=== PATIENT | female | born 1975 | race Caucasian/White ===

== ENCOUNTER → 2017-11-29 15:52 | Outpatient (CLI) | payer BC, SELFPAY ==
[2017-11-29 16:47] LABS: hCG Titer Quant., Serum < 1 mIU/mL (<9 non-preg)
== END ==
PROVIDERS: Visit Provider Obstetrics & Gynecology
DX: N93.9 Abnormal uterine and vaginal bleeding, unspecified (principal)
CPT/HCPCS: 36415; 84702

== ENCOUNTER 2018-02-01 19:00 | Observation (INO) | payer BC, SELFPAY ==
[2018-01-31] VITALS (11 sets, daily range): BP systolic 104–125; BP diastolic 60–76; PULSE 54–70; RESP 15–18; TEMP 36.1–37.4; O2SAT 96–100; BMI 20.5
--- NOTE | 2018-01-31 | HYST_PTH ---
PATIENT: PETRA NAVA LOC: MS2 U#:[id number] AGE/SX: 42/F ROOM: [id number] RE02/01/[address]: Dr. Ida Howe MD : [id number] BED: 1 DIS: 02/02/2018 SPEC #: [id number] RECD: 02/01/18 09:08 STATUS: EUGENIA REBeena #: [id number] KITA: 01/31/18 00:[address]: Ida Howe DEPT: SURGICAL PATHOLOGY RECD BY: Piotr Urbina ENTERED: 02/01/18 09:09 SP TYPE: HYSTERECT OTHR DR: No Primary Care Phys Tissues: Uterus, NOS Procedures: Surgery Specimen Level V HEADER OPERATION: Lap robotic hysterectomy, right salpingectomy PRE-OP DIAGNOSIS: Pelvis and perineal pain and submucous leiomyoma of uterus with irregular menses TISSUE SUBMITTED: Uterus, cervix, right fallopian tube MICROSCOPIC DIAGNOSIS Uterus, hysterectomy: Cervix ? squamous metaplasia and minimal chronic inflammation. Endometrium ? proliferative endometrium. Myometrium ? leiomyomas with focal degenerative change and adenomyosis. Right fallopian tube ? benign paratubal cyst. AM:cristian 02/02/18 MICROSCOPIC DESCRIPTION Slides are reviewed. GROSS DESCRIPTION Received in fixative is one container labeled with the patient's name and designated uterus, cervix, right fallopian tube. The specimen consists of a hysterectomy specimen consisting of uterus with cervix and attached right fallopian tube. The uterus with cervix weighs 158 gm and measures 10 x 7 x 6 cm. The serosal surface is ortega, glistening. The ectocervical mucosa is focally congested. The external os is circular in contour. The endocervical canal measures 3 cm in length and the endocervical mucosa is ortega, glistening and unremarkable. The endometrial cavity is compressed to one side and measures 4.5 cm in length and 2 cm in width. The endometrium is ortega, glistening without any mass lesion and measures <0.1 cm in thickness. Sections of the uterine wall reveal multiple intramural nodular masses. The largest mass measures 5 cm in diameter. Sections of these masses reveal ortega whorled cut surfaces without areas of hemorrhage, necrosis or cystic degeneration. Sections of the largest nodular mass reveal focal area of degenerative changes. The uninvolved uterine wall measures up to 2.5 cm in thickness. The right fallopian tube measures 6 cm in length and up to 1 cm in diameter. The fimbrial end is identified. Sections reveal unremarkable cut surfaces. A small paratubal cyst is also noted measuring 0.3 cm in greatest dimension. Tax Examiner sections are submitted in ten cassettes as follows: 1 - anterior cervix, 2 - posterior cervix, 3 & 4 - anterior uterine wall, 5 & 6 - posterior uterine wall, 7 ? smaller intramural nodular masses, 8 & 9 ? largest nodular mass, 10- right fallopian tube and paratubal cyst. / RITA:cristian 02/01/18 TC:1 CPT: 33597
--- NOTE | 2018-01-31 10:08 | EKG12_ITS ---
Test Reason : PRE-OP Blood Pressure : / mmHG Vent. Rate : 060 BPM Atrial Rate : 060 BPM P-R Int : 112 ms QRS Dur : 076 ms QT Int : 434 ms P-R-T Axes : 008 064 042 degrees QTc Int : 434 ms Normal sinus rhythm Normal ECG No previous ECGs available Confirmed by JEFFY CASTANO, CECY ([id number]), editor trade journal AMANDA APPLE ([id number]) on 02/03/2018 2:02:01 PM Referred By: Ida Howe Confirmed By:CECY BARDALES MD
[2018-01-31 10:14] LABS: Internal QC Validated? YES +Cl - CLEAR BKGD; Pregnancy, Urine Negative Negative
[2018-01-31 11:41] LABS: Prothrombin Time (Protime)PT. 13.6 SECONDS (11.7-14.9)
[2018-01-31 11:42] LABS: Partial Thromboplast Time 27.2 Seconds (24.1-36.2)
[2018-01-31 12:51] LABS: Anion Gap 7 (5-15); BUN 10 mg/dL (7-18); BUN/Creat Ratio 15.1 RATIO (10-20); Calcium,Total 7.9 mg/dL (8.5-10.1); Chloride 106 mmol/L (98-107); Creatinine, Serum 0.66 mg/dL (0.55-1.02); EST Glomerular Filtration Rate 105 mL/min (>60); Est Glom Filt Rate - Afr Amer 126 mL/min (>60); Glucose 74 mg/dL (74-106); Potassium 4.4 mmol/L (3.5-5.1); Sodium Level 140 mmol/L (136-145)
--- NOTE | 2018-01-31 14:58 | PCM.OPRPT ---
Problem List (1) Pelvic pain Status: Acute (2) Leiomyoma Status: Acute (3) Irregular menstrual bleeding Status: Acute Report of Operation Date of Procedure: 01/31/18 Pre-Operative Diagnosis: Pelvic pain, leiomyoma, irregular menses Surgery/Procedure Performed:: Same Description of Surgical Findings:: Uterus was sounded to approximately 10 cm and a somewhat retroflexed position. The uterus had limited mobility. There is a posterior fibroid noted of the body of the uterus. Bilateral adnexa were noted to be within normal limits. synthetic filament spinner: Opal Villareal Type of Anesthesia:: General Anesthesiologist: Heri Merrill Special Medications: Cefotetan and IV preop Specimen's removed: Cervix, uterus, right fallopian tube Drains: None Estimated Blood Loss (mL): 150 Fluids Replaced: Lactated Ringer's Description of Procedure: Patient underwent a bowel prep in the home setting. She presented the day of surgery and was to have a basic metabolic panel prior to proceeding to the OR to check for electrolyte status following a bowel preparation. Multiple samples of blood had clotted and needed to be repeated before she entered the surgical suite was a stable basic metabolic panel. Upon entering the OR suite patient was placed on the patient's sandbag for comfort purposes and monitors placed. She underwent a general anesthetic without difficulty. Patient was then prepped and draped in normal sterile fashion after she had been placed in the dorsal lithotomy position via the Agustin stirrups. Tilt test had occurred with no movement being noted. After being properly prepped and draped, the bladder had indwelling catheter placed by myself. The anterior lip of the cervix was grasped and elevated and the uterus was sounded to 10-1/2 cm and a somewhat retroflexed position. Cervical eyes was then dilated to accommodate a medium sized V care. This was secured to the cervix with 2-0 Vicryl stitches at 3 and 9:00. Once the V care was assembled to the uterus for adequate uterine manipulation all other instruments were removed from the vagina except for the Gregorio catheter. Changing gloves and moving to the top of the patient, 12 cm notation above the area of the fundus was measured for camera placement. He was at the supraumbilical site that an 8 mm trocar was placed. The camera was assembled after patient had initial trocar placement at this 8 mm site with CO2 gas inflation verified by water testing. The camera in the abdomen revealed abdominal placement. 2 additional robotic arms each being 8 mm in size were placed under direct visualization in first the left and then the right lower quadrant. An executive personal assistant port was placed at the 5 mm left upper quadrant area and the air seal 8 mm port was placed in the right upper quadrant area all under direct visualization. At this point in time the robot was then docked to the patient's side and the robotic arms attached to the left and right robotic arm and the camera arm to the camera port in the supraumbilical position. The left robotic arm became the vessel sealer the right robotic arm became the monopolar germain. At this point in time I the gowned and moved to the console of the robot to take over control normal anatomy was investigated was noted that the bowels were very inflated as had been noted upon entry of the camera into the abdominal cavity with questionable adequacy and compliance of the bowel preparation being noted. At this point in time the round ligament was grasped and the patient's left side cauterized and transected the broad ligament into anterior and posterior leaves. The uterine ovarian ligament was then cauterized and transected as well. Development of the vesicouterine peritoneum occurred. Skeletonization of the uterine vasculature occurred. Grasping and cauterization of the left uterine uterine vasculature occurred. Turning to the patient's right side the right round ligament was grasped cauterized and transected the broad ligament into anterior posterior leaves for the development of vesicouterine peritoneum occurred the right fallopian tube was then transected at the mesosalpinx area after cauterization. The right utero-ovarian ligament was cauterized and then transected with further development of the broad ligament in skeletonization of the uterine vasculature. The uterine vascular vessels were then grasped cauterized and transected on the patient's right side with grasping of the cardinal ligament on patient's right side cauterization and injected transection. The cardinal ligament the patient's left side was then grasped cauterized and transected along with the uterosacral pedicles bilaterally. At approximately 6 o'clock position the colpotomy incision was made this was carried around in a Clockwise fashion to the 12:00 region which was then connected from the back of the sixth region in a counterclockwise fashion up to the 12:00 region with complete transection of the cervix away from the vaginal cuff region. My vaginal executive personal assistant then removed the cervix uterus and right fallopian tubes through the vagina. The instruments were then changed with the left arm becoming a large grasper which is a progress in the right arm becoming the Tanner suture cut. Sequentially my executive personal assistant then passed over Vicryl sutures through the executive personal assistant port in air seal ports to az to allow a left right angle stitch to occur connecting the vaginal cuff to the uterosacral cardinal complex. The exact same stitch of a second 0 Vicryl suture was used to connect the right vaginal cuff to the uterosacral cardinal complex and hemostasis was noted. 2 additional stitches of 0 Vicryl suture were then placed at the vaginal cuff of figure in in a [id number] fashion. Hemostasis was noted for total needles were used in each was noted by the executive personal assistant to be outside of the abdomen after usage. Irrigation of the pelvis occurred. The ureters were noted to be peristalsing and away from the operative site bilaterally. At this point time the Elvia was then placed by my executive personal assistant into the pelvic region and placement onto the vaginal cuff region occurred all instruments were removed from the abdominal cavity. Sponge instrument needle counts correct ?2 after the trochars and instruments removed from the abdominal cavity and the robot was de-docked from the patient's side each of the incisions was then closed with 4-0 Monocryl suture in a subcuticular fashion once again sponge instrument counts sponge instrument and needle counts were correct ?2. Patient was awakened in stable condition taken to recovery room to be admitted for overnight care Grafts/Implants Used: None - Complications None - Admit VTE Documentation VTE Present on Admission: No VTE Mechan Device Prophylaxis: SCD's VTE Pharm Prophylaxis ordered?: No Reason prophylaxis not ordered:: Procedure Not Indicated
--- NOTE | 2018-01-31 15:08 | OP.PCM_ITS ---
Problem List (1) Pelvic pain Status: Acute (2) Leiomyoma Status: Acute (3) Irregular menstrual bleeding Status: Acute Report of Operation Date of Procedure: 01/31/18 Pre-Operative Diagnosis: Pelvic pain, leiomyoma, irregular menses Surgery/Procedure Performed:: Same Description of Surgical Findings:: Uterus was sounded to approximately 10 cm and a somewhat retroflexed position. The uterus had limited mobility. There is a posterior fibroid noted of the body of the uterus. Bilateral adnexa were noted to be within normal limits. industrial eng: Opal Villareal Type of Anesthesia:: General Anesthesiologist: Heri Merrill Special Medications: Cefotetan and IV preop Specimen's removed: Cervix, uterus, right fallopian tube Drains: None Estimated Blood Loss (mL): 150 Fluids Replaced: Lactated Ringer's Description of Procedure: Patient underwent a bowel prep in the home setting. She presented the day of surgery and was to have a basic metabolic panel prior to proceeding to the OR to check for electrolyte status following a bowel preparation. Multiple samples of blood had clotted and needed to be repeated before she entered the surgical suite was a stable basic metabolic panel. Upon entering the OR suite patient was placed on the patient's sandbag for comfort purposes and monitors placed. She underwent a general anesthetic without difficulty. Patient was then prepped and draped in normal sterile fashion after she had been placed in the dorsal lithotomy position via the Agustin stirrups. Tilt test had occurred with no movement being noted. After being properly prepped and draped, the bladder had indwelling catheter placed by myself. The anterior lip of the cervix was grasped and elevated and the uterus was sounded to 10-1/2 cm and a somewhat retroflexed position. Cervical eyes was then dilated to accommodate a medium sized V care. This was secured to the cervix with 2-0 Vicryl stitches at 3 and 9:00. Once the V care was assembled to the uterus for adequate uterine manipulation all other instruments were removed from the vagina except for the Gregorio catheter. Changing gloves and moving to the top of the patient, 12 cm notation above the area of the fundus was measured for camera placement. He was at the supraumbilical site that an 8 mm trocar was placed. The camera was assembled after patient had initial trocar placement at this 8 mm site with CO2 gas inflation verified by water testing. The camera in the abdomen revealed abdominal placement. 2 additional robotic arms each being 8 mm in size were placed under direct visualization in first the left and then the right lower quadrant. An bilingual administrative assistant port was placed at the 5 mm left upper quadrant area and the air seal 8 mm port was placed in the right upper quadrant area all under direct visualization. At this point in time the robot was then docked to the patient's side and the robotic arms attached to the left and right robotic arm and the camera arm to the camera port in the supraumbilical position. The left robotic arm became the vessel sealer the right robotic arm became the monopolar germain. At this point in time I the gowned and moved to the console of the robot to take over control normal anatomy was investigated was noted that the bowels were very inflated as had been noted upon entry of the camera into the abdominal cavity with questionable adequacy and compliance of the bowel preparation being noted. At this point in time the round ligament was grasped and the patient's left side cauterized and transected the broad ligament into anterior and posterior leaves. The uterine ovarian ligament was then cauterized and transected as well. Development of the vesicouterine peritoneum occurred. Skeletonization of the uterine vasculature occurred. Grasping and cauterization of the left uterine uterine vasculature occurred. Turning to the patient's right side the right round ligament was grasped cauterized and transected the broad ligament into anterior posterior leaves for the development of vesicouterine peritoneum occurred the right fallopian tube was then transected at the mesosalpinx area after cauterization. The right utero-ovarian ligament was cauterized and then transected with further development of the broad ligament in skeletonization of the uterine vasculature. The uterine vascular vessels were then grasped cauterized and transected on the patient's right side with grasping of the cardinal ligament on patient's right side cauterization and injected transection. The cardinal ligament the patient's left side was then grasped cauterized and transected along with the uterosacral pedicles bilaterally. At approximately 6 o'clock position the colpotomy incision was made this was carried around in a Clockwise fashion to the 12:00 region which was then connected from the back of the sixth region in a counterclockwise fashion up to the 12:00 region with complete transection of the cervix away from the vaginal cuff region. My vaginal bilingual administrative assistant then removed the cervix uterus and right fallopian tubes through the vagina. The instruments were then changed with the left arm becoming a large grasper which is a progress in the right arm becoming the Tanner suture cut. Sequentially my bilingual administrative assistant then passed over Vicryl sutures through the bilingual administrative assistant port in air seal ports to id to allow a left right angle stitch to occur connecting the vaginal cuff to the uterosacral cardinal complex. The exact same stitch of a second 0 Vicryl suture was used to connect the right vaginal cuff to the uterosacral cardinal complex and hemostasis was noted. 2 additional stitches of 0 Vicryl suture were then placed at the vaginal cuff of figure in in a [id number] fashion. Hemostasis was noted for total needles were used in each was noted by the bilingual administrative assistant to be outside of the abdomen after usage. Irrigation of the pelvis occurred. The ureters were noted to be peristalsing and away from the operative site bilaterally. At this point time the Elvia was then placed by my bilingual administrative assistant into the pelvic region and placement onto the vaginal cuff region occurred all instruments were removed from the abdominal cavity. Sponge instrument needle counts correct ?2 after the trochars and instruments removed from the abdominal cavity and the robot was de-docked from the patient's side each of the incisions was then closed with 4-0 Monocryl suture in a subcuticular fashion once again sponge instrument counts sponge instrument and needle counts were correct ?2. Patient was awakened in stable condition taken to recovery room to be admitted for overnight care Grafts/Implants Used: None - Complications None - Admit VTE Documentation VTE Present on Admission: No VTE Mechan Device Prophylaxis: SCD's VTE Pharm Prophylaxis ordered?: No Reason prophylaxis not ordered:: Procedure Not Indicated
[2018-01-31] MEDS: Lactated Ringers 1,000 ML 125 ML IV ×2 (17:02→23:56)
[2018-01-31] MEDS: Ketorolac 30 MG/ML Syringe IV ×2 (17:22→21:26)
[2018-01-31] MEDS: Morphine 2 MG/ML Syringe IV ×2 (19:04→23:56)
[2018-01-31] MEDS: Famotidine 20 MG Tablet PO (21:26)
[2018-01-31] MEDS: oxyCODONE 5 MG Tablet PO ×2 (21:36→22:44)
[2018-01-31] MEDS: Acetaminophen 500 MG Tablet 1000 MG PO (21:38)
[2018-02-01 03:00] VITALS: BP 117/78; PULSE 58; RESP 16; TEMP 37.1; O2SAT 98
[2018-02-01] MEDS: Ketorolac 30 MG/ML Syringe IV ×2 (05:02→09:45)
[2018-02-01] MEDS: Glycerin 1 Suppository 1 SUPP RECTAL ×2 (05:05→16:00)
[2018-02-01] MEDS: oxyCODONE 5 MG Tablet PO ×2 (05:09→21:09)
[2018-02-01] MEDS: Acetaminophen 500 MG Tablet 1000 MG PO ×3 (05:10→21:08)
[2018-02-01 06:38] LABS: Hematocrit 33.9 % (37-47); Hemoglobin 11.5 g/dl (12.0-15.0); Mean Corp Hgb Conc 33.9 g/gl (32-36); Mean Corpuscular Hgb 31.9 pg (27.0-32.0); Mean Corpuscular Volume 94.2 fL (81-99); Mean Platelet Vol. 10.6 fl (6.2-12.0); Platelet Count 309 K/mm3 (150-450); RBC Distribution Width CV 13.3 % (11.6-14.6); RBC Distribution Width SD 44.1 fl (35.1-43.9); White Blood Count 14.5 K/mm3 (4.4-11.0)
[2018-02-01 06:41] LABS: Scan Indicated on CBC? Y/N NO
--- NOTE | 2018-02-01 08:38 | DCINST_ITS ---
Discharge Diet: No Restrictions, - - No meat, fresh vegetables or dairy for 2 weeks following surgery. Increase water intake to a minimum of 120 ounces daily. Discharge Activity: Return to Normal Activity - Ambulate often with periods of rest in between. Limit stairs., May Not Drive - while taking narcotic pain medications., May Shower May shower in (days): 0 - TODAY May resume sexual activity in: 6-8 weeks Weight Bearing Status: Full weight bearing Lifting Restrictions: 5 Call your doctor if your incision/area has: Continuous Slow Oozing, Sudden Increased Bleeding, Increased Pain/ Swelling, Increased Redness, Foul Smelling Discharge Call your doctor if you observe: Fever of 101 or Higher, Inability to urinate, Inability to have a bowel movement, Using more than one pad per hour Remove Dressing in (days):: 0 - TODAY Cleanse incision/area with: Soap & Water Allergies/Adverse Reactions: Allergies No Known Allergies Allergy (Verified 01/24/18 15:03) Medications to take at Discharge Docusate Sodium [Colace] 100 mg PO BID #30 cap 02/01/18 Ibuprofen [Motrin] 600 mg PO Q6H #30 tab 02/01/18 Oxycodone HCl/Acetaminophen [Percocet 5/325] 1 - 2 tablet PO Q4H PRN PRN 7 Days #30 tablet 02/01/18 Phenazopyridine HCl [Pyridium] 200 mg PO Q8 #10 tab 02/01/18 The following prescriptions were given: Oxycodone HCl/Acetaminophen [Percocet 5/325] 1 - 2 tablet PO Q4H PRN PRN 7 Days #30 tablet PRN Reason: Pain Phenazopyridine HCl [Pyridium] 200 mg PO Q8 #10 tab Docusate Sodium [Colace] 100 mg PO BID #30 cap Ibuprofen [Motrin] 600 mg PO Q6H #30 tab Primary Care Physician: Care Physician,No Primary [Primary Care Provider] - Test Results: Test results from this visit will be discussed in further detail at your follow- up appointment, if applicable. Please Follow Up With: Ida Howe MD When: First postop appointment the week of February 06
[2018-02-01 09:40] VITALS: BP 124/64; PULSE 65; RESP 16; TEMP 36.9; O2SAT 100
[2018-02-01] MEDS: 0.9% NaCl Peripheral Flush Adult/Peds IV (09:44)
[2018-02-01] MEDS: Phenazopyridine 95 MG Tablet 190 MG PO ×3 (09:44→21:10)
[2018-02-01] MEDS: Famotidine 20 MG Tablet PO ×2 (09:45→21:11)
[2018-02-01 11:45] VITALS: O2SAT 98
--- NOTE | 2018-02-01 12:37 | PCM.PN.OB ---
Patient Problems: Active and Suspected Problems Pelvic pain (Acute) Leiomyoma (Acute) Irregular menstrual bleeding (Acute) Subjective: No nausea. No vomiting. No flatus production. No attempts to void yet. - Physical Exam General: Alert HEENT: PERRLA, EOMI, Normocephalic Oral: Moist Mucosa Neck: Supple Lungs: Clear to auscultation, Normal air movement Cardiovascular: Regular rate, Regular Rhythm Abdomen: Bowel Sounds Present, Non Tender, - - incision bandages dry x 5 Extremities: No cyanosis, No edema, No Calf Tenderness Skin: No rashes Musculoskeletal: No Muscle Wasting Psych/Mental Status: Normal Affect, Appropriate Vital Signs Temp Pulse Resp BP Pulse Ox 98.4 F 65 16 124/64 H 98 02/01/18 09:40 02/01/18 09:40 02/01/18 09:40 02/01/18 09:40 02/01/18 11:45 Oxygen Flow Rate (L/min) 1.5 Oxygen Delivery Method Room Air Weight: 111 lb 5.335 oz Body Mass Index (BMI) 20.5 Intake and Output for Last 24 Hours 01/30/18 01/31/18 02/01/18 23:59 23:59 23:59 Intake Total 3147 / 3147 Output Total 300 / 300 2200 / 2200 Balance -300 / -300 947 / 947 Laboratory Tests Past 24 Hrs 01/31/18 02/01/18 12:28 06:02 WBC 14.5 H RBC 3.60 L Hgb 11.5 L Hct 33.9 L MCV 94.2 MCH 31.9 MCHC 33.9 RDW 13.3 RDW Differential 44.1 H Plt Count 309 MPV 10.6 Sodium 140 Potassium 4.4 Chloride 106 Carbon Dioxide 27.0 Anion Gap 7 BUN 10 Creatinine 0.66 Estim Creat Clear Calc 85.50 Est GFR (MDRD) Af Amer 126 Est GFR (MDRD) Non-Af 105 BUN/Creatinine Ratio 15.1 Glucose 74 Calcium 7.9 L Medical Necessity - Tobacco Use Smoking Status: Never smoker Assessment/Plan All Active Problems Pelvic pain (Acute) Leiomyoma (Acute) Irregular menstrual bleeding (Acute) 1. POD #1 - robotic assisted hysterectomy with right salpingectomy ambulates well needs to void and have flatus production prior to discharge to home reviewed surgery reviewed incomplete bowel prep and postop recovery reviewed diet reviewed discharge plans
[2018-02-01 13:24] VITALS: BP 116/62; PULSE 72; RESP 18; TEMP 37; O2SAT 99
[2018-02-01] MEDS: Ketorolac 10 MG Tablet PO ×2 (16:43→21:09)
--- NOTE | 2018-02-01 16:53 | NURSING ---
Patient has ambulated at least six times in halls with significant other so far this shift.
[2018-02-01 20:56] VITALS: BP 108/66; PULSE 76; RESP 18; TEMP 37.2; O2SAT 98
--- NOTE | 2018-02-01 21:18 | NURSING ---
pt has light yello liquid bm movement x2. passes gas during bm
[2018-02-01] MEDS: Metoclopramide 10 MG/2 ML Vial IV (21:50)
[2018-02-02] MEDS: Ketorolac 10 MG Tablet PO ×2 (03:10→09:18)
[2018-02-02 03:16] VITALS: BP 112/76; PULSE 61; RESP 18; TEMP 36.6; O2SAT 97
[2018-02-02] MEDS: Acetaminophen 500 MG Tablet 1000 MG PO (05:48)
[2018-02-02] MEDS: Phenazopyridine 95 MG Tablet 190 MG PO (05:48)
[2018-02-02] MEDS: Metoclopramide 10 MG/2 ML Vial IV (05:49)
[2018-02-02] MEDS: 0.9% NaCl Peripheral Flush Adult/Peds IV (05:50)
[2018-02-02 08:06] VITALS: BP 111/71; PULSE 68; RESP 18; TEMP 37.1; O2SAT 97
[2018-02-02] MEDS: Famotidine 20 MG Tablet PO (09:17)
--- NOTE | 2018-02-02 10:26 | PCM.PN.OB ---
Patient Problems: Active and Suspected Problems Pelvic pain (Acute) Leiomyoma (Acute) Irregular menstrual bleeding (Acute) Subjective: + flatus and now remainder of bowel prep previously incomplete is releasing. No nausea. No vomiting. Continued gas discomfort. - Physical Exam General: No apparent distress, Well developed, Well nourished HEENT: PERRLA, EOMI, Normocephalic Oral: Moist Mucosa Neck: Supple Abdomen: Bowel Sounds Present, Soft, Non Tender, Non-Distended Neurological: Cranial nerves II-XII grossly intact Vital Signs Temp Pulse Resp BP Pulse Ox 98.7 F 68 18 111/71 97 02/02/18 08:06 02/02/18 08:06 02/02/18 08:06 02/02/18 08:06 02/02/18 08:06 Oxygen Flow Rate (L/min) 1.5 Oxygen Delivery Method Room Air Weight: 111 lb 5.335 oz Body Mass Index (BMI) 20.5 Intake and Output for Last 24 Hours 01/31/18 02/01/18 02/02/18 23:59 23:59 23:59 Intake Total 3947 / 3947 600 / 600 Output Total 300 / 300 3400 / 3400 800 / 800 Balance -300 / -300 547 / 547 -200 / -200 Medical Necessity - Tobacco Use Smoking Status: Never smoker Assessment/Plan All Active Problems Pelvic pain (Acute) Leiomyoma (Acute) Irregular menstrual bleeding (Acute) 1. POD #2 - robotic assisted hysterectomy with right salpingectomy ambulates well failed to complete bowel prep and inflated bowel noted at surgery loose stool noted related to bowel prep + flatus and voiding well reviewed diet reviewed discharge plans
[2018-02-02 10:36] VITALS: BP 128/70; PULSE 64; RESP 18; TEMP 36.9; O2SAT 100
== END 2018-02-02 10:50 | disposition home or self-care (01) ==
PROVIDERS: Admitting Provider Obstetrics & Gynecology; Visit Provider Obstetrics & Gynecology
PROC: 0UT94ZZ Resection of Uterus, Percutaneous Endoscopic Approach (ICD-10-PCS; CPT 58571; principal; 2018-01-31 11:40)
DX: D25.0 Submucous leiomyoma of uterus (principal); N80.0 Endometriosis of uterus; N83.8 Other noninflammatory disorders of ovary, fallopian tube and broad ligament; N87.9 Dysplasia of cervix uteri, unspecified
CPT/HCPCS: 00940; 58571; S2900; 36415; 80048; 81025; 85027; 85610; 85730; 86850; 86900; 88307; 93005; 96361; 96365; 96366; 96375; 96376; 99218; J7120; A4216; G0378; G0379; J2405

== ENCOUNTER → 2018-02-10 16:36 | Outpatient (CLI) | payer BC, SELFPAY | PROVIDERS: Visit Provider Obstetrics & Gynecology | DX: R30.0 Dysuria (principal) | CPT/HCPCS: 87086 ==

== ENCOUNTER → 2018-04-14 09:21 | Outpatient (CLI) | payer BC, SELFPAY ==
--- NOTE | 2018-04-14 09:24 | US_ITS ---
STUDY: ABDOMINAL ULTRASOUND REASON FOR EXAM: Female, 42 years old. Mid to right abdominal pain x2 months, history of hysterectomy 2 months ago TECHNIQUE: Transabdominal ultrasound was performed with real-time and static beavers scale imaging. TECHNICAL QUALITY: Adequate. COMPARISON: None. FINDINGS: Liver: The liver measures 13.1 cm. There is normal echogenicity of the liver. The bile ducts are within normal limits. There is hepatic color flow. The direction of portal flow is hepatopetal. There is no demonstrated mass lesion. Gallbladder: The gallbladder is not visualized. Common Bile Duct (C.B.D.): The common bile duct measures 3 mm. Pancreas: Normal size of the head, body and tail of the pancreas. There is normal echogenicity of the pancreas. There is no demonstrated pancreatic mass or cyst. Spleen: Normal size of the spleen. The spleen measures 8.4 x 3.5 x 3.6 cm. Right Kidney: Normal size of the right kidney. The right kidney measures 10.5 x 4.5 x 4.4 cm. Normal renal cortex. The right cortex measures 1.2 cm. There is no demonstrated renal mass or cyst. There is no right hydronephrosis. Left Kidney: Normal size of the left kidney. The left kidney measures 10.2 x 3.6 x 5.4 cm. Normal renal cortex. The left cortex measures 1.8 cm. There is no demonstrated renal mass or cyst. There is no left hydronephrosis. There is a 4 mm calcification of the left kidney. Aorta: Abdominal aorta is normal in caliber and contour, and measures 2.1 cm in diameter proximally, 1.5 cm in the mid abdominal region, and 1.2 cm in diameter distally. I.V.C.: The IVC is patent. There is no ascites. US/Abdomen Complete IMPRESSION: Nonvisualization of the gallbladder. Nonobstructing 4 mm calcification of the left kidney. The remainder of the study is unremarkable. Electronically Signed: Terrell Barclay MD at 22:03 EDT , Service support ,
--- NOTE | 2018-04-14 09:25 | US_ITS ---
STUDY: ULTRASOUND TRANSVAGINAL CLINICAL: Female, 42 years old. Mid right abdominal pain x2 months, hysterectomy 2 months ago TECHNIQUE: Transvaginal COMPARISON: Prior study of 04/06/2018 FINDINGS: Uterus is not seen in accordance with history of hysterectomy. The cervix is unremarkable. Normal right ovary, measuring 2.3 x 2.0 x 1.6 cm. Normal left ovary, measuring 3.7 x 2.7 x 2.4 cm. There is a left ovarian cyst measuring 1.7 x 1.2 x 1.5 cm. Ovarian blood flow appears normal bilaterally. There is no free fluid in the pelvis. Polycystic ovary disease: No. The bladder volume is approximately 121 mL. US/Pelvic (Non ) IMPRESSION: Status post hysterectomy. The right ovary appears normal. There is a 1.7 x 1.2 x 1.5 cm left ovarian cyst. There is no fluid in the cul-de-sac. Electronically Signed: Terrell Barclay MD at 21:59 EDT , Service support ,
--- NOTE | 2018-04-14 09:26 | US_ITS ---
STUDY: ULTRASOUND TRANSVAGINAL CLINICAL: Female, 42 years old. Mid right abdominal pain x2 months, hysterectomy 2 months ago TECHNIQUE: Transvaginal COMPARISON: Prior study of 04/06/2018 FINDINGS: Uterus is not seen in accordance with history of hysterectomy. The cervix is unremarkable. Normal right ovary, measuring 2.3 x 2.0 x 1.6 cm. Normal left ovary, measuring 3.7 x 2.7 x 2.4 cm. There is a left ovarian cyst measuring 1.7 x 1.2 x 1.5 cm. Ovarian blood flow appears normal bilaterally. There is no free fluid in the pelvis. Polycystic ovary disease: No. The bladder volume is approximately 121 mL. US/Transvaginal Non- IMPRESSION: Status post hysterectomy. The right ovary appears normal. There is a 1.7 x 1.2 x 1.5 cm left ovarian cyst. There is no fluid in the cul-de-sac. Electronically Signed: Terrell Barclay MD at 21:59 EDT , Service support ,
== END ==
PROVIDERS: Family Provider Family Medicine; PCP Family Medicine; Referring Provider Obstetrics & Gynecology; Visit Provider Obstetrics & Gynecology
DX: R10.9 Unspecified abdominal pain (principal)
CPT/HCPCS: 76700; 76830; 76856; 93976

== ENCOUNTER → 2024-06-11 | Outpatient (CLI) | payer BC, SELFPAY ==
--- NOTE | 2024-06-11 09:23 | BI_ITS ---
MAMMOGRAPHY - BILATERAL DIAGNOSTIC REASON FOR EXAM: Female, 49 years old. breast lumps PERTINENT HISTORY: Non-contributory. TECHNIQUE: Digital examination. Mediolateral oblique (MLO) and craniocaudad (CC) views of both breasts were obtained. CAD: CAD was performed on this study. COMPARISON: 02/06/2022 FINDINGS: Breast Composition: The breasts are extremely dense, which lowers the sensitivity of mammography. 2 cm oval obscured equal density mass in the retroareolar right breast at mid depth and the ultrasound is recommended for further evaluation. No dominant mass left breast. No suspicious calcifications. No other significant abnormalities are identified. BI/DIAG MAMM W/CAD, BILAT IMPRESSION: Further ultrasonographic evaluation recommended, as described above. ASSESSMENT CATEGORY: BIRADS Category 0: Incomplete. Need additional imaging evaluation. A letter regarding these results will be sent to the patient by the facility within 30 days. FOLLOW UP RECOMMENDATION: Ultrasound Recommended. (I) Approximately 10% of breast cancers are not detected by mammography. A normal mammogram should not delay biopsy of a clinically suspicious abnormality. Electronically Signed: José Ugalde MD at 10:20 EST ,
--- NOTE | 2024-06-11 09:23 | US_ITS ---
STUDY: ULTRASOUND BREAST - RIGHT REASON FOR EXAM: Female, 49 years old. Palpable mass TECHNIQUE: Axial and longitudinal images of the RIGHT breast were performed with a high resolution ultrasound transducer. # OF IMAGES: 6 COMPARISON: Diagnostic mammogram earlier today FINDINGS: RIGHT Breast: Heterogeneous back and echotexture. At 12:00, 1 cm from the nipple, ultrasound confirms a 2 cm oval parallel circumscribed anechoic mass with posterior enhancement consistent with a cyst within some dense breast parenchyma consistent with fibrocystic change.: US/Breast Limited Unilateral IMPRESSION: Ultrasound confirms rubber cystic change with a 2 cm cyst in the retroareolar right breast, corresponding to the patient''s palpable abnormality. ASSESSMENT CATEGORY: BIRADS Category 2: Benign. A letter regarding these results will be sent to the patient by the facility within 30 days. Electronically Signed: José Ugalde MD at 15:52 EST ,
== END | disposition home or self-care (01) ==
LOC: OPBI 09:21
PROVIDERS: PCP Family Medicine; Referring Provider Nurse Practitioner Family; Visit Provider Nurse Practitioner Family
DX: N60.01 Solitary cyst of right breast (principal)
CPT/HCPCS: 76642; 77062; 77066; G0279

== ENCOUNTER 2024-06-20 10:45 | Outpatient (CLI) | payer BC, SELFPAY ==
--- NOTE | 2024-06-20 10:49 | US_ITS ---
STUDY: ULTRASOUND BREAST - LEFT REASON FOR EXAM: Female, 49 years old. Palpable lump left breast. TECHNIQUE: Axial and longitudinal images of the LEFT breast were performed with a high resolution ultrasound transducer. # OF IMAGES: 41 COMPARISON: Comparison is made with prior mammogram dated June 11, 2024. FINDINGS: LEFT Breast: The medial aspect of the left breast was examined with ultrasound. There is dense fibroglandular tissue. No cystic or solid mass is seen. US/Breast Limited Unilateral IMPRESSION: No sonographic abnormality is seen. ASSESSMENT CATEGORY: BIRADS Category 1: Negative. A letter regarding these results will be sent to the patient by the facility within 30 days. Electronically Signed: Desmond Luciano MD at 13:58 EST ,
== END 2024-06-20 23:59 | disposition home or self-care (01) ==
LOC: OPUS 10:47
PROVIDERS: PCP Family Medicine; Referring Provider Nurse Practitioner Family; Visit Provider Nurse Practitioner Family
DX: N63.20 Unspecified lump in the left breast, unspecified quadrant (principal); R92.8 Other abnormal and inconclusive findings on diagnostic imaging of breast
CPT/HCPCS: 76642

== ENCOUNTER → 2025-07-01 | Outpatient (CLI) | payer BC, SELFPAY ==
--- NOTE | 2025-07-01 15:30 | BI_ITS ---
EXAM: SCRN MAMM (CAD)W/MILI BILAT DATE: 07/01/2025 CLINICAL HISTORY: F, Age 50 y/o , SCREEN FOR BREAST CANCER TECHNIQUE: Procedure Code: [id number] Modality: MG Procedure: SCRN MAMM (CAD)W/MILI BILAT COMPARISON: Prior exam(s) dated 06/11/2024 and 06/20/2024. FINDINGS: TISSUE DENSITY: The breasts are extremely dense, which lowers the sensitivity of mammography. Bilateral Breast Mammographic Findings: There is a 3 cm mass in the superior, middle 3rd aspect of the right breast which has increased in size when compared to the prior exam. Further workup is indicated. Stable nodular densities are seen elsewhere in the right breast. Benign round microcalcifications are seen. Stable nodular densities are seen in the left breast. Benign round microcalcifications are seen in the left breast. No suspicious masses, suspicious cluster of microcalcifications, architectural distortion or secondary signs of malignancy is identified in the left breast. BI/SCRN MAMM (CAD)W/MILI BILAT IMPRESSION: There is a 3 cm mass in the superior, middle 3rd aspect of the right breast whi ch has increased in size when compared to the prior exam. Further workup is indicated. Patient should return for an LM view of the right breast as well as spot compre ssion CC and spot compression MLO views of the right breast mass. An ultrasound may also be needed. OVERALL FINAL ASSESSMENT BI-RADS 0: INCOMPLETE - NEED ADDITIONAL IMAGING EVALUATION. RECOMMENDATION: Additional Views obtained/call backs Additional Recommendation none A letter with findings and recommendations will be mailed to the patient. Reading Location: [id number]
--- OUTSIDE RECORDS SUMMARY | 2025-07-01 20:37 | XMS RPT_ITS | CCD ---
Author Organization [facility] Care Team Providers Care Manager Qa Name Role Phone Colin Hennessy Unavailable Unavailable Hennessy, Colin A Unavailable Unavailable Ida Howe Unavailable Unavailable Ida Howe Unavailable Unavailable No Doctor Assigned, Nodr Unavailable Unavail able Reilly Connell Unavailable Unavailable No Doctor Assigned, Nodr Unavailable Unavail able EFREN EGAN Admitting Unavailable ROROEFREN KELSEY Referring Unavailable NO, PHYSICIAN Primary Care Unavailable Reilly Connell Primary Care Provider [phone] CAROLINE CANDELARIA Admitting Unavailabl e KOCAROLINE SUAREZ Attending Unavailabl e STENCEL, REILLY LEAHY Primary Care Unavailab le KOVACCAROLINE Coleman Admitting Unavailabl e STENCEL, REILLY LEAHY Primary Care Unavailab le RUSTAM CASTRO Attending Unavailable Reilly Connell Primary Care Provider [phone] Reilly Connell Unavailable Unavailable Unavailable CAROLINE CANDELARIA Admitting Unavailabl e EMELIA TREJO Attending Unavailable CAROLINE CANDELARIA Referring Unavailabl e STENCEL, REILLY LEAHY Primary Care Unavailab le KOVACKCAROLINE Admitting Unavailabl e TRA GASTELUM Attending Unavailable CAROLINE CANDELARIA Referring Unavailabl e STENCEL, REILLY LEAHY Primary Care Unavailab le STENCEL, REILLY LEAHY Primary Care Unavailab le RILEY VALLE Attending Unavailable Stencel, Reilly Leahy Primary Care Unavailab le Stencel, Reilly Leahy Attending Unavailab le Stencel, Reilly Leahy Referring Unavailab le Stencel, Reilly Leahy Primary Care Unavailab le Reilly Torre Attending Unavailable Stencel, Reilly Leahy Referring Unavailab le FarrierCarli Attending Unavailable FarrierCarli Referring Unavailable Stencel, Reilly Leahy Primary Care Unavailab le Stencel, Reilly Leahy Primary Care Unavailab le Torre, Reilly Phillips Attending Unavailable Torre, Reilly Phillips Referring Unavailable Stencel, Reilly Leahy Primary Care Unavailab le Torre, Reilly Phillips Attending Unavailable Torre, Reilly Phillips Referring Unavailable Stencel, Reilly Leahy Primary Care Unavailab le Stencel, Reilly Leahy Attending Unavailab le Stencel, Reilly Leahy Referring Unavailab le Stencel, Reilly Leahy Primary Care Unavailab le Jamin, Rowena Moya Attending Unavailab le Apple, Brandi Greer Attending Unavailab le Stencel, Reilly Leahy Primary Care Unavailab le Torre, Reilly Phillips Attending Unavailable Stencel, Reilly Leahy Primary Care Unavailab le Stencel, Reilly Leahy Primary Care Unavailab le Stencel, Reilly Leahy Attending Unavailab le Stencel, Reilly Leahy Primary Care Unavailab le Stencel, Reilly Leahy Attending Unavailab le Stencel, Reilly Leahy Primary Care Unavailab le Farrier, Ms. Carli Phillips Attending Unavaila ble Stencel, Reilly Leahy Primary Care Unavailab le Jamin, Rowena Moya Attending Unavailab le Jamin, Rowena Moya Attending Unavailab le Stencel, Reilly Leahy Primary Care Unavailab le Jamin, Rowena Moya Attending Unavailab le Stencel, Reilly Leahy Primary Care Unavailab le Jamin, Rowena Moya Attending Unavailab le Stencel, Reilly Leahy Primary Care Unavailab le Stencel, Reilly Leahy Primary Care Unavailab le Jamin, Rowena Moya Attending Unavailab le Stencel, Reilly Leahy Primary Care Unavailab le Jamin, Rowena Moya Attending Unavailab le Stencel, Reilly Leahy Primary Care Unavailab le Jamin, Rowena Moya Attending Unavailab le Stencel, Reilly Leahy Primary Care Unavailab le Jamin, Rowena Moya Attending Unavailab le Stencel, Reilly Leahy Primary Care Unavailab le Jamin, Rowena Moya Attending Unavailab le Stencel Reilly CASTANO Primary Care Provider [phone] Errol Hernandez MD Unavailable Reilly Connell MD Primary Care Provider Nydia Johnson Referring Unavailable Stencel, Reilly Primary Care Unavailable Nydia Johnson Attending Unavailable Nydia Johnson Referring Unavailable Stencel, Reilly Primary Care Unavailable Nydia Johnson Attending Unavailable Stencel, Reilly Primary Care Unavailable Stencel, Reilly Referring Unavailable Nydia Johnson Attending Unavailable Stencel, Reilly Primary Care Unavailable Stencel, Reilly Referring Unavailable Nydia Johnson Attending Unavailable YEATERERROL Attending Unavailable STENCEL, REILLY Woodall Primary Care Unavailable STENCEL, REILLY Woodall Attending Unavailable STENCEL, REILLY Woodall Primary Care Unavailable STENCEL, REILLY Woodall Primary Care Unavailable STENCEL, REILLY Woodall Referring Unavailable STENJOHANNA, REILLY Woodall Primary Care Unavailable Reilly Connell MD Primary Care Provider SYSTEM, PROVIDER NOT IN Attending Unavaila ble STENCEL, REILLY LEAHY Primary Care Unavailab le SYSTEM, PROVIDER NOT IN Referring Unavaila ble STENCEL, REILLY LEAHY Primary Care Unavailab le SYSTEM, PROVIDER NOT IN Referring Unavaila ble SYSTEM, PROVIDER NOT IN Attending Unavaila ble WRAYMAGALY DILLON Attending Unavailable STENCEL, REILLY LEAHY Primary Care Unavailab le MAGALY WRAY Attending Unavailable STENCEL, REILLY LEAHY Primary Care Unavailab le ANNETTE MCKEON Attending Unavailable STENCEL, REILLY LEAHY Primary Care Unavailab le STENCEL, REILLY LEAHY Primary Care Unavailab le AMINTA ANTUNEZ Attending Unavailab le Medications Current Medications Medication Drug Class(es) Dates Sig (Normalized) Sig (Original) acetaminophen 325 mg / oxyCODONE hydrochloride 5 mg oral tablet (4 sources) Opioid Agonist Start: 02-06-2020 End: 02-13-2020 take 1 tablet by mouth once as needed for pain, then take 2 tablets by mouth every four hours as needed for pain oxyCODONE-acetamin ophen (PERCOCET) 5-325 mg per tablet Indications: Left shoulder pain, unspecified chronicity Take 1 (one) tablet to 2 (two) tablets by mouth every 4 (four) hours as needed for pain . 40 tablet 0 02/06/2020 02/13/2020 Active Start: 12-01-2016 End: 12-06-2019 take 5 tablets by mouth every four hours as needed oxyCODONE-acetaminophen (PERCOCET) 5-325 mg per tablet Take 5 tablets by mouth every 4 (four) hours as needed for pain. 0 12/01/2016 12/06/2019 Discontinued (Discontinued by another clinician) amoxicillin 875 mg / clavulanate 125 mg oral tablet (1 source) Penicillin-class Antibacterial Start: 08-24-2023 End: 09-03-2023 take 1 tablet by mouth twice daily amoxicillin-pot clavulanate (Augmentin) 875-125 mg tablet Indications: Bacterial pneumonia Take 1 tablet (875 mg) by mouth 2 times a day for 10 days. 20 tablet 0 08/24/2023 09/03/2023 Active benzonatate 100 mg oral capsule (1 source) Non-narcotic Antitussive Start: 08-24-2023 End: 09-23-2023 take 1 capsule by mouth three times daily as needed for cough benzonatate (Tessalon) 100 mg capsule Indications: Subacute cough Take 1 capsule (100 mg) by mouth 3 times a day as needed for cough. Do not crush or chew. 42 capsule 0 08/24/2023 09/23/2023 Active cephalexin 500 mg oral capsule (1 source) Cephalosporin Antibacterial Start: 02-06-2020 End: 02-09-2020 take 1 capsule by mouth four times daily cephALEXin (KEFLEX) 500 MG capsule Take 1 (one) capsule (500 mg total) by mouth 4 (four) times a day for 3 days . 12 capsule 0 02/06/2020 02/09/2020 Active docusate sodium 100 mg oral capsule (1 source) Start: 02-06-2020 End: 02-16-2020 take 1 capsule by mouth twice daily docusate sodium (COLACE) 100 MG capsule Take 1 (one) capsule (100 mg total) by mouth 2 (two) times a day Purchase over the counter Do not take if you start to have diarrhea for 10 days . 20 capsule 0 02/06/2020 02/16/2020 Active ibuprofen 600 mg oral tablet (20 sources) Nonsteroidal Anti-inflammatory Drug Start: 08-12-2024 take 1 tablet by mouth every six hours for pain ibuprofen 600 mg tablet Indications: Knee effusion, left , Sprain of left knee, initial encounter Take 1 tablet (600 mg) by mouth every 6 hours if needed for moderate pain (4 - 6) for up to 30 doses. 30 tablet 08/12/2024 Active take 1 tablet by jose th every six hours as needed for pain ibuprofen (ADVIL,MOTRIN) 200 MG tablet T yasmin 1 (one) tablet (200 mg total) by mouth every 6 (six) hours as needed for pain . Active Completed/Discontinued Medications Medication Drug Class(es) Dates Sig (Normalized) Sig (Original) acetaminophen 325 mg / dextromethorphan hydrobromide 10 mg / phenylephrine hydrochloride 5 mg oral capsule (3 sources) Uncompetitive B-lvnkvn-L-aspartat e Receptor Antagonist, Sigma-1 Agonist, alpha-1 Adrenergic Agonist End: 08-13-2024 phenylephrine-DM- acetaminophen (Vicks DayQuil Cold-Flu Relief) 5-10-325 mg capsule 08/13/2024 Discontinued (Med List Cleanup) [id number] 200 actuat albuterol 0.09 mg/actuat metered dose inhaler (3 sources) beta2-Adrenergic Agonist Start: 08-24-2023 End: 08-23-2024 take 2 puff(s) by inhalation every six hours for wheezing albuterol 90 mcg/actuation inhaler Indications: Subacute cough Inhale 2 puffs every 6 hours if needed for wheezing. 18 g 11 08/24/2023 08/13/2024 Discontinued (Therapy completed) azithromycin 250 mg oral tablet (3 sources) Macrolide Antimicrobial Start: 08-22-2023 End: 08-13-2024 take 1 tablet by mouth once daily azithromycin (Zithromax) 250 mg tablet Take 1 tablet (250 mg) by mouth once daily. 08/22/2023 08/13/2024 Discontinued (Therapy completed) bupivacaine liposome (PF) (EXPAREL) 133 mg/10 mL + 0.5% bupivacaine (PF) (MARCAINE) 10 mL (20 mL TOTAL) (1 source) Start: 02-06-2020 End: 02-06-2020 bupivacaine liposome (PF) (EXPAREL) 133 mg/10 mL + 0.5% bupivacaine (PF) (MARCAINE) 10 mL (20 mL TOTAL) calcium chloride 0.0014 meq/ml / potassium chloride 0.004 meq/ml / sodium chloride 0.103 meq/ml / sodium lactate 0.028 meq/ml injectable solution (2 sources) Start: 02-06-2020 End: 02-06-2020 take 100 mL intravenous route every hour 100 mL/hr, Intravenous, Continuous, Starting Tue02/06/20 at 1300, PACU (only) Start: 02-06-2020 End: 02-06-2020 lactated Ringers infusion DM/p-ephed/acetaminoph/doxyl am (VICKS NYQUIL ORAL) (3 sources) End: 08-13-2024 DM/p-ephed/acetaminoph/doxyl am (VICKS NYQUIL ORAL) Take by mouth. 08/13/2024 Discontinued (Therapy completed) DM/p-ephed/aceta minoph/doxylam (VICKS NYQUIL ORAL) Take by mouth. Active DM/p-ephed/aceta minoph/doxylam (VICKS NYQUIL ORAL) Take by mouth. 0 Active 20 ml fentaNYL 0.05 mg/ml injection (2 sources) Opioid Agonist Start: 02-06-2020 End: 02-06-2020 25 mcg, Intravenous, Every 5 min PRN, moderate to severe pain, Starting Tue02/06/20 at 1200, For 4 doses, PACU (only) [] Do not give more than 100 mcg while in PACU. Start: 02-06-2020 End: 02-06-2020 100 mcg, Intravenous, Once, Tue02/06/20 at 0800, For 1 dose, Pre-Procedure Pre-procedure for nerve block. May repeat in 5 minutes x 1 if sedation inadequate to perform block. guaiFENesin 20 mg/ml oral solution (3 sources) End: 08-13-2024 take 10 mL by mouth three times daily as needed for cough guaiFENesin (Robitussin) 100 mg/5 mL syrup Take 10 mL (200 mg) by mouth 3 times a day as needed for cough. 08/13/2024 Discontinued (Therapy completed) 0.5 ml HYDROmorphone hydrochloride 1 mg/ml prefilled syringe (1 source) Opioid Agonist Start: 02-06-2020 End: 02-06-2020 0.5 mg, Intravenous, Every 5 min PRN, moderate to severe pain, Starting Tue02/06/20 at 1200, For 6 doses, PACU (only) [] Give if fentanyl not effective or not ordered. [] Do not give more than 3 mg total. Lidocaine (1 source) Antiarrhythmic, Amide Local Anesthetic Start: 02-06-2020 End: 02-06-2020 5 mL, Other, Once, Tue02/06/20 at 0800, For 1 dose, Pre-Procedure [] for anesthesia block administration meloxicam 15 mg oral tablet (16 sources) Nonsteroidal Anti-inflammatory Drug Start: 01-18-2022 take 1 tablet by mouth once daily Meloxicam 15 MG Oral Tablet TAKE 1 TABLET DAILY. Quantity: 30 Refills: 3 Ordered: 04-Aug-2021 Reilly Torre DO Start : 04-Aug-2021 Active 5 ml midazolam 1 mg/ml injection (1 source) Benzodiazepine Start: 02-06-2020 End: 02-06-2020 2 mg, Intravenous, Once, Tue02/06/20 at 0800, For 1 dose, Pre-Procedure Pre-pro cedure for nerve block. May repeat in 5 minutes x 1 if sedation inadequate to perform block. naloxone (NARCAN) injection 0.1 mg (2 sources) Start: 02-06-2020 End: 02-06-2020 naloxone (NARCAN) injection 0.1 mg Start: 02-06-2020 End: 02-06-2020 naloxone (NARCAN) injection 0.1 mg 2 ml ondansetron 2 mg/ml injection (1 source) Serotonin-3 Receptor Antagonist Start: 02-06-2020 End: 02-06-2020 4 mg, Intravenous, Every 15 min PRN, nausea, vomiting, Starting Tue02/06/20 at 1200, For 2 doses, PACU (only) Do not give more than 2 doses. Administer first as needed for nausea/vomiting, or as directed by anesthesia predniSONE 20 mg oral tablet (20 sources) Start: 08-24-2023 End: 08-24-2023 take 1 tablet by mouth once daily predniSONE (Deltasone) 20 mg tablet Indications: Flu-like symptoms Take 1 tablet (20 mg) by mouth once daily for 5 days. 5 tablet 0 08/24/2023 08/24/2023 Discontinued (Med List Cleanup) Start: 06-24-2021 take 4 tablets by [facility] once daily at mealtime predniSONE 10 MG Oral Tablet TAKE 4 TABLET Daily TAKE WITH FOOD Quantity: 20 Refills: 0 Ordered: 24-Jun-2021 Reilly Connell MD Start : 24-Jun-2021 Active 2 ml prochlorperazine 5 mg/ml injection (1 source) Phenothiazine Start: 02-06-2020 End: 02-06-2020 take 10 mg intravenous route every twenty-four hours as needed 10 mg, Intravenous, Once as needed, nausea, Starting Tue02/06/20 at 1200, For 1 dose, PACU (only) Administer if ondansetron (Zofran), promethazine (Phenergan), and Metocolopramide (Reglan) ineffective or not ordered, or as directed by anesthesia, as needed for nausea/vomiting promethazine hydrochloride 25 mg oral tablet (1 source) Phenothiazine Start: 02-06-2020 End: 02-06-2020 take 1 tablet by mouth every twenty-four hours as needed 12.5 mg, Oral, Once as needed, nausea, vomiting, Starting Tue02/06/20 at 1200, For 1 dose, PACU (only) Administer if ondansetron (Zofran) ineffective or not ordered, and patient can tolerate oral administration, or as directed by anesthesia, as needed for nausea/vomiting Problems Active Problems Problem Classification Problem Date Documented Date Episodic/Chronic Acute bronchitis (20 sources) Acute bronchitis; Translations: [Acute bronchitis] Episodic Joint disorders and dislocations; trauma-related (8 sources) Derangement of left knee; Translations: [Unspecified internal derangement of left knee] Onset: 08-13-2024 08-13-2024 Chronic Nonmalignant breast conditions (3 sources) Unspecified lump in the left breast, unspecified quadrant; Translations: [Unspecified lump in the right breast, unspecified quadrant] Onset: 05-30-2024 Episodic Other connective tissue disease (20 sources) Pain in left lower limb; Translations: [Pain in limb] Episodic Other connective tissue disease (15 sources) Lateral epicondylitis of left humerus; Translations: [Lateral epicondylitis] Episodic Other connective tissue disease (1 source) Lateral epicondylitis, left elbow; Translations: [Lateral epicondylitis, left elbow] Onset: 04-29-2022 Episodic Other connective tissue disease (3 sources) Impingement syndrome of right shoulder region; Translations: [Impingement syndrome of right shoulder] Other connective tissue disease (20 sources) Calcific tendinitis of left shoulder; Translations: [Calcific tendonitis of left shoulder] Onset: 10-27-2016 10-27-2016 Other injuries and conditions due to external causes (1 source) Injury of superior glenoid labrum of shoulder joint; Translations: [Superior glenoid labrum lesion of right shoulder, initial encounter] Episodic Other lower respiratory disease (1 source) Cough; Translations: [Subacute cough] 08-24-2023 Episodic Other non-traumatic joint disorders (1 source) Effusion of joint of left knee; Translations: [Effusion, left knee] 08-12-2024 Episodic Other non-traumatic joint disorders (2 sources) Effusion, left knee; Translations: [Effusion, left knee] Onset: 08-12-2024 Episodic Other non-traumatic joint disorders (1 source) 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; Translations: [Arthritis of right shoulder region] Residual codes; unclassified (20 sources) History of repair of musculotendinous cuff of shoulder; Translations: [S/P right rotator cuff repair] Onset: 02-25-2020 02-25-2020 Episodic Residual codes; unclassified (1 source) Viral syndrome; Translations: [Other general symptoms and signs] 08-24-2023 Episodic Residual codes; unclassified (2 sources) Pain Onset: 08-21-2024 Episodic Sprains and strains (9 sources) Strain of rotator cuff capsule; Translations: [Sprain of left knee] Onset: 08-12-2024 08-12-2024 Episodic Unclassified (1 source) Subacute cough; Translations: [Subacute cough] Onset: 08-24-2023 Unclassified (1 source) Sprain of medial collateral ligament of left knee, initial encounter 09-20-2024 Past or Other Problems Problem Classification Problem Date Documented Date Episodic/Chronic Other connective tissue disease (6 sources) Pain in left leg; Translations: [Pain in left leg] Onset: 06-24-2021 Episodic Other connective tissue disease (1 source) Pain in leg, unspecified; Translations: [Pain in leg, unspecified] Onset: 06-24-2021 Episodic Other connective tissue disease (4 sources) Calcific tendinitis of left shoulder; Translations: [Calcific tendinitis of left shoulder] Onset: 10-27-2016 10-27-2016 Episodic Other non-traumatic joint disorders (20 sources) Shoulder pain; Translations: [Left shoulder pain] Onset: 09-29-2016 09-29-2016 Episodic Other non-traumatic joint disorders (2 sources) Pain in left elbow; Translations: [Pain in left elbow] Onset: 12-01-2021 Episodic Other non-traumatic joint disorders (2 sources) Pain in right elbow; Translations: [Pain in right elbow] Onset: 12-01-2021 Episodic Other non-traumatic joint disorders (1 source) Pain in left knee; Translations: [Pain in left knee] Onset: 08-24-2021 Episodic Other non-traumatic joint disorders (1 source) Pain in left hip; Translations: [Pain in left hip] Onset: 06-24-2021 Episodic Other non-traumatic joint disorders (4 sources) Pain in left shoulder; Translations: [Pain in joint, shoulder region] Onset: 09-29-2016 09-29-2016 Episodic Other screening for suspected conditions (not mental disorders or infectious disease) (4 sources) Encounter for screening mammogram for malignant neoplasm of breast; Translations: [Encntr screen mammogram for malignant neoplasm of breast] Onset: 02-06-2022 Episodic Pneumonia (except that caused by tuberculosis or sexually transmitted disease) (3 sources) Bacterial pneumonia; Translations: [Unspecified bacterial pneumonia] Onset: 08-24-2023 08-24-2023 Episodic Residual codes; unclassified (20 sources) History of arthroscopic procedure on shoulder; Translations: [Other specified postprocedural states] Onset: 02-25-2020 02-25-2020 Episodic Residual codes; unclassified (2 sources) Other general symptoms and signs; Translations: [Other general symptoms and signs] Onset: 08-24-2023 Episodic Unclassified (1 source) Subacute cough; Translations: [Subacute cough] Onset: 08-24-2023 Results Test Name Value Interpretation Reference Range Facility MR KNEE LEFT WO IV CONTRASTo n 08-15-2024 MR KNEE LEFT WO IV CONTRAST Interpreted By: Cornel Brasher, STUDY: MR KNEE LEFT WO IV CONTRAST; INDICATION: Signs/Symptoms:tender medial joint line. COMPARISON: Plain film radiographs of the left knee performed August 12, 2024 Previous MRI left knee August 24, 2021 ACCESSION NUMBER(S): [id number] ORDERING CLINICIAN: REILLY CONNELL TECHNIQUE: Routine multiplanar multisequential MRI of the left knee without contrast. FINDINGS: Lateral meniscus intact. Medial meniscus intact. Anterior cruciate ligament normal. Posterior cruciate ligament normal. Extensor tendons are normal. There is a new mild sprain of the medial collateral ligament with some thickening and edema of the anterior fibers with adjacent superficial edema but no gross fiber disruption. No focal chondral defects. No large effusion. No focal fluid collections. No evidence of a soft tissue mass. No evidence of fracture. No marrow replacement lesion. IMPRESSION: Mild sprain of the medial collateral ligament. No other internal derangement left knee. Signed by: Cornel Brasher 08/16/2024 6:42 AM Dictation workstation: [id number] [facility] XR KNEE LEFT 1-2 VIEWSon XR KNEE LEFT 1-2 VIEWS Interpreted By: Andrew Hyman, STUDY: XR KNEE LEFT 1-2 VIEWS 08/12/2024 11:29 am INDICATION: Signs/Symptoms:pain COMPARISON: None. ACCESSION NUMBER(S): [id number] ORDERING CLINICIAN: ERROL ESTRADA TECHNIQUE: 2 views of the left knee including AP and lateral projections were obtained. FINDINGS: There is no evidence of acute fracture or dislocation identified. The joint spaces are well preserved throughout without significant degenerative changes. No suprapatellar joint effusion is present. IMPRESSION: 1. No acute fracture or dislocation. MACRO: None. Signed by: Andrew Hyman 08/12/2024 11:32 AM Dictation workstation: [id number] [facility] XR Knee - left 1 or 2 Viewso n 08-12-2024 1. No acute fracture or dislocation. MACRO: None. Signed by: Andrew Hyman 08/12/2024 11:32 AM Dictation workstation: [id number] [facility]ODAL Interpreted By: Andrew Ritchie, STUDY: XR KNEE LEFT 1-2 VIEWS 08/12/2024 11:29 am INDICATION: Signs/Symptoms:pain COMPARISON: None. ACCESSION NUMBER(S): [id number] ORDERING CLINICIAN: ERROL ESTRADA TECHNIQUE: 2 views of the left knee including AP and lateral projections were obtained. FINDINGS: There is no evidence of acute fracture or dislocation identified. The joint spaces are well preserved throughout without significant degenerative changes. No suprapatellar joint effusion is present. [facility]AL Andrew Hyman MD - 08/12/2024 Interpreted By: Andrew Hyman, STUDY: XR KNEE LEFT 1-2 VIEWS 08/12/2024 11:29 am INDICATION: Signs/Symptoms:pain COMPARISON: None. ACCESSION NUMBER(S): [id number] ORDERING CLINICIAN: ERROL ESTRADA TECHNIQUE: 2 views of the left knee including AP and lateral projections were obtained. FINDINGS: There is no evidence of acute fracture or dislocation identified. The joint spaces are well preserved throughout without significant degenerative changes. No suprapatellar joint effusion is present. IMPRESSION: 1. No acute fracture or dislocation. MACRO: None. Signed by: Andrew Hyman 08/12/2024 11:32 AM Dictation workstation: [id number] [facility] Work Phone: Radiology Study observation (narrative) [facility] Work Phone: XR Knee - left 1 or 2 ViewsO rdered By: Andrew Hyman on 08-12-2024 [facility] Work Phone: Breast Limited Unilateralon 06-20-2024 Breast Limited Unilateral [facility] Imaging Services [address] [place] [id number] Breast Limited Unilateral MR#: [id number] Acct: [id number] Name: ROULA WADSWORTH Rep #: [id number] : 1975 F 49 From: Desmond ledesma MD PCP: Dr. Reilly Connell MD Status: [facility] Study: Breast Limited Unilateral Date of Exam: Exam# [id number] Ordering Dr: Nydia Johnson MACHINING SUPERVISOR-Wolf [id number] STUDY: ULTRASOUND BREAST - LEFT REASON FOR EXAM: Female, 49 years old. Palpable lump left breast. TECHNIQUE: Axial and longitudinal images of the LEFT breast were performed with a high resolution ultrasound transducer. # OF IMAGES: 41 COMPARISON: Comparison is made with prior mammogram dated June 11, 2024. FINDINGS: LEFT Breast: The medial aspect of the left breast was examined with ultrasound. There is dense fibroglandular tissue. No cystic or solid mass is seen. US/Breast Limited Unilateral IMPRESSION: No sonographic abnormality is seen. ASSESSMENT CATEGORY: BIRADS Category 1: Negative. A letter regarding these results will be sent to the patient by the facility within 30 days. Electronically Signed: Desmond Luciano MD at 13:58 EST , CC: PATTI Johnson; Dr. Reilly Connell MD Sales Consultant Residential Manager: Signed Normal [facility] Breast Limited Unilateralon 06-11-2024 Breast Limited Unilateral [facility] Imaging Services [address] [place] [address] Breast Limited Unilateral MR#: [id number] Acct: [id number] Name: ROULA WADSWORTH Rep #: [id number] : 1975 F 49 From: Michelle Ugalde MD PCP: Dr. Reilly Connell MD [facility] Study: Breast Limited Unilateral Date of Exam: Exam# [id number] Ordering Dr: Nydia Johnson MACHINING SUPERVISORMichaelC ADDENDUM by Dr. Michelle Ugalde MD on 06/18/24 at 0822 ADDENDUM [id number] Ultrasound of the palpable abnormality in the left breast will be obtained. Electronically Signed: Michelle Ugalde MD at 8:22 EST , 06/18/24 0822 Date cc: PATTI Johnson; Dr. Reilly Connell MD * Signed ADDENDUM by Dr. Michelle Ugalde MD on 06/18/24 at 0822 US/Breast Limited Unilateral IMPRESSION: undefined 06/18/24 0829 Date cc: PATTI Johnson; Dr. Reilly Connell MD * Signed [id number] STUDY: ULTRASOUND BREAST - RIGHT REASON FOR EXAM: Female, 49 years old. Palpable mass TECHNIQUE: Axial and longitudinal images of the RIGHT breast were performed with a high resolution ultrasound transducer. # OF IMAGES: 6 COMPARISON: Diagnostic mammogram earlier today FINDINGS: RIGHT Breast: Heterogeneous back and echotexture. At 12:00, 1 cm from the nipple, ultrasound confirms a 2 cm oval parallel circumscribed anechoic mass with posterior enhancement consistent with a cyst within some dense breast parenchyma consistent with fibrocystic change.: US/Breast Limited Unilateral IMPRESSION: Ultrasound confirms rubber cystic change with a 2 cm cyst in the retroareolar right breast, corresponding to the patient''s palpable abnormality. ASSESSMENT CATEGORY: BIRADS Category 2: Benign. A letter regarding these results will be sent to the patient by the facility within 30 days. Electronically Signed: Michelle Ugalde MD at 15:52 EST , CC: PATTI Johnson; Dr. Reilly Connell MD Sales Consultant Residential Manager: Signed Normal [facility] DIAG MAMM W/CAD, BILATon DIAG MAMM W/CAD, BILAT [facility] Imaging Services [address] [place] [address] DIAG MAMM W/CAD, BILAT MR#: [id number] Acct: [id number] Name: ROULA WADSWORTH Rep #: [id number] : 1975 F 49 From: Michelle Ugalde MD PCP: Dr. Reilly Connell MD [facility] Study: DIAG MAMM W/CAD, BILAT Date of Exam: 06/11/24 Exam# [id number] Ordering Dr: Nydia Johnson ADDENDUM by Dr. Michelle Ugalde MD on 06/18/24 at 0821 ADDENDUM [id number] Ultrasound of the palpable abnormality in left breast will be obtained. Electronically Signed: Michelle Ugalde MD at 8:21 EST , 06/18/24 0821 Date cc: PATTI Johnson; Dr. Reilly Connell MD * Signed ADDENDUM by Dr. Michelle Ugalde MD on 06/18/24 at 0821 BI/DIAG MAMM W/CAD, BILAT IMPRESSION: undefined 06/18/24 0828 Date cc: PATTI Johnson; Dr. Reilly Connell MD * Signed [id number] MAMMOGRAPHY - BILATERAL DIAGNOSTIC REASON FOR EXAM: Female, 49 years old. breast lumps PERTINENT HISTORY: Non-contributory. TECHNIQUE: Digital examination. Mediolateral oblique (MLO) and craniocaudad (CC) views of both breasts were obtained. CAD: CAD was performed on this study. COMPARISON: 02/06/2022 FINDINGS: Breast Composition: The breasts are extremely dense, which lowers the sensitivity of mammography. 2 cm oval obscured equal density mass in the retroareolar right breast at mid depth and the ultrasound is recommended for further evaluation. No dominant mass left breast. No suspicious calcifications. No other significant abnormalities are identified. BI/DIAG MAMM W/CAD, BILAT IMPRESSION: Further ultrasonographic evaluation recommended, as described above. ASSESSMENT CATEGORY: BIRADS Category 0: Incomplete. Need additional imaging evaluation. A letter regarding these results will be sent to the patient by the facility within 30 days. FOLLOW UP RECOMMENDATION: Ultrasound Recommended. (I) Approximately 10% of breast cancers are not detected by mammography. A normal mammogram should not delay biopsy of a clinically suspicious abnormality. Electronically Signed: Michelle Ugalde MD at 10:20 EST , CC: PATTI Johnson; Dr. Reilly Connell MD Sales Consultant Residential Manager: Signed Normal [facility] Supervisor [employer] Office Visit Reporton 05-30-2024 Supervisor [employer] Office Visit Report [facility] [address], [address] [place] [address] OFFICE VISIT Date of Service: 05/30/24 MR#: [id number] Acct: [id number] Name: ROULA WADSWORTH Rep #: [id number] : 1975 Provider: PATTI Stark Age/Sex: 49/F [place] [facility] [place] Signed with Addenda ADDENDUM by PATTI Johnson on 06/12/24 at 1008 Assessment and Plan Assessment and Plan (1) Breast lump: Status: Acute Comment: left and right Orders: Orders DIAG MAMM W/CAD, BILAT 06/11/24 N63.0 - Unspecified lump in unspecified breast Breast Limited Unilateral 06/11/24 N63.0 - Unspecified lump in unspecified breast Breast Limited Unilateral 06/11/24 N63.0 - Unspecified lump in unspecified breast Medications: Discontinued oxycodone-acetaminophen 5-325 mg Discontinued Reason: Pt no longer taking 1 - 2 tabs PO Q4H PRN 7 days PRN 30 tabs 0RF Pain D25.9 - Leiomyoma of uterus, unspecified phenazopyridine Discontinued Reason: Pt no longer taking 200 mg PO Q8 10 tabs 0RF docusate sodium Discontinued Reason: Pt no longer taking 100 mg PO BID 30 caps 1RF ibuprofen Discontinued Reason: Pt no longer taking 600 mg PO Q6H 30 tabs 0RF Physical Exam Chest Breast/Axilla Palpation: abnormal palpation of the axillae other (see exam below; addendum to 6pm/10pm breast lump of left breast. Right breast tenderness. 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 Required: No Is patient in pain?: No Allergies No Known Allergies Allergy (Verified 05/30/24 15:40) Medications ???Medication ???Instructions ???Recorded ???Confirmed ???Type NK 05/30/24 05/30/24 History Is last menstrual period known: No Post menopausal: No Patient : No Control Method: hyst PFS Surgical History (Updated 05/30/24 @ 15:46 by Agata Ahjua) H/O: hysterectomy Social History (Updated 05/30/24 @ 15:47 by Agata Ahuja) adopted: No Smoking Status: Never smoker alcohol intake: never substance use type: does not use seatbelt use: always do you feel safe at home: Yes HPI Encounter for routine gynecological examination Details: ROULA WADSWORTH is a 49 year old who presents for annual exam. She reports she has noticed sore breasts for about 2 weeks. Tender to touch. She reports no discharge or nipple bleeding. She has not checked her breasts for lumps. Last mammogram greater than 5 years ago. Last PAP: 2017; normal. S/P hysterectomy. History of abnormal PAP: no Last mammogram: greater than 5 years. [place]--normal per patient History of abnormal mammogram: n/a Colon cancer screening: never Other preventative health care screenings: Reilly Connell pcp Female Reproductive History Last Menstrual Period: 07/18/16 Questions: metorrhagia: No, sexually active: Yes, dyspareunia: Yes (pelvic) and PCB: No ROS Const Constitutional: Denies chills, fatigue, fever(s), headache(s) or weight loss Eyes Eyes: Denies change in vision ENT ENT: Denies dizziness Resp Resp: Denies cough GI GI: Denies abdominal pain, constipation or nausea : Denies difficulty voiding, dysuria, hematuria, nipple discharge, pelvic pain, prolapse symptoms, urinary incontinence, vaginal discharge, vaginal dryness, vaginal odor or vaginal pruritus Skin Skin/Breast: Reports breast pain; Denies alopecia, rash, breast mass, breast skin changes or nipple discharge Neuro Neuro: Denies dizziness Psych Psych: Denies anxiety or depression Endo Endo: Denies cold intolerance, excessive sweating or heat intolerance Exam Const General: cooperative, healthy appearing, comfortable, no acute distress, well groomed and well hydrated Nutritional Appearance: well nourished Orientation: alert, awake and oriented x3 HENMT Head: normal to inspection and normocephalic Ears: hearing grossly normal bilaterally and external ears normal Nose: external nose normal Face and sinus: normal facial exam Eyes General: appearance normal, both eyes and all related structures Neck Neck: normal visual inspection, full ROM and no lymphadenopathy Thyroid: thyroid normal Chest Chest palpation inspection: normal inspection of the chest Breast inspection: normal inspection of the breasts and normal inspection of the axillae Breast palpation: normal palpation of the axillae, no axillary lymphadenopathy and abnormal palpation of the breast (right tenderness throughout /left (6pm, 10pm); multiple; tender ) Resp Effort Inspection: normal respiratory effort, able to speak in complete sente (more content not included)... Normal [facility] Influenza virus A and B and SARS-CoV-2 (COVID-19) identified WILLIE+probe Nom (Resp)on 08-24-2023 FLUAV RNA WILLIE+probe Ql (Resp) Not detected Normal Not Detected [facility] Ambulatory Comment on above: Order Comment: This assay has received FDA Emergency Use Authorization (EUA) and is only authorized for the duration of time that circumstances exist to justify the authorization of the emergency use of in vitro diagnostic tests for the detection of SARS-CoV-2 virus and/or diagnosis of COVID-19 infection under section 564(b)(1) of the Act, 21 U.S.C. 360bbb-3(b)(1). Testing for SARS-CoV-2 is only recommended for patients who meet current clinical and/or epidemiological criteria as defined by federal, state, or local public health directives. This assay is an in vitro diagnostic nucleic acid amplification test for the qualitative detection of SARS-CoV-2, Influenza A, and Influenza B from nasopharyngeal specimens and has been validated for use at [facility]. Negative results do not preclude COVID-19 infections or Influenza A/B infections, and should not be used as the sole basis for diagnosis, treatment, or other management decisions. If Influenza A/B and RSV PCR results are negative, testing for Parainfluenza virus, Adenovirus and Metapneumovirus is routinely performed for [facility] [place], and is available on other patients by placing an add-on request. Performed By: #### 9 [id number] #### DAVIDE Gonzalez ([id number]) [facility] ([facility]) [id number] [place] [id number] FLUBV RNA WILLIE+probe Ql (Resp) Detected Abnormal Not Detected [facility] Ambulatory Comment on above: Order Comment: This assay has received FDA Emergency Use Authorization (EUA) and is only authorized for the duration of time that circumstances exist to justify the authorization of the emergency use of in vitro diagnostic tests for the detection of SARS-CoV-2 virus and/or diagnosis of COVID-19 infection under section 564(b)(1) of the Act, 21 U.S.C. 360bbb-3(b)(1). Testing for SARS-CoV-2 is only recommended for patients who meet current clinical and/or epidemiological criteria as defined by federal, state, or local public health directives. This assay is an in vitro diagnostic nucleic acid amplification test for the qualitative detection of SARS-CoV-2, Influenza A, and Influenza B from nasopharyngeal specimens and has been validated for use at [facility]. Negative results do not preclude COVID-19 infections or Influenza A/B infections, and should not be used as the sole basis for diagnosis, treatment, or other management decisions. If Influenza A/B and RSV PCR results are negative, testing for Parainfluenza virus, Adenovirus and Metapneumovirus is routinely performed for [facility] [place] and intensive care in[place], and is available on other patients by placing an add-on request. Performed By: #### [id number] #### DAVIDE Gonzalez ([id number]) [facility] ([facility]) [address] [place] [id number] SARS-CoV-2 (COVID-19) RNA WILLIE+probe Ql (Resp) Not detected Normal Not Detected [facility] Ambulatory Comment on above: Order Comment: This assay has received FDA Emergency Use Authorization (EUA) and is only authorized for the duration of time that circumstances exist to justify the authorization of the emergency use of in vitro diagnostic tests for the detection of SARS-CoV-2 virus and/or diagnosis of COVID-19 infection under section 564(b)(1) of the Act, 21 U.S.C. 360bbb-3(b)(1). Testing for SARS-CoV-2 is only recommended for patients who meet current clinical and/or epidemiological criteria as defined by federal, state, or local public health directives. This assay is an in vitro diagnostic nucleic acid amplification test for the qualitative detection of SARS-CoV-2, Influenza A, and Influenza B from nasopharyngeal specimens and has been validated for use at [facility]. Negative results do not preclude COVID-19 infections or Influenza A/B infections, and should not be used as the sole basis for diagnosis, treatment, or other management decisions. If Influenza A/B and RSV PCR results are negative, testing for Parainfluenza virus, Adenovirus and Metapneumovirus is routinely performed for [facility] [place] and intensive care in[place], and is available on other patients by placing an add-on request. Performed By: #### 9 [id number] #### DAVIDE Gonzalez ([id number]) [facility] ([facility]) [address] [place] [address] POCT Influenza A/B manually resultedon 08-24-2023 POC Rapid Influenza A Negative Negative [facility] Work Phone: POC Rapid Influenza B Negative Negative [facility] Work Phone: [facility] Work Phone: OT Progress Noteon 2 OT Progress Note Therapy Diagnosis Assessed Lateral epicondylitis of left elbow (726.32) (M77.12) Plan Goals: Goals set and discussed today. STG: ROULA will demonstrate good carryover of HEP for ROM, strengthening and coordination in order to improve functional independence at home/work by 2 weeks. LTG: ROULA will increase L minute clerk strength by 7 lbs to increase I with manipulating heavier objects to complete work and home tasks in 5 weeks. LTG: ROULA will demonstrate improved functional independence at home by a decreased DASH score to 0% by 5 weeks. LTG: ROULA will demonstrate work simulation tasks of resisted motion with some force to x10 minutes pain free to facilitate return to full duty pain free by 5 weeks. Motor Function/Control/Tone: Intervention plan include: hot pack , paraffin , ultrasound , education/instruction , home program , manual therapy , therapeutic activities and therapeutic exercises. Frequency and duration: 2 time(s) a week, for 5 weeks, for 10 visits. Potential to achieve rehab goals is excellent. Plan of care was developed with input and agreement by the patient. Assessment Pt reporting no increase in pain this date. Pt does report fatigue d/t lack of rest breaks to simulate continuous work tasks. Pt also tolerating increase in resistance well this date. Patient was able to complete today's treatment with some difficulty. Reason For Visit Evaluation and Treatment. Insurance Insurance reviewed Visit number: 9 Approved number of visits: 10 Authorization date range: 03/15/22- no end date Tai/RENEA (03/15/22-no end date) 03/27 POC 9 INS Onset Date: 2021 Subjective Patient reports:. Pt reporting some muscle soreness this date after doing some increased continuous lifting at work although within restrictions. Pt reporting she did not get the new job position. Precautions: lifting 20 No more than 20 pounds . Fall Risk: none Treatment Time in clinic started at 745 am Time in clinic ended at 815 am Total time in clinic is 30 minutes. Total timed code time is 28 minutes. Therapeutic exercise (84314): timed minutes 28 . -L arm on 11lb ball flex/ext x 10 w/ 10 second holds -KENDELL elbow flexion on 11lb ball flex/ext x15 -Chest press out with 11lb ball x15 -L hand 10# DB bicep curls x 20 -L hand 10# DB elbow extension x20 -L hand 10# DB shoulder press x 20 -L hand 6# DB sup/pro x 20 w/ 3 second holds at end points -L hand 6# DB IR/ER x 20 -L hand 3lb wrist cuff moving rings L<>R on ROM arc x 3 round trips with large and medium attachment . Therapeutic Activity (72444):. Contacts for Physician Signature First attempt date: 03/31/22. Referring Provider Signature: I am in agreement with the above plan of care. Referring Provider Signature , Date/Time 'Scores and Scales' Signatures Electronically signed by : Charity Sarabia OTR/Lisa; Apr 28 2022 8:15AM EST (Author) Normal [facility] OT Progress Noteon 2 OT Progress Note Therapy Diagnosis Assessed Lateral epicondylitis of left elbow (726.32) (M77.12) Plan Goals: Goals set and discussed today. STG: ROULA will demonstrate good carryover of HEP for ROM, strengthening and coordination in order to improve functional independence at home/work by 2 weeks. LTG: ROULA will increase L minute clerk strength by 7 lbs to increase I with manipulating heavier objects to complete work and home tasks in 5 weeks. LTG: ROULA will demonstrate improved functional independence at home by a decreased DASH score to 0% by 5 weeks. LTG: ROULA will demonstrate work simulation tasks of resisted motion with some force to x10 minutes pain free to facilitate return to full duty pain free by 5 weeks. Motor Function/Control/Tone: Intervention plan include: hot pack , paraffin , ultrasound , education/instruction , home program , manual therapy , therapeutic activities and therapeutic exercises. Frequency and duration: 2 time(s) a week, for 5 weeks, for 10 visits. Potential to achieve rehab goals is excellent. Plan of care was developed with input and agreement by the patient. Assessment Patient tolerating most exercises well this date w/ wedge eliminated and reps increased, however several breaks taken w/ sup/pro d/t fatigue of LUE, decreasing weight for sup/pro and IR/ER d/t fatigue. patient c/o discomfort in lat elbow w/ IR on 5# DB. Patient states she does not have any pain at end of session states I am just very tired today and my shoulder feels tired. Patient was able to complete today's treatment with some difficulty. Reason For Visit Evaluation and Treatment. Insurance Insurance reviewed Visit number: 8 Approved number of visits: 10 Authorization date range: 03/15/22- no end date Ronald (03/15/22-no end date) 02/24 POC 8 INS Onset Date: 2021 Subjective Patient reports:. 0/10 pain reported at beginning of session. 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 Precautions: lifting 20 No more than 20 pounds . Fall Risk: none Treatment Time in clinic started at 0830 am Time in clinic ended at 0900 am Total time in clinic is 30 minutes. Total timed code time is 28 minutes. Therapeutic exercise (49854): timed minutes 28 . [id number] -L hand 10# DB bicep curls x 20 -L hand 10# DB elbow extension x20 -L hand 10# DB shoulder press x 20 -L hand 5# DB sup/pro x 20 w/ 3 second holds at end points -L hand 5# DB IR/ER x 20 -L hand 2lb wrist cuff moving rings L<>R on ROM arc x 3 round trips -B hands on 11lb ball D<>P x 12 w/ 3 second holds at end points -L arm on 11lb ball flex/ext x 10 w/ 10 second holds . Therapeutic Activity (77498):. Contacts for Physician Signature First attempt date: 03/31/22. Referring Provider Signature: I am in agreement with the above plan of care. Referring Provider Signature , Date/Time 'Scores and Scales' Signatures Electronically signed by : GAMA Carpenter/Lisa; Apr 23 2022 9:27AM EST (Author) Electronically signed by : LANE Villanueva/Lisa; Apr 26 2022 8:31AM EST Normal [facility] OT Progress Noteon 2 OT Progress Note Therapy Diagnosis Assessed Lateral epicondylitis of left elbow (726.32) (M77.12) Plan Goals: Goals set and discussed today. STG: ROULA will demonstrate good carryover of HEP for ROM, strengthening and coordination in order to improve functional independence at home/work by 2 weeks. LTG: ROULA will increase L minute clerk strength by 7 lbs to increase I with manipulating heavier objects to complete work and home tasks in 5 weeks. LTG: ROULA will demonstrate improved functional independence at home by a decreased DASH score to 0% by 5 weeks. LTG: ROULA will demonstrate work simulation tasks of resisted motion with some force to x10 minutes pain free to facilitate return to full duty pain free by 5 weeks. Motor Function/Control/Tone: Intervention plan include: hot pack , paraffin , ultrasound , education/instruction , home program , manual therapy , therapeutic activities and therapeutic exercises. Frequency and duration: 2 time(s) a week, for 5 weeks, for 10 visits. Potential to achieve rehab goals is excellent. Plan of care was developed with input and agreement by the patient. Assessment Attempting to increase resistance from 15lb to 20lbs with SHR, pt unable to complete reps with 20lbs. Pt demos ability to complete all exercises without difficulty aside from RD/UD. Pt reporting mild fatigue at end of session, no pain. Patient was able to complete today's treatment with some difficulty. Reason For Visit Evaluation and Treatment. Insurance Insurance reviewed Visit number: 7 Approved number of visits: 10 Authorization date range: 03/15/22- no end date Tai/RENEA (03/15/22-no end date) 01/24 POC 7 INS Onset Date: 2021 Subjective Patient reports:. Pt brought in work restrictions and 20lb limit appears to just be for work. Pt still concerned about cortisone injection. Pt reporting no pain this date. 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 Precautions: lifting 20 No more than 20 pounds . Fall Risk: none Treatment Time in clinic started at 0745 am Time in clinic ended at 0815 am Total time in clinic is 30 minutes. Total timed code time is 28 minutes. Therapeutic exercise (37937): timed minutes 13 . [id number] L Bicep curl x15 on arm wedge with 10lb weight Sup/pro with L arm on wedge with 10lb weight wrist extension x15 with L arm on wedge with 10lb weight wrist flexion with L arm on wedge with 10lb weight x15 UD/RD deviation with arm on wedge with 10lb weight x15. Therapeutic Activity (45893): timed minutes 15 . 745-800 -MRMT with 15lb reisstance x60 with SHR x2 trials for sup/pro Body blade hand in neutral x1 minute Body blade hand in pronation 2x1 minute Body blade sup/pro x1 min . Contacts for Physician Signature First attempt date: 03/31/22. Referring Provider Signature: I am in agreement with the above plan of care. Referring Provider Signature , Date/Time 'Scores and Scales' Signatures Electronically signed by : LANE Villanueva/Lisa; Apr 21 2022 8:14AM EST (Author) Normal [facility] OT Progress Noteon 2 OT Progress Note Therapy Diagnosis Assessed Lateral epicondylitis of left elbow (726.32) (M77.12) Plan Goals: Goals set and discussed today. STG: ROULA will demonstrate good carryover of HEP for ROM, strengthening and coordination in order to improve functional independence at home/work by 2 weeks. LTG: ROULA will increase L minute clerk strength by 7 lbs to increase I with manipulating heavier objects to complete work and home tasks in 5 weeks. LTG: ROULA will demonstrate improved functional independence at home by a decreased DASH score to 0% by 5 weeks. LTG: ROULA will demonstrate work simulation tasks of resisted motion with some force to x10 minutes pain free to facilitate return to full duty pain free by 5 weeks. Motor Function/Control/Tone: Intervention plan include: hot pack , paraffin , ultrasound , education/instruction , home program , manual therapy , therapeutic activities and therapeutic exercises. Frequency and duration: 2 time(s) a week, for 5 weeks, for 10 visits. Potential to achieve rehab goals is excellent. Plan of care was developed with input and agreement by the patient. Assessment Patient tolerating activities well, no pain reported throughout session this date. Patient was able to complete today's treatment with some difficulty. Reason For Visit Evaluation and Treatment. Insurance Insurance reviewed Visit number: 6 Approved number of visits: 10 Authorization date range: 03/15/22- no end date Ronald (03/15/22-no end date) 12/25 POC 6 INS Onset Date: 2021 Subjective Patient reports:. No pain reported at beginning of session, patient states she has not had pain in about a month now. Patient saw RENEA Arreaga yesterday states she told the she has not had any pain and the stated she needed a Cortizone shot and that she needs to remain on light duty for work until at least April 29, also states patient should not be lifting anymore than 20 lbs at this time. Patient is very confused why she has restrictions still and why she needs a Cortizone injection when she has not had any pain and feels great. Precautions: lifting 20 No more than 20 pounds . Fall Risk: none Treatment Time in clinic started at 0900 am Time in clinic ended at 0930 am Total time in clinic is 30 minutes. Total timed code time is 28 minutes. Therapeutic Activity (84604): timed minutes 28 . 6703-8955 -L hand on Short handle baggage inspector 20# resistance flipping large wood dowel down grid x 3 round trips sup/pro -LUE push<>pull 11lb ball Prox<>Dist x 15 -LUE AAROM over 11lb ball flex/ext x 10 w/ 10 second holds each . Contacts for Physician Signature First attempt date: 03/31/22. Referring Provider Signature: I am in agreement with the above plan of care. Referring Provider Signature , Date/Time 'Scores and Scales' Signatures Electronically signed by : GAMA Carpenter/Lisa; Apr 16 2022 9:27AM EST (Author) Electronically signed by : LANE Villanueva/Lisa; Apr 21 2022 10:02AM EST Normal Touchworks OT Progress Noteon 2 OT Progress Note Therapy Diagnosis Assessed Lateral epicondylitis of left elbow (726.32) (M77.12) Plan Goals: Goals set and discussed today. STG: ROULA will demonstrate good carryover of HEP for ROM, strengthening and coordination in order to improve functional independence at home/work by 2 weeks. LTG: ROULA will increase L minute clerk strength by 7 lbs to increase I with manipulating heavier objects to complete work and home tasks in 5 weeks. LTG: ROULA will demonstrate improved functional independence at home by a decreased DASH score to 0% by 5 weeks. LTG: ROULA will demonstrate work simulation tasks of resisted motion with some force to x10 minutes pain free to facilitate return to full duty pain free by 5 weeks. Motor Function/Control/Tone: Intervention plan include: hot pack , paraffin , ultrasound , education/instruction , home program , manual therapy , therapeutic activities and therapeutic exercises. Frequency and duration: 2 time(s) a week, for 5 weeks, for 10 visits. Potential to achieve rehab goals is excellent. Plan of care was developed with input and agreement by the patient. Assessment Pt reporting sup/pro AAROM over ball feels good on her elbow. Pt demos good toleration of all activities this date, reporting fatigue following body blade. Patient was able to complete today's treatment with some difficulty. Reason For Visit Evaluation and Treatment. Insurance Insurance reviewed Visit number: 5 Approved number of visits: 10 Authorization date range: 03/15/22- no end date Tai/RENEA (03/15/22-no end date) 11/24 POC 5 INS Onset Date: 2021 Subjective Patient reports:. Pt reporting she sees physician tomorrow. Pt reports no pain with HEP and no pain this date. Precautions: lIght duty . Fall Risk: none Treatment Time in clinic started at 0745 am Time in clinic ended at 0815 am Total time in clinic is 30 minutes. Total timed code time is 28 minutes. Therapeutic Activity (48258): timed minutes 28 . 7368-1552 -LUE over 11lb ball flex/ext/sup/pro x 10 w/ 10 second holds -MRMT with 10lb resistance with SHR sup/pro x60 -L hand body blade Horizontal/vertical/above head x 1 min each -B hands picking up basket 22.5 pounds from floor to waist to shoulder height x 10 using proper body mechanics -L hand on body blade 2x1 minute for each position, lateral, vertical, and sup/pro. Contacts for Physician Signature First attempt date: 03/31/22. Referring Provider Signature: I am in agreement with the above plan of care. Referring Provider Signature , Date/Time 'Scores and Scales' Signatures Electronically signed by : PATRICIA Villanueva; Apr 14 2022 8:13AM EST (Author) Normal Touchworks OT Progress Noteon 2 OT Progress Note Therapy Diagnosis Assessed Lateral epicondylitis of left elbow (726.32) (M77.12) Plan Goals: Goals set and discussed today. STG: ROULA will demonstrate good carryover of HEP for ROM, strengthening and coordination in order to improve functional independence at home/work by 2 weeks. LTG: ROULA will increase L minute clerk strength by 7 lbs to increase I with manipulating heavier objects to complete work and home tasks in 5 weeks. LTG: ROULA will demonstrate improved functional independence at home by a decreased DASH score to 0% by 5 weeks. LTG: ROULA will demonstrate work simulation tasks of resisted motion with some force to x10 minutes pain free to facilitate return to full duty pain free by 5 weeks. Motor Function/Control/Tone: Intervention plan include: hot pack , paraffin , ultrasound , education/instruction , home program , manual therapy , therapeutic activities and therapeutic exercises. Frequency and duration: 2 time(s) a week, for 5 weeks, for 10 visits. Potential to achieve rehab goals is excellent. Plan of care was developed with input and agreement by the patient. Assessment 0/10 pain reported throughout session. Patient requiring extended breaks during body blade exercises d/t fatigue of LUE, patient states it does not hurt it is just wearing me out Patient tolerating all exercises well this date c/o fatigue and stretching in L dorsal forearm at end of session. Patient was able to complete today's treatment with some difficulty. Reason For Visit Evaluation and Treatment. Insurance Insurance reviewed Visit number: 4 Approved number of visits: 10 Authorization date range: 03/15/22- no end date Ronald (03/15/22-no end date) 4/10 POC 4 INS Onset Date: 2021 Subjective Patient reports:. 0/10 pain reported. Patient states she felt great after last session w/ work conditioning introduced. Precautions: lIght duty . Fall Risk: none Treatment Time in clinic started at 0845 am Time in clinic ended at 0915 am Total time in clinic is 30 minutes. Total timed code time is 28 minutes. Therapeutic Activity (06384): timed minutes 28 . 2815-2614 -LUE over 11lb ball flex/ext x 10 w/ 10 second holds -L hand bicep curls 7# DB 2x10 -L hand elbow extension 7#DB 2x10 -L hand shoulder press 7# DB 2x10 -L hand body blade Horizontal/vertical/above head x 1 min each -B hands picking up basket w/ 20 #s to put on table top<>floor x 10 using proper body mechanics -B hands picking up basket 20 pounds from waist to shoulder height x 10 using proper body mechanics -Valpar 9 on level 2 moving square from panel 1<>to panel 2 x 2 w/ L hand unscrewing bolts -Tossing 3kg medicine ball back and forth w/ therapist x 20 -3kg medicine ball wall walk ups x 10 round trips . Contacts for Physician Signature First attempt date: 03/31/22. Referring Provider Signature: I am in agreement with the above plan of care. Referring Provider Signature , Date/Time 'Scores and Scales' Signatures Electronically signed by : GAMA Carpenter/Lisa; Apr 09 2022 9:15AM EST (Author) Electronically signed by : LANE Villanueva/Lisa; Apr 12 2022 12:30PM EST Normal 911 Pets OT Progress Noteon 2 OT Progress Note Therapy Diagnosis Assessed Lateral epicondylitis of left elbow (726.32) (M77.12) Plan Goals: Goals set and discussed today. STG: ROULA will demonstrate good carryover of HEP for ROM, strengthening and coordination in order to improve functional independence at home/work by 2 weeks. LTG: ROULA will increase L minute clerk strength by 7 lbs to increase I with manipulating heavier objects to complete work and home tasks in 5 weeks. LTG: ROULA will demonstrate improved functional independence at home by a decreased DASH score to 0% by 5 weeks. LTG: ROULA will demonstrate work simulation tasks of resisted motion with some force to x10 minutes pain free to facilitate return to full duty pain free by 5 weeks. Motor Function/Control/Tone: Intervention plan include: hot pack , paraffin , ultrasound , education/instruction , home program , manual therapy , therapeutic activities and therapeutic exercises. Frequency and duration: 2 time(s) a week, for 5 weeks, for 10 visits. Potential to achieve rehab goals is excellent. Plan of care was developed with input and agreement by the patient. Assessment 0/10 pain reported throughout session, Patient stating she feels like she got a workout but feels really good. Patient did c/o fatigue 1x w/ IR/ER w/ ball. Patient was able to complete today's treatment with some difficulty. Reason For Visit Evaluation and Treatment. Insurance Insurance reviewed Visit number: 3 Approved number of visits: 10 Authorization date range: 03/15/22- no end date [place]/RENEA (03/15/22-no end date) 3/10 POC 3 INS Onset Date: 2021 Subjective Patient reports:. 0/10 pain reported. Patient states she has still not had any pain or any problems w/ ADL's. Precautions: lIght duty . Fall Risk: none Treatment Time in clinic started at 1015 am Time in clinic ended at 1045 am Total time in clinic is 30 minutes. Total timed code time is 28 minutes. Therapeutic Activity (55191): timed minutes 28 . 3392-0598 -LUE over 11lb ball flex/ext x 10 w/ 10 second holds -L hand supinated holding 3.3 lb ball IR/ER x 10 w/ 5 second holds -L hand WB on dystrophile P<>D, L<>R x 1 min x 2 trials each -B hands picking up basket w/10 #s to put on table top<>floor x 10 using proper body mechanics -L hand 2 lb ball on rebounder 2x20 -B hands 6 lb ball on rebounder 2x20 . Contacts for Physician Signature First attempt date: 03/31/22. Referring Provider Signature: I am in agreement with the above plan of care. Referring Provider Signature , Date/Time 'Scores and Scales' Signatures Electronically signed by : OLIVIA Carpenter; Apr 07 2022 10:44AM EST (Author) Electronically signed by : PATRICIA Villanueva; Apr 12 2022 12:30PM EST Normal Touchworks OT Progress Noteon 2 OT Progress Note Therapy Diagnosis Assessed Lateral epicondylitis of left elbow (726.32) (M77.12) Plan Goals: Goals set and discussed today. STG: ROULA will demonstrate good carryover of HEP for ROM, strengthening and coordination in order to improve functional independence at home/work by 2 weeks. LTG: ROULA will increase L minute clerk strength by 7 lbs to increase I with manipulating heavier objects to complete work and home tasks in 5 weeks. LTG: ROULA will demonstrate improved functional independence at home by a decreased DASH score to 0% by 5 weeks. LTG: ROULA will demonstrate work simulation tasks of resisted motion with some force to x10 minutes pain free to facilitate return to full duty pain free by 5 weeks. Motor Function/Control/Tone: Intervention plan include: hot pack , paraffin , ultrasound , education/instruction , home program , manual therapy , therapeutic activities and therapeutic exercises. Frequency and duration: 2 time(s) a week, for 5 weeks, for 10 visits. Potential to achieve rehab goals is excellent. Plan of care was developed with input and agreement by the patient. Assessment 0/10 pain reported throughout session, patient states I do not feel a stretch at all with any of the stretches or nerve glides Patient using blue flex bar stating green is too easy and she does not feel a stretch with it. Patient demos understanding on nerve glides and putty exercises. Patient was able to complete today's treatment with some difficulty. Reason For Visit Evaluation and Treatment. Insurance Insurance reviewed Visit number: 2 Approved number of visits: 10 Authorization date range: 03/15/22- no end date Tai/RENEA (03/15/22-no end date) 2 POC 2 INS Onset Date: 2021 Subjective Patient reports:. 0/10 pain reported. Patient states she has not had any pain in 3 weeks in elbow, no NANDT reported. Precautions: lIght duty . Fall Risk: none Treatment Time in clinic started at 1115 am Time in clinic ended at 1145 am Total time in clinic is 30 minutes. Total timed code time is 28 minutes. Therapeutic Activity (16128): timed minutes 43 . 0635-1472 -LUE over 11lb ball flex/ext x 10 w/ 10 second holds -Blue flex bar alisia twists x10 w/ 5 second holds -L hand supinated holding 2.2 lb ball IR/ER x 10 w/ 5 second holds -L hand WB on towel on table P<>D, L<>R x 1 min x 2 trials each -Education on nerve glides -Education and HEP on putty exercises w/ green putty. Contacts for Physician Signature First attempt date: 03/31/22. Referring Provider Signature: I am in agreement with the above plan of care. Referring Provider Signature , Date/Time 'Scores and Scales' Signatures Electronically signed by : GAMA Carpenter/Lisa; Apr 02 2022 11:45AM EST (Author) Electronically signed by : LANE Villanueva/Lisa; Apr 06 2022 4:10PM EST Normal Touchworks OT Initial Evalutationon OT Initial Evalutation Therapy Diagnosis Assessed Lateral epicondylitis of left elbow (726.32) (M77.12) Plan of Care Goals: Goals set and discussed today. STG: ROULA will demonstrate good carryover of HEP for ROM, strengthening and coordination in order to improve functional independence at home/work by 2 weeks. LTG: ROULA will increase L minute clerk strength by 7 lbs to increase I with manipulating heavier objects to complete work and home tasks in 5 weeks. LTG: ROULA will demonstrate improved functional independence at home by a decreased DASH score to 0% by 5 weeks. LTG: ROULA will demonstrate work simulation tasks of resisted motion with some force to x10 minutes pain free to facilitate return to full duty pain free by 5 weeks. Motor Function/Control/Tone: Intervention plan include: hot pack , paraffin , ultrasound , education/instruction , home program , manual therapy , therapeutic activities and therapeutic exercises. Frequency and duration: 2 time(s) a week, for 5 weeks, for 10 visits. Potential to achieve rehab goals is excellent. Plan of care was developed with input and agreement by the patient. Assessment ROULA WADSWORTH was evaluated today for signs and symptoms of lateral epicondylitis . ROULA presents with deficits in work tasks and pain management. ROULA would benefit from regular outpatient OT x2 /week for 5 weeks in order to improve AROM/PROM, strengthening, pain management and activity tolerance to improve functional independence in ADLs/IADLs/work tasks. ROULA WADSWORTH presents with good prognosis considering supportive factors such as age, PLOF and current presentation of injury with consideration of demanding work environment ROULA WADSWORTH presents with good understanding and teach back of today's education and provides input into goals/POC. Although Roula presents with minimal pain and limitation at this time this is likely s/t to being on light duty as pt reports this is how she felt follow previous period of light duty but condition quickly returned upon return to full duty. Pt reports minimal pain symptoms but does present with need for skilled therapy services to facilitate pain free and safe return to full job duties. Reason For Visit Evaluation and Treatment. Insurance Insurance reviewed Visit number: 1 Approved number of visits: 10 Authorization date range: 03/15/22- no end date Ronald 07/27 Onset Date: 2021 Subjective Patient reports: Pt presenting to OT services this date for lateral epicondylitis. Pt reporting she has been on light duty at work for the last 2 weeks. Pt reporting she hasn?t had pain for a few weeks. 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 Pt reporting when she was having pain it was all day long, would radiate down to wrist and pt was unable to push buttons or lift a coffee mug. Pt is L handed. Pt reporting per xrays from [place] office she has tendonitis in KENDELL elbows but does not feel any pain in the R elbow. Pt reports she does not believe she had any n/t. Pt reporting she iced her elbow and took ibuprofen and it would help but reports she was beginning to take it on a regular basis. Pt was on light duty from November to December and then worked December to January. Pt was referred to [facility] in January and has now been on light duty. Pt reporting she did not allow the pain to get to 7/10 like it was before seeing Nicho. Pt reporting at this time the only time she has pain in the elbow is when bearing weight through the elbow directly. Pt denies difficulty with bathing/dressing. Pt lives with kenyetta and his daughter. Pt wears a elbow strap at work and a long arm wrist splint that she sleeps in. Pain Exacerbating Factors: gripping, time of day: , lifting and repetitive motion. Pain Relieving Factors: rest and splint use . light duty. Medical Screening: Reviewed medical history form with patient and medical screening assessed. Night sweats, fevers, chills . Precautions: lIght duty . Fall Risk: none Work: impaired Functional Assessment and Medical Management Prior Level of Function: independent. Work History: light duty . Roles, Rituals, Routines: significant other Patient stated goal(s) for treatment include: returning to work and returning to prior level of function. Current Status: condition of patient is improving. Preferred learning method: visual, verbal and kinesthetic . ROULA does not demonstrate any current barriers to learning that may impact effective carryover of care. Objective ROM/JointMobility: (Range of Motion in degrees) Additional Information: ROM no pain or limitations. Pt reporting some pulling with wrist extension with elbow fully extended. Strength: Hands (Lawson: P! Denotes Pain with Movement) Hand Dominance: Left Weft Straightener Strength: level III 58 lbs on the right and level III 60 lbs on the left. The lawson pinch trials for the right 15 lbs and left 16 lbs. (more content not included)... Normal 911 Pets DIGITAL MAMM SCREENING W/ TO [facility] 02-06-2022 DIGITAL MAMM SCREENING W/ MILI Patient Name: ROULA WADSWORTH STUDY: Digital mammography screening with mili; 02/06/2022 10:29 am ACCESSION NUMBER(S): [id number] ORDERING CLINICIAN: BRANDI APPLE INDICATION: Screening. COMPARISON: No prior studies are available for comparison FINDINGS: CC and MLO 2D digital mammograms and digital breast tomosynthesis images were obtained of the bilateral breasts. 3-D volume images were reconstructed in 4 views at an independent workstation as 1 mm slices through the breasts in both the CC and MLO projections. The breast tissue is heterogeneously dense, which may obscure small masses. No discrete mass or focal asymmetry is identified. No suspicious microcalcifications or foci of architectural distortion are seen. This study was interpreted with CAD. IMPRESSION: No mammographic evidence of malignancy. BI-RADS CATEGORY: Category: 1 - Negative. Recommendation: 1 Year Screening. Electronically signed by: ANDREW HYMAN MD [facility] BILATERAL ELBOW COMPLETE MIN . 3 VIEWSon 12-01-2021 BILATERAL ELBOW COMPLETE MIN. 3 VIEWS Patient Name: ROULA WADSWORTH STUDY: Bilateral elbows, 4 views each. INDICATION: Bilateral elbow pain M25.521: Pain of both elbows M25.522:. COMPARISON: None. ACCESSION NUMBER(S): [id number] ORDERING CLINICIAN: CARLI KUMAR FINDINGS: Bilateral elbows: No acute fracture or malalignment. No elbow joint effusion or abnormal fat pad elevation. Soft tissues are unremarkable. IMPRESSION: 1. Unremarkable bilateral elbow radiographs. Electronically signed by: FERNANDO KIMBLE MD [facility] Established Visit (Orthopaed ic Surgery)on 12-01-2021 Established Visit (Orthopaedic Surgery) Diagnoses/Problems Assessed Lateral epicondylitis of left elbow (726.32) (M77.12) Orders Pain of both elbows Xray Elbow Bilateral, Complete, Min 3 Views; Status:Resulted - Preliminary,Retrospective Authorization; Done: [id number] 03:24PM Radiologist to Determine Optimal Study : Y What are the patient's signs and symptoms? : Bilateral elbow pain Provider Impressions Assessment: Bilateral lateral epicondylitis more severe in left Plan: Today, we discussed different treatment options to include bracing, occupational therapy, injection, [id number] pain relievers. She would like to attempt naproxen and topical Voltaren gel along with the brace and continued use of the Cho-Pat strap. We are going to put her on restrictions for light duty for about 4 weeks. She would like to defer the injection and therapy at this time. Follow-up in 4 weeks Chief Complaint Est patient with new complaints: bilateral elbow pain. She reports the left elbow is far more symptomatic than the right elbow as she is left hand dominant. She denies any injury or history of trauma of the elbows. She denies any surgical history of the elbow. She complains of lateral elbow pain, tenderness and pain with palpation laterally at common extensor origins, painful with activities. She reports the pain lessens with rest, she was provided a tennis elbow strap by a nurse from employee help at [facility] in which she didn?t appreciated much pain relief. She states the nurse mention she likely has tendinitis of the elbows from repetitive use at work. She denies any prior or past issues with her elbows. XR series of the elbows performed today. History of Present Illness Patient is here today for evaluation of her bilateral elbow pain that is worse in the left. She is a 46-year-old female who started having elbow pain in August 2021 with no known injury. She locates it to the lateral aspect with radiation down the arm. She rates her pain is about a 7/10. She notices decrease in her pain over the weekend when not at work and then it flares up by Tuesday of the next week. She has tried ibuprofen with some relief. She has attempted a elbow Cho-Pat brace which seemed to make it worse. Review of Systems Constitutional: no fever, no chills, not feeling tired, no recent weight gain and no recent weight loss. ENT: no nosebleeds. Cardiovascular: no chest pain. Respiratory: no shortness of breath and no cough. Gastrointestinal: no abdominal pain, no nausea, no vomiting and no diarrhea. Musculoskeletal: no arthralgias. Integumentary: no rashes and no skin wound. Neurological: no headache. Psychiatric: no depression and no sleep disturbances. Endocrine: no muscle weakness and no muscle cramps. Hematologic/Lymphatic: no swollen glands and no tendency for easy bruising. All other systems have been reviewed and are negative for complaint. Active Problems Problems Acute bronchitis, unspecified (466.0) (J20.9) Lateral epicondylitis of left elbow (726.32) (M77.12) Pain of left lower extremity (729.5) (M79.605) Surgical History Problems History of Ectopic removal x2 History of Hysterectomy History of Shoulder surgery left Family History Mother Family history of hypertension (V17.49) (Z82.49) Social History Problems Daily caffeinated coffee consumption Does not use illicit drugs (V49.89) (Z78.9) Minimum alcohol consumption No recent foreign travel Non-smoker (V49.89) (Z78.9) Allergies Medication No Known Drug Allergies Recorded By: Carol Whitfield; 10/18/2019 2:02:47 PM Current Meds Medication NameInstruction Meloxicam 15 MG Oral TabletTAKE 1 TABLET DAILY. predniSONE 10 MG Oral TabletTAKE 4 TABLET Daily TAKE WITH FOOD Vitals Vital Signs Recorded: [id number] 03:39PM Safgjcwnzeb97.2 F Height5 ft 1 in Ohlkwi613 lb BMI Ezjrtwzqfo68.22 kg/m2 BSA Calculated1.45 Tobacco Useb) No Physical Exam Left upper extremity is neurovascular intact full range of motion with pain at extremes of extension and flexion, positive tenderness over the lateral epicondyle pain with extension and supination of the wrist against resistance Right upper extremity is neurovascular intact full range of motion mild tenderness at the lateral epicondyle negative pain with extension of the wrist and full supination against resistance Results/Data Xray Elbow Bilateral, Complete, Min 3 [id number] 03:24PMCarli Kumar Test NameResultFlagReference Xray Elbow Bilateral, Complete, Min 3 Views Please click on the link to view the study images X-rays performed today see radiologist report for official readings Signatures Electronically signed by : Carli Kumar PA-C; Dec 01 2021 4:18PM EST (Author) [facility] XR Elbow - bilateral 3 Views Please click on the link to view the study images Normal [facility] 300 Work Phone: XR Elbow - bilateral 3 Views Normal [facility] 300 Work Phone: Tobacco Screening.on 022 Tobacco use status [facility] b) No -[facility] 300 Work Phone: Established Visit (Orthopaed ic Surgery)on 08-27-2021 Established Visit (Orthopaedic Surgery) Diagnoses/Problems Assessed Pain of left lower extremity (729.5) (M79.605) Provider Impressions Assessment?left posterior knee pain Plan?patient has a very odd presentation. Unfortunately MRI was not revealing despite the fact that she has pain in the posterior aspect the knee that is provocative with certain movements she has no evidence of edema swelling capsular injury muscular injury ligamentous injury or other type of injury noted on her MRI. This makes me concerned that there is potentially a distant neurologic injury that it is referring pain to this region which would be our area of evaluation her next visit if she continues to be symptomatic at this point I do not think she is doing further damage she is having some slight improvement will potentially plan to evaluate the lumbar spine in a month if she continues to be symptomatic This note has been created with voice recognition software. Please be aware that there may be grammatical or contextual errors due to the use of the software. Chief Complaint PT HERE FOR MRI RESULTS LEFT KNEE. STATES KNEE IS THE SAME, NO IMPROVEMENT. PAIN INCREASES WITH ACTIVITY. PAIN AND SWELLING ARE MAINLY ON THE BACK OF THE KNEE. History of Present Illness Patient returns in follow-up with regards to her left knee. She was able to obtain the MRI since last visit she continues to have pain in the posterior aspect the knee especially with terminal extension stretching and very intermittent numbness in the medial aspect of the lower leg but otherwise no other symptoms she is not had any more hip symptoms or low back symptoms. Review of Systems Constitutional: no fever, no chills, not feeling tired, no recent weight gain and no recent weight loss. ENT: no nosebleeds. Cardiovascular: no chest pain. Respiratory: no shortness of breath and no cough. Gastrointestinal: no abdominal pain, no nausea, no vomiting and no diarrhea. Musculoskeletal: no arthralgias and as noted in HPI. Integumentary: no rashes and no skin wound. Neurological: no headache. Psychiatric: no depression and no sleep disturbances. Endocrine: no muscle weakness and no muscle cramps. Hematologic/Lymphatic: swollen glands, but no tendency for easy bruising. Active Problems Problems Acute bronchitis, unspecified (466.0) (J20.9) Lateral epicondylitis of left elbow (726.32) (M77.12) Pain of left lower extremity (729.5) (M79.605) Surgical History Problems History of Ectopic removal x2 History of Hysterectomy History of Shoulder surgery left Family History Mother Family history of hypertension (V17.49) (Z82.49) Social History Problems Daily caffeinated coffee consumption Does not use illicit drugs (V49.89) (Z78.9) Minimum alcohol consumption No recent foreign travel Non-smoker (V49.89) (Z78.9) Allergies Medication No Known Drug Allergies Recorded By: Carol Whitfield; 10/18/2019 2:02:47 PM Current Meds Medication NameInstruction Meloxicam 15 MG Oral TabletTAKE 1 TABLET DAILY. predniSONE 10 MG Oral TabletTAKE 4 TABLET Daily TAKE WITH FOOD Vitals Vital Signs Recorded: [id number] 03:23PM Xfzmyzekrbq61.3 F Height5 ft 1 in Vjzecl093 lb 6 oz BMI Vkunihdfhz11.8 kg/m2 BSA Calculated1.5 Tobacco Useb) No Fall Screeninga) No falls within the last year Physical Exam Alert and Oriented x3 Patient resting comfortably in the exam room. Normocephalic atraumatic extraocular movements intact mucous membranes moist warm well perfused extremities nonlabored breathing appropriate mood and affect no evidence of lymphedema. Left knee skin is intact, no erythema ecchymosis or lesions No significant tenderness to palpation or swelling or effusion noted ROM 0-120 degrees no significant varus or valgus laxity negative anterior and posterior drawer calf is soft and compressible warm well perfused lower extremity with grossly intact motor and sensory Left elbow is tender to palpation along the lateral epicondyle skin is otherwise intact there is full range of motion flexion extension pronation supination no varus valgus laxity intact motor and sensory in all distributions of the left upper extremity Results/Data MRI Knee without [id number] 05:29PMReilly Torre Test NameResultFlagReference MRI Knee without Contrast(Report) FINAL REPORT Interpreted by: MICHELLE BOND LEE, MD 08/25/21 13:34 Patient Name: ROULA WADSWORTH STUDY: MRI of the Left knee without contrast dated 08/24/2021. INDICATION: left knee pain NO TO MRI QUESTIONS M79.605: Pain of left lower extremity COMPARISON: None. ACCESSION NUMBER(S): [id number] ORDERING CLINICIAN: REILLY TORRE TECHNIQUE: Multiplanar multisequence MRI of the Left knee was performed without intravenous contrast. FINDINGS: MUSCLES, TENDONS, AND LIGAMENTS: The anterior cruciate ligament is intact. The posterior cruciate ligament is intact. The medial collateral ligament is intact.The lateral collateral ligament compl (more content not included)... Normal [address] [facility]ets Tobacco Screening.on 022 Fall risk assessment a) No falls within the last year [facility] 300 Work Phone: Tobacco use status CP b) No [facility] 300 Work Phone: BN MRI KNEE W/O CONTRASTon 0 08-24-2021 BN MRI KNEE W/O CONTRAST Patient Name: ROULA WADSWORTH STUDY: MRI of the Left knee without contrast dated 08/24/2021. INDICATION: left knee pain NO TO MRI QUESTIONS M79.605: Pain of left lower extremity COMPARISON: None. ACCESSION NUMBER(S): [id number] ORDERING CLINICIAN: REILLY TORRE TECHNIQUE: Multiplanar multisequence MRI of the Left knee was performed without intravenous contrast. FINDINGS: MUSCLES, TENDONS, AND LIGAMENTS: The anterior cruciate ligament is intact. The posterior cruciate ligament is intact. The medial collateral ligament is intact.The lateral collateral ligament complex is intact. The popliteus and biceps femoris tendons, iliotibial band, and extensor mechanism are intact. MENISCI: The medial meniscus is intact. The lateral meniscus is intact. OSSEOUS STRUCTURES AND JOINTS: No fracture or dislocation is evident. The hyaline articular cartilage of the femorotibial joint spaces is intact. The hyaline articular cartilage of the patellofemoral joint space is intact. No joint effusion is evident. SOFT TISSUES: No significant volume of fluid is evident in a popliteal cyst. There are some varicose veins in the subcutaneous tissues medial leg. IMPRESSION: No internal derangement of the knee is evident. Electronically signed by: MICHELLE BOND MD Normal [facility] MRI Knee without Contraston 08-24-2021 MR Knee WO contrast Normal [facility] 300 Work Phone: Initial Visit (Orthopaedic [facility])on 08-04-2021 Initial Visit (Orthopaedic Surgery) Diagnoses/Problems Assessed Pain of left lower extremity (729.5) (M79.605) Lateral epicondylitis of left elbow (726.32) (M77.12) *Orders Pain of left lower extremity Start: Meloxicam 15 MG Oral Tablet; TAKE 1 TABLET DAILY MRI Knee without Contrast; Status:Hold For - Scheduling; Requested for:04Aug2021; Laterality : Left Radiologist to Determine Optimal Study : Y Does the patient have a Cochlear Implant, Pacemaker, Defibrilator, Pacing Wire, Brain Aneurysm Clip, Implanted Nerve or Bone Graft Simulator, Implanted Breast Tissue Geographic Information Systems Director, Glucose Monitor, or Neulasta Device? : No Is the patient or breast feeding? : No What are the patient's signs and symptoms? : left knee pain Pain of left lower extremity (729.5) (M79.605) Patient Discussion/Summary By signing my name below, I, Alfa Miller, attest that this documentation has been prepared under the direction and in the presence of Dr. Reilly Torre. All medical record entries made by the Titoibe were at my direction and personally dictated by me. I have reviewed the chart and agree that the record accurately reflects my personal performance of the history, physical exam, discussion and plan. Provider Impressions Assessment-left elbow lateral epicondylitis, left leg numbness and tingling, left posterior knee pain Plan-patient is been dealing with this left knee pain since her previous visit to the emergency department no specific injury but a day when she had significant and severe hip pain that radiated down to the knee she now has posterior knee pain and some numbness and tingling in her lower leg her radiographs do not show any severe abnormalities she does have a very mild cam lesion of the hip but she has no hip pain and no pain with provocative testing of the hip she does have pain and tenderness palpation along the posterior aspect of the knee and pain with any knee extension. I am concerned about the numbness and tingling the persistent knee pain is been present for months now I would like to obtain some advanced imaging of the knee with an MRI she also has symptoms of lateral epicondylitis of the left upper extremity she was interested in trialing the oral medication to see if this helps her symptoms I did prescribe meloxicam we will see how she does with this I will check her back after the MRI This note has been created with voice recognition software. Please be aware that there may be grammatical or contextual errors due to the use of the software. Chief Complaint Pt presents to this office for L LOWER EXT PAIN STANDS ALL DAY AT WORK BEHIND KNEE HURTS MOST 5/10 EDEMA CONCERN FOR POSSIBLE BLOOD CLOT DROVE TO [place] AND SYMPTOMS BEGAN END OF MAY History of Present Illness Patient is a pleasant 46-year-old female presenting today for left lower extremity pain. Patient drove to [place] and her symptoms began at the end of May. She has pain behind the knee that is present most of the time, and states her pain scale is a 5 out of 10. When symptoms began, she was experiencing sharp pains. She went to the ER because she was concerned for a possible blood clot, but it was determined by Dr. Connell that she has peripheral nerve impingement. States she has not experienced a sharp pain since, but the pain behind the knee persists with a frequent numbness on the inside of the knee. The pain has also been radiating to the hip, with pain interchanging between the left and right hip. 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 Additionally, patient complains of elbow pain. She has pain with palpation and with bending her wrist. 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 Her symptoms began approximately 2 weeks ago and states the elbow has continued to swell. She is opposed to trying an injection today, but would like to try a prescription of Meloxicam and will monitor her symptoms. Review of Systems Constitutional: no fever, no chills, not feeling tired, no recent weight gain and no recent weight loss. ENT: no nosebleeds. Cardiovascular: no chest pain. Respiratory: no shortness of breath and no cough. Gastrointestinal: no abdominal pain, no nausea, no vomiting and no diarrhea. Musculoskeletal: no arthralgias and as noted in HPI. Integumentary: no rashes and no skin wound. Neurological: no headache. Psychiatric: no depression and no sleep disturbances. Endocrine: no muscle weakness and no muscle cramps. Hematologic/Lymphatic: no swollen glands and no tendency for easy bruising. All other systems have been reviewed and are negative for complaint. *Active Problems Problems Acute bronchitis, unspecified (466.0) (J20.9) Pain of left lower extremity (729.5) (M79.605) Surgical History Problems History of Ectopic removal x2 History of Hysterectomy History of Shoulder surgery left Family History Mother Family history of hypertensio (more content not included)... Normal [address] [facility]ets Tobacco Screening.on 022 Fall risk assessment a) No falls within the last year [facility] 300 Work Phone: Tobacco use status [facility] b) No -[facility] 300 Work Phone: Office Visit (Primary Care T xt/Forms)on 07-01-2021 Follow-up visit Diagnoses/Problems Assessed Pain of left lower extremity (729.5) (M79.605) Patient Discussion/Summary As outlined above to report if worse otherwise keep appointment Dr. Torre. After 2 weeks can consider EMG but I do not see where that will contribute much to our findings today, Chief Complaint LEFT LEG NUMBNESS. REV LABS History of Present Illness Since last visit patient has had x-ray of hip showing cam pathology leading to an impingement as that likely caused of the medial thigh pain in the interim she is developed some decreased pain sensibility along the medial aspect of the left leg. There appears to be in the saphenous branch of the femoral nerve. He has had some pain behind the knee but it too has been x-rayed. I reviewed the x-rays of hip and knee from [place] as well as the hip x-ray here. She has had ultrasound of the left lower extremity looking for DVT but there was no mention of a Comer's cyst. Because was new system symptom I had her come in and I am comfortable that it is a peripheral nerve impingement and because it begins at the level of the knee is more likely to be due to femoral nerve impingement then popliteal impingement. Does appointment with Dr. Torre in 3 weeks if symptoms accelerate she is to call and we will force an appointment earlier. Review of Systems As per HPI Active Problems Problems Acute bronchitis, unspecified (466.0) (J20.9) Pain of left lower extremity (729.5) (M79.605) Surgical History Problems History of Ectopic removal History of Hysterectomy History of Shoulder surgery Family History Mother Family history of hypertension (V17.49) (Z82.49) Social History Problems Minimum alcohol consumption Non-smoker (V49.89) (Z78.9) Current Meds Medication NameInstruction predniSONE 10 MG Oral TabletTAKE 4 TABLET Daily TAKE WITH FOOD Allergies Medication No Known Drug Allergies Vitals Vital Signs Recorded: [id number] 11:52AM Temperature: 98 F Heart Rate: 92 Systolic: 108 Diastolic: 66 Height: 5 ft 1 in Tobacco Use: b) No Fall Screening: a) No falls within the last year O2 Saturation: 98 Physical Exam Has decreased monofilament testing over the medial left leg intact otherwise normal pedal pulses no pain in popliteal fossa. Color skin is normal and temperature is equal Results/Data X-rays and ultrasounds Signatures Electronically signed by : Reilly Connell MD; Jul 01 2021 12:50PM EST (Author) Normal 911 Pets Tobacco Screening.on 12-15-2 021 Fall risk assessment a) No falls within the last year [facility] [place] [facility] Work Phone: Tobacco use status CP b) No -[facility] [place] [facility] Work Phone: C Reactive Protein, Serumon 06-24-2021 CRP [Mass/Vol] 0.63 mg/dL [facility] Work Phone: Comment on above: REF VALUE< 1.00 C-REACTIVE PROTEINon 021 C-REACTIVE PROTEIN 0.63 mg/dL Normal [facility] Comment on above: Result Comment: REF VALUE < 1.00 Performed By: #### C RP #### [address] [address] CBCon 06-24-2021 Erythrocyte distribution width (RBC) [Ratio] 13.4 % Normal 11.5 - 14.5 [facility] Comment on above: Performed By: #### C BC #### [address] [address] Hematocrit (Bld) [Volume fraction] 39.0 % Normal 36.0 - 46.0 [facility] Comment on above: Performed By: #### C BC #### [address] [address] Hemoglobin (Bld) [Mass/Vol] 12.8 g/dL Normal 12.0 - 16.0 [facility] Comment on above: Performed By: #### C BC #### [address] [address] MCHC (RBC) [Mass/Vol] 32.8 g/dL Normal 32.0 - 36.0 [facility] Comment on above: Performed By: #### C BC #### [address] [address] MCV (RBC) [Entitic vol] 97 fL Normal 80 - 100 [facility] Comment on above: Performed By: #### C BC #### [address] [address] Platelets (Bld) [#/Vol] 358 10*3/uL Normal 150 - 450 [facility] Comment on above: Performed By: #### C BC #### [address] [address] RBC 4.02 x10E12/L Normal 4.00 - 5.20 [facility] Comment on above: Performed By: #### C BC #### [address] [address] WBC (Bld) [#/Vol] 9.8 10*3/uL Normal 4.4 - 11.3 [facility] Comment on above: Performed By: #### C BC #### [address] [address] Falls Risk Screeningon 06-24 Fall risk assessment a) No falls within the last year [employer] [facility] Work Phone: Tobacco use status [facility] b) No [facility] [facility] Work Phone: HIP, UNILATERAL W/PELVIS WHE N PERFORMED 2-3 VIEWSon 06-24-2021 HIP, UNILATERAL W/PELVIS WHEN PERFORMED 2-3 VIEWS Patient Name: ROULA WADSWORTH STUDY: HIP, UNILATERAL W/PELVIS WHEN PERFORMED 2-3 VIEWS INDICATION: pain M79.605: Pain of left lower extremity. COMPARISON: None ACCESSION NUMBER(S): [id number] ORDERING CLINICIAN: REILLY CONNELL FINDINGS: Cam left femoral neck. No other osseous, articular, or soft tissue abnormality. IMPRESSION: Cam morphology left femoral neck. Electronically signed by: CORNEL BRASHER MD Normal [facility] - Hematology and Cell countson 06-24-2021 Erythrocyte distribution width (RBC) [Ratio] 13.4 % See Below [facility] Work Phone: Comment on above: Reference Range: 11. 5 - 14.5 Hematocrit (Bld) [Volume fraction] 39.0 % See Below [facility] Work Phone: Comment on above: Reference Range: 36. 0 - 46.0 Hemoglobin (Bld) [Mass/Vol] 12.8 g/dL See Below [facility] Work Phone: Comment on above: Reference Range: 12. 0 - 16.0 MCHC (RBC) [Mass/Vol] 32.8 g/dL See Below [facility] Work Phone: Comment on above: Reference Range: 32. 0 - 36.0 MCV (RBC) [Entitic vol] 97 fL 80 - 100 [facility] Work Phone: Platelets (Bld) [#/Vol] 358 10*3/uL 150 - 450 [facility] Work Phone: RBC (Bld) [#/Vol] 4.02 {x10E12/L} See Below [facility] Work Phone: Comment on above: Reference Range: 4.0 0 - 5.20 WBC (Bld) [#/Vol] 9.8 10*3/uL 4.4 - 11.3 [facility] Work Phone: Office Visit (Primary Care T xt/Forms)on 06-24-2021 Follow-up visit Diagnoses/Problems Assessed Pain of left lower extremity (729.5) (M79.605) Orders Pain of left lower extremity Start: predniSONE 10 MG Oral Tablet; TAKE 4 TABLET Daily TAKE WITH FOOD C Reactive Protein, Serum; Status:Active; Requested for:[id number]; Complete Blood Count; Status:Active; Requested for:[id number]; Sedimentation Rate, Erythrocyte; Status:Active; Requested for:[id number]; [facility] Venous Duplex Ultrasound for DVT; Status:Hold For - Scheduling; Requested for:[id number]; Laterality : Left Xray Hip, unilateral w/ pelvis when performed, 2 or 3 view; Status:Hold For - Scheduling; Requested for:[id number]; Laterality : Left Radiologist to Determine Optimal Study : Y What are the patient's signs and symptoms? : pain Patient Discussion/Summary pred xray, cbc crp esr, doppler report fri am watch for rash Chief Complaint ER [facility], LEFT LEG PAIN History of Present Illness hurt in calf tuesday and radiate ant to thigh and groin, had covid nov8, jun 10 [address] [place] dimer [place] no result available no fver chills, nki Active Problems Problems Acute bronchitis, unspecified (466.0) (J20.9) Surgical History Problems History of Ectopic removal History of Hysterectomy History of Shoulder surgery Family History Mother Family history of hypertension (V17.49) (Z82.49) Social History Problems Minimum alcohol consumption Non-smoker (V49.89) (Z78.9) Current Meds Medication NameInstruction No Reported Medications Allergies Medication No Known Drug Allergies Vitals Vital Signs Recorded: [id number] 08:56AM Temperature: 97.3 F Heart Rate: 74 Systolic: 100 Diastolic: 58 Height: 5 ft 1 in Weight: 114 lb 7 oz BMI Calculated: 21.62 kg/m2 BSA Calculated: 1.49 Tobacco Use: b) No Fall Screening: a) No falls within the last year O2 Saturation: 98 Signatures Electronically signed by : Reilly Connell MD; Jun 24 2021 10:05AM EST (Author) Normal [facility] Radiologyon 06-24-2021 XR Pelvis and Hip - left 2 Views Normal [facility] Work Phone: XR Pelvis and Hip - left 2 Views Please click on the link to view the study images Normal [facility] Work Phone: SEDIMENTATION RATE, ERYTHROC YTEon 06-24-2021 SEDIMENTATION RATE, ERYTHROCYTE 9 mm/h Normal 0 - 20 [facility] Comment on above: Performed By: #### E SRWS #### [place] [address] Sedimentation Rate, Erythroc yteon 06-24-2021 ESR (Bld) [Velocity] 9 mm/h 0 - 20 [facility] Work Phone: [facility] LAB Venous Duplex Ultra sound DVTon 06-24-2021 [facility] Venous Duplex Ultrasound DVT [address] [address] [phone], Vascular Lab Report Lower Venous Duplex Ultrasound Patient Name: ROULA WADSWORTH Reading Physician: [id number] Cuauhtemoc Worthington MD Study Date: 06/24/2021 Referring Physician: [id number] REILLY SOTOMAYORJOHANNA MRN/PID: [id number] PCP: Accession/Order#: [id number] CC Report to: Date of : 1975 Technologist: Nga Beck RVT/ Gender: F Technologist 2: Admission Status: Outpatient Location Performed: [facility] Diagnosis/ICD: M79.605-Pain in left leg Procedure/CPT: 54778 Peripheral venous duplex scan for DVT Limited-[id number] CONCLUSIONS: Right Lower Venous: Right common femoral vein is negative for deep vein thrombus. Left Lower Venous: No evidence of acute deep vein thrombus visualized in the left lower extremity. Additional Findings: All deep veins of the left lower extremity are normally patent. Imaging AND Doppler Findings: Left Compress Thrombus SFJ Yes None Left Compress Thrombus Flow Iliac Yes None Spontaneous/Phasic CFV Yes None Spontaneous/Phasic PFV Yes None FV Proximal Yes None Spontaneous/Phasic FV Mid Yes None FV Distal Yes None Spontaneous/Phasic Popliteal Yes None Spontaneous/Phasic Peroneal Yes None PTV Yes None [id number] Cuauhtemoc Worthington MD Final Normal [facility] LAB Venous Duplex Ultra sound for DVTon 06-24-2021 [facility] Venous Duplex Ultrasound for DVT Please click on the link to view the study images Normal -[facility] Work Phone: [facility] Venous Duplex Ultrasound for DVT [facility] Work Phone: XR FEMUR LEFT 2+ VIEWS (SONYA DARTalisha)on 06-23-2021 XR FEMUR LEFT 2+ VIEWS (STANDARD) EXAMINATION: XR FEMUR LEFT 2+ VIEWS (STANDARD); XR KNEE LEFT 2 VIEWS (STANDARD) 06/23/2021 9:43 am HISTORY: ORDERING SYSTEM PROVIDED HISTORY: pain, TECHNOLOGIST PROVIDED HISTORY: Illness/Other Reason for exam: c/o pain in groin and hip area, nki x's 2 days Cancer History: na Surgery, RadiationHistory: na Encounter Type: Initial Additional signs and symptoms: ORDERING SYSTEM PROVIDED DIAGNOSIS CODES: COMPARISON: None. FINDINGS: Left femur: The left hip alignment is preserved. The proximal, mid, distal shaft of the femur is intact. The knee alignment is preserved. The soft tissues are radiographically normal. No acute fracture is evident. The visualized left obturator ring appears intact. Well-corticated ossific density along superolateral aspect of the left hip joint is suggestive of hypertrophic spurring versus tiny os acetabuli. Left knee: The knee alignment is preserved. There is no acute fracture. The soft tissues are radiographically normal. No significant joint effusion. IMPRESSION: Left femur: No acute osseous abnormality. Left knee: No acute osseous abnormality. [employer] Workstation ID: [id number] Dictated by: CHUCHO STILL on TueJun 23, 2021 9:58:24 AM EST Transcribed by: ELENA NAVA on TueJun 23, 2021 10:32:18 AM EST Finalized by: CHUCHO STILL on TueJun 28, 2021 8:12:50 PM EST [facility] Comment on above: Order Comment: Injur y/Trauma or Illness?:Illness/Other How long have you had these symptoms (acute/chronic)?:Acute Reason for exam?:c/o pain in junaid and hip area, nki x's 2 days History of cancer?:na Surgeries, chemotherapy, or radiation?:na Type of Exam?:Initial Additional signs and symptoms?: XR KNEE LEFT 2 VIEWS (STANDA RD)on 06-23-2021 XR KNEE LEFT 2 VIEWS (STANDARD) EXAMINATION: XR FEMUR LEFT 2+ VIEWS (STANDARD); XR KNEE LEFT 2 VIEWS (STANDARD) 06/23/2021 9:43 am HISTORY: ORDERING SYSTEM PROVIDED HISTORY: pain, TECHNOLOGIST PROVIDED HISTORY: Illness/Other Reason for exam: c/o pain in groin and hip area, nki x's 2 days Cancer History: na Surgery, RadiationHistory: na Encounter Type: Initial Additional signs and symptoms: ORDERING SYSTEM PROVIDED DIAGNOSIS CODES: COMPARISON: None. FINDINGS: Left femur: The left hip alignment is preserved. The proximal, mid, distal shaft of the femur is intact. The knee alignment is preserved. The soft tissues are radiographically normal. No acute fracture is evident. The visualized left obturator ring appears intact. Well-corticated ossific density along superolateral aspect of the left hip joint is suggestive of hypertrophic spurring versus tiny os acetabuli. Left knee: The knee alignment is preserved. There is no acute fracture. The soft tissues are radiographically normal. No significant joint effusion. IMPRESSION: Left femur: No acute osseous abnormality. Left knee: No acute osseous abnormality. [employer] Workstation ID: [id number] Dictated by: CHUCHO STILL on TueJun 23, 2021 9:58:24 AM EST Transcribed by: ELENA NAVA on TueJun 23, 2021 10:32:18 AM EST Finalized by: CHUCHO STILL on TueJun 28, 2021 8:12:50 PM EST [facility] Comment on above: Order Comment: Injur y/Trauma or Illness?:Illness/Other How long have you had these symptoms (acute/chronic)?:Acute Reason for exam?:c/o pain in junaid and hip area, nki x's 2 days History of cancer?:na Surgeries, chemotherapy, or radiation?:na Type of Exam?:Initial Additional signs and symptoms?: SCAN OTHER ORDERSon 02-06-20 Ordered by an unspec ified provider. [facility] MR Shoulder Right Without Co ntraston 10-04-2019 1. Rotator cuff tend inosis with low-grade bursal sided fraying of the central cuff. 2. Calcific tendinosis involving the subscapularis tendon. 3. Developing subacromial spur without subacromial or subdeltoid bursitis. Workstation ID: [id number] [facility] EXAMINATION: MR NAVEED BLAIR RIGHT WITHOUT CONTRAST HISTORY: ORDERING SYSTEM PROVIDED HISTORY: Impingement syndrome of right shoulder, TECHNOLOGIST PROVIDED HISTORY: Illness/Other Reason for exam: Rt. shoulder pain decreased rom x 1.5 monthd / abnormal X-ray @ work able Encounter Type: Initial Additional signs and symptoms: na ORDERING SYSTEM PROVIDED DIAGNOSIS CODES: M75.41 Impingement syndrome of right shoulder COMPARISON: Plain radiograph 09/13/2019. TECHNIQUE: Multiplanar, multisequence imaging of the right shoulderwas performed without contrast FINDINGS: The common clavicular joint is intact. Minimal joint space narrowing capsular hypertrophy. No significant fluid is present within the subacromial or subdeltoid bursa. There is broad-based thickening and early ossification of the distal coracoacromial ligament compatible with developing subacromial spur. There is mild thickening intermediate signal involving the supraspinatus and infraspinatus tendon suggesting tendinosis. No evidence of discrete tear. There may be low-grade bursal sided fraying. The subscapularis tendon is thickened with intermediate signal compatible tendinosis. The teres minor tendon is intact. The intracapsular biceps tendon is normal. The rotator cuff musculature demonstrates normal bulk and signal. There is a T1 hypointense, T2 hypointense structure within the distal subscapularis tendon (series 3, image 13; series 4-7, image 5) suggesting hydroxyapatite deposition and calcific tendinosis. The humerus is centered on the glenoid. This is the articular cartilage demonstrates low-grade chondrosis without full-thickness chondral defect. There is mild circumferential labral degeneration. No joint effusion. The bone marrow signal is normal without evidence of fracture, osteonecrosis or other marrow replacement process. The quadrilateral space is patent. No axillary lymphadenopathy. [facility], Rad In Fu ji Speechq - 10/04/2019 1:15 PM EDT EXAMINATION: MR SHOULDER RIGHT WITHOUT CONTRAST HISTORY: ORDERING SYSTEM PROVIDED HISTORY: Impingement syndrome of right shoulder, TECHNOLOGIST PROVIDED HISTORY: Illness/Other Reason for exam: Rt. shoulder pain decreased rom x 1.5 monthd / abnormal X-ray @ work able Encounter Type: Initial Additional signs and symptoms: na ORDERING SYSTEM PROVIDED DIAGNOSIS CODES: M75.41 Impingement syndrome of right shoulder COMPARISON: Plain radiograph 09/13/2019. TECHNIQUE: Multiplanar, multisequence imaging of the right shoulderwas performed without contrast FINDINGS: The common clavicular joint is intact. Minimal joint space narrowing capsular hypertrophy. No significant fluid is present within the subacromial or subdeltoid bursa. There is broad-based thickening and early ossification of the distal coracoacromial ligament compatible with developing subacromial spur. There is mild thickening intermediate signal involving the supraspinatus and infraspinatus tendon suggesting tendinosis. No evidence of discrete tear. There may be low-grade bursal sided fraying. The subscapularis tendon is thickened with intermediate signal compatible tendinosis. The teres minor tendon is intact. The intracapsular biceps tendon is normal. The rotator cuff musculature demonstrates normal bulk and signal. There is a T1 hypointense, T2 hypointense structure within the distal subscapularis tendon (series 3, image 13; series 4-7, image 5) suggesting hydroxyapatite deposition and calcific tendinosis. The humerus is centered on the glenoid. This is the articular cartilage demonstrates low-grade chondrosis without full-thickness chondral defect. There is mild circumferential labral degeneration. No joint effusion. The bone marrow signal is normal without evidence of fracture, osteonecrosis or other marrow replacement process. The quadrilateral space is patent. No axillary lymphadenopathy. IMPRESSION: 1. Rotator cuff tendinosis with low-grade bursal sided fraying of the central cuff. 2. Calcific tendinosis involving the subscapularis tendon. 3. Developing subacromial spur without subacromial or subdeltoid bursitis. Workstation ID: [id number] [facility] XR SHOULDER RIGHT 2+ VIEWS ( STANDARD)on 09-13-2019 XR SHOULDER RIGHT 2+ VIEWS (STANDARD) EXAMINATION: XR SHOULDER RIGHT 2+ VIEWS (STANDARD): HISTORY: ORDERING SYSTEM PROVIDED HISTORY: Injury , TECHNOLOGIST PROVIDED HISTORY: Illness/Other Reason for exam: Pt states right shoulder pain that radiates down arm, Pt states she does a lot of repetitive work and has had right shoulder pain x 3 weeks Cancer History: na Surgery, RadiationHistory: na Encounter Type: Initial Additional signs and symptoms: na ORDERING SYSTEM PROVIDED DIAGNOSIS CODES: T14.90XA Injury Injury . COMPARISON: None. TECHNIQUE: Three views of the right shoulder. FINDINGS: Glenohumeral alignment appears preserved. No acute fracture is identified. Acromioclavicular joint appears preserved. The imaged right ribs and right lung appear preserved. IMPRESSION: No acute osseous variation is seen. [facility]/[employer] Workstation ID: [id number] Dictated by: AMINTA CASILLAS on [facility] Sep 13, 2019 3:22:56 PM EST Transcribed by: SANGITA ALONZO on [facility] Sep 13, 2019 3:43:34 PM EST Finalized by: AMINTA CASILLAS on [facility] Sep 13, 2019 3:52:57 PM EST Normal [facility] Comment on above: Order Comment: WH Injury/Trauma or Illness?:Illness/Other How long have you had these symptoms (acute/chronic)?:Acute Reason for exam?:Pt states right shoulder pain that radiates down arm, Pt states she does a lot of repetitive work and has had right shoulder pain x 3 weeks History of cancer?:na Surgeries, chemotherapy, or radiation?:na Type of Exam?:Initial Additional signs and symptoms?:na Estradiolon 04-07-2017 Estradiol Lvl 108.0 pg/mL Normal [facility] Comment on above: Result Comment: Adul t Male: 7.6 - 42.6 Adult Female: Follicular phase 12.5 - 166.0 Ovulation phase 85.8 - 498.0 Luteal phase 43.8 - 211.0 Postmenopausal <6.0 - 54.7 1st trimester 215.0 - >4300.0 Children (1-10 years): Boys <6.0 - 20.0 Girls 6.0 - 27.0Roche ECLIA methodologyPerformed At: [facility] Systems[facility] CenterCemzan[address] [place], [place] [id number] Vincent PhD Ph:[phone] Performed By: #### 2 [id number] ####[place] Send Outs [address] [place] [id number] Progesterone Lvlon 7 Progest Lvl 12.3 ng/mL Normal [facility] Comment on above: Result Comment: Male : 0.0 - 0.5 Female: Follicular phase 0.1 - 0.9 Luteal phase 1.8 - 23.9 Ovulation phase 0.1 - 12.0 First trimester 11.0 - 44.3 Second trimester 25.4 - 83.3 Third trimester 58.7 - 214.0 Postmenopausal 0.0 - 0.1Performed At: [facility] Systems[facility] CenterGhcmta[address] [place], [place] [id number] Vincent PhD Ph:[phone] Performed By: #### 1 [id number] ####[place] Send Outs [address] [place] [id number] Testost Totalon 04-07-2017 Testoster Tot 12 ng/dL Normal [facility] Comment on above: Result Comment: MALE PEYTON STAGE FEMALE PEYTON STAGE 1 <3 1 <3 - 6 2 <3 - 432 2 <3 - 10 3 65 - 778 3 <3 - 24 4 180 - 763 4 <3 - 27 5 188 - 882 5 5 - 38 MALE ADULT 264 - 916 FEMALE ADULT 20-49 years 8 - 48 >49 years 3 - 41 Adult male reference interval is based on a population of healthy nonobese males (BMI <30) between 19 and 39 years old. uriel Velez.al. JCEM 2017,102;9904-8857. PMID: [id number].Performed At: [facility] [address] [place], [place] [id number] Vincent PhD Ph:[phone] Performed By: #### 2 [id number] ####[place] Send Outs [address] [place] [address] Free T3on 04-05-2017 Triiodothyronine (T3) free 3.1 pg/mL Normal 2.5-3.9 [facility] Comment on above: Performed By: #### 2 [id number] ####[place] [address] [place] [address] Free T4on 04-05-2017 Thyroxine (T4) free 0.67 ng/dL Normal 0.58-1.64 [facility] Comment on above: Result Comment: Ruby ents receiving more than 5mg/day of biotin may have interference in test results. A sample should be taken no sooner than eight hours after previous dose. Performed By: #### 2 [id number] ####MILTON [address] [place] [address] LabZ7zpu 04-05-2017 Hemoglobin A1c/Hemoglobin.tota l mass fraction (Bld) 5.7 % Normal 4.0-6.3 [facility] Comment on above: Performed By: #### 3 [id number] ####MILTON Chemistry Manual [address] [place] [address] TSHon 04-05-2017 Thyroid stimulating hormone (TSH) 0.93 mIU/m Normal 0.30-5.60 [facility] Comment on above: Performed By: #### 2 [id number] ####MILTON [address] [place] [address] Vital Signs Date Time Vital Sign Value Performing Clinician Facility 08-21-2024 15:20-0500 Body height 154.9 cm Magaly Wray CNP Work Phone: [facility] 08-21-2024 15:20-0500 Body mass index (BMI) [Ratio] 21.73 kg/m2 Magaly Wray CNP Work Phone: [facility] 08-21-2024 15:20-0500 Body weight 52.16 kg Magaly Wray CNP Work Phone: [facility] 08-13-2024 13:56-0500 Diastolic blood pressure 80 mm[Hg] Reilly Connell MD Work Phone: [facility] 08-13-2024 13:56-0500 Heart rate 91 /min Reilly Connell MD Work Phone: [facility] 08-13-2024 13:56-0500 SaO2% (BldA) [Mass fraction] 98 % Reilly Connell MD Work Phone: [facility] 08-13-2024 13:56-0500 Systolic blood pressure 120 mm[Hg] Reilly Connell MD Work Phone: [phone] [place] [address] 08-12-2024 11:11-0500 Body height 154.9 cm Errol Hernandez MD Work Phone: [phone] [place] [address] 08-12-2024 11:11-0500 Body mass index (BMI) [Ratio] 21.16 kg/m2 Errol Hernandez MD Work Phone: [facility] 08-12-2024 11:11-0500 Body temperature 96.8 [degF] Errol Hernandez MD Work Phone: 1(903)[phone] [place] [address] 08-12-2024 11:11-0500 Body weight 50.8 kg Errol Hernandez MD Work Phone: [facility] 08-12-2024 11:11-0500 Diastolic blood pressure 62 mm[Hg] Errol Hernandez MD Work Phone: [facility] 08-12-2024 11:11-0500 Heart rate 79 /min Errol Hernandez MD Work Phone: [facility] 08-12-2024 11:11-0500 Respiratory rate 16 /min Errol Hernandez MD Work Phone: [facility] 08-12-2024 11:11-0500 SaO2% (BldA) [Mass fraction] 96 % Errol Hernandez MD Work Phone: [facility] 08-12-2024 11:11-0500 Systolic blood pressure 104 mm[Hg] Errol Hernandez MD Work Phone: [facility] 08-24-2023 15:15-0500 Body height 154.9 cm Errol Hernandez MD Work Phone: [facility] 08-24-2023 15:15-0500 Body mass index (BMI) [Ratio] 21.52 kg/m2 Errol Hernandez MD Work Phone: [facility] 08-24-2023 15:15-0500 Body temperature 99.7 [degF] Errol Hernandez MD Work Phone: [facility] 08-24-2023 15:15-0500 Body weight 51.66 kg Errol Hernandez MD Work Phone: [facility] 08-24-2023 15:15-0500 Diastolic blood pressure 66 mm[Hg] Errol Hernandez MD Work Phone: [facility] 08-24-2023 15:15-0500 Heart rate 99 /min Errol Hernandez MD Work Phone: [facility] 08-24-2023 15:15-0500 SaO2% (BldA) [Mass fraction] 98 % Errol Hernandez MD Work Phone: [facility] 08-24-2023 15:15-0500 Systolic blood pressure 104 mm[Hg] Erorl Hernandez MD Work Phone: [facility] 12-01-2021 15:39-0400 Body height 154.94 cm Reilly Connell Work Phone: [facility] 300 Work Phone: 12-01-2021 15:39-0400 Body mass index (BMI) [Ratio] 20.22 kg/m2 Reilly Connell Work Phone: [facility] 300 Work Phone: 12-01-2021 15:39-0400 Body surface area Derived from formula 1.45 m2 Reilly D Stencel Work Phone: [facility] 300 Work Phone: 12-01-2021 15:39-0400 Body temperature 98.2 [degF] Reilly D Stencel Work Phone: [facility] 300 Work Phone: 12-01-2021 15:39-0400 Body weight 48.54 kg Reilly D Stencel Work Phone: [facility] 300 Work Phone: 08-27-2021 15:23-0500 Body height 154.94 cm Reilly D Stencel Work Phone: [facility] 300 Work Phone: 08-27-2021 15:23-0500 Body mass index (BMI) [Ratio] 21.8 kg/m2 Reilly D Stencel Work Phone: [facility] 300 Work Phone: 08-27-2021 15:23-0500 Body surface area Derived from formula 1.5 m2 Reilly D Stencel Work Phone: [facility] 300 Work Phone: 08-27-2021 15:23-0500 Body temperature 97.3 [degF] Reilly D Stencel Work Phone: [facility] 300 Work Phone: 08-27-2021 15:23-0500 Body weight 52.34 kg Reilly D Stencel Work Phone: [facility] 300 Work Phone: 08-04-2021 15:24-0500 Body height 154.94 cm Reilly D Stencel Work Phone: [facility] 300 Work Phone: 08-04-2021 15:24-0500 Body mass index (BMI) [Ratio] 22.11 kg/m2 Reilly Connell Work Phone: [facility] 300 Work Phone: 08-04-2021 15:24-0500 Body surface area Derived from formula 1.5 m2 Reilly Connell Work Phone: [facility] 300 Work Phone: 08-04-2021 15:24-0500 Body temperature 98.2 [degF] Reilly Sotomayorcel Work Phone: [facility] 300 Work Phone: 08-04-2021 15:24-0500 Body weight 53.07 kg Reilly Connell Work Phone: [facility] 300 Work Phone: 07-01-2021 11:52-0500 Body height 154.94 cm Reilly Connell [facility]: [facility] Work Phone: 07-01-2021 11:52-0500 Body temperature 98 [degF] Reilly Sotomayorcel Work Phone: [facility] Work Phone: 07-01-2021 11:52-0500 Diastolic blood pressure 66 mm[Hg] Reilly Sotomayorcel Work Phone: [facility] Work Phone: 07-01-2021 11:52-0500 Heart rate 92 /min Reilly Connell Work Phone: [facility] Work Phone: 07-01-2021 11:52-0500 SaO2% (BldA) [Mass fraction] 98 % Reilly Connell Work Phone: [facility] Work Phone: 07-01-2021 11:52-0500 Systolic blood pressure 108 mm[Hg] Reilly Connell Work Phone: [facility] Work Phone: 06-24-2021 08:56-0500 Body height 154.94 cm Reilly Connell Work Phone: [facility] Work Phone: 06-24-2021 08:56-0500 Body mass index (BMI) [Ratio] 21.62 kg/m2 Reilly Connell Work Phone: [employer] [place] [facility] Work Phone: 06-24-2021 08:56-0500 Body surface area Derived from formula 1.49 m2 Reilly Connell Work Phone: [employer] [place] [facility] Work Phone: 06-24-2021 08:56-0500 Body temperature 97.3 [degF] Reilly Connell Work Phone: [employer] [place] [facility] Work Phone: 06-24-2021 08:56-0500 Body weight 51.91 kg Reilly Connell Work Phone: [facility] [place] [facility] Work Phone: 06-24-2021 08:56-0500 Diastolic blood pressure 58 mm[Hg] Reilly Connell Work Phone: [facility] [place] [facility] Work Phone: 06-24-2021 08:56-0500 Heart rate 74 /min Reilly Connell Work Phone: [facility] Work Phone: 06-24-2021 08:56-0500 SaO2% (BldA) [Mass fraction] 98 % Reilly Connell Work Phone: [facility] Work Phone: 06-24-2021 08:56-0500 Systolic blood pressure 100 mm[Hg] Reilly Connell Work Phone: [facility] Work Phone: 02-06-2020 13:30-0400 Body Temperature 98.29 [degF] [facility] 02-06-2020 13:30-0400 Pulse (Heart Rate) 60 /min [facility] 02-06-2020 13:30-0400 Pulse Oximetry 96 % [facility] 02-06-2020 13:30-0400 Respiratory Rate 21 /min [facility] 02-06-2020 13:20-0400 BP Diastolic 70 mm[Hg] [facility] 02-06-2020 13:20-0400 BP Systolic 112 mm[Hg] [facility] 02-06-2020 07:34-0400 BMI (Body Mass Index) 21.83 kg/m2 [facility] 02-06-2020 07:34-0400 Body weight 52.4 kg [facility] 02-06-2020 07:34-0400 Height 154.9 cm [facility] 12-06-2019 10:01-0400 BMI (Body Mass Index) 20.78 kg/m2 Colin Hennessy [facility] 12-06-2019 10:01-0400 Body weight 49.9 kg Colinmamadou Hennessy [facility] 12-06-2019 10:01-0400 Height 154.9 cm [facility] Encounters Encounter Date Encounter Type Care Provider Facility Start: 10-26-2024 ambulatory REILLY CONNELL O [facility] Start: 09-20-2024 End: 09-20-2024 Orders Only Opal Zayas LPN [facility] Comment on above: Sprain of medial col lateral ligament of left knee, initial encounter (Primary Dx) Start: 09-04-2024 End: 09-04-2024 Office outpatient visit 5 minutes Magaly Wray [facility] Work Phone: [facility] Comment on above: Sprain of medial col lateral ligament of left knee, initial encounter (Primary Dx) Start: 09-04-2024 End: 09-04-2024 [facility] Start: 08-21-2024 End: 08-21-2024 Office outpatient new 20 minutes Magaly Wray [employer] Work Phone: [facility] Comment on above: Sprain of medial col lateral ligament of left knee, initial encounter (Primary Dx) Start: 08-21-2024 End: 08-21-2024 ambulatory MAGALY WRAY [facility] Start: 08-21-2024 End: 08-21-2024 ambulatory PROVIDER NOT IN SYSTEM [facility] Start: 08-21-2024 ambulatory ANNETTE VANN [facility] Ambulatory Start: 08-17-2024 End: 08-17-2024 ambulatory REILLY CONNELL [facility] Start: 08-15-2024 End: 08-15-2024 Subsequent hospital visit by physician [facility] Comment on above: Internal derangement of left knee Start: 08-15-2024 End: 08-15-2024 ambulatory REILLY CONNELL [facility] Start: 08-13-2024 End: 08-13-2024 Office outpatient visit 25 minutes Reilly Connell MD Work Phone: [facility] Comment on above: Internal derangement of left knee (Primary Dx) Start: 08-13-2024 End: 08-13-2024 ambulatory REILLY CONNELL [facility] Start: 08-12-2024 End: 08-12-2024 Emergency department patient visit REILLY CONNELL [facility] Comment on above: Knee effusion, left (Primary Dx); Sprain of left knee, initial encounter Start: 06-20-2024 End: 06-20-2024 ambulatory Nydia Johnson Facility:[facility] Start: 06-11-2024 End: 06-11-2024 ambulatory Nydia Johnson Facility:[facility] Start: 05-30-2024 End: 05-30-2024 ambulatory Reilly Connell Facility:[facility] Start: 03-21-2024 ambulatory Reilly Connell Facilit y:[facility] Start: 08-24-2023 End: 08-24-2023 Office outpatient visit 25 minutes Errol Hernandez MD Work Phone: [facility] Comment on above: Bacterial pneumonia (Primary Dx); Flu-like symptoms; Subacute cough Start: 08-24-2023 End: 08-24-2023 ambulatory ERROL HERNANDEZ [facility] Ambulatory Start: 04-29-2022 ambulatory Rowena Nita Otoole acility:[id number] Start: 04-29-2022 OTRECHEADT, Provider : Charity Sarabia, Status: Pen, Time: 8:45 AM Reilly Connell Work Phone: [facility] Work Phone: Start: 04-29-2022 Patient encounter procedure Reilly Sotomayorcel Work Phone: [facility] Work Phone: Start: 04-28-2022 Patient encounter procedure Reilly Woodall Stencel Work Phone: [facility] Work Phone: Start: 04-28-2022 ambulatory Rowena Nita Neville F acility:[id number] Start: 04-23-2022 ambulatory Rowena Nita Neville F acility:[id number] Start: 04-23-2022 OTFUADULT3, Provider : Aparna Rosales, Status: Pen, Time: 8:30 AM Reilly Sotomayorcel Work Phone: [facility] Work Phone: Start: 04-23-2022 Patient encounter procedure Reilly Woodall Stencel Work Phone: [facility] Work Phone: Start: 04-21-2022 Patient encounter procedure Reilly Woodall Stencel Work Phone: [facility] Work Phone: Start: 04-21-2022 ambulatory Reilly Otoole acility:[phone] Start: 04-16-2022 ambulatory Reilly Otoole acility:[phone] Start: 04-16-2022 OTFUADULT3, Provider : Aparna Rosales, Status: Pen, Time: 9:00 AM Reilly Connell Work Phone: [facility] Work Phone: Start: 04-16-2022 Patient encounter procedure Reilly Sotomayorcel Work Phone: [facility] Work Phone: Start: 04-14-2022 Patient encounter procedure Reilly Sotomayorcel Work Phone: [facility] Work Phone: Start: 04-14-2022 ambulatory Reilly Tosin Otoole acility:[phone] Start: 04-09-2022 ambulatory Reilly Tosin Otoole acility:[phone] Start: 04-09-2022 OTFUADULT3, Provider : Aparna Rosales, Status: Pen, Time: 8:45 AM Reilly Sotomayorcel Work Phone: [facility] Work Phone: Start: 04-09-2022 Patient encounter procedure Reilly Connell Work Phone: [facility] Work Phone: Start: 04-07-2022 ambulatory Reilly Tosin Otoole acility:[phone] Start: 04-07-2022 Patient encounter procedure Reilly Connell Work Phone: [facility] Work Phone: Start: 04-02-2022 ambulatory Reilly Tosin Otoole acility:[phone] Start: 04-02-2022 OTFUADULT3, Provider : Aparna Rosales, Status: Pen, Time: 11:15 AM Reilly Talisha Sotomayorcel Work Phone: [facility] Work Phone: Start: 03-31-2022 Patient encounter procedure Reilly Connell Work Phone: [facility] Work Phone: Start: 03-31-2022 ambulatory Reilly Connell F acility:[phone] Start: 02-06-2022 ambulatory Brandi Zoey Otoole acility:[phone] Start: 12-03-2021 Chart Update Reilly Sotomayor johanna Work Phone: [facility] 300 Work Phone: Start: 12-01-2021 Office outpatient vi sit 25 minutes Reilly Connell Work Phone: [facility] 300 Work Phone: Start: 12-01-2021 ambulatory Carli Kumar Faci lity:[phone] Start: 10-15-2021 ambulatory Reilly Connell F acility:[phone] Start: 08-27-2021 Office outpatient vi sit 15 minutes Reilly Connell Work Phone: [facility] 300 Work Phone: Start: 08-27-2021 Patient encounter procedure Reilly Connell Work Phone: [facility] 300 Work Phone: Start: 08-27-2021 ambulatory Reilly Connell F acility:[phone] Start: 08-27-2021 Chart Update Reilly root Work Phone: [facility] 300 Work Phone: Start: 08-24-2021 ambulatory Reilly Torre Fac ility:[phone] Start: 08-04-2021 Patient encounter procedure Reilly Connell Work Phone: [facility] 300 Work Phone: Start: 08-04-2021 ambulatory Reilly Connell F acility:[phone] Start: 07-01-2021 Office outpatient vi sit 15 minutes Reilly Connell Work Phone: [facility] Work Phone: Start: 07-01-2021 ambulatory Reilly Otoole acility:[id number] Start: 06-26-2021 AUDIT Reilly root Work Phone: [facility] Work Phone: Start: 06-25-2021 Chart Update Reilly root Work Phone: [facility] Work Phone: Start: 06-24-2021 ambulatory Reilly Otoole acility:[phone] Start: 06-24-2021 ambulatory Reilly Otoole acility:[phone] Start: 06-24-2021 Office outpatient vi sit 25 minutes Reilly Connell Work Phone: [facility] Work Phone: Start: 06-24-2021 ambulatory Reilly Otoole acility:[id number] Start: 06-23-2021 End: 06-23-2021 Emergency department patient visit [facility] T[facility]IN [facility] Start: 07-21-2020 End: 07-25-2020 ambulatory [facility] Start: 07-21-2020 End: 07-21-2020 Patient encounter procedure Caroline Sergio Martinwilliamzelalem Work Phone: [facility] Comment on above: S/P right rotator cu ff repair (Primary Dx); Status post arthroscopy of right shoulder Start: 07-02-2020 End: 07-06-2020 ambulatory [facility] Start: 07-02-2020 End: 07-02-2020 Patient encounter procedure Caroline Sergio Bari Work Phone: [facility] Comment on above: S/P right rotator cu ff repair (Primary Dx); Status post arthroscopy of right shoulder Start: 06-03-2020 End: 06-03-2020 Patient encounter procedure Caroline Sergio Martinbret Work Phone: [facility] Comment on above: S/P right rotator cu ff repair (Primary Dx); Status post arthroscopy of right shoulder Start: 05-29-2020 End: 05-29-2020 Patient encounter procedure Caroline Candelaria Work Phone: [facility] Comment on above: S/P right rotator cu ff repair (Primary Dx); Status post arthroscopy of right shoulder Start: 05-27-2020 End: 05-27-2020 Patient encounter procedure Caroline Candelaria Work Phone: [facility] Comment on above: S/P right rotator cu ff repair (Primary Dx); Status post arthroscopy of right shoulder Start: 05-22-2020 End: 05-22-2020 Patient encounter procedure Caroline Candelaria Work Phone: [facility] Comment on above: S/P right rotator cu ff repair (Primary Dx); Status post arthroscopy of right shoulder Start: 05-19-2020 End: 05-19-2020 Patient encounter procedure Caroline Candelaria Work Phone: [facility] Comment on above: S/P right rotator cu ff repair (Primary Dx); Status post arthroscopy of right shoulder Start: 2020 End: 2020 Patient encounter procedure Caroline Candelaria Work Phone: [facility] Comment on above: S/P right rotator cu ff repair (Primary Dx); Status post arthroscopy of right shoulder Start: 05-14-2020 End: 05-14-2020 Patient encounter procedure Caroline Candelaria Work Phone: [facility] Comment on above: S/P right rotator cu ff repair (Primary Dx); Status post arthroscopy of right shoulder Start: 04-23-2020 End: 04-23-2020 Patient encounter procedure Caroline Candelaria Work Phone: [facility] Comment on above: S/P right rotator cu ff repair (Primary Dx); Status post arthroscopy of right shoulder Start: 04-18-2020 End: 04-18-2020 Patient encounter procedure Caroline Candelaria Work Phone: [facility] Comment on above: S/P right rotator cu ff repair (Primary Dx); Status post arthroscopy of right shoulder Start: 04-16-2020 End: 04-16-2020 Patient encounter procedure Caroline Candelaria Work Phone: [facility] Comment on above: S/P right rotator cu ff repair (Primary Dx); Status post arthroscopy of right shoulder Start: 04-11-2020 End: 04-11-2020 Patient encounter procedure Caroline Candelaria Work Phone: [facility] Comment on above: S/P right rotator cu ff repair (Primary Dx); Status post arthroscopy of right shoulder Start: 04-09-2020 End: 04-09-2020 Patient encounter procedure Caroline Candelaria Work Phone: [facility] Comment on above: S/P right rotator cu ff repair (Primary Dx); Status post arthroscopy of right shoulder Start: 04-02-2020 End: 04-02-2020 Patient encounter procedure Caroline Candelaria Work Phone: [facility] Comment on above: S/P right rotator cu ff repair (Primary Dx); Status post arthroscopy of right shoulder Start: 03-31-2020 End: 03-31-2020 Patient encounter procedure Caroline Candelaria Work Phone: [facility] Comment on above: S/P right rotator cu ff repair (Primary Dx); Status post arthroscopy of right shoulder Start: 03-26-2020 End: 03-26-2020 Patient encounter procedure Caroline Candelaria Work Phone: [facility] Comment on above: S/P right rotator cu ff repair (Primary Dx); Status post arthroscopy of right shoulder Start: 03-21-2020 End: 03-21-2020 Patient encounter procedure Caroline Candelaria Work Phone: [facility] Comment on above: S/P right rotator cu ff repair (Primary Dx); Status post arthroscopy of right shoulder Start: 03-19-2020 End: 03-19-2020 Patient encounter procedure Caroline Candelaria Work Phone: [facility] Comment on above: S/P right rotator cu ff repair (Primary Dx); Status post arthroscopy of right shoulder Start: 03-14-2020 End: 03-14-2020 Patient encounter procedure Caroline Candelaria Work Phone: [facility] Comment on above: S/P right rotator cu ff repair (Primary Dx); Status post arthroscopy of right shoulder Start: 03-12-2020 End: 03-12-2020 Patient encounter procedure Caroline Candelaria Work Phone: [facility] Comment on above: S/P right rotator cu ff repair (Primary Dx); Status post arthroscopy of right shoulder Start: 03-07-2020 End: 03-07-2020 Patient encounter procedure Caroline Candelaria Work Phone: [facility] Comment on above: S/P right rotator cu ff repair (Primary Dx); Status post arthroscopy of right shoulder Start: 03-05-2020 End: 03-05-2020 Patient encounter procedure Caroline Candelaria Work Phone: [facility] Comment on above: S/P right rotator cu ff repair (Primary Dx); Status post arthroscopy of right shoulder Start: 02-27-2020 End: 02-27-2020 Patient encounter procedure Caroline Candelaria Work Phone: [facility] Comment on above: S/P right rotator cu ff repair (Primary Dx); Status post arthroscopy of right shoulder Start: 02-25-2020 End: 02-25-2020 Patient encounter procedure Caroline Candelaria Work Phone: [facility] Comment on above: Strain of tendon of right rotator cuff, initial encounter; Arthritis of right shoulder region; Impingement syndrome of right shoulder; Superior glenoid labrum lesion of right shoulder, initial encounter; Status post arthroscopy of right shoulder; S/P right rotator cuff repair Start: 02-06-2020 End: 02-06-2020 Patient encounter procedure CAROLINE CANDELARIA [facility] Start: 02-06-2020 End: 02-06-2020 Subsequent hospital visit by physician Caroline Candelaria Work Phone: [facility] Comment on above: Left shoulder pain, unspecified chronicity (Primary Dx) Start: 02-04-2020 End: 02-04-2020 Patient encounter procedure CAROLINE CANDELARIA [facility] Start: 12-06-2019 End: 12-06-2019 Office consultation new/estab patient 40 min Efren Egan Work Phone: [facility] Comment on above: Impingement syndrome of right shoulder Start: 10-04-2019 End: 10-04-2019 Subsequent hospital visit by physician Efren Egan Work Phone: [facility] Comment on above: Impingement syndrome of right shoulder Start: 09-13-2019 End: 09-17-2019 Patient encounter procedure EFREN EGAN [facility] Start: 01-19-2018 End: 01-20-2018 Ambulatory Reilly Connell Facility:[facility] Start: 04-05-2017 End: 04-06-2017 Ambulatory Ida Howe Facility:[facility] Start: 01-25-2017 End: 01-25-2017 Ambulatory Colin Hennessy Facility:[facility] [facility] Date Procedure Procedure Detail Performing Clinician Start: 08-12-2024 Radiologic examinati on knee 1/2 views Errol Estrada PA-C Work Phone: Start: 06-11-2024 Mammography Errol bynum MD Work Phone: Start: 08-24-2023 POCT INFLUENZA A/B YANELIS HERNANDEZ Start: 08-24-2023 Iaadiadoo influenza Brock ra Leeroy Hernandez MD Work Phone: Start: 02-06-2022 Mammography Errol bynum MD Work Phone: Start: 02-25-2020 History of repair of musculotendinous cuff of shoulder S/P right rotator cuff repair Magaly Wray [employer] Work Phone: Start: 02-06-2020 SCAN OTHER ORDERS Provi ruthie Not In System Start: 02-06-2020 End: 02-06-2020 Arthroscopy, shoulder Caroline june Work Phone: Start: 10-04-2019 Mri any jt upper ext remity w/o contrast matrl Efren Egan Work Phone: Hysterectomy Reilly Woodall Aravind el Work Phone: Removal of ectopic fetus Antonino geo Woodall Ko Work Phone: Comment on above: x2; Repair of shoulder Reilly Talisha Connell Work Phone: Comment on above: left; Plan of Treatment Date Care Activity Detail Author Start: 2027 Zoster Vaccines (1 o f 2) Zoster Vaccines (1 of 2) [facility] Start: 06-11-2025 Screening for malign ant neoplasm of breast Mammogram [facility] Start: 09-04-2024 End: 09-04-2024 Patient encounter procedure 09/04/2024 2:15 PM EST Office Visit [facility] [address] [place] [address] Magaly Wray, [employer] [address] [place] [id number] [facility] Start: 08-13-2024 End: 08-13-2025 MR Knee - left WO contrast MR knee left wo IV contrast Imaging Routine Internal derangement of left knee Expected: 08/13/2024, Expires: 08/13/2025 [facility] Service Area Work Phone: Comment on above: Expected: 08/13/2024 , Expires: 08/13/2025 Start: 03-18-2024 COVID-19 Vaccine ( season) COVID-19 Vaccine ( season) [facility] Start: 03-18-2024 Influenza vaccination Influenza Vacc ine (#1) [facility] Start: 08-24-2023 End: 08-24-2024 Influenza virus A and B and SARS-CoV-2 (COVID-19) identified in Respiratory specimen by WILLIE with probe detection [facility] Service Area Work Phone: Comment on above: Expected: 08/24/2023 (Approximate), Expires: 08/24/2024 Start: 03-18-2023 Influenza vaccination Influenza Vacc ine (#1) [facility] Start: 02-06-2023 Screening for malign ant neoplasm of breast Mammogram [facility] Start: 04-29-2022 OTRECHEADT, Provider : Charity Sarabia, Status: Pen, Time: 8:45 AM OTRECHEADT, Provider: Charity Sarabia, Status: Pen, Time: 8:45 AM [facility] Work Phone: Start: 04-28-2022 OTFUADULT3, Provider : Charity Sarabia, Status: Pen, Time: 7:45 AM OTFUADULT3, Provider: Charity Sarabia, Status: Pen, Time: 7:45 AM [facility] Work Phone: Start: 04-23-2022 OTFUADULT3, Provider : Aparna Rosales, Status: Pen, Time: 8:30 AM OTFUADULT3, Provider: Aparna Rosales, Status: Pen, Time: 8:30 AM [facility] Work Phone: Start: 04-21-2022 OTFUADULT3, Provider : Charity Sarabia, Status: Pen, Time: 7:45 AM OTFUADULT3, Provider: Charity Sarabia, Status: Pen, Time: 7:45 AM [facility] Work Phone: Start: 04-16-2022 OTFUADULT3, Provider : Aparna Rosales, Status: Pen, Time: 9:00 AM OTFUADULT3, Provider: Aparna Rosales, Status: Pen, Time: 9:00 AM [facility] Work Phone: Start: 04-14-2022 OTFUADULT3, Provider : Charity Sarabia, Status: Pen, Time: 7:45 AM OTFUADULT3, Provider: Charity Sarabia, Status: Pen, Time: 7:45 AM [facility] Work Phone: Start: 04-09-2022 OTFUADULT3, Provider : Aparna Rosales, Status: Pen, Time: 8:45 AM OTFUADULT3, Provider: Aparna Rosales, Status: Pen, Time: 8:[address] [facility] Work Phone: Start: 04-07-2022 OTFUADULT3, Provider : Aparna Rosales, Status: Pen, Time: 10:15 AM OTFUADULT3, Provider: Aparna Rosales, Status: Pen, Time: 10:[address] [facility] Work Phone: Start: 12-29-2021 FUV, Provider: Carli Kumar, Status: Pen, Time: 3:00 PM FUV, Provider: Carli Kumar, Status: Pen, Time: 3:00 PM [facility] 300 Work Phone: Start: 10-01-2021 FUV, Provider: Reilly Torre, Status: Pen, Time: 3:00 PM FUV, Provider: Reilly Torre, Status: Pen, Time: 3:00 PM [facility] 300 Work Phone: Start: 08-04-2021 NPV, Provider: Reilly Torre, Status: Pen, Time: 3:00 PM NPV, Provider: Reilly Torre, Status: Pen, Time: 3:00 PM [facility] Work Phone: Start: 07-16-2020 End: 07-16-2020 Treatment 07/16/2020 Treatment Rehabilitation Caroline Candelaria, DO [address] [place] [address] [phone] Tra Gastelum PTA [facility] Start: 07-14-2020 End: 07-14-2020 Treatment 07/14/2020 Treatment Rehabilitation Caroline Candelaria, DO [address] [place] [address] [phone] Tra Gastelum PTA [facility] Start: 07-09-2020 End: 07-09-2020 Treatment 07/09/2020 Treatment Rehabilitation Caroline Candelaria, DO [address] [place] [address] [phone] Tra Gastelum [facility] Start: 07-07-2020 End: 07-07-2020 Treatment 07/07/2020 Treatment Rehabilitation Caroline Candelaria, DO [address] [place] [address] [phone] Emelia Trejo [facility] Start: 07-04-2020 End: 07-04-2020 Treatment 07/04/2020 Treatment Rehabilitation Caroline Candelaria, DO [address] [place] [address] [phone] Emelia Trejo [facility] Start: 06-10-2020 End: 06-10-2020 Treatment 06/10/2020 Treatment Rehabilitation Caroline Candelaria, DO [address] [place] [address] [phone] Koko Fonseca, [facility] Start: 06-05-2020 End: 06-05-2020 Treatment 06/05/2020 Treatment Rehabilitation Caroline Candelaria, DO [address] [place] [address] [phone] Tra Gastelum [facility] Start: 06-03-2020 End: 06-03-2020 Treatment 06/03/2020 Treatment Rehabilitation Caroline Candelaria, DO [address] [place] [address] [phone] Emelia Trejo [facility] Start: 05-29-2020 End: 05-29-2020 Treatment 05/29/2020 Treatment Rehabilitation Caroline Candelaria, DO [address] [place] [address] Tra Gastelum PTA [facility] Start: 05-27-2020 End: 05-27-2020 Treatment 05/27/2020 Treatment Rehabilitation Caroline Candelaria, DO [address] [place] [address] Emelia Trejo [facility] Start: 05-22-2020 End: 05-22-2020 Treatment 05/22/2020 Treatment Rehabilitation Caroline Candelaria, DO [address] [place] [address] Tra Gastelum PTA [facility] Start: 05-19-2020 End: 05-19-2020 Treatment 05/19/2020 Treatment Rehabilitation Caroline Candelaria, DO [address] [place] [address] Tra Gastelum PTA [facility] Start: 05-19-2020 End: 05-19-2020 Treatment [facility] Start: 2020 End: 2020 Treatment [facility] Start: 05-14-2020 End: 05-14-2020 Treatment [facility] Start: 05-12-2020 End: 05-12-2020 Treatment [facility] Start: 05-09-2020 End: 05-09-2020 Treatment [facility] Start: 05-07-2020 End: 05-07-2020 Treatment [facility] Start: 05-05-2020 End: 05-05-2020 Treatment [facility] Start: 05-02-2020 End: 05-02-2020 Treatment [facility] Start: 04-30-2020 End: 04-30-2020 Treatment [facility] Start: 04-28-2020 End: 04-28-2020 Treatment [facility] Start: 04-25-2020 End: 04-25-2020 Treatment [facility] Start: 04-23-2020 End: 04-23-2020 Treatment [facility] Start: 04-21-2020 End: 04-21-2020 Treatment [facility] Start: 04-18-2020 End: 04-18-2020 Treatment [facility] Start: 04-16-2020 End: 04-16-2020 Treatment [facility] Start: 04-14-2020 End: 04-14-2020 Treatment [facility] Start: 04-11-2020 End: 04-11-2020 Treatment [facility] Start: 04-09-2020 End: 04-09-2020 Treatment 04/09/2020 Treatment Rehabilitation Tra Gastelum PTA [facility] Start: 04-02-2020 End: 04-02-2020 Treatment 04/02/2020 Treatment Rehabilitation Caroline Candelaria, DO [address] [place] [address] Emelia Trejo [facility] Start: 03-31-2020 End: 03-31-2020 Treatment 03/31/2020 Treatment Rehabilitation Caroline Candelaria, DO [address] [place] [address] [phone] Koko Fonseca, PT [facility] Start: 03-28-2020 End: 03-28-2020 Treatment 03/28/2020 Treatment Rehabilitation Caroline Candelaria, DO [address] [place] [address] Myriam Quinones [employer] OFFICER [facility] Start: 03-26-2020 End: 03-26-2020 Treatment 03/26/2020 Treatment Rehabilitation Caroline Candelaria, DO [address] [place] [address] Emelia Trejo [facility] Start: 03-21-2020 End: 03-21-2020 Treatment 03/21/2020 Treatment Rehabilitation Caroline Candelaria, DO [address] [place] [address] [phone] Myriam Quinones [facility] Start: 03-19-2020 End: 03-19-2020 Treatment 03/19/2020 Treatment Rehabilitation Caroline Candelaria, DO [address] [place] [address] [facility] Start: 03-18-2020 Influenza vaccinatio n given [facility] Start: 03-17-2020 End: 03-17-2020 Treatment 03/17/2020 Treatment Rehabilitation Caroline Candelaria, DO [address] [place] [address] Tra Gastelum [facility] Start: 03-14-2020 End: 03-14-2020 Treatment 03/14/2020 Treatment Rehabilitation Caroline Candelaria, DO [address] [place] [address] [phone] Emelia Trejo [facility] Start: 03-12-2020 End: 03-12-2020 Treatment [facility] Start: 03-07-2020 End: 03-07-2020 Treatment 03/07/2020 Treatment Rehabilitation Caroline Candelaria, DO [address] [place] [address] Emelia Trejo [facility] Start: 03-05-2020 End: 03-05-2020 Treatment 03/05/2020 Treatment Rehabilitation Caroline Candelaria, DO [address] [place] [address] Em[facility] Trejo [facility] Start: 02-29-2020 End: 02-29-2020 Treatment 02/29/2020 Treatment Rehabilitation Caroline Candelaria, DO [address] [place] [address] Emelia Trejo [facility] Start: 02-27-2020 End: 02-27-2020 Treatment 02/27/2020 Treatment Rehabilitation Caroline Candelaria, [address] [facility] [address] [place] [address] [phone] Tra Gastelum PTA [facility] Start: 03-18-2019 Influenza vaccinatio n given Sequential Influenza Vaccine (#1) [facility] Start: 2007 Screening for malign ant neoplasm of cervix [facility] Start: 1999 DTaP/Tdap/Td Vaccine s (1 - Tdap) DTaP/Tdap/Td Vaccines (1 - Tdap) [facility] Start: 1998 Screening for malign ant neoplasm of cervix [facility] Start: 1996 Hepatitis B Vaccines (1 of 3 - 19+ 3-dose series) Hepatitis B Vaccines (1 of 3 - 19+ 3-dose series) [facility] Start: 1995 Hepatitis C antibody , confirmatory test Hepatitis C Screening [facility] Start: 1995 Hepatitis C screening Hepatitis C Sc [facility] Start: 1992 HIV screening HIV Screening [facility] Start: 1989 Adolescent depressio n screening assessment Depression Screening (PHQ9) [facility] Start: 1989 Depression screening using PHQ-9 (Patient Health Questionnaire 9) score Depression Screening/Follow-Up (PHQ-2/9) [facility] Start: 1980 History and physical examination, annual for health maintenance Wellness Visit [facility] Start: 1978 MMR Vaccines (1 of 1 - Standard series) MMR Vaccines (1 of 1 - Standard series) [facility] Start: 1977 COVID-19 Vaccine (#1) COVID-19 Vacci ne (#1) [facility] Start: 1977 Depression screening using PHQ-9 (Patient Health Questionnaire 9) score Depression Screening (PHQ9) [facility] Start: 1977 Hepatitis B Vaccines (1 of 3 - 3-dose series) Hepatitis B Vaccines (1 of 3 - 3-dose series) [facility] Start: 1977 HIV screening HIV Screening [facility] Start: 1977 Lipid panel Lipid Panel [facility] Start: 1977 Screening for malign ant neoplasm of cervix Pap Smear [facility] Start: 1977 Screening for malign ant neoplasm of colon [facility] Start: 1977 Screening mammography Mammogram [facility] Start: 1977 Tetanus vaccination Tetanus: Every 1 0yrs [facility] Start: 1977 Yearly Adult Physical Yearly Adult P hysical [facility] End: 08-15-2024 MR Knee - left WO contrast [facility] Service Area Work Phone: Comment on above: Once for 1 Occurrenc es starting 08/15/2024 until 08/15/2024 Payers Date Payer Category Payer Self-pay 2022 Blue Cross Feliberto Bahe ld (Indemnity or Managed Care) - Out of State BCBS OUT OF STATE [facility] Member Subscriber Plan / Payer (Effective 2022-Present) Name: Roula Wadsworth Relation to Subscriber: Self Name: Roula Wadsworth Payer ID: [id number] (NAIC) Type: Not on file Address: [address] [place] [id number] [id number] 2022 Feliberto castillo Managed Care [facility] Member Subscriber Plan / Payer (Effective 2022-Present) Name: Roula Wadsworth Relation to Subscriber: Self Name: Roula Wadsworth Payer ID: [id number] (NAIC) Type: Not on file Address: [address] [place] [phone] 2019 Worker's Compensation WORKER'S C [employer] 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 2019 Worker's Compensation [phone] 2016 Unknown 2015 Unknown ANTHEM ANTHEM BLUE/PREF/HMO/PPO xxxxxxxxxxxx 2015-Present [id number] [id number] 2015 Unknown ANTHEM ANTHEM BLUE/PREF/HMO/PPO [id number] 2015-Present [id number]. [id number] 2015 Blue Cross Blue Shield GRDAN [id number] 1977 Unknown [id number] 2.16.840.1.250562.3.579. 2.903 1977 Unknown [id number] 2.16.840.1.201348.3.579. 2.902 1977 Unknown [id number] 2.16.840.1.473043.3.579. 2.902 1977 Unknown [id number] 2.16.840.1.878840.3.579. 2.903 1977 Unknown [id number] 2.16.840.1.597584.3.579. 2.903 1977 Unknown [id number] 2.16.840.1.566563.3.579. 2.903 1977 Unknown [id number] 2.16.840.1.474154.3.579. 2.356 1977 Unknown [id number] 2.16.840.1.965509.3.579. 2.356 1977 Unknown [id number] 2.16.840.1.574279.3.579. 2.356 1977 Unknown [id number] 2.16.840.1.659192.3.579. 2. 1977 Unknown [id number] 2.16.840.1.524610.3.579. 2. 1977 Unknown [id number] 2.16.840.1.215623.3.579. 2. 1977 Unknown [id number] 2.16.840.1.655785.3.579. 2.1068 1977 Unknown [id number] 2.16.840.1.087495.3.579. 2.1068 1977 Unknown [id number] 2.16.840.1.386225.3.579. 2.1068 1977 Unknown [id number] 2.16.840.1.409268.3.579. 2.1068 1977 Unknown [id number] 2.16.840.1.070905.3.579. 2.1068 1977 Unknown [id number] 2.16.840.1.984699.3.579. 2.1068 1977 Unknown [id number] 2.16.840.1.207284.3.579. 2.1068 1977 Unknown [id number] 2.16.840.1.231813.3.579. 2.1068 1977 Unknown [id number] 2.16.840.1.470102.3.579. 2.1068 1977 Unknown [id number] 2.16.840.1.331147.3.579. 2.1068 1977 Unknown [id number] 2.16.840.1.831036.3.579. 2.1068 1977 Unknown [id number] 2.16.840.1.711242.3.579. 2.1068 1977 Unknown [id number] 2.16.840.1.182455.3.579. 2.1068 1977 Unknown [id number] 2.16.840.1.171817.3.579. 2.1069 1977 Unknown [id number] 2.16.840.1.300859.3.579. 2.1069 1977 Unknown [id number] 2.16.840.1.917567.3.579. 2.1244 1977 Unknown [id number] 2.16.840.1.742490.3.579. 2.1244 1977 Unknown [id number] 2.16.840.1.274259.3.579. 2.1243 1977 Unknown [id number] 2.16.840.1.332932.3.579. 2.1243 1977 Unknown [id number] 2.16.840.1.181048.3.579. 2.900 1977 Unknown [id number] 2.16.840.1.975679.3.579. 2.900 1977 Unknown [id number] 2.16.840.1.172065.3.579. 2.903 1977 Unknown [id number] 2.16.840.1.182542.3.579. 2.903 1977 Unknown [id number] 2.16.840.1.238008.3.579. 2.903 1977 Unknown [id number] 2.16.840.1.643661.3.579. 2.903 Unknown [id number] Unknown [id number] 2.16.840.1.410435.3.579. 2.462 Unknown [id number] 2.16.840.1.107598.3.579. 2.462 Unknown [id number] 2.16.840.1.104351.3.579. 2.462 Unknown [id number] 2.16.840.1.030889.3.579. 2.462 Worker's Compensation WORKER'S C [employer] [facility] SELF INSURED EMPLOYER* xxxxxxxxx Effective for all dates xxxxxxxxx [id number]. 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 alcohol (finding) [facility] Start: 1975 Sex Assigned At Not on file [facility] Start: 12-06-2019 End: 09-06-2024 Alcohol intake Current drinker of alcohol (finding) [facility] Start: 08-14-2023 End: 08-15-2024 Exposure to SARS-CoV-2 (event) Not sure [facility] Start: 02-04-2020 Alcohol Comment 1-2 drinks each week [facility] Start: 12-06-2019 End: 02-25-2020 Tobacco use and exposure Never used [facility] Start: 08-24-2023 End: 09-06-2024 Non-smoker Non-smoker [facility] Work Phone: Start: 08-24-2023 Alcohol Comment occasionally [facility] Work Phone: Start: 08-24-2023 End: 09-06-2024 Gender identity Not on file [facility] Work Phone: Start: 10-01-2019 Gender identity Identifies as female gender (finding) [facility] Start: 10-01-2019 Sexual orientation Heterosexual (fin ding) [facility] NEGATED: Highlighted rowStart: NINF History of tobacco use Passive smoker [facility] Work Phone: Medical Equipment Procedure Code Equipment Code Equipment Origin al Text Equipment Identifier Dates Iola 4.75 X 19 .1mm Suture Vented Biocomp Swivelock C - [id number] FDA Start: 02-06-2020 Iola 5.5mm Sut ure Biocomp Corkscrew Ft W/ Suture Tape - [id number] [facility] Start: 02-06-2020 Screw 7 X 23mm Biocomposite Tenodesis - [id number] [facility] Start: 02-06-2020 Clinical Notes 05-18-2021 to 09-20-2024 Opal Zayas LPN - 09/20/2024 3:46 PM Magaly Small CNP - 09/04/2024 5:19 PM Magaly Small CNP - 08/23/2024 4:57 PM Donna Connell MD - 08/13/2024 1:40 PM EST Note Date & Type Note Facility 09-20-2024 History of Present illness Narrative Patient called office her left knee is painful and swollen since yesterday . She returned to work Tuesday. Has used ice and elevation and wearing her brace. Would like intermittent FMLA for left knee . Would like to go ahead with therapy as discussed at appointment with Magaly ORTIZ. documented in this encounter [facility] 09-04-2024 Note [facility] [address] [facility] [address] [facility] [phone] Chief Complaint Patient presents with Left Knee - Follow-up Roula Wadsworth returns to the office today for follow-up on the left knee. I saw her approximately 2 weeks ago in the office for left knee pain. She had been dancing with her daughter when she injured the left knee. She did have an MRI which showed a MCL sprain. We treated this conservatively with immobilization. I placed her in a hinged range of motion knee brace that she was to wear at all times. Today she reports the knee is feeling better however she feels as though it is still a little weak without the brace. She continues to take OTC pain medications as needed. She denies any new injury of that left knee since her last office visit. The patient's past medical history, surgical history, social history, family history, medications and allergies were reviewed with the patient today and are available in the chart for further review. No Known Allergies Current Outpatient Medications: ibuprofen (ADVIL,MOTRIN) 200 MG tablet, Take 1 (one) tablet (200 mg total) by mouth every 6 (six) hours as needed for pain ., Disp: , Rfl: Past Medical History: Diagnosis Date Heart murmur Past Surgical History: Procedure Laterality Date ARTHROSCOPY SHOULDER Right 02/06/2020 Procedure: RIGHT SHOULDER ARTHROSCOPY, ROTATOR CUFF REPAIR, DISTAL CLAVICLE EXCISION, PROXIMAL BICEPS TENODESIS, SUBACROMIAL DECOMPRESSION; Surgeon: Caroline Candelaria DO; Location: [facility] Main OR; Service: Orthopedic ECTOPIC SURGERY x 2 HYSTERECTOMY SHOULDER SURGERY Left Social History Socioeconomic History Marital status: Tobacco Use Smoking status: Never Smokeless tobacco: Never Vaping Use Vaping status: Never Used Substance and Sexual Activity Alcohol use: Yes Comment: 1-2 drinks each week Drug use: Never ROS: Review of Systems Musculoskeletal: Positive for arthralgias, joint swelling and myalgias. Assessment/Plan: After discussion, I am starting the patient and a course of outpatient physical therapy for the left knee. She is to continue with OTC pain medications as needed. I would like her to start in the physical therapy with the understanding that she continues with therapy, she is able to wean out of the knee brace. If there is no improvement after she is completed a course of outpatient physical therapy, I will see her back in the office for follow-up. AUTHENTICATED BY MAGALY WRAY, ON 09/06/2024 18:15:56 [facility] 09-04-2024 History of Present illness Narrative [facility] [address] [facility] [address] [facility] [phone] Chief Complaint Patient presents with Left Knee - Follow-up Roula Wadsworth returns to the office today for follow-up on the left knee. I saw her approximately 2 weeks ago in the office for left knee pain. She had been dancing with her daughter when she injured the left knee. She did have an MRI which showed a MCL sprain. We treated this conservatively with immobilization. I placed her in a hinged range of motion knee brace that she was to wear at all times. Today she reports the knee is feeling better however she feels as though it is still a little weak without the brace. She continues to take OTC pain medications as needed. She denies any new injury of that left knee since her last office visit. The patient's past medical history, surgical history, social history, family history, medications and allergies were reviewed with the patient today and are available in the chart for further review. No Known Allergies Current Outpatient Medications: ibuprofen (ADVIL,MOTRIN) 200 MG tablet, Take 1 (one) tablet (200 mg total) by mouth every 6 (six) hours as needed for pain ., Disp: , Rfl: Past Medical History: Diagnosis Date Heart murmur Past Surgical History: Procedure Laterality Date ARTHROSCOPY SHOULDER Right 02/06/2020 Procedure: RIGHT SHOULDER ARTHROSCOPY, ROTATOR CUFF REPAIR, DISTAL CLAVICLE EXCISION, PROXIMAL BICEPS TENODESIS, SUBACROMIAL DECOMPRESSION; Surgeon: Caroline Candelaria DO; Location: [facility] OR; Service: Orthopedic ECTOPIC SURGERY x 2 HYSTERECTOMY SHOULDER SURGERY Left Social History Socioeconomic History Marital status: Tobacco Use Smoking status: Never Smokeless tobacco: Never Vaping Use Vaping status: Never Used Substance and Sexual Activity Alcohol use: Yes Comment: 1-2 drinks each week Drug use: Never ROS: Review of Systems Musculoskeletal: Positive for arthralgias, joint swelling and myalgias. Assessment/Plan: After discussion, I am starting the patient and a course of outpatient physical therapy for the left knee. She is to continue with OTC pain medications as needed. I would like her to start in the physical therapy with the understanding that she continues with therapy, she is able to wean out of the knee brace. If there is no improvement after she is completed a course of outpatient physical therapy, I will see her back in the office for follow-up. documented in this encounter [facility] 08-23-2024 Note Roula Wadsworth 1975 CC: 49 y.o. is a she with left knee pain. Chief Complaint Patient presents with Left Knee - Pain . HPI: Knee Pain: Patient presents to the office today with complaints of left knee pain. About a week ago she was at home, having a dance libertarian with her kids. When she awoke the next day she had significant pain in the medial portion of that left knee. She was having pain and difficulty with ambulation. She was evaluated in the emergency room and x-rays were negative for any type of fracture. She did obtain a MRI, which was ordered from her PCP. She has been wearing a knee immobilizer to that left knee. She is also been utilizing crutches for ambulation. She reports that the knee has improved although continues to be very painful along the median portion of the knee. She really has not been putting a whole lot of weight on it. She has been taking OTC pain medications which have helped take the edge off. She denies any numbness or tingling into the lower leg, foot or toes. PMH: No Known Allergies Current Outpatient Medications: ibuprofen (ADVIL,MOTRIN) 200 MG tablet, Take 1 (one) tablet (200 mg total) by mouth every 6 (six) hours as needed for pain ., Disp: , Rfl: Past Medical History: Diagnosis Date Heart murmur Past Surgical History: Procedure Laterality Date ARTHROSCOPY SHOULDER Right 02/06/2020 Procedure: RIGHT SHOULDER ARTHROSCOPY, ROTATOR CUFF REPAIR, DISTAL CLAVICLE EXCISION, PROXIMAL BICEPS TENODESIS, SUBACROMIAL DECOMPRESSION; Surgeon: Caroline Candelaria DO; Location: [facility] Main OR; Service: Orthopedic ECTOPIC SURGERY x 2 HYSTERECTOMY SHOULDER SURGERY Left Social History Socioeconomic History Marital status: Tobacco Use Smoking status: Never Smokeless tobacco: Never Vaping Use Vaping status: Never Used Substance and Sexual Activity Alcohol use: Yes Comment: 1-2 drinks each week Drug use: Never The patient's past medical history, surgical history, social history, family history, medications and allergies were reviewed with the patient today and are available in the chart for further review. ROS: Review of Systems Constitutional: Negative for activity change and fatigue. HENT: Negative for congestion, hearing loss and trouble swallowing. Eyes: Negative for visual disturbance. Respiratory: Negative for chest tightness and shortness of breath. Cardiovascular: Negative for chest pain and palpitations. Gastrointestinal: Negative for abdominal pain, diarrhea, nausea and vomiting. Endocrine: Negative for polydipsia, polyphagia and polyuria. Genitourinary: Negative for decreased urine volume, difficulty urinating and hematuria. Musculoskeletal: Positive for arthralgias, gait problem and joint swelling. Negative for myalgias. Skin: Negative for color change, rash and wound. Allergic/Immunologic: Negative for immunocompromised state. Neurological: Negative for dizziness, weakness, light-headedness and numbness. Hematological: Does not bruise/bleed easily. Psychiatric/Behavioral: Negative for confusion and sleep disturbance. The patient is not nervous/anxious. PE: Physical Exam Constitutional: Appearance: She is well-developed. HENT: Head: Normocephalic. Eyes: Pupils: Pupils are equal, round, and reactive to light. Cardiovascular: Rate and Rhythm: Normal rate and regular rhythm. Pulmonary: Effort: Pulmonary effort is normal. Breath sounds: Normal breath sounds. Abdominal: General: Bowel sounds are normal. Palpations: Abdomen is soft. Musculoskeletal: General: Swelling and tenderness present. Normal range of motion. Cervical back: Normal range of motion and neck supple. Left knee: Effusion present. Instability Tests: Medial Fredi test negative and lateral Fredi test negative. Skin: General: Skin is warm and dry. Neurological: Mental Status: She is alert and oriented to person, place, and time. ORTHO: Left Knee Exam Tenderness The patient is experiencing tenderness in the MCL. Range of Motion Extension: -10 Flexion: 80 Tests Fredi: Medial - negative Lateral - negative Varus: positive Valgus: negative Other Erythema: present Scars: absent Sensation: normal Pulse: present Swelling: moderate Effusion: effusion present Imaging: Left knee: No acute fracture or dislocation. MRI left knee: No fracture identified. There is at least a grade 2 sprain of the MCL. No other abnormality seen in the knee. Assessment/Plan: After examination and reviewing of the patient x-ray and MRI images, we discussed continued treatment for the left knee. She is able to discontinue the use of the immobilizer as well as the crutches. I am placing her in a hinged range of motion knee brace. She is able to weight-bear as tolerated. She is to continue with OTC pain medications as needed. I would like to see her back in 2 weeks for follow-up. Diagnosis: (more content not included)... [facility] 08-23-2024 History of Present illness Narrative Roula Wadsworth 1975 CC: 49 y.o. is a she with left knee pain. Chief Complaint Patient presents with Left Knee - Pain . HPI: Knee Pain: Patient presents to the office today with complaints of left knee pain. About a week ago she was at home, having a dance libertarian with her kids. When she awoke the next day she had significant pain in the medial portion of that left knee. She was having pain and difficulty with ambulation. She was evaluated in the emergency room and x-rays were negative for any type of fracture. She did obtain a MRI, which was ordered from her PCP. She has been wearing a knee immobilizer to that left knee. She is also been utilizing crutches for ambulation. She reports that the knee has improved although continues to be very painful along the median portion of the knee. She really has not been putting a whole lot of weight on it. She has been taking OTC pain medications which have helped take the edge off. She denies any numbness or tingling into the lower leg, foot or toes. PMH: No Known Allergies Current Outpatient Medications: ibuprofen (ADVIL,MOTRIN) 200 MG tablet, Take 1 (one) tablet (200 mg total) by mouth every 6 (six) hours as needed for pain ., Disp: , Rfl: Past Medical History: Diagnosis Date Heart murmur Past Surgical History: Procedure Laterality Date ARTHROSCOPY SHOULDER Right 02/06/2020 Procedure: RIGHT SHOULDER ARTHROSCOPY, ROTATOR CUFF REPAIR, DISTAL CLAVICLE EXCISION, PROXIMAL BICEPS TENODESIS, SUBACROMIAL DECOMPRESSION; Surgeon: Caroline Candelaria DO; Location: [facility] Main OR; Service: Orthopedic ECTOPIC SURGERY x 2 HYSTERECTOMY SHOULDER SURGERY Left Social History Socioeconomic History Marital status: Tobacco Use Smoking status: Never Smokeless tobacco: Never Vaping Use Vaping status: Never Used Substance and Sexual Activity Alcohol use: Yes Comment: 1-2 drinks each week Drug use: Never The patient's past medical history, surgical history, social history, family history, medications and allergies were reviewed with the patient today and are available in the chart for further review. ROS: Review of Systems Constitutional: Negative for activity change and fatigue. HENT: Negative for congestion, hearing loss and trouble swallowing. Eyes: Negative for visual disturbance. Respiratory: Negative for chest tightness and shortness of breath. Cardiovascular: Negative for chest pain and palpitations. Gastrointestinal: Negative for abdominal pain, diarrhea, nausea and vomiting. Endocrine: Negative for polydipsia, polyphagia and polyuria. Genitourinary: Negative for decreased urine volume, difficulty urinating and hematuria. Musculoskeletal: Positive for arthralgias, gait problem and joint swelling. Negative for myalgias. Skin: Negative for color change, rash and wound. Allergic/Immunologic: Negative for immunocompromised state. Neurological: Negative for dizziness, weakness, light-headedness and numbness. Hematological: Does not bruise/bleed easily. Psychiatric/Behavioral: Negative for confusion and sleep disturbance. The patient is not nervous/anxious. PE: Physical Exam Constitutional: Appearance: She is well-developed. HENT: Head: Normocephalic. Eyes: Pupils: Pupils are equal, round, and reactive to light. Cardiovascular: Rate and Rhythm: Normal rate and regular rhythm. Pulmonary: Effort: Pulmonary effort is normal. Breath sounds: Normal breath sounds. Abdominal: General: Bowel sounds are normal. Palpations: Abdomen is soft. Musculoskeletal: General: Swelling and tenderness present. Normal range of motion. Cervical back: Normal range of motion and neck supple. Left knee: Effusion present. Instability Tests: Medial rFedi test negative and lateral Fredi test negative. Skin: General: Skin is warm and dry. Neurological: Mental Status: She is alert and oriented to person, place, and time. ORTHO: Left Knee Exam Tenderness The patient is experiencing tenderness in the MCL. Range of Motion Extension: -10 Flexion: 80 Tests Fredi: Medial - negative Lateral - negative Varus: positive Valgus: negative Other Erythema: present Scars: absent Sensation: normal Pulse: present Swelling: moderate Effusion: effusion present Imaging: Left knee: No acute fracture or dislocation. MRI left knee: No fracture identified. There is at least a grade 2 sprain of the MCL. No other abnormality seen in the knee. Assessment/Plan: After examination and reviewing of the patient x-ray and MRI images, we discussed continued treatment for the left knee. She is able to discontinue the use of the immobilizer as well as the crutches. I am placing her in a hinged range of motion knee brace. She is able to weight-bear as tolerated. She is to continue with OTC pain medications as needed. I would like to see her back in 2 weeks for follow-up. Diagnosis: Problem List Items Addressed This Visit None Follow Up: No follow-ups on file. Magaly Wray CNP documented in this encounter [facility] 08-13-2024 History of Present illness Narrative Subjective Patient ID: Roula Wadsworth is a 49 y.o. female who presents for Follow-up (ER 08/12/24, L knee). HPI patient had a dance libertarian with teenager children Tuesday night in her home. Tuesday morning she had difficulty getting out of bed because of left knee pain. There was no known injury, this is not happened previously. Though record shows in August 2021 MRI which was reviewed is normal Ultimately in er yeterday for knee given ibu 600. Was referred to [facility] orthopedics out of the emergency room and has an appointment next week with of the nurse practitioner. Here today because of work excuse requirements and further assessment for diagnosis. She is walking very cautiously on the knee has pain medially. She denies any swelling. She denies any locking but has limited range of motion Med list cleaned up for 5 items given with illness last year No other active diagnoses Review of Systems No fever chills or other systemic symptoms Objective BP 120/80 Pulse 91 SpO2 98% Physical Exam The left knee his range of motion is +20 to +40. There is no effusion. The patella is nontender and is not ballotable. Both medial and lateral stress cause pain on the medial joint line. Medial joint line is exquisitely tender to light touch. No cruciate instability demonstrated. Fredi is not able to be performed. Knee x-ray reviewed with patient, is normal Assessment/Plan Problem List Items Addressed This Visit None Visit Diagnoses Codes Internal derangement of left knee - Primary M23.92 Relevant Orders MR knee left wo IV contrast Will get MRI as JUSTA, keep appointment next Tuesday with Nils. Is to remain off work. Leg immobilizer and crutches are advised prescription provided. Continue ibuprofen. documented in this encounter [facility] Work Phone: 08-12-2024 Hospital Discharge instructions Errol Estrada PA-C - 08/12/2024 11:48 AM EST Ice elevate and rest. Use the Florencio bandage as needed. May use your cane or walker that you have at home as needed as well. Follow-up with your occupational health specialist or the 1 listed on your discharge papers in the next week. documented in this encounter [facility] Work Phone: 08-12-2024 Emergency department Note HPI Chief Complaint Patient presents with Knee Pain Patient complains of left knee pain since Tuesday, states she was out dancing with friends Tuesday night, no known injury Patient presents with complaint of left knee pain. Denies any fall or injury. States she was having a dance libertarian at home. Again she denies any injury at that time. States she had no pain or discomfort. States when she woke up the next morning she had significant pain and unable to move the left knee. States she cannot flex or fully extend. She denies any locking or catching. States that the pain is just significant enough that she does not want to move the leg. She has not noticed any swelling or discoloration. Patient denies any loss of sensation. No weakness. History provided by: Patient Patient History No past medical history on file. Past Surgical History: Procedure Laterality Date OTHER SURGICAL HISTORY 10/18/2019 Ectopic removal OTHER SURGICAL HISTORY 10/18/2019 Shoulder surgery OTHER SURGICAL HISTORY 10/18/2019 Hysterectomy No family history on file. Social History Tobacco Use Smoking status: Never Passive exposure: Never Smokeless tobacco: Never Vaping Use Vaping status: Never Used Substance Use Topics Alcohol use: Yes Comment: occasionally Drug use: Never Physical Exam ED Triage Vitals [08/12/24 1111] Temperature Heart Rate Respirations BP 36 C (96.8 F) 79 16 104/62 Pulse Ox Temp Source Heart Rate Source Patient Position 96 % Oral Monitor -- BP Location FiO2 (%) -- -- Physical Exam Vitals and nursing note reviewed. Constitutional: General: She is not in acute distress. Appearance: Normal appearance. She is well-developed, well-groomed and normal weight. She is not ill-appearing or toxic-appearing. HENT: Head: Normocephalic. Nose: Nose normal. Mouth/Throat: Lips: [place]. No lesions. Eyes: Conjunctiva/sclera: Conjunctivae normal. Cardiovascular: Pulses: Dorsalis pedis pulses are 2+ on the left side. Posterior tibial pulses are 2+ on the left side. Musculoskeletal: General: Tenderness present. No swelling, deformity or signs of injury. Left knee: Effusion present. No swelling, deformity, erythema, ecchymosis, lacerations, bony tenderness or crepitus. Decreased range of motion. No tenderness. Normal alignment. Right lower leg: No edema. Left lower leg: No swelling or tenderness. No edema. Comments: Unable to perform special test due to patient discomfort Skin: General: Skin is warm. Capillary Refill: Capillary refill takes less than 2 seconds. Neurological: General: No focal deficit present. Mental Status: She is alert and oriented to person, place, and time. Cranial Nerves: No cranial nerve deficit or facial asymmetry. Sensory: No sensory deficit. Motor: No weakness. Psychiatric: Attention and Perception: Attention and perception normal. Mood and Affect: Mood and affect normal. Speech: Speech normal. Behavior: Behavior normal. Behavior is cooperative. Thought Content: Thought content normal. Cognition and Memory: Cognition and memory normal. Judgment: Judgment normal. ED Course & MDM Diagnoses as of 08/12/24 1155 Knee effusion, left Sprain of left knee, initial encounter No data recorded Terell Coma Scale Score: 15 (08/12/24 1113 : Maeve Yao RN) Medical Decision Making Patient presents with complaint of left knee pain. Denies any fall or injury. States she was having a dance libertarian at home. Again she denies any injury at that time. States she had no pain or discomfort. States when she woke up the next morning she had significant pain and unable to move the left knee. States she cannot flex or fully extend. She denies any locking or catching. States that the pain is just significant enough that she does not want to move the leg. She has not noticed any swelling or discoloration. Patient denies any loss of sensation. No weakness. Ddx: Fracture, contusion, strain, sprain, internal derangement, other Will obtain x-rays. I did review patient's chart which does show a prior MRI of the same knee a few years ago showing no normality. At this point patient declined any pain medication and can be safely discharged home. She declined crutches. Will Florencio wrap the knee. She is encouraged to follow-up with her orthopedist or Dr. Lara who is currently on-call in the next week. Continue to ice elevate and rest. Motrin 600 was wrote for the patient or she may use her own Tylenol or Motrin at home. Patient discharged home in improved stable condition Amount and/or Complexity of Data Reviewed Radiology: ordered and independent interpretation performed. Decision-making details documented in ED Course. Risk OTC drugs. Prescription drug management. Diagnosis or treatment significantly limited by social determinants of health. Procedure Procedures Errol Estrada PA-C 08/12/24 1155 documented in this encounter [facility] Work Phone: 08-12-2024 Physician Emergency department Note HPI Chief Complaint Patient presents with Knee Pain Patient complains of left knee pain since Tuesday, states she was out dancing with friends Tuesday night, no known injury Patient presents with complaint of left knee pain. Denies any fall or injury. States she was having a dance libertarian at home. Again she denies any injury at that time. States she had no pain or discomfort. States when she woke up the next morning she had significant pain and unable to move the left knee. States she cannot flex or fully extend. She denies any locking or catching. States that the pain is just significant enough that she does not want to move the leg. She has not noticed any swelling or discoloration. Patient denies any loss of sensation. No weakness. History provided by: Patient Patient History No past medical history on file. Past Surgical History: Procedure Laterality Date OTHER SURGICAL HISTORY 10/18/2019 Ectopic removal OTHER SURGICAL HISTORY 10/18/2019 Shoulder surgery OTHER SURGICAL HISTORY 10/18/2019 Hysterectomy No family history on file. Social History Tobacco Use Smoking status: Never Passive exposure: Never Smokeless tobacco: Never Vaping Use Vaping status: Never Used Substance Use Topics Alcohol use: Yes Comment: occasionally Drug use: Never Physical Exam ED Triage Vitals [08/12/24 1111] Temperature Heart Rate Respirations BP 36 C (96.8 F) 79 16 104/62 Pulse Ox Temp Source Heart Rate Source Patient Position 96 % Oral Monitor -- BP Location FiO2 (%) -- -- Physical Exam Vitals and nursing note reviewed. Constitutional: General: She is not in acute distress. Appearance: Normal appearance. She is well-developed, well-groomed and normal weight. She is not ill-appearing or toxic-appearing. HENT: Head: Normocephalic. Nose: Nose normal. Mouth/Throat: Lips: [place]. No lesions. Eyes: Conjunctiva/sclera: Conjunctivae normal. Cardiovascular: Pulses: Dorsalis pedis pulses are 2+ on the left side. Posterior tibial pulses are 2+ on the left side. Musculoskeletal: General: Tenderness present. No swelling, deformity or signs of injury. Left knee: Effusion present. No swelling, deformity, erythema, ecchymosis, lacerations, bony tenderness or crepitus. Decreased range of motion. No tenderness. Normal alignment. Right lower leg: No edema. Left lower leg: No swelling or tenderness. No edema. Comments: Unable to perform special test due to patient discomfort Skin: General: Skin is warm. Capillary Refill: Capillary refill takes less than 2 seconds. Neurological: General: No focal deficit present. Mental Status: She is alert and oriented to person, place, and time. Cranial Nerves: No cranial nerve deficit or facial asymmetry. Sensory: No sensory deficit. Motor: No weakness. Psychiatric: Attention and Perception: Attention and perception normal. Mood and Affect: Mood and affect normal. Speech: Speech normal. Behavior: Behavior normal. Behavior is cooperative. Thought Content: Thought content normal. Cognition and Memory: Cognition and memory normal. Judgment: Judgment normal. ED Course & MDM Diagnoses as of 08/12/24 1155 Knee effusion, left Sprain of left knee, initial encounter No data recorded Terell Coma Scale Score: 15 (08/12/24 1113 : Maeve Yao RN) Medical Decision Making Patient presents with complaint of left knee pain. Denies any fall or injury. States she was having a dance libertarian at home. Again she denies any injury at that time. States she had no pain or discomfort. States when she woke up the next morning she had significant pain and unable to move the left knee. States she cannot flex or fully extend. She denies any locking or catching. States that the pain is just significant enough that she does not want to move the leg. She has not noticed any swelling or discoloration. Patient denies any loss of sensation. No weakness. Ddx: Fracture, contusion, strain, sprain, internal derangement, other Will obtain x-rays. I did review patient's chart which does show a prior MRI of the same knee a few years ago showing no normality. At this point patient declined any pain medication and can be safely discharged home. She declined crutches. Will Florencio wrap the knee. She is encouraged to follow-up with her orthopedist or Dr. Lara who is currently on-call in the next week. Continue to ice elevate and rest. Motrin 600 was wrote for the patient or she may use her own Tylenol or Motrin at home. Patient discharged home in improved stable condition Amount and/or Complexity of Data Reviewed Radiology: ordered and independent interpretation performed. Decision-making details documented in ED Course. Risk OTC drugs. Prescription drug management. Diagnosis or treatment significantly limited by social determinants of health. Procedure Procedures Errol Estrada PA-C 08/12/24 1155 [facility] Work Phone: 08-24-2023 History of Present illness Narrative Subjective: Roula Wadsworth is a 48 y.o. female who presents to clinic today for Flu like sx She started having flu like symptoms on TuesdayAugust 17 Took and Tuesday off of work She notes that she went to the urgent care where she tested and was negative on rapid flu and covid on Tuesday She was started on azithromycin Tuesday and has not noticed any improvement She had a fever up to 102*F on Tuesday She has been taking dayquil, nyquil and mucinex and when they luna off she is getting fevers again Her boyfriends daughter had bronchitis last Tuesday and she is still coughing She is having a dry cough Review of Systems Assessment/Plan: Roula Wadsworth is a 48 y.o. female with no significant medical history who presents to clinic today to address the following issues: 1. Bacterial pneumonia amoxicillin-pot clavulanate (Augmentin) 875-125 mg tablet 2. Flu-like symptoms POCT Influenza A/B manually resulted Sars-CoV-2 and Influenza A/B PCR DISCONTINUED: predniSONE (Deltasone) 20 mg tablet 3. Subacute cough benzonatate (Tessalon) 100 mg capsule albuterol 90 mcg/actuation inhaler - Acute problem, unresolved, new to this provider, requires further workup and treatment - discussed with roula that I believe she may have viral pneumonia vs bacterial pneumonia - with the significance of her illness and being on day 8 of symptoms without improvement and continuing to fever I am concerned for bacterial pneumonai - there is high azithromycin resistance so will switch antibiotics to augmentin 875mg BID for 10 days - additionally will give tessalon pearles and albuterol for potential help with cough, I discussed that it would be reasonable to hold off on obtaining these until she gives the abx 48 hours to kick in Problem List Items Addressed This Visit None Visit Diagnoses Bacterial pneumonia - Primary Relevant Medications amoxicillin-pot clavulanate (Augmentin) 875-125 mg tablet Flu-like symptoms Relevant Orders POCT Influenza A/B manually resulted (Completed) Sars-CoV-2 and Influenza A/B PCR Subacute cough Relevant Medications benzonatate (Tessalon) 100 mg capsule albuterol 90 mcg/actuation inhaler Patient Instructions Start Augmentin today Start tessalon pearles as needed now, okay to also use honey on a spoon for coughing. Start albuterol inhaler for coughing if its affordable. If you are still having fevers on Tuesday please call the office and let us know. Follow up: as needed Return precautions discussed. An After Visit Summary was given to the patient. All questions were answered and patient in agreement with plan. Objective: BP 104/66 Pulse 99 Temp 37.6 C (99.7 F) Ht 1.549 m (5' 1) Wt 51.7 kg (113 lb 14.4 oz) SpO2 98% BMI 21.52 kg/m Physical Exam Vitals and nursing note reviewed. Constitutional: General: She is not in acute distress. Appearance: Normal appearance. She is ill-appearing. She is not toxic-appearing. HENT: Head: Normocephalic and atraumatic. Right Ear: There is impacted cerumen. Left Ear: There is impacted cerumen. Nose: Congestion and rhinorrhea present. Mouth/Throat: Mouth: Mucous membranes are moist. Pharynx: No oropharyngeal exudate or posterior oropharyngeal erythema. Eyes: General: No scleral icterus. Right eye: No discharge. Left eye: No discharge. Extraocular Movements: Extraocular movements intact. Comments: Erythema in eyes bilaterally Cardiovascular: Rate and Rhythm: Normal rate and regular rhythm. Pulmonary: Effort: No respiratory distress. Comments: Crackles in right lower lung Coughing throughout visit Skin: General: Skin is warm and dry. Neurological: General: No focal deficit present. Mental Status: She is alert and oriented to person, place, and time. Psychiatric: Attention and Perception: Attention normal. Mood and Affect: Mood normal. Speech: Speech normal. Behavior: Behavior normal. Cognition and Memory: Cognition and memory normal. Judgment: Judgment normal. I spent 18 minutes in total time for this visit including all related clinical activities before, during, and after the visit excluding other billable activities/procedure time. Errol Hernandez MD documented in this encounter [facility] Work Phone: 08-24-2023 Instructions Errol Hernandez MD - 08/24/2023 3:20 PM EST Start Augmentin today Start tessalon pearles as needed now, okay to also use honey on a spoon for coughing. Start albuterol inhaler for coughing if its affordable. If you are still having fevers on Tuesday please call the office and let us know. documented in this encounter [facility] Work Phone: 08-18-2021 History of Present illness Narrative Patient is here today for evaluation of her bilateral elbow pain that is worse in the left. She is a 46-year-old female who started having elbow pain in August 2021 with no known injury. She locates it to the lateral aspect with radiation down the arm. She rates her pain is about a 7/10. She notices decrease in her pain over the weekend when not at work and then it flares up by Tuesday of the next week. She has tried ibuprofen with some relief. She has attempted a elbow Cho-Pat brace which seemed to make it worse. -[facility] Work Phone: 06-22-2021 History of Present illness Narrative hurt in calf tuesday and radiate ant to thigh and groin, had covid , jun [address] [facility].[place] no result availablesherry okeefe -[facility] Work Phone: 05-18-2021 History of Present illness Narrative Patient is a pleasant 46-year-old female presenting today for left lower extremity pain. Patient drove to [place] and her symptoms began at the end of May. She has pain behind the knee that is present most of the time, and states her pain scale is a 5 out of 10. When symptoms began, she was experiencing sharp pains. She went to the ER because she was concerned for a possible blood clot, but it was determined by Dr. Connell that she has peripheral nerve impingement. States she has not experienced a sharp pain since, but the pain behind the knee persists with a frequent numbness on the inside of the knee. The pain has also been radiating to the hip, with pain interchanging between the left and right hip. 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 She has pain with palpation and with bending her wrist. 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 Her symptoms began approximately 2 weeks ago and states the elbow has continued to swell. She is opposed to trying an injection today, but would like to try a prescription of Meloxicam and will monitor her symptoms. -[facility] Work Phone: Evaluation note Diagnosis Bacterial pneumonia- Primary Unspecified bacterial pneumonia Flu-like symptoms Subacute cough documented in this encounter [facility] Work Phone: Evaluation note* Diagnosis Knee effusion, left- Primary Effusion of lower leg joint Sprain of left knee, initial encounter documented in this encounter [facility] Work Phone: Evaluation note* Diagnosis Internal derangement of left knee- Primary documented in this encounter [facility] Work Phone: Evaluation note* Diagnosis Internal derangement of left knee documented in this encounter [facility] Work Phone: Evaluation note* Diagnosis Sprain of medial collateral ligament of left knee, initial encounter- [facility] Sp[facility] of medial collateral ligament of left knee, initial encounter- Primary [facility] NarrativeSince last visit patient has had x-ray of hip showing cam pathology leading to an impingement as that likely caused of the medial thigh pain in the interim she is developed some decreased pain sensibility along the medial aspect of the left leg. There appears to be in the saphenous branch of the femoral nerve. He has had some pain behind the knee but it too has been x-rayed. I reviewed the x-raysof hip and knee from [place] as well as the hip x-ray here. She has had ultrasound of the left lower extremity looking for DVT but there was no mention of a Comer's cyst. Because was new system symptom I had her come in and I am comfortable that it is a peripheral nerve impingement and because itbegins at the level of the knee is more likely to be due to femoral nerve impingement then popliteal impingement. Does appointment with Dr. Torre in 3 weeks if symptoms accelerate she is to call andwe will force an appointment earlier.MP-[facility] Work Phone: History of Present illness NarrativePatient returns in follow-up with regards to her left knee. She was able to obtain the MRI since last visit she continues to have pain in the posterior aspect the knee especially with terminal extension stretching and very intermittent numbness in the medial aspect of the lower leg but otherwise noother symptoms she is not had any more hip symptoms or low back symptoms.-[facility] Work Phone: History of Present illness Narrative* ROULA WADSWORTH was evaluated today for signs and symptoms of lateral epicondylitis . ROULA presentswith deficits in work tasks and pain management. ROULA would benefit from regular outpatient OT x2 /week for 5 weeks in order to improve AROM/PROM, strengthening, pain management and activity tolerance to improve functional independence in ADLs/IADLs/work tasks. ROULA WADSWORTH presents with good pro gnosis considering supportive factors such as age, PLOF and current presentation of injury with consideration of demanding work environment ROULA WADSWORTH presents with good understanding and teach back of today's education and provides input into goals/POC. * Although Roula presents with minimal pain and limitation at this time this is likely s/t to being on light duty as pt reports this is how she felt follow previous period of light duty but condition quickly returned upon return to full duty. Pt reports minimal pain symptoms but does present with need for skilled therapy services to facilitate pain free and safe return to full job duties. [facility] Work Phone: History of Present illness Narrative* 0/10 pain reported throughout session, Patient stating she feels like she got a workout but feels really good. Patient did c/o fatigue 1x w/ IR/ER w/ ball. * Patient was able to complete today's treatment with some difficulty. [facility] Work Phone: History of Present illness Narrative* 0/10 pain reported throughout session. Patient requiring extended breaks during body blade exercises d/t fatigue of LUE, patient states it does not hurt it is just wearing me out Patient toleratingall exercises well this date c/o fatigue and stretching in L dorsal forearm at end of session. * Patient was able to complete today's treatment with some difficulty. [facility] Work Phone: History of Present illness Narrative* Pt reporting sup/pro AAROM over ball feels good on her elbow. Pt demos good toleration of all activities this date, reporting fatigue following body blade. * Patient was able to complete today's treatment with some difficulty. [facility] Work Phone: History of Present illness Narrative* Patient tolerating activities well, no pain reported throughout session this date. * Patient was able to complete today's treatment with some difficulty. [facility] History of Present illness Narrative* Attempting to increase resistance from 15lb to 20lbs with SHR, pt unable to complete reps with 20lbs. Pt demos ability to complete all exercises without difficulty aside from RD/UD. Pt reporting mildfatigue at end of session, no pain. * Patient was able to complete today's treatment with some difficulty. [facility] Work Phone: History of Present illness Narrative* Patient tolerating most exercises well this date w/ wedge eliminated and reps increased, however several breaks taken w/ sup/pro d/t fatigue of LUE, decreasing weight for sup/pro and IR/ER d/t fatigue. patient c/o discomfort in lat elbow w/ IR on 5# DB. Patient states she does not have any pain at end of session states I am just very tired today and my shoulder feels tired. * Patient was able to complete today's treatment with some difficulty. [facility] Work [facility]: History of Present illness Narrative* Pt reporting no increase in pain this date. Pt does report fatigue d/t lack of rest breaks to simulate continuous work tasks. Pt also tolerating increase in resistance well this date. * Patient was able to complete today's treatment with some difficulty. [facility] Work Phone: History of Present illness Narrative* Pt demos improvements with re-eval this date. Pt has met goals with quickdash this date and work simulation tasks. Pt demos no limitations and reports no concerns with returning to work. Pt demos good understanding of continuing stretching HEP and wearing counterforce strap with return to work. * Patient was able to complete today's treatment with some difficulty. [facility] Work Phone: Reason for visit Narrative* Imaging (Routine) - Authorized Specialty Diagnoses / Procedures Referred By Karson t Referred To Contact Radiology Diagnoses Internal derangement of left knee Procedures MR knee left wo IV contrast Reilly Connell MD [address] [address] Phone: tel: fax: Referral ID Status Reason Start Date Expiration Date Visits Requested Visits Authorized [id number] Authorized Perform Procedure 08/13/2024 08/13/2025 1 1 [facility] Work Phone: Summary Purpose Family History No Family History Records FoundUnknown Family Member Name Dates Details Family history of hypertensi on: Mother(V17.49, Z82.49) Status:Active Unknown Family Member Name Dates Details Family history of hypertensi on: Mother(V17.49, Z82.49) Status:Active Unknown Family Member Name Dates Details Family history of hypertensi on: Mother(V17.49, Z82.49) Status:Active Unknown Family Member Name Dates Details Family history of hypertensi on: Mother(V17.49, Z82.49) Status:Active Unknown Family Member Name Dates Details Family history of hypertensi on: Mother(V17.49, Z82.49) Status:Active Unknown Family Member Name Dates Details Family history of hypertensi on: Mother(V17.49, Z82.49) Status:Active Unknown Family Member Name Dates Details Family history of hypertensi on: Mother(V17.49, Z82.49) Status:Active Unknown Family Member Name Dates Details Family history of hypertensi on: Mother(V17.49, Z82.49) Status:Active Unknown Family Member Name Dates Details Family history of hypertensi on: Mother(V17.49, Z82.49) Status:Active Unknown Family Member Name Dates Details Family history of hypertensi on: Mother(V17.49, Z82.49) Status:Active Unknown Family Member Name Dates Details Family history of hypertensi on: Mother(V17.49, Z82.49) Status:Active Unknown Family Member Name Dates Details Family history of hypertensi on: Mother(V17.49, Z82.49) Status:Active Unknown Family Member Name Dates Details Family history of hypertensi on: Mother(V17.49, Z82.49) Status:Active Unknown Family Member Name Dates Details Family history of hypertensi on: Mother(V17.49, Z82.49) Status:Active Unknown Family Member Name Dates Details Family history of hypertensi on: Mother(V17.49, Z82.49) Status:Active Unknown Family Member Name Dates Details Family history of hypertensi on: Mother(V17.49, Z82.49) Status:Active Unknown Family Member Name Dates Details Family history of hypertensi on: Mother(V17.49, Z82.49) Status:Active Unknown Family Member Name Dates Details Family history of hypertensi on: Mother(V17.49, Z82.49) Status:Active Unknown Family Member Name Dates Details Family history of hypertensi on: Mother(V17.49, Z82.49) Status:Active Unknown Family Member Name Dates Details Family history of hypertensi on: Mother(V17.49, Z82.49) Status:Active Advance Directives No Advanced Directives Records FoundDocuments on File Type Date Recorded Patient Coordinator Cardiopulmonary Services Expl anation Advance Directives and Livin g Will 10/04/2019 12:17 PM Documents on File Type Date Recorded Patient Coordinator Cardiopulmonary Services Expl anation Advance Directives and Livin g Will 10/04/2019 12:17 PM Documents on File Type Date Recorded Patient Coordinator Cardiopulmonary Services Expl anation Advance Directives and Livin g Will 02/06/2020 12:00 AM Reason for Referral Status Reason Specialty Diagnoses / Procedures Referre d By Contact Referred To Contact Closed Radiology Diagnoses Impingement syndrome of right shoulder Procedures MR Shoulder Right Without Contrast Efren Egan DO [address] [place] [address] Assessments Diagnosis Impingement syndrome of right shoulder Diagnosis Impingement syndrome of right shoulder Diagnosis Left shoulder pain, unspecified chronicity Diagnosis Strain of tendon of right rotator cuff, initial encounter Arthritis of right shoulder region Impingement syndrome of right shoulder Superior glenoid labrum lesion of right shoulder, initial encounter Status post arthroscopy of right shoulder S/P right rotator cuff repair Diagnosis Status post arthroscopy of right shoulder S/P right rotator cuff repair Diagnosis S/P right rotator cuff repair- Primary Status post arthroscopy of right shoulder History of Present Illness * Colin Hennessy MD - 12/06/2019 1:36 PM EDT Dictation on: 12/06/2019 1:43 PM by: COLIN HENNESSY [[id number]] documented in this encounter* Myriam Cintron RN - 02/06/2020 1:41 PM EDT Discharge reviewed with patient and family, verbalize understanding. documented in this encounter* Koko Fonseca, PT - 02/25/2020 10:45 AM EDT [facility] Evaluation Today's Date 02/25/2020 Patient Name: Roula Wadsworth Date of : 1975 Case Name: S/P Right Shoulder Arthroscopic Rotator Cuff Repair Functional Diagnosis: 1. Strain of tendon of right rotator cuff, initial encounter 2. Arthritis of right shoulder region 3. Impingement syndrome of right shoulder 4. Superior glenoid labrum lesion of right shoulder, initial encounter 5. Status post arthroscopy of right shoulder 6. S/P right rotator cuff repair Clinical Information: Subjective Referring Diagnosis: S/P Arthroscopic Right Rotator Cuff Repair Follow Up With Physician: in about 6 weeks. History of Present Illness Surgery Date: 02/06/2020 Days Post-Op: 19 Chief Complaint/ Mechanism of Injury: Pt reports c/o right shoulder pain, primarily in the anteriorshoulder and down the lateral aspect of the arm. Pt denies numbness/tingling but reports spasms andthrobbing in the musculature of the upper arm. Pt states she has been removing her sling 2x per dayto complete elbow and wrist AROM. Pt states she has not been icing regularly and only uses medication as needed. Previous Treatment for this condition: Surgery Prior treatment effectiveness: moderate Status: improving Hand dominance: left Pain Scale: Average Pain: 2/10 Pain at highest: 5/10 Aggravating factors: leaning/bending forward Easing factors: rest, medication prn 24 Hour Symptom Behavior Morning Pain: gradual End of day pain: worse Functional Status Functional Limitations: recent decline in level of ADL Premorbid Functional Level: Patient reported and Independent with all ADLs/IADLs Current Functional Level: Needs help doing hair but is able to complete most ADLs and self care using the left hand. Daily activity scale: low active Prior level of function: active Sleep Assessment Preferred Sleep Position: currently sleeping in a recliner. 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 abduction - lacking) Left Shoulder Left Shoulder WFL Additional Comments: FOTO: 4 Elbow Right Elbow WFL Wrist/Hand Right Wrist/Hand Range of Motion: WFL Treatments: Physical Therapy Exercise Log - 02/25/20 1135 OTHER Precautions/Contraindications Surgery 02/06/20 - protocol on desk Notes Visit 1: 10:50 - 11:30 Vitals add isometrics around 03/12 and standing TIY around 03/19 Therapeutic Exercise (47526) Intervention Eval only - provided written HEP hanouts consisting of pendulums, shrugs and scap retractions Intervention add table slides, doorway ER stretch, prone rows, sidelying ER and serratus punches PT Treatment Times Total Treatment Time 40 Goals: Physical Therapy Ortho Goals: CARRYING/MOVING/HANDLING: Patient will be able to place items on a shelf overhead in 10 weeks CARRYING/MOVING/HANDLING: Patient will be able to carry 5 lbs in 10 weeks SELF CARE: Patient will be able to complete ADL's including bathing, dressing, and hair care without difficulty in 5 weeks. IMPAIRMENT: Patient will demonstrate improved postural awareness in PT sessions to facilitate mechanical alignment and function in 4 weeks. IMPAIRMENT: Improve pain to <3/10 during reaching activities in 10 weeks IMPAIRMENT: Improve gross MMT of the Right Shoulder to 4/5 in 10 weeks IMPAIRMENT: Improve PROM of the right shoulder to WNL in 6 weeks. IMPAIRMENT: Improve AROM of Right Shoulder Flexion to at least 160 degrees in 10 weeks. IMPAIRMENT: Improve AROM of Right Shoulder Abduction to at least 160 degrees in 10 weeks. IMPAIRMENT: Improve AROM of Right Shoulder ER to at least 70 degrees in 10 weeks. OTHER: Patient will increase FOTO score from 4 to at least 50 to show MDC/MCII and expected functional outcome in 10 weeks. OTHER: Patient will be able to properly demonstrate independence with HEP within 2 weeks of progressing each phase. CPT Code 06968 Low 67424 Moderate 77593 High History 0 1-2 3+ Comorbidities: heart murmur, Personal factors: chronicity or severity of the current condition Examination of body systems (elements of body structures & functions, activity limitations, and/or participation restrictions) 1-2 elements 3+ elements 4+ elements See below clinical impression Clinical Presentation Stable Evolving Unstable As evidenced by improving symptom level since surgical intervention Decision Making Low (FOTO >/= 69) Moderate (FOTO 34 - 68) High (FOTO </= 33) FOTO score= 4 Pt is a 44 y.o. female who presents to PT services s/p arthroscopic right rotator cuff repair. Uponassessment, pt has been found with the following impairments: impaired posture, decreased ROM, decreased strength, dysfunctional movements indicated by muscle guarding and pain. 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 The pt would benefit from skilled PT services focused on the above listed impairments and limitations in order to safely progress pt to their desired level of function. Pt to be discharged from OP PT services if/when goals are met, if they fail to make progress with conservative management in PT, if their level of progress plateaus, or if they do not maintain compliance with attendance or HEP. At this time, it is my clinical judgment that services are medically necessary. Plan of Care Frequency of Visits: 2-3 times per week Duration: 10 weeks Interventions: Therapeutic Exercise, Neuromuscular Re-Education, Manual Therapy, Therapeutic/ Functional Activities, Hot/Cold Pack and Vasopneumatic Rehab Potential: good Suicide Screen Signs and Symptoms of Abuse/Neglect: No Actions Taken: No Suicide Risk: Does the patient feel like ending their life today?No Actions Taken: No Patient Education Provided Pt was educated on the benefits of therapy and importance of compliance with sessions and HEP for rehabilitation. Pt was also educated on treatment diagnosis, POC, and frequency/duration of treatment. Clinical Impression Pt would benefit from PT interventions s/p arthroscopic rotator cuff repair to address impairments in ROM, strength and stability as well as pain control. Koko Fonseca PT State License, [id number] documented in this encounter* Tra Gastelum, SURVEILLANCE SENSOR OFFICER - 02/27/2020 10:45 AM EDT [facility] DAILY TREATMENT NOTE Today's Date 02/27/2020 Patient Name: Roula Wadsworth Date of : 1975 Current Visit #: 2 Authorized Visits: 50 Case Name: S/P Right Shoulder Arthroscopic Rotator Cuff Repair History: Pre-Treatment Pain Scale: 1 Symptoms: stabilized Functional Diagnosis: 1. S/P right rotator cuff repair 2. Status post arthroscopy of right shoulder Clinical Information: Subjective: Pt reports some increased soreness after last session but min pain coming in today Objective Ended sesison with [facility], instructed pt on importance of cryotherapy and pain meds to control soreness post treatment Treatments: Physical Therapy Exercise Log - 02/27/20 1031 OTHER Precautions/Contraindications Surgery 02/06/20 - protocol on desk Notes Visit 2: Vitals add isometrics around 03/12 and standing TIY and resisted biceps/triceps around 03/19 Therapeutic Exercise (87925) Intervention Eval only - provided written HEP hanouts consisting of pendulums, shrugs and scap retractions Intervention add table slides, doorway ER stretch, prone rows, sidelying ER and serratus punches Goals: Physical Therapy Ortho Goals: CARRYING/MOVING/HANDLING: Patient will be able to place items on a shelf overhead in 10 weeks CARRYING/MOVING/HANDLING: Patient will be able to carry 5 lbs in 10 weeks SELF CARE: Patient will be able to complete ADL's including bathing, dressing, and hair care without difficulty in 5 weeks. IMPAIRMENT: Patient will demonstrate improved postural awareness in PT sessions to facilitate mechanical alignment and function in 4 weeks. IMPAIRMENT: Improve pain to <3/10 during reaching activities in 10 weeks IMPAIRMENT: Improve gross MMT of the Right Shoulder to 4/5 in 10 weeks IMPAIRMENT: Improve PROM of the right shoulder to WNL in 6 weeks. IMPAIRMENT: Improve AROM of Right Shoulder Flexion to at least 160 degrees in 10 weeks. IMPAIRMENT: Improve AROM of Right Shoulder Abduction to at least 160 degrees in 10 weeks. IMPAIRMENT: Improve AROM of Right Shoulder ER to at least 70 degrees in 10 weeks. OTHER: Patient will increase FOTO score from 4 to at least 50 to show MDC/MCII and expected functional outcome in 10 weeks. OTHER: Patient will be able to properly demonstrate independence with HEP within 2 weeks of progressing each phase. Patient Education: Verbal HEP with patient verbalized understanding. Post-Treatment Pain Scale: 2 Assessment: Patient had an expected response to treatment. Pt had increased pain momentarily, but sx's subsided after rest Skilled Intervention demonstrated by modifications of treatment per exercise log including assessment of patient's response and safety interventions per exercise log. Progress towards goals as expected. Plan for Next Visit: Treatment Visit with focus on controlling pain Tra Gastelum PTA STATE LICENSE, [id number] documented in this encounter* Emelia Trejo PTA - 03/05/2020 10:00 AM EDT [facility] DAILY TREATMENT NOTE Today's Date 03/05/2020 Patient Name: Roula Wadsworth Date of : 1975 Current Visit #: 3 Authorized Visits: 50 Case Name: S/P Right Shoulder Arthroscopic Rotator Cuff Repair History: Pre-Treatment Pain Scale: 6 Symptoms: gradually improved Functional Diagnosis: 1. S/P right rotator cuff repair 2. Status post arthroscopy of right shoulder Clinical Information: Subjective: She felt some relief after last visit and was able to sleep for 2 hours after treatment. She is still doing HEP 3x/day. Objective Initiated STM along R UT d/t tightness along with bicep tendon area. Decreased s'xs following treatment. Treatments: Physical Therapy Exercise Log - 03/05/20 1113 OTHER Precautions/Contraindications Surgery 02/06/20 - protocol on desk Notes Visit32: 10:30-11:05 Vitals add isometrics around 03/12 and standing TIY and resisted biceps/triceps around 03/19 Therapeutic Exercise ([id number]) Intervention Eval only - provided written HEP hanouts consisting of pendulums, shrugs and scap retractions Parameters Pendulums x10 Intervention shrugs 5''x10 Parameters Scap retraction in supine 5''x10 Intervention Seated ER stretch 10''x10 Parameters standing bent over scap retraction x10 Intervention STM ant delt and lat delt x4min each and R UT PT Treatment Times Therex Total Time 15 Manual Therapy Total Time 15 Direct Treatment Time 30 Total Treatment Time 30 Goals: Physical Therapy Ortho Goals: CARRYING/MOVING/HANDLING: Patient will be able to place items on a shelf overhead in 10 weeks CARRYING/MOVING/HANDLING: Patient will be able to carry 5 lbs in 10 weeks SELF CARE: Patient will be able to complete ADL's including bathing, dressing, and hair care without difficulty in 5 weeks. IMPAIRMENT: Patient will demonstrate improved postural awareness in PT sessions to facilitate mechanical alignment and function in 4 weeks. IMPAIRMENT: Improve pain to <3/10 during reaching activities in 10 weeks IMPAIRMENT: Improve gross MMT of the Right Shoulder to 4/5 in 10 weeks IMPAIRMENT: Improve PROM of the right shoulder to WNL in 6 weeks. IMPAIRMENT: Improve AROM of Right Shoulder Flexion to at least 160 degrees in 10 weeks. IMPAIRMENT: Improve AROM of Right Shoulder Abduction to at least 160 degrees in 10 weeks. IMPAIRMENT: Improve AROM of Right Shoulder ER to at least 70 degrees in 10 weeks. OTHER: Patient will increase FOTO score from 4 to at least 50 to show MDC/MCII and expected functional outcome in 10 weeks. OTHER: Patient will be able to properly demonstrate independence with HEP within 2 weeks of progressing each phase. Patient Education: Quality of movement with patient demonstrated understanding. Post-Treatment Pain Scale: 4 Assessment: Patient had an expected response to treatment. Skilled Intervention demonstrated by modifications of treatment per exercise log including increased intensity and safety interventions per exercise log. Progress towards goals as expected. Plan for Next Visit: Treatment Visit with focus on ROM per protocol Emelia Trejo PTA STATE LICENSE, [id number] documented in this encounter* Emelia Trejo PTA - 03/07/2020 11:30 AM EDT [facility] DAILY TREATMENT NOTE Today's Date 03/07/2020 Patient Name: Roula Wadsworth Date of : 1975 Current Visit #: 4 Authorized Visits: 50 Case Name: S/P Right Shoulder Arthroscopic Rotator Cuff Repair History: Pre-Treatment Pain Scale: 4 Symptoms: gradually improved Functional Diagnosis: 1. S/P right rotator cuff repair 2. Status post arthroscopy of right shoulder Clinical Information: Subjective: Her shoulder is still about the same. She can sleep for little intervals in the recliner. She'll be at 4 weeks s/p Tuesday. Objective Continues with bicep tightness and very sensitive to touch along upper arm and incision area. Used a towel to de-sensitize along bicep area. Treatments: Physical Therapy Exercise Log - 03/07/20 1206 OTHER Precautions/Contraindications Surgery 02/06/20 - protocol on desk Notes visit 4: 11:27-12:03 Vitals add isometrics around 03/12 and standing TIY and resisted biceps/triceps around 03/19 Therapeutic Exercise ([id number]) Intervention Eval only - provided written HEP hanouts consisting of pendulums, shrugs and scap retractions Parameters Pendulums x10 Intervention shrugs 5''x10 Parameters Scap retraction in supine 5''x10 Intervention Seated ER stretch 10''x10 Parameters standing bent over scap retraction x10 Intervention STM ant delt and lat delt x4min each and R UT PT Treatment Times Therex Total Time 35 Direct Treatment Time 35 Total Treatment Time 35 Goals: Physical Therapy Ortho Goals: CARRYING/MOVING/HANDLING: Patient will be able to place items on a shelf overhead in 10 weeks CARRYING/MOVING/HANDLING: Patient will be able to carry 5 lbs in 10 weeks SELF CARE: Patient will be able to complete ADL's including bathing, dressing, and hair care without difficulty in 5 weeks. IMPAIRMENT: Patient will demonstrate improved postural awareness in PT sessions to facilitate mechanical alignment and function in 4 weeks. IMPAIRMENT: Improve pain to <3/10 during reaching activities in 10 weeks IMPAIRMENT: Improve gross MMT of the Right Shoulder to 4/5 in 10 weeks IMPAIRMENT: Improve PROM of the right shoulder to WNL in 6 weeks. IMPAIRMENT: Improve AROM of Right Shoulder Flexion to at least 160 degrees in 10 weeks. IMPAIRMENT: Improve AROM of Right Shoulder Abduction to at least 160 degrees in 10 weeks. IMPAIRMENT: Improve AROM of Right Shoulder ER to at least 70 degrees in 10 weeks. OTHER: Patient will increase FOTO score from 4 to at least 50 to show MDC/MCII and expected functional outcome in 10 weeks. OTHER: Patient will be able to properly demonstrate independence with HEP within 2 weeks of progressing each phase. Patient Education: Quality of movement with patient demonstrated understanding. Post-Treatment Pain Scale: 3 Assessment: Patient had an expected response to treatment. Skilled Intervention demonstrated by modifications of treatment per exercise log including increased load and safety interventions per exercise log. Progress towards goals as expected. Plan for Next Visit: Treatment Visit with focus on pain control and ROM Emelia Trejo PTA STATE LICENSE, [id number] documented in this encounter* Tra Gastelum PTA - 03/12/2020 11:30 AM EDT [facility] DAILY TREATMENT NOTE Today's Date 03/12/2020 Patient Name: Roula Wadsworth Date of : 1975 Current Visit #: 5 Authorized Visits: 50 Case Name: S/P Right Shoulder Arthroscopic Rotator Cuff Repair History: Pre-Treatment Pain Scale: 1 Symptoms: stabilized Functional Diagnosis: 1. S/P right rotator cuff repair 2. Status post arthroscopy of right shoulder Clinical Information: Subjective: Pt reports min pain coming in but she has had increased achiness through the day Objective Added isometrics and UT stretch today, pt was very sensitive with UT stretch Treatments: Physical Therapy Exercise Log - 03/12/20 1124 OTHER Precautions/Contraindications Surgery 02/06/20 - protocol on desk Notes visit 5: [id number] Vitals add isometrics around 03/12 and standing TIY and resisted biceps/triceps around 03/19 Therapeutic Exercise ([id number]) Intervention Eval only - provided written HEP hanouts consisting of pendulums, shrugs and scap retractions Parameters Pendulums x10 Intervention shrugs 5''x10 Parameters Scap retraction in supine 5''x10 Intervention Seated ER stretch 10''x10 Parameters standing bent over scap retraction x10 Intervention STM ant delt and lat delt x4min each and R UT Parameters UT stretch x2min Intervention Isometrics in supine 5''x5 PT Treatment Times Therex Total Time 34 Manual Therapy Total Time 6 Direct Treatment Time 40 Total Treatment Time 41 Goals: Physical Therapy Ortho Goals: CARRYING/MOVING/HANDLING: Patient will be able to place items on a shelf overhead in 10 weeks CARRYING/MOVING/HANDLING: Patient will be able to carry 5 lbs in 10 weeks SELF CARE: Patient will be able to complete ADL's including bathing, dressing, and hair care without difficulty in 5 weeks. IMPAIRMENT: Patient will demonstrate improved postural awareness in PT sessions to facilitate mechanical alignment and function in 4 weeks. IMPAIRMENT: Improve pain to <3/10 during reaching activities in 10 weeks IMPAIRMENT: Improve gross MMT of the Right Shoulder to 4/5 in 10 weeks IMPAIRMENT: Improve PROM of the right shoulder to WNL in 6 weeks. IMPAIRMENT: Improve AROM of Right Shoulder Flexion to at least 160 degrees in 10 weeks. IMPAIRMENT: Improve AROM of Right Shoulder Abduction to at least 160 degrees in 10 weeks. IMPAIRMENT: Improve AROM of Right Shoulder ER to at least 70 degrees in 10 weeks. OTHER: Patient will increase FOTO score from 4 to at least 50 to show MDC/MCII and expected functional outcome in 10 weeks. OTHER: Patient will be able to properly demonstrate independence with HEP within 2 weeks of progressing each phase. Patient Education: Verbal HEP with patient verbalized understanding. Post-Treatment Pain Scale: 1 Assessment: Patient had an expected response to treatment. Reviewed pt protocol and weaning from sling over the next few days Skilled Intervention demonstrated by modifications of treatment per exercise log including assessment of patient's response and safety interventions per exercise log. Progress towards goals as expected. Plan for Next Visit: Treatment Visit with focus on progressing per protocol as tolerated Tra Gastelum PTA STATE LICENSE, [id number] documented in this encounter* Emelia Trejo PTA - 03/14/2020 10:45 AM EDT [facility] OUT[facility] REHABIL[facility]ATION DAILY TREATMENT NOTE Today's Date 03/14/2020 Patient Name: Roula Wadsworth Date of : 1975 Current Visit #: 6 Authorized Visits: 50 Case Name: S/P Right Shoulder Arthroscopic Rotator Cuff Repair History: Pre-Treatment Pain Scale: 4 Symptoms: stabilized Functional Diagnosis: 1. S/P right rotator cuff repair 2. Status post arthroscopy of right shoulder Clinical Information: Subjective: Her shoulder has been aching the last couple days. It wont settle down unless she doesn't move it. Objective PROM ER to neutral flexion to 90 degrees. End range pain and tightness with each stretch. Treatments: Physical Therapy Exercise Log - 03/14/20 1157 OTHER Precautions/Contraindications Surgery 02/06/20 - protocol on desk Notes visit 6: [id number] Vitals add isometrics around 03/12 and standing TIY and resisted biceps/triceps around 03/19 Therapeutic Exercise ([id number]) Intervention Eval only - provided written HEP hanouts consisting of pendulums, shrugs and scap retractions Parameters Pendulums x10 Intervention shrugs 5''x10 Parameters Scap retraction in supine 5''x10 Intervention Seated ER stretch 10''x10 Parameters standing bent over scap retraction x10 Intervention STM ant delt and lat delt x4min each and R UT Parameters UT stretch x2min Intervention Isometrics in supine 5''x5 Manual Therapy (99645) Intervention STM/cupping 8' PT Treatment Times Therex Total Time 22 Manual Therapy Total Time 8 Modalities Total Time 10 Direct Treatment Time 40 Total Treatment Time 40 Goals: Physical Therapy Ortho Goals: CARRYING/MOVING/HANDLING: Patient will be able to place items on a shelf overhead in 10 weeks CARRYING/MOVING/HANDLING: Patient will be able to carry 5 lbs in 10 weeks SELF CARE: Patient will be able to complete ADL's including bathing, dressing, and hair care without difficulty in 5 weeks. IMPAIRMENT: Patient will demonstrate improved postural awareness in PT sessions to facilitate mechanical alignment and function in 4 weeks. IMPAIRMENT: Improve pain to <3/10 during reaching activities in 10 weeks IMPAIRMENT: Improve gross MMT of the Right Shoulder to 4/5 in 10 weeks IMPAIRMENT: Improve PROM of the right shoulder to WNL in 6 weeks. IMPAIRMENT: Improve AROM of Right Shoulder Flexion to at least 160 degrees in 10 weeks. IMPAIRMENT: Improve AROM of Right Shoulder Abduction to at least 160 degrees in 10 weeks. IMPAIRMENT: Improve AROM of Right Shoulder ER to at least 70 degrees in 10 weeks. OTHER: Patient will increase FOTO score from 4 to at least 50 to show MDC/MCII and expected functional outcome in 10 weeks. OTHER: Patient will be able to properly demonstrate independence with HEP within 2 weeks of progressing each phase. Patient Education: Quality of movement with patient demonstrated understanding. Post-Treatment Pain Scale: 4 Assessment: Patient had an expected response to treatment. Skilled Intervention demonstrated by modifications of treatment per exercise log including increased intensity and safety interventions per exercise log. Progress towards goals as expected. Plan for Next Visit: Treatment Visit with focus on ROM and pain control Emelia Trejo PTA STATE LICENSE, [id number] documented in this encounter* Emelia Trejo, [employer] OFFICER - 03/19/2020 10:45 AM EDT [facility] OUT[facility]IENT REHABILITATION DAILY TREATMENT NOTE Today's Date 03/19/2020 Patient Name: Roula Wadsworth Date of : 1975 Current Visit #: 7 Authorized Visits: 50 Case Name: S/P Right Shoulder Arthroscopic Rotator Cuff Repair History: Pre-Treatment Pain Scale: 4 Symptoms: stabilized Functional Diagnosis: 1. S/P right rotator cuff repair 2. Status post arthroscopy of right shoulder Clinical Information: Subjective: Her shoulder is very sensitive to touch. Even when her hair touches the incision area it hurts. She still has a lot of tightness in her bicep area. Objective PROM ER to neutral. End range pain and tightness with passive stretches. Treatments: Physical Therapy Exercise Log - 03/19/20 1122 OTHER Precautions/Contraindications Surgery 02/06/20 - protocol on desk Notes visit 7: 10:40-11:15 Vitals add isometrics around 03/12 and standing TIY and resisted biceps/triceps around 03/19 Therapeutic Exercise ([id number]) Intervention Eval only - provided written HEP hanouts consisting of pendulums, shrugs and scap retractions Parameters Pendulums x10 Intervention shrugs 5''x10 Parameters Scap retraction in supine 5''x10 Intervention Seated ER stretch 10''x10 Parameters standing bent over scap retraction x10 Intervention STM ant delt and lat delt x4min each and R UT Parameters UT stretch x2min Intervention Isometrics in supine 5''x5 Manual Therapy ([id number]) Intervention STM 8' and desensitization along incision area PT Treatment Times Therex Total Time 25 Manual Therapy Total Time 8 Direct Treatment Time 33 Total Treatment Time 33 Goals: Physical Therapy Ortho Goals: CARRYING/MOVING/HANDLING: Patient will be able to place items on a shelf overhead in 10 weeks CARRYING/MOVING/HANDLING: Patient will be able to carry 5 lbs in 10 weeks SELF CARE: Patient will be able to complete ADL's including bathing, dressing, and hair care without difficulty in 5 weeks. IMPAIRMENT: Patient will demonstrate improved postural awareness in PT sessions to facilitate mechanical alignment and function in 4 weeks. IMPAIRMENT: Improve pain to <3/10 during reaching activities in 10 weeks IMPAIRMENT: Improve gross MMT of the Right Shoulder to 4/5 in 10 weeks IMPAIRMENT: Improve PROM of the right shoulder to WNL in 6 weeks. IMPAIRMENT: Improve AROM of Right Shoulder Flexion to at least 160 degrees in 10 weeks. IMPAIRMENT: Improve AROM of Right Shoulder Abduction to at least 160 degrees in 10 weeks. IMPAIRMENT: Improve AROM of Right Shoulder ER to at least 70 degrees in 10 weeks. OTHER: Patient will increase FOTO score from 4 to at least 50 to show MDC/MCII and expected functional outcome in 10 weeks. OTHER: Patient will be able to properly demonstrate independence with HEP within 2 weeks of progressing each phase. Patient Education: Quality of movement with patient demonstrated understanding. Post-Treatment Pain Scale: 4 Assessment: Patient had an expected response to treatment. Skilled Intervention demonstrated by modifications of treatment per exercise log including increased intensity and safety interventions per exercise log. Progress towards goals as expected. Plan for Next Visit: Treatment Visit with focus on ROM Emelia Trejo PTA STATE LICENSE, [id number] documented in this encounter* Emelia Trejo PTA - 03/21/2020 10:45 AM EDT [facility] REHABIL[facility]ATION DAILY TREATMENT NOTE Today's Date 03/21/2020 Patient Name: Roula Wadsworth Date of : 1975 Current Visit #: 8 Authorized Visits: 50 Case Name: S/P Right Shoulder Arthroscopic Rotator Cuff Repair History: Pre-Treatment Pain Scale: 4 Symptoms: stabilized Functional Diagnosis: 1. S/P right rotator cuff repair 2. Status post arthroscopy of right shoulder Clinical Information: Subjective: Her shoulder is still very painful. Hurts from her neck down to her elbow. Objective Tightness along R UT to her elbow with STM. Initiated rosemarie with fair control and pain increase. Treatments: Physical Therapy Exercise Log - 03/21/20 1237 OTHER Precautions/Contraindications Surgery 02/06/20 - protocol on desk Notes visit 8: 10:40-11:15 Vitals add isometrics around 03/12 and standing TIY and resisted biceps/triceps around 9/ Therapeutic Exercise ([id number]) Parameters Pendulums x10 Intervention shrugs 5''x10 Parameters Scap retraction in supine 5''x10 Intervention Seated ER stretch 10''x10 Parameters standing bent over scap retraction x10 Intervention STM ant delt and lat delt x4min each and R UT Parameters UT stretch x2min Intervention Isometrics in supine 5''x5 Manual Therapy ([id number]) Intervention STM 8' and desensitization along incision area PT Treatment Times Therex Total Time 25 Manual Therapy Total Time 10 Direct Treatment Time 35 Total Treatment Time 35 Goals: Physical Therapy Ortho Goals: CARRYING/MOVING/HANDLING: Patient will be able to place items on a shelf overhead in 10 weeks CARRYING/MOVING/HANDLING: Patient will be able to carry 5 lbs in 10 weeks SELF CARE: Patient will be able to complete ADL's including bathing, dressing, and hair care without difficulty in 5 weeks. IMPAIRMENT: Patient will demonstrate improved postural awareness in PT sessions to facilitate mechanical alignment and function in 4 weeks. IMPAIRMENT: Improve pain to <3/10 during reaching activities in 10 weeks IMPAIRMENT: Improve gross MMT of the Right Shoulder to 4/5 in 10 weeks IMPAIRMENT: Improve PROM of the right shoulder to WNL in 6 weeks. IMPAIRMENT: Improve AROM of Right Shoulder Flexion to at least 160 degrees in 10 weeks. IMPAIRMENT: Improve AROM of Right Shoulder Abduction to at least 160 degrees in 10 weeks. IMPAIRMENT: Improve AROM of Right Shoulder ER to at least 70 degrees in 10 weeks. OTHER: Patient will increase FOTO score from 4 to at least 50 to show MDC/MCII and expected functional outcome in 10 weeks. OTHER: Patient will be able to properly demonstrate independence with HEP within 2 weeks of progressing each phase. Patient Education: Quality of movement with patient demonstrated understanding. Post-Treatment Pain Scale: 3 Assessment: Patient had an expected response to treatment. Skilled Intervention demonstrated by modifications of treatment per exercise log including increased intensity and safety interventions per exercise log. Progress towards goals as expected. Plan for Next Visit: Treatment Visit with focus on ROM Emelia Trejo PTA STATE LICENSE, [id number] documented in this encounter* Koko Fonseca, PT - 03/26/2020 10:45 AM EDT [facility] OUT[facility] REHABILITATION DAILY TREATMENT NOTE Today's Date 03/26/2020 Patient Name: Roula Wadsworth Date of : 1975 Current Visit #: 9 Authorized Visits: 50 Case Name: S/P Right Shoulder Arthroscopic Rotator Cuff Repair History: Pre-Treatment Pain Scale: 0 Symptoms: gradually improved Functional Diagnosis: 1. S/P right rotator cuff repair 2. Status post arthroscopy of right shoulder Clinical Information: Subjective: Pt denies change in med hx. Pt reports no pain at rest but moderate pain, primarily in the back of the arm with elevation Objective Pt is pain limited. Pt tolerates only about 90 degrees of elevation PROM and AAROM. PROM feels smooth with no restriction and no end feel. Pt does not get to the point of muscle tightness/pulling before she is in too much pain. Pt reports significant tenderness to palpation of the teres muscle tendons as well as the anterior shoulder in the pec major tendon and biceps tendon regions. Treatments: Physical Therapy Exercise Log - 03/26/20 1044 OTHER Precautions/Contraindications Surgery 02/06/20 - protocol on desk Notes Visit 9: 10:46 - 11:34 Vitals -- Therapeutic Exercise ([id number]) Intervention Pulleys x 3 mins Parameters PROM x10 mins Intervention Cane AAROM (flex, abd and ER) x10 Parameters Doorway ER and pec stretches 5x20 Intervention Resisted biceps/triceps YTT x10 each Parameters standing bent over scap retraction x10 NT Intervention -- Parameters -- Intervention -- Manual Therapy ([id number]) Intervention -- PT Treatment Times Therex Total Time 48 Direct Treatment Time 48 Total Treatment Time 48 Goals: Physical Therapy Ortho Goals: CARRYING/MOVING/HANDLING: Patient will be able to place items on a shelf overhead in 10 weeks CARRYING/MOVING/HANDLING: Patient will be able to carry 5 lbs in 10 weeks SELF CARE: Patient will be able to complete ADL's including bathing, dressing, and hair care without difficulty in 5 weeks. IMPAIRMENT: Patient will demonstrate improved postural awareness in PT sessions to facilitate mechanical alignment and function in 4 weeks. IMPAIRMENT: Improve pain to <3/10 during reaching activities in 10 weeks IMPAIRMENT: Improve gross MMT of the Right Shoulder to 4/5 in 10 weeks IMPAIRMENT: Improve PROM of the right shoulder to WNL in 6 weeks. IMPAIRMENT: Improve AROM of Right Shoulder Flexion to at least 160 degrees in 10 weeks. IMPAIRMENT: Improve AROM of Right Shoulder Abduction to at least 160 degrees in 10 weeks. IMPAIRMENT: Improve AROM of Right Shoulder ER to at least 70 degrees in 10 weeks. OTHER: Patient will increase FOTO score from 4 to at least 50 to show MDC/MCII and expected functional outcome in 10 weeks. OTHER: Patient will be able to properly demonstrate independence with HEP within 2 weeks of progressing each phase. Patient Education: Quality of movement and HEP Adherence with patient verbalized understanding. Informed pt that she is a little behind where she should be at this point and that we need to stress ROM. Post-Treatment Pain Scale: 5 Assessment: Patient had an expected response to treatment. Skilled Intervention demonstrated by modifications of treatment per exercise log including assessment of patient's response and safety interventions per exercise log. Progress towards goals unexpected due to higher than anticipated complexity. Plan for Next Visit: Treatment Visit with focus on ROM Koko Fonseca PT State License, [id number] documented in this encounter* BrojigarEmelia, [employer] OFFICER - 04/02/2020 10:45 AM EDT [facility] OUT[facility]IENT REHABILITATION DAILY TREATMENT NOTE Today's Date 04/02/2020 Patient Name: Roula Wadsworth Date of : 1975 Current Visit #: 11 Authorized Visits: 50 Case Name: S/P Right Shoulder Arthroscopic Rotator Cuff Repair History: Pre-Treatment Pain Scale: 3 Symptoms: gradually improved Functional Diagnosis: 1. S/P right rotator cuff repair 2. Status post arthroscopy of right shoulder Clinical Information: Subjective: She saw her surgeon yesterday and he wants her to push through the pain and gain more ROM. Objective AROM flexion 90 degrees. STM along bicep tendon and scap/UT to loosen muscles. Increased ROM following treatment. Treatments: Physical Therapy Exercise Log - 04/02/20 1129 OTHER Precautions/Contraindications Surgery 02/06/20 - protocol on desk Notes Visit 11: 10:45 - 11:30 Therapeutic Exercise ([id number]) Intervention Pulleys x 3 mins Parameters PROM x10 mins Intervention Cane AAROM (flex, abd and ER) x10 Intervention prone row/ext x10 each Parameters side lying ER x10 Manual Therapy ([id number]) Intervention STM along bicep tendon and AC joint 8' PT Treatment Times Therex Total Time 30 Manual Therapy Total Time 8 Direct Treatment Time 38 Total Treatment Time 38 Goals: Physical Therapy Ortho Goals: CARRYING/MOVING/HANDLING: Patient will be able to place items on a shelf overhead in 10 weeks CARRYING/MOVING/HANDLING: Patient will be able to carry 5 lbs in 10 weeks SELF CARE: Patient will be able to complete ADL's including bathing, dressing, and hair care without difficulty in 5 weeks. IMPAIRMENT: Patient will demonstrate improved postural awareness in PT sessions to facilitate mechanical alignment and function in 4 weeks. IMPAIRMENT: Improve pain to <3/10 during reaching activities in 10 weeks IMPAIRMENT: Improve gross MMT of the Right Shoulder to 4/5 in 10 weeks IMPAIRMENT: Improve PROM of the right shoulder to WNL in 6 weeks. IMPAIRMENT: Improve AROM of Right Shoulder Flexion to at least 160 degrees in 10 weeks. IMPAIRMENT: Improve AROM of Right Shoulder Abduction to at least 160 degrees in 10 weeks. IMPAIRMENT: Improve AROM of Right Shoulder ER to at least 70 degrees in 10 weeks. OTHER: Patient will increase FOTO score from 4 to at least 50 to show MDC/MCII and expected functional outcome in 10 weeks. OTHER: Patient will be able to properly demonstrate independence with HEP within 2 weeks of progressing each phase. Patient Education: Quality of movement with patient demonstrated understanding. Post-Treatment Pain Scale: 3 Assessment: Patient had an expected response to treatment. Skilled Intervention demonstrated by modifications of treatment per exercise log including increased intensity and safety interventions per exercise log. Progress towards goals as expected. Plan for Next Visit: Treatment Visit with focus on ROM Emelia Trejo PTA STATE LICENSE, [id number] documented in this encounter* Tra Gastelum PTA - 04/16/2020 10:45 AM EDT [facility] OUT[facility] REHABILITATION DAILY TREATMENT NOTE Today's Date 04/16/2020 Patient Name: Roula Wadsworth Date of : 1975 Current Visit #: 14 Authorized Visits: 50 Case Name: S/P Right Shoulder Arthroscopic Rotator Cuff Repair History: Pre-Treatment Pain Scale: 2 Symptoms: stabilized Functional Diagnosis: 1. S/P right rotator cuff repair 2. Status post arthroscopy of right shoulder Clinical Information: Subjective: Pt reports some sharp and shooting pain in lateral shoulder and arm intermittent with ADL's Objective Added standing flexion and reverse codmans Treatments: Physical Therapy Exercise Log - 04/16/20 1043 OTHER Precautions/Contraindications Surgery 02/06/20 - protocol on desk Notes visit 14: [id number] Therapeutic Exercise ([id number]) Intervention Pulleys x 3 mins Parameters PROM x10 mins Intervention Cane AAROM (flex, abd and ER) x10 Parameters Standing tricep pushdown, row GTB x20 each Intervention prone row/ext x10 each Parameters side lying ER x10 Intervention prone banded flexion stretch 5'' extension then relax x8 min Parameters sink flexion stretch x 1.5 min Intervention supine reverse codmans x20 each and ABC's x1 Parameters Standing flexion x10 Manual Therapy (45098) Intervention STM along bicep tendon and AC joint PT Treatment Times Therex Total Time 30 Manual Therapy Total Time 8 Direct Treatment Time 38 Total Treatment Time 39 Goals: Physical Therapy Ortho Goals: CARRYING/MOVING/HANDLING: Patient will be able to place items on a shelf overhead in 10 weeks CARRYING/MOVING/HANDLING: Patient will be able to carry 5 lbs in 10 weeks SELF CARE: Patient will be able to complete ADL's including bathing, dressing, and hair care without difficulty in 5 weeks. IMPAIRMENT: Patient will demonstrate improved postural awareness in PT sessions to facilitate mechanical alignment and function in 4 weeks. IMPAIRMENT: Improve pain to <3/10 during reaching activities in 10 weeks IMPAIRMENT: Improve gross MMT of the Right Shoulder to 4/5 in 10 weeks IMPAIRMENT: Improve PROM of the right shoulder to WNL in 6 weeks. IMPAIRMENT: Improve AROM of Right Shoulder Flexion to at least 160 degrees in 10 weeks. IMPAIRMENT: Improve AROM of Right Shoulder Abduction to at least 160 degrees in 10 weeks. IMPAIRMENT: Improve AROM of Right Shoulder ER to at least 70 degrees in 10 weeks. OTHER: Patient will increase FOTO score from 4 to at least 50 to show MDC/MCII and expected functional outcome in 10 weeks. OTHER: Patient will be able to properly demonstrate independence with HEP within 2 weeks of progressing each phase. Patient Education: Verbal HEP with patient verbalized understanding. Post-Treatment Pain Scale: 2 Assessment: Patient had an expected response to treatment. Pt reports she is very stiff, no increased pain but it is stiff Skilled Intervention demonstrated by modifications of treatment per exercise log including assessment of patient's response and safety interventions per exercise log. Progress towards goals as expected. Plan for Next Visit: Treatment Visit with focus on progressing as tolerated Tra Gastelum PTA STATE LICENSE, [id number] documented in this encounter* BrojigarTavoneeELLIOT - 04/23/2020 10:45 AM EDT [facility] OUT[facility]IENT REHABILITATION DAILY TREATMENT NOTE Today's Date 04/23/2020 Patient Name: Roula Wadsworth Date of : 1975 Current Visit #: 17 Authorized Visits: 50 Case Name: S/P Right Shoulder Arthroscopic Rotator Cuff Repair History: Pre-Treatment Pain Scale: 3 Symptoms: gradually improved Functional Diagnosis: 1. S/P right rotator cuff repair 2. Status post arthroscopy of right shoulder Clinical Information: Subjective: Her shoulder aches today with movement. She has to wait 2 more weeks before she sees her surgeon d/t marion manzano at his office. Objective Strength ER 4/5, IR 4-/5. Limited flexion with AROM. Treatments: Physical Therapy Exercise Log - 04/23/20 1127 OTHER Precautions/Contraindications Surgery 02/06/20 - protocol on desk Notes visit 16: 10:35-11:15 Therapeutic Exercise ([id number]) Intervention Pulleys x 3 mins Parameters PROM x10 mins Intervention Cane AAROM (flex, abd and ER) x10 Parameters Standing tricep pushdown, row GTB x20 each Intervention prone row/ext x10 each Parameters side lying ER x10 Intervention prone banded flexion stretch 5'' extension then relax x8 min Parameters sink flexion stretch x 1.5 min Intervention supine reverse codmans x20 each and ABC's x1 Parameters Standing flexion x10 Intervention UEB 8' fwd/back alternating 2' Manual Therapy ([id number]) Intervention STM along bicep tendon and AC joint 5' PT Treatment Times Therex Total Time 30 Manual Therapy Total Time 10 Direct Treatment Time 40 Total Treatment Time 40 Goals: Physical Therapy Ortho Goals: CARRYING/MOVING/HANDLING: Patient will be able to place items on a shelf overhead in 10 weeks CARRYING/MOVING/HANDLING: Patient will be able to carry 5 lbs in 10 weeks SELF CARE: Patient will be able to complete ADL's including bathing, dressing, and hair care without difficulty in 5 weeks. IMPAIRMENT: Patient will demonstrate improved postural awareness in PT sessions to facilitate mechanical alignment and function in 4 weeks. IMPAIRMENT: Improve pain to <3/10 during reaching activities in 10 weeks IMPAIRMENT: Improve gross MMT of the Right Shoulder to 4/5 in 10 weeks IMPAIRMENT: Improve PROM of the right shoulder to WNL in 6 weeks. IMPAIRMENT: Improve AROM of Right Shoulder Flexion to at least 160 degrees in 10 weeks. IMPAIRMENT: Improve AROM of Right Shoulder Abduction to at least 160 degrees in 10 weeks. IMPAIRMENT: Improve AROM of Right Shoulder ER to at least 70 degrees in 10 weeks. OTHER: Patient will increase FOTO score from 4 to at least 50 to show MDC/MCII and expected functional outcome in 10 weeks. OTHER: Patient will be able to properly demonstrate independence with HEP within 2 weeks of progressing each phase. Patient Education: Quality of movement with patient demonstrated understanding. Post-Treatment Pain Scale: 2 Assessment: Patient had an expected response to treatment. Skilled Intervention demonstrated by modifications of treatment per exercise log including increased intensity and safety interventions per exercise log. Progress towards goals as expected. Plan for Next Visit: Treatment Visit with focus on ROM and pain control Emelia Trejo PTA STATE LICENSE, [id number] documented in this encounter* Emelia Trejo PTA - 05/14/2020 10:45 AM EDT [facility] REHABILITATION DAILY TREATMENT NOTE Today's Date 05/14/2020 Patient Name: Roula Wadsworth Date of : 1975 Current Visit #: 20 Authorized Visits: 50 Case Name: S/P Right Shoulder Arthroscopic Rotator Cuff Repair History: Pre-Treatment Pain Scale: 2 Symptoms: gradually improved Functional Diagnosis: 1. S/P right rotator cuff repair 2. Status post arthroscopy of right shoulder Clinical Information: Subjective: She is doing somewhat better with ROM. She's doing stretches at home. Objective AROM flexion 140 degrees. Improved IR with towel stretches. Treatments: Physical Therapy Exercise Log - 05/14/20 1218 OTHER Precautions/Contraindications Surgery 02/06/20 - protocol on desk Notes visit 18: 10:42-11:15 Therapeutic Exercise ([id number]) Intervention Pulleys x 3 mins, Flexion, abduction, IR Parameters PROM x10 mins Intervention Cane AAROM (flex, abd and ER) x10 Parameters Table slides - Flexion, Scaption, ER 20 x 5 secs Intervention prone row/ext x10 each Parameters side lying ER x10 Intervention prone banded flexion stretch 5'' extension then relax x8 min Parameters Sidelying IR stretch 10 secs x 10 reps Intervention supine reverse codmans x20 each Parameters Supine flexion 90 - end range 2 x10 Intervention UEB 8' fwd/back alternating 2' Manual Therapy (38786) Intervention GH joint mobs - Grade III, AP, Caudal 5 mins each PT Treatment Times Therex Total Time 35 Direct Treatment Time 35 Total Treatment Time 35 Goals: Physical Therapy Ortho Goals: CARRYING/MOVING/HANDLING: Patient will be able to place items on a shelf overhead in 10 weeks CARRYING/MOVING/HANDLING: Patient will be able to carry 5 lbs in 10 weeks SELF CARE: Patient will be able to complete ADL's including bathing, dressing, and hair care without difficulty in 5 weeks. IMPAIRMENT: Patient will demonstrate improved postural awareness in PT sessions to facilitate mechanical alignment and function in 4 weeks. IMPAIRMENT: Improve pain to <3/10 during reaching activities in 10 weeks IMPAIRMENT: Improve gross MMT of the Right Shoulder to 4/5 in 10 weeks IMPAIRMENT: Improve PROM of the right shoulder to WNL in 6 weeks. IMPAIRMENT: Improve AROM of Right Shoulder Flexion to at least 160 degrees in 10 weeks. IMPAIRMENT: Improve AROM of Right Shoulder Abduction to at least 160 degrees in 10 weeks. IMPAIRMENT: Improve AROM of Right Shoulder ER to at least 70 degrees in 10 weeks. OTHER: Patient will increase FOTO score from 4 to at least 50 to show MDC/MCII and expected functional outcome in 10 weeks. OTHER: Patient will be able to properly demonstrate independence with HEP within 2 weeks of progressing each phase. Patient Education: Quality of movement with patient demonstrated understanding. Post-Treatment Pain Scale: 2 Assessment: Patient had an expected response to treatment. Skilled Intervention demonstrated by modifications of treatment per exercise log including increased intensity and safety interventions per exercise log. Progress towards goals as expected. Plan for Next Visit: Treatment Visit with focus on ROM and strength Emelia Trejo PTA STATE LICENSE, [id number] documented in this encounter* Emelia Trejo PTA - 2020 10:45 AM EDT [facility] REH[facility]IL[facility] DAILY TREATMENT NOTE Today's Date 2020 Patient Name: Roula Wadsworth Date of : 1975 Current Visit #: 21 Authorized Visits: 50 Case Name: S/P Right Shoulder Arthroscopic Rotator Cuff Repair History: Pre-Treatment Pain Scale: 2 Symptoms: gradually improved Functional Diagnosis: 1. S/P right rotator cuff repair 2. Status post arthroscopy of right shoulder Clinical Information: Subjective: Her shoulder is doing ok but sore with certain movements. Objective Initiated work conditioning exercises with quick fatigue. She isn't allowed to lift more than 10# for work so they don't want her back to work yet. Treatments: Physical Therapy Exercise Log - 05/16/20 1125 OTHER Precautions/Contraindications Surgery 02/06/20 - protocol on desk Notes visit 19: 10:40-11:20 Therapeutic Exercise ([id number]) Intervention Pulleys x 3 mins, Flexion, abduction, IR Intervention Cane AAROM (flex, abd and ER) x10 2#wt Parameters Table slides - Flexion, Scaption, ER 20 x 5 secs 5# weight Parameters side lying ER x10 Parameters Sidelying IR stretch 10 secs x 10 reps Intervention supine reverse codmans x20 each Parameters Supine flexion 90 - end range 2 x10 Intervention UEB 8' fwd/back alternating 2' Parameters SB on wall circles/side to side/vertical PT Treatment Times Therex Total Time 45 Direct Treatment Time 45 Total Treatment Time 45 Goals: Physical Therapy Ortho Goals: CARRYING/MOVING/HANDLING: Patient will be able to place items on a shelf overhead in 10 weeks CARRYING/MOVING/HANDLING: Patient will be able to carry 5 lbs in 10 weeks SELF CARE: Patient will be able to complete ADL's including bathing, dressing, and hair care without difficulty in 5 weeks. IMPAIRMENT: Patient will demonstrate improved postural awareness in PT sessions to facilitate mechanical alignment and function in 4 weeks. IMPAIRMENT: Improve pain to <3/10 during reaching activities in 10 weeks IMPAIRMENT: Improve gross MMT of the Right Shoulder to 4/5 in 10 weeks IMPAIRMENT: Improve PROM of the right shoulder to WNL in 6 weeks. IMPAIRMENT: Improve AROM of Right Shoulder Flexion to at least 160 degrees in 10 weeks. IMPAIRMENT: Improve AROM of Right Shoulder Abduction to at least 160 degrees in 10 weeks. IMPAIRMENT: Improve AROM of Right Shoulder ER to at least 70 degrees in 10 weeks. OTHER: Patient will increase FOTO score from 4 to at least 50 to show MDC/MCII and expected functional outcome in 10 weeks. OTHER: Patient will be able to properly demonstrate independence with HEP within 2 weeks of progressing each phase. Patient Education: Quality of movement with patient demonstrated understanding. Post-Treatment Pain Scale: 2 Assessment: Patient had an expected response to treatment. Skilled Intervention demonstrated by modifications of treatment per exercise log including increased intensity and safety interventions per exercise log. Progress towards goals as expected. Plan for Next Visit: Treatment Visit with focus on ROM and strengthening Emelia Trejo PTA STATE LICENSE, [id number] documented in this encounter* Tra Gastelum PTA - 05/19/2020 1:45 PM EST [facility] OUTPATIENT REHABILITATION DAILY TREATMENT NOTE Today's Date 05/19/2020 Patient Name: Roula Wadsworth Date of : 1975 Current Visit #: 22 Authorized Visits: 50 Case Name: S/P Right Shoulder Arthroscopic Rotator Cuff Repair History: Pre-Treatment Pain Scale: 2 Symptoms: stabilized Functional Diagnosis: 1. S/P right rotator cuff repair 2. Status post arthroscopy of right shoulder Clinical Information: Subjective: Pt reports pain in same spot as usual Objective Focused on therex and endurance based ex's today Increased time on UBE Reviewed continuing therapy for 3 more weeks x2 weekly AAROM flexion and abd were aprox 150 degrees, pt reports increased pain in pin- point location on ant-lat GH joint and that she is limited by that pain with IR MMT of R shoulder 10/20 Treatments: Physical Therapy Exercise Log - 05/19/20 1354 OTHER Precautions/Contraindications Surgery 02/06/20 - protocol on desk Notes visit 20: [id number] Therapeutic Exercise (82253) Intervention Pulleys x 3 mins, Flexion, abduction, IR Intervention Cane AAROM (flex, abd and ER) x10 2#wt Parameters Table slides - Flexion, Scaption, ER 20 x 5 secs 5# weight Parameters side lying ER x10 Parameters wall clocks green loop x3 Intervention Wall walks horizontal/ vertical green loop x3 Parameters Floor to table crate 10lb x5min Intervention UEB 10' fwd/back alternating 2' Parameters SB on wall circles/side to side/vertical PT Treatment Times Therex Total Time 44 Direct Treatment Time 44 Total Treatment Time 44 Goals: Physical Therapy Ortho Goals: CARRYING/MOVING/HANDLING: Patient will be able to place items on a shelf overhead in 10 weeks CARRYING/MOVING/HANDLING: Patient will be able to carry 5 lbs in 10 weeks SELF CARE: Patient will be able to complete ADL's including bathing, dressing, and hair care without difficulty in 5 weeks. IMPAIRMENT: Patient will demonstrate improved postural awareness in PT sessions to facilitate mechanical alignment and function in 4 weeks. IMPAIRMENT: Improve pain to <3/10 during reaching activities in 10 weeks IMPAIRMENT: Improve gross MMT of the Right Shoulder to 4/5 in 10 weeks IMPAIRMENT: Improve PROM of the right shoulder to WNL in 6 weeks. IMPAIRMENT: Improve AROM of Right Shoulder Flexion to at least 160 degrees in 10 weeks. IMPAIRMENT: Improve AROM of Right Shoulder Abduction to at least 160 degrees in 10 weeks. IMPAIRMENT: Improve AROM of Right Shoulder ER to at least 70 degrees in 10 weeks. OTHER: Patient will increase FOTO score from 4 to at least 50 to show MDC/MCII and expected functional outcome in 10 weeks. OTHER: Patient will be able to properly demonstrate independence with HEP within 2 weeks of progressing each phase. Patient Education: Verbal HEP with patient verbalized understanding. Post-Treatment Pain Scale: 2 Assessment: Patient had an expected response to treatment. Skilled Intervention demonstrated by modifications of treatment per exercise log including assessment of patient's response and safety interventions per exercise log. Progress towards goals as expected. Plan for Next Visit: Treatment Visit with focus on progressing as tolerated Tra Gastelum PTA STATE LICENSE, [id number] documented in this encounter* Tra Gastelum PTA - 05/22/2020 11:30 AM EST [facility] REHABIL[facility]ATION DAILY TREATMENT NOTE Today's Date 05/22/2020 Patient Name: Roula Wadsworth Date of : 1975 Current Visit #: 23 Authorized Visits: 50 Case Name: S/P Right Shoulder Arthroscopic Rotator Cuff Repair History: Pre-Treatment Pain Scale: 3 Symptoms: stabilized Functional Diagnosis: 1. S/P right rotator cuff repair 2. Status post arthroscopy of right shoulder Clinical Information: Subjective: Pt reports some increased soreness after last session Objective Added standing taband ex's and wall dribble with red ball Treatments: Physical Therapy Exercise Log - 05/22/20 1123 OTHER Precautions/Contraindications Surgery 02/06/20 - protocol on desk Notes visit 21: [id number] Therapeutic Exercise ([id number]) Intervention Pulleys x 3 mins, Flexion, abduction, IR NT Intervention Cane AAROM (flex, abd and ER) x10 2#wt Parameters Table slides - Flexion, Scaption, ER 20 x 5 secs 5# weight Parameters side lying ER x10 Parameters wall clocks green loop x4 Intervention Wall walks horizontal/ vertical green loop x4 Parameters Floor to table crate 10lb x5min Intervention UEB 10' fwd/back alternating 2' Parameters SB on wall circles/side to side/vertical Intervention Standing tband abc's and circles x1 x20 each PT Treatment Times Therex Total Time 40 Direct Treatment Time 40 Total Treatment Time 40 Goals: Physical Therapy Ortho Goals: CARRYING/MOVING/HANDLING: Patient will be able to place items on a shelf overhead in 10 weeks CARRYING/MOVING/HANDLING: Patient will be able to carry 5 lbs in 10 weeks SELF CARE: Patient will be able to complete ADL's including bathing, dressing, and hair care without difficulty in 5 weeks. IMPAIRMENT: Patient will demonstrate improved postural awareness in PT sessions to facilitate mechanical alignment and function in 4 weeks. IMPAIRMENT: Improve pain to <3/10 during reaching activities in 10 weeks IMPAIRMENT: Improve gross MMT of the Right Shoulder to 4/5 in 10 weeks IMPAIRMENT: Improve PROM of the right shoulder to WNL in 6 weeks. IMPAIRMENT: Improve AROM of Right Shoulder Flexion to at least 160 degrees in 10 weeks. IMPAIRMENT: Improve AROM of Right Shoulder Abduction to at least 160 degrees in 10 weeks. IMPAIRMENT: Improve AROM of Right Shoulder ER to at least 70 degrees in 10 weeks. OTHER: Patient will increase FOTO score from 4 to at least 50 to show MDC/MCII and expected functional outcome in 10 weeks. OTHER: Patient will be able to properly demonstrate independence with HEP within 2 weeks of progressing each phase. Patient Education: Verbal HEP with patient verbalized understanding. Post-Treatment Pain Scale: 3 Assessment: Patient had an expected response to treatment. Pt had no increased sx's and demos good stability during dynamic ex's Skilled Intervention demonstrated by modifications of treatment per exercise log including assessment of patient's response and safety interventions per exercise log. Progress towards goals as expected. Plan for Next Visit: Treatment Visit with focus on progressing as tolerated Tra Gastelum PTA STATE LICENSE, [id number] documented in this encounter* Tra Gastelum PTA - 05/27/2020 10:45 AM EST [facility] OUT[facility] REHABILITATION DAILY TREATMENT NOTE Today's Date 05/27/2020 Patient Name: Roula Wadsworth Date of : 1975 Current Visit #: 24 Authorized Visits: 50 Case Name: S/P Right Shoulder Arthroscopic Rotator Cuff Repair History: Pre-Treatment Pain Scale: 1 Symptoms: stabilized Functional Diagnosis: 1. S/P right rotator cuff repair 2. Status post arthroscopy of right shoulder Clinical Information: Subjective: Pt reports occasional pain inside of shoulder but she is progressing overall Objective Increased sets with standing wall ex's Added tube lateral raises Added body blade Treatments: Physical Therapy Exercise Log - 05/27/20 1033 OTHER Precautions/Contraindications Surgery 02/06/20 - protocol on desk Notes visit 22: 1033- Therapeutic Exercise ([id number]) Intervention Pulleys x 3 mins, Flexion, abduction, IR NT Intervention Cane AAROM (flex, abd and ER) x10 2#wt Parameters Table slides - Flexion, Scaption, ER 20 x 5 secs 5# weight Parameters side lying ER x10 Parameters wall clocks green loop x4 Intervention Wall walks horizontal/ vertical green loop x4 Parameters Floor to table crate 10lb x5min Intervention UEB 10' fwd/back alternating 2' Parameters SB on wall circles/side to side/vertical Intervention Standing tband abc's and circles x1 x20 each Goals: Physical Therapy Ortho Goals: CARRYING/MOVING/HANDLING: Patient will be able to place items on a shelf overhead in 10 weeks CARRYING/MOVING/HANDLING: Patient will be able to carry 5 lbs in 10 weeks SELF CARE: Patient will be able to complete ADL's including bathing, dressing, and hair care without difficulty in 5 weeks. IMPAIRMENT: Patient will demonstrate improved postural awareness in PT sessions to facilitate mechanical alignment and function in 4 weeks. IMPAIRMENT: Improve pain to <3/10 during reaching activities in 10 weeks IMPAIRMENT: Improve gross MMT of the Right Shoulder to 4/5 in 10 weeks IMPAIRMENT: Improve PROM of the right shoulder to WNL in 6 weeks. IMPAIRMENT: Improve AROM of Right Shoulder Flexion to at least 160 degrees in 10 weeks. IMPAIRMENT: Improve AROM of Right Shoulder Abduction to at least 160 degrees in 10 weeks. IMPAIRMENT: Improve AROM of Right Shoulder ER to at least 70 degrees in 10 weeks. OTHER: Patient will increase FOTO score from 4 to at least 50 to show MDC/MCII and expected functional outcome in 10 weeks. OTHER: Patient will be able to properly demonstrate independence with HEP within 2 weeks of progressing each phase. Patient Education: Verbal HEP with patient verbalized understanding. Post-Treatment Pain Scale: 1 Assessment: Patient had an expected response to treatment. Pt demod quick fatigue with body blade but no increased pain Skilled Intervention demonstrated by modifications of treatment per exercise log including assessment of patient's response and safety interventions per exercise log. Progress towards goals as expected. Plan for Next Visit: Treatment Visit with focus on progressing as tolerated Tra Gastelum PTA STATE LICENSE, [id number] documented in this encounter* Tra Gastelum PTA - 05/29/2020 10:45 AM EST [facility] OUT[facility] REHABILITATION DAILY TREATMENT NOTE Today's Date 05/29/2020 Patient Name: Roula Wadsworth Date of : 1975 Current Visit #: 25 Authorized Visits: 50 Case Name: S/P Right Shoulder Arthroscopic Rotator Cuff Repair History: Pre-Treatment Pain Scale: 1 Symptoms: stabilized Functional Diagnosis: 1. S/P right rotator cuff repair 2. Status post arthroscopy of right shoulder Clinical Information: Subjective: Pt reports no new sx's or complaints today, min soreness after adding bodyblade last session Objective Increased reps with OHP Performed standing tband ex's with tube today Added abc on bosu in pushup position Treatments: Physical Therapy Exercise Log - 05/29/20 1038 OTHER Precautions/Contraindications Surgery 02/06/20 - protocol on desk Notes visit 23: [id number] Therapeutic Exercise ([id number]) Intervention -- Intervention -- Parameters Bosu ABC's on plinth x1 Intervention wall dribble 5x30'' Parameters Body blade IR/ER, straight arm Abd, bent arm flexion, 2x30'' Intervention OHP no wt x15 Parameters wall clocks green loop x5 Intervention Wall walks horizontal/ vertical green loop x5 Parameters Floor to table crate 10lb x5min Intervention UEB 10' fwd/back alternating 2' Parameters SB on wall circles/side to side/vertical Intervention Standing tband abc's and circles [place] tube x1 x20 each Parameters Lateral raises orange tube 2x10 Intervention IR stretch 3x30'' PT Treatment Times Therex Total Time 44 Direct Treatment Time 44 Total Treatment Time 44 Goals: Physical Therapy Ortho Goals: CARRYING/MOVING/HANDLING: Patient will be able to place items on a shelf overhead in 10 weeks CARRYING/MOVING/HANDLING: Patient will be able to carry 5 lbs in 10 weeks SELF CARE: Patient will be able to complete ADL's including bathing, dressing, and hair care without difficulty in 5 weeks. IMPAIRMENT: Patient will demonstrate improved postural awareness in PT sessions to facilitate mechanical alignment and function in 4 weeks. IMPAIRMENT: Improve pain to <3/10 during reaching activities in 10 weeks IMPAIRMENT: Improve gross MMT of the Right Shoulder to 4/5 in 10 weeks IMPAIRMENT: Improve PROM of the right shoulder to WNL in 6 weeks. IMPAIRMENT: Improve AROM of Right Shoulder Flexion to at least 160 degrees in 10 weeks. IMPAIRMENT: Improve AROM of Right Shoulder Abduction to at least 160 degrees in 10 weeks. IMPAIRMENT: Improve AROM of Right Shoulder ER to at least 70 degrees in 10 weeks. OTHER: Patient will increase FOTO score from 4 to at least 50 to show MDC/MCII and expected functional outcome in 10 weeks. OTHER: Patient will be able to properly demonstrate independence with HEP within 2 weeks of progressing each phase. Patient Education: Verbal HEP with patient verbalized understanding. Post-Treatment Pain Scale: 1 Assessment: Patient had an expected response to treatment. Pt had difficulty with IR stretch Skilled Intervention demonstrated by modifications of treatment per exercise log including assessment of patient's response and safety interventions per exercise log. Progress towards goals as expected. Plan for Next Visit: Treatment Visit with focus on progressing as tolerated Tra Gastelum PTA STATE LICENSE, [id number] documented in this encounter* Emelia Trejo, [employer] - 06/03/2020 10:45 AM EST [facility] OUTPATIENT REHABILITATION DAILY TREATMENT NOTE Today's Date 06/03/2020 Patient Name: Roula Wadsworth Date of : 1975 Current Visit #: 26 Authorized Visits: 50 Case Name: S/P Right Shoulder Arthroscopic Rotator Cuff Repair History: Pre-Treatment Pain Scale: 3 Symptoms: gradually improved Functional Diagnosis: 1. S/P right rotator cuff repair 2. Status post arthroscopy of right shoulder Clinical Information: Subjective: She is using her arm more but it's still very weak. Objective Quick fatigue with over head exercises. ER strength 4/5. Treatments: Physical Therapy Exercise Log - 06/03/20 1136 OTHER Precautions/Contraindications Surgery 02/06/20 - protocol on desk Notes visit 26: 10:40-11:25 Therapeutic Exercise ([id number]) Parameters Bosu ABC's on plinth x1 Intervention wall dribble 5x30'' Parameters Body blade IR/ER, straight arm Abd, bent arm flexion, 2x30'' Intervention OHP no wt x15 Parameters wall clocks green loop x5 Intervention Wall walks horizontal/ vertical green loop x5 Parameters Floor to table crate 10lb x5min Intervention UEB 10' fwd/back alternating 2' Parameters SB on wall circles/side to side/vertical Intervention Standing tband abc's and circles [place] tube x1 x20 each Parameters Lateral raises orange tube 2x10 Intervention IR stretch 3x30'' PT Treatment Times Therex Total Time 45 Direct Treatment Time 45 Total Treatment Time 45 Goals: Physical Therapy Ortho Goals: CARRYING/MOVING/HANDLING: Patient will be able to place items on a shelf overhead in 10 weeks CARRYING/MOVING/HANDLING: Patient will be able to carry 5 lbs in 10 weeks SELF CARE: Patient will be able to complete ADL's including bathing, dressing, and hair care without difficulty in 5 weeks. IMPAIRMENT: Patient will demonstrate improved postural awareness in PT sessions to facilitate mechanical alignment and function in 4 weeks. IMPAIRMENT: Improve pain to <3/10 during reaching activities in 10 weeks IMPAIRMENT: Improve gross MMT of the Right Shoulder to 4/5 in 10 weeks IMPAIRMENT: Improve PROM of the right shoulder to WNL in 6 weeks. IMPAIRMENT: Improve AROM of Right Shoulder Flexion to at least 160 degrees in 10 weeks. IMPAIRMENT: Improve AROM of Right Shoulder Abduction to at least 160 degrees in 10 weeks. IMPAIRMENT: Improve AROM of Right Shoulder ER to at least 70 degrees in 10 weeks. OTHER: Patient will increase FOTO score from 4 to at least 50 to show MDC/MCII and expected functional outcome in 10 weeks. OTHER: Patient will be able to properly demonstrate independence with HEP within 2 weeks of progressing each phase. Patient Education: Quality of movement with patient demonstrated understanding. Post-Treatment Pain Scale: 2 Assessment: Patient had an expected response to treatment. Skilled Intervention demonstrated by modifications of treatment per exercise log including increased intensity and safety interventions per exercise log. Progress towards goals as expected. Plan for Next Visit: Treatment Visit with focus on strengthening and ROM Emelia Trejo PTA STATE LICENSE, [id number] documented in this encounter* Emelia Trejo PTA - 07/02/2020 10:45 AM EST [facility] REHABILITATION DAILY TREATMENT NOTE Today's Date 07/02/2020 Patient Name: Roula Wadsworth Date of : 1975 Current Visit #: 27 Authorized Visits: 50 Case Name: S/P Right Shoulder Arthroscopic Rotator Cuff Repair History: Pre-Treatment Pain Scale: 2 Symptoms: gradually improved Functional Diagnosis: 1. S/P right rotator cuff repair 2. Status post arthroscopy of right shoulder Clinical Information: Subjective: She still has tightness when she tries to raise it up her back. Objective Initiated deep MA along joint line and clavicle with pain at clavicle with palpation. Mild crepitus along AC joint with MA. Treatments: Physical Therapy Exercise Log - 07/02/20 1201 OTHER Precautions/Contraindications Surgery 02/06/20 - protocol on desk Notes visit 28: 10:40-11:20 Therapeutic Exercise ([id number]) Intervention UEB 10' fwd/back alternating 2' held Parameters Horz Abd and Triceps stretches 3x20 Intervention IR Towel Stretch 3x15 Parameters IR sleeper stretch 3x15 Intervention 90 deg. Rows - add next session Parameters Standing T-band diagonals - add next session Intervention 90 deg. IR/ER - add next session Parameters wall clocks green loop x5 NT Intervention Wall walks horizontal/ vertical green loop x5 NT Parameters Body blade IR/ER, straight arm Abd, bent arm flexion, 2x30'' NT Intervention Floor to table crate 10lb x5min NT Parameters SB on wall circles/side to side/vertical NT Intervention Standing tband abc's and circles [place] tube x1 x20 each NT Parameters Lateral raises orange tube 2x10 NT Intervention wall dribble 5x30'' NT Manual Therapy ([id number]) Intervention STM to posterior deltoid and triceps and cupping at anterior and middle deltiod aroundincisions x 15 mins Parameters Inferior and Posterior GH joint mobs x 8 mins NT PT Treatment Times Therex Total Time 25 Manual Therapy Total Time 15 Direct Treatment Time 40 Total Treatment Time 40 Goals: Physical Therapy Ortho Goals: CARRYING/MOVING/HANDLING: Patient will be able to place items on a shelf overhead in 10 weeks CARRYING/MOVING/HANDLING: Patient will be able to carry 5 lbs in 10 weeks SELF CARE: Patient will be able to complete ADL's including bathing, dressing, and hair care without difficulty in 5 weeks. IMPAIRMENT: Patient will demonstrate improved postural awareness in PT sessions to facilitate mechanical alignment and function in 4 weeks. IMPAIRMENT: Improve pain to <3/10 during reaching activities in 10 weeks IMPAIRMENT: Improve gross MMT of the Right Shoulder to 4/5 in 10 weeks IMPAIRMENT: Improve PROM of the right shoulder to WNL in 6 weeks. IMPAIRMENT: Improve AROM of Right Shoulder Flexion to at least 160 degrees in 10 weeks. IMPAIRMENT: Improve AROM of Right Shoulder Abduction to at least 160 degrees in 10 weeks. IMPAIRMENT: Improve AROM of Right Shoulder ER to at least 70 degrees in 10 weeks. OTHER: Patient will increase FOTO score from 4 to at least 50 to show MDC/MCII and expected functional outcome in 10 weeks. OTHER: Patient will be able to properly demonstrate independence with HEP within 2 weeks of progressing each phase. Patient Education: Quality of movement with patient demonstrated understanding. Post-Treatment Pain Scale: 2 Assessment: Patient had an expected response to treatment. Skilled Intervention demonstrated by modifications of treatment per exercise log including increased intensity and safety interventions per exercise log. Progress towards goals as expected. Plan for Next Visit: Treatment Visit with focus on ROM with IR Emelia Trejo PTA STATE LICENSE, [id number] documented in this encounter* Tra Gastelum, SURVEILLANCE SENSOR OFFICER - 07/21/2020 10:45 AM EST [facility] REH[facility]IL[facility] DAILY TREATMENT NOTE Today's Date 07/21/2020 Patient Name: Roula Wadsworth Date of : 1975 Current Visit #: 28 Authorized Visits: 50 Case Name: S/P Right Shoulder Arthroscopic Rotator Cuff Repair History: Pre-Treatment Pain Scale: 1 Symptoms: stabilized Functional Diagnosis: 1. S/P right rotator cuff repair 2. Status post arthroscopy of right shoulder Clinical Information: Subjective: Pt reports min pain coming in today Objective Added band progressions Completed prone jt mobs Treatments: Physical Therapy Exercise Log - 07/21/20 1040 OTHER Precautions/Contraindications Surgery 02/06/20 - protocol on desk Notes visit 29 [id number] Therapeutic Exercise (93600) Intervention -- Parameters Horz Abd and Triceps stretches 3x20 Intervention IR Towel Stretch 3x15 Parameters IR sleeper stretch 3x15 Intervention 90 deg. Rows OTB 2x20 Parameters Standing T-band diagonals YTB x20 Intervention 90 deg. IR/ER - YTB 2x20 Parameters wall clocks green loop x5 Intervention Wall walks horizontal/ vertical green loop x5 Parameters -- Intervention -- Parameters -- Intervention -- Parameters -- Intervention -- Manual Therapy (92135) Intervention STM to posterior deltoid and triceps and cupping at anterior and middle deltiod aroundincisions x 15 mins Parameters Inferior and Posterior GH joint mobs x 8 mins PT Treatment Times Therex Total Time 30 Manual Therapy Total Time 15 Direct Treatment Time 45 Total Treatment Time 48 Goals: Physical Therapy Ortho Goals: CARRYING/MOVING/HANDLING: Patient will be able to place items on a shelf overhead in 10 weeks CARRYING/MOVING/HANDLING: Patient will be able to carry 5 lbs in 10 weeks SELF CARE: Patient will be able to complete ADL's including bathing, dressing, and hair care without difficulty in 5 weeks. IMPAIRMENT: Patient will demonstrate improved postural awareness in PT sessions to facilitate mechanical alignment and function in 4 weeks. IMPAIRMENT: Improve pain to <3/10 during reaching activities in 10 weeks IMPAIRMENT: Improve gross MMT of the Right Shoulder to 4/5 in 10 weeks IMPAIRMENT: Improve PROM of the right shoulder to WNL in 6 weeks. IMPAIRMENT: Improve AROM of Right Shoulder Flexion to at least 160 degrees in 10 weeks. IMPAIRMENT: Improve AROM of Right Shoulder Abduction to at least 160 degrees in 10 weeks. IMPAIRMENT: Improve AROM of Right Shoulder ER to at least 70 degrees in 10 weeks. OTHER: Patient will increase FOTO score from 4 to at least 50 to show MDC/MCII and expected functional outcome in 10 weeks. OTHER: Patient will be able to properly demonstrate independence with HEP within 2 weeks of progressing each phase. Patient Education: Verbal HEP with patient verbalized understanding. Post-Treatment Pain Scale: 1 Assessment: Patient had an expected response to treatment. Skilled Intervention demonstrated by modifications of treatment per exercise log including assessment of patient's response and safety interventions per exercise log. Progress towards goals as expected. Plan for Next Visit: Treatment Visit with focus on progresisng as tolerated Tra Gastelum PTA STATE LICENSE, [id number] documented in this encounter* Tra Gastelum PTA - 04/09/2020 10:45 AM EDT [facility] DAILY TREATMENT NOTE Today's Date 04/09/2020 Patient Name: Roula Wadsworth Date of : 1975 Current Visit #: 12 Authorized Visits: 50 Case Name: S/P Right Shoulder Arthroscopic Rotator Cuff Repair History: Pre-Treatment Pain Scale: 1 Symptoms: stabilized Functional Diagnosis: 1. S/P right rotator cuff repair 2. Status post arthroscopy of right shoulder Clinical Information: Subjective: Pt reports min pain at rest and some pain on post and lat arm when moving Objective Reviewed home flexion stretch with sink Added prone flexion stretch with band tension, using 5'' antagonist pull then relax for 8min Treatments: Physical Therapy Exercise Log - 04/09/20 1032 OTHER Precautions/Contraindications Surgery 02/06/20 - protocol on desk Notes Visit 12: [id number] Therapeutic Exercise (30999) Intervention Pulleys x 3 mins Parameters PROM x10 mins Intervention Cane AAROM (flex, abd and ER) x10 Parameters Standing tricep pushdown, row GTB x20 each Intervention prone row/ext x10 each Parameters side lying ER x10 Intervention prone banded flexion stretch 5'' extension then relax x8 min Parameters OH sink flexion stretch Manual Therapy (16008) Intervention STM along bicep tendon and AC joint 8' PT Treatment Times Therex Total Time 30 Manual Therapy Total Time 8 Direct Treatment Time 38 Total Treatment Time 38 Goals: Physical Therapy Ortho Goals: CARRYING/MOVING/HANDLING: Patient will be able to place items on a shelf overhead in 10 weeks CARRYING/MOVING/HANDLING: Patient will be able to carry 5 lbs in 10 weeks SELF CARE: Patient will be able to complete ADL's including bathing, dressing, and hair care without difficulty in 5 weeks. IMPAIRMENT: Patient will demonstrate improved postural awareness in PT sessions to facilitate mechanical alignment and function in 4 weeks. IMPAIRMENT: Improve pain to <3/10 during reaching activities in 10 weeks IMPAIRMENT: Improve gross MMT of the Right Shoulder to 4/5 in 10 weeks IMPAIRMENT: Improve PROM of the right shoulder to WNL in 6 weeks. IMPAIRMENT: Improve AROM of Right Shoulder Flexion to at least 160 degrees in 10 weeks. IMPAIRMENT: Improve AROM of Right Shoulder Abduction to at least 160 degrees in 10 weeks. IMPAIRMENT: Improve AROM of Right Shoulder ER to at least 70 degrees in 10 weeks. OTHER: Patient will increase FOTO score from 4 to at least 50 to show MDC/MCII and expected functional outcome in 10 weeks. OTHER: Patient will be able to properly demonstrate independence with HEP within 2 weeks of progressing each phase. Patient Education: Verbal HEP with patient verbalized understanding. Post-Treatment Pain Scale: 1 Assessment: Patient had an expected response to treatment. Pt was able to work to over 100 deg flexion in prone with band tension and was able to reduce guarding Skilled Intervention demonstrated by modifications of treatment per exercise log including assessment of patient's response and safety interventions per exercise log. Progress towards goals as expected. Plan for Next Visit: Treatment Visit with focus on progressing as tolerated Tra Gastelum PTA STATE LICENSE, [id number] documented in this encounter* Emelia Trejo PTA - 04/11/2020 10:45 AM EDT [facility] DAILY TREATMENT NOTE Today's Date 04/11/2020 Patient Name: Roula Wadsworth Date of : 1975 Current Visit #: 13 Authorized Visits: 50 Case Name: S/P Right Shoulder Arthroscopic Rotator Cuff Repair History: Pre-Treatment Pain Scale: 3 Symptoms: gradually improved Functional Diagnosis: 1. S/P right rotator cuff repair 2. Status post arthroscopy of right shoulder Clinical Information: Subjective: Her shoulder is still very tight and hard to move. Difficulty getting dressed and doingher hair. Objective STM along bicep with decreased sx's following treatment. ER strength 4-/5. Treatments: Physical Therapy Exercise Log - 04/11/20 1158 OTHER Precautions/Contraindications Surgery 02/06/20 - protocol on desk Notes visit 13: 10:45-11:20 Therapeutic Exercise (14157) Intervention Pulleys x 3 mins Parameters PROM x10 mins Intervention Cane AAROM (flex, abd and ER) x10 Parameters Standing tricep pushdown, row GTB x20 each Intervention prone row/ext x10 each Parameters side lying ER x10 Intervention prone banded flexion stretch 5'' extension then relax x8 min Parameters OH sink flexion stretch Manual Therapy (12625) Intervention STM along bicep tendon and AC joint 8' PT Treatment Times Therex Total Time 28 Manual Therapy Total Time 8 Direct Treatment Time 36 Total Treatment Time 36 Goals: Physical Therapy Ortho Goals: CARRYING/MOVING/HANDLING: Patient will be able to place items on a shelf overhead in 10 weeks CARRYING/MOVING/HANDLING: Patient will be able to carry 5 lbs in 10 weeks SELF CARE: Patient will be able to complete ADL's including bathing, dressing, and hair care without difficulty in 5 weeks. IMPAIRMENT: Patient will demonstrate improved postural awareness in PT sessions to facilitate mechanical alignment and function in 4 weeks. IMPAIRMENT: Improve pain to <3/10 during reaching activities in 10 weeks IMPAIRMENT: Improve gross MMT of the Right Shoulder to 4/5 in 10 weeks IMPAIRMENT: Improve PROM of the right shoulder to WNL in 6 weeks. IMPAIRMENT: Improve AROM of Right Shoulder Flexion to at least 160 degrees in 10 weeks. IMPAIRMENT: Improve AROM of Right Shoulder Abduction to at least 160 degrees in 10 weeks. IMPAIRMENT: Improve AROM of Right Shoulder ER to at least 70 degrees in 10 weeks. OTHER: Patient will increase FOTO score from 4 to at least 50 to show MDC/MCII and expected functional outcome in 10 weeks. OTHER: Patient will be able to properly demonstrate independence with HEP within 2 weeks of progressing each phase. Patient Education: Quality of movement with patient demonstrated understanding. Post-Treatment Pain Scale: 2 Assessment: Patient had an expected response to treatment. Skilled Intervention demonstrated by modifications of treatment per exercise log including increased intensity and safety interventions per exercise log. Progress towards goals as expected. Plan for Next Visit: Treatment Visit with focus on ROM Emelia Trejo PTA STATE LICENSE, [id number] documented in this encounter* Emelia Trejo PTA - 04/18/2020 11:30 AM EDT [facility] REH[facility]IL[facility] DAILY TREATMENT NOTE Today's Date 04/18/2020 Patient Name: Roula Wadsworth Date of : 1975 Current Visit #: 15 Authorized Visits: 50 Case Name: S/P Right Shoulder Arthroscopic Rotator Cuff Repair History: Pre-Treatment Pain Scale: 2 Symptoms: gradually improved Functional Diagnosis: 1. S/P right rotator cuff repair 2. Status post arthroscopy of right shoulder Clinical Information: Subjective: Her shoulder is still tight but she sees improvements each day. Objective STM along bicep tendon to elbow to decrease tightness. Treatments: Physical Therapy Exercise Log - 04/18/20 1218 OTHER Precautions/Contraindications Surgery 02/06/20 - protocol on desk Notes Visit: 14: 11:33-12:10 Therapeutic Exercise (45018) Intervention Pulleys x 3 mins Parameters PROM x10 mins Intervention Cane AAROM (flex, abd and ER) x10 Parameters Standing tricep pushdown, row GTB x20 each Intervention prone row/ext x10 each Parameters side lying ER x10 Intervention prone banded flexion stretch 5'' extension then relax x8 min Parameters sink flexion stretch x 1.5 min Intervention supine reverse codmans x20 each and ABC's x1 Parameters Standing flexion x10 Manual Therapy (32851) Intervention STM along bicep tendon and AC joint PT Treatment Times Therex Total Time 28 Manual Therapy Total Time 8 Direct Treatment Time 36 Total Treatment Time 36 Goals: Physical Therapy Ortho Goals: CARRYING/MOVING/HANDLING: Patient will be able to place items on a shelf overhead in 10 weeks CARRYING/MOVING/HANDLING: Patient will be able to carry 5 lbs in 10 weeks SELF CARE: Patient will be able to complete ADL's including bathing, dressing, and hair care without difficulty in 5 weeks. IMPAIRMENT: Patient will demonstrate improved postural awareness in PT sessions to facilitate mechanical alignment and function in 4 weeks. IMPAIRMENT: Improve pain to <3/10 during reaching activities in 10 weeks IMPAIRMENT: Improve gross MMT of the Right Shoulder to 4/5 in 10 weeks IMPAIRMENT: Improve PROM of the right shoulder to WNL in 6 weeks. IMPAIRMENT: Improve AROM of Right Shoulder Flexion to at least 160 degrees in 10 weeks. IMPAIRMENT: Improve AROM of Right Shoulder Abduction to at least 160 degrees in 10 weeks. IMPAIRMENT: Improve AROM of Right Shoulder ER to at least 70 degrees in 10 weeks. OTHER: Patient will increase FOTO score from 4 to at least 50 to show MDC/MCII and expected functional outcome in 10 weeks. OTHER: Patient will be able to properly demonstrate independence with HEP within 2 weeks of progressing each phase. Patient Education: Quality of movement with patient demonstrated understanding. Post-Treatment Pain Scale: 2 Assessment: Patient had an expected response to treatment. Skilled Intervention demonstrated by modifications of treatment per exercise log including increased intensity and safety interventions per exercise log. Progress towards goals as expected. Plan for Next Visit: Treatment Visit with focus on ROM Emelia Trejo PTA STATE LICENSE, [id number] documented in this encounter* Koko Fnoseca, PT - 03/31/2020 10:45 AM EDT [facility] REHABIL[facility]ATION DAILY TREATMENT NOTE Today's Date 03/31/2020 Patient Name: Roula Wadsworth Date of : 1975 Current Visit #: 10 Authorized Visits: 50 Case Name: S/P Right Shoulder Arthroscopic Rotator Cuff Repair History: Pre-Treatment Pain Scale: 4 Symptoms: gradually improved Functional Diagnosis: 1. S/P right rotator cuff repair 2. Status post arthroscopy of right shoulder Clinical Information: Subjective: Pt denies change in med hx. Pt reports being unable to move her arm for 2 days following last session d/t pain and burning in the anterior deltoid region. Pt also reports noticing difficulty achieving full IR across her body when resting. Objective Shoulder Right Shoulder Range of Motion: Flexion: Passive: 80 Abduction: Passive: 50 ER 0 deg.: Passive: 0 (in 20 degrees abduction and slight flexion) Treatments: Physical Therapy Exercise Log - 03/31/20 1037 OTHER Precautions/Contraindications Surgery 02/06/20 - protocol on desk Notes Visit 10: 10:45 - 11:30 Therapeutic Exercise (27513) Intervention Pulleys x 3 mins Parameters PROM x10 mins Intervention Cane AAROM (flex, abd and ER) x10 Parameters Doorway ER and pec stretches 5x20 Intervention prone row/ext x10 each Parameters side lying ER x10 Intervention reviewed extension and ER isometrics to add to HEP PT Treatment Times Therex Total Time 45 Direct Treatment Time 45 Total Treatment Time 45 Goals: Physical Therapy Ortho Goals: CARRYING/MOVING/HANDLING: Patient will be able to place items on a shelf overhead in 10 weeks CARRYING/MOVING/HANDLING: Patient will be able to carry 5 lbs in 10 weeks SELF CARE: Patient will be able to complete ADL's including bathing, dressing, and hair care without difficulty in 5 weeks. IMPAIRMENT: Patient will demonstrate improved postural awareness in PT sessions to facilitate mechanical alignment and function in 4 weeks. IMPAIRMENT: Improve pain to <3/10 during reaching activities in 10 weeks IMPAIRMENT: Improve gross MMT of the Right Shoulder to 4/5 in 10 weeks IMPAIRMENT: Improve PROM of the right shoulder to WNL in 6 weeks. IMPAIRMENT: Improve AROM of Right Shoulder Flexion to at least 160 degrees in 10 weeks. IMPAIRMENT: Improve AROM of Right Shoulder Abduction to at least 160 degrees in 10 weeks. IMPAIRMENT: Improve AROM of Right Shoulder ER to at least 70 degrees in 10 weeks. OTHER: Patient will increase FOTO score from 4 to at least 50 to show MDC/MCII and expected functional outcome in 10 weeks. OTHER: Patient will be able to properly demonstrate independence with HEP within 2 weeks of progressing each phase. Patient Education: Quality of movement, HEP Modification and Pain Management with patient verbalized understanding. Post-Treatment Pain Scale: 6 Assessment: Patient had an expected response to treatment. Skilled Intervention demonstrated by modifications of treatment per exercise log including increased volume and assessment of patient's response and safety interventions per exercise log. Progress towards goals unexpected due to higher than anticipated complexity. Plan for Next Visit: Treatment Visit with focus on AAROM and progression of AROM Koko Fonseca PT State License, [id number] documented in this encounter Discharge Instructions * Instructions* Rowena Early CNP - 02/04/2020 General Post-Operative Sheets for Dr. Candelaria Pain after surgery: Everyone has different pain tolerances. You will have at least mild to moderatediscomfort. The first 1-2 days after surgery is usually when your pain will be the worst. It will lessen over time after that. Most patients have a regional anesthesia or block. This can last anywhere from 4-36 hours. Your pain will increase when the block starts wearing off. Start taking your painmedication when you get home before the block wears off as stated below. Pain Medication: You will prescribe a narcotic pain medication such as Percocet, Oxycodone or Vicodin. Fill the prescription after surgery and start taking the medication as instructed before the regional anesthesia wears off for the first 24 hours and then as needed afterwards. We recommend that when you get home you start taking 1 pain medication pill every 6 hours to start. As the block wears o ff and you have increased pain then you can take up to 2 pill every 4 hours if needed. You can alsostart taking Ibuprofen 600mg every 6 hours when you get home as well that will help with pain control and also help reduce the amount of narcotic pain medication you take. Do not take Ibuprofen if you have an allergy to it or other medical conditions that do not allow you to take an NSAID. Do not take Tylenol since there is Tylenol in the narcotic pain medication already. Pain medication will help control your pain but will not get rid of your pain completely. If you are also taking Ibuprofen and your pain is still not controlled then you may have to go to the ER for additional IV pain medication. Pain medication cannot be called in over the phone. If you call the physician after hours there is not anything we can do over the phone to change or give additional pain medication. Do not drink alcoholic beverages with narcotic pain medication. The prescription for pain medication you get should last until your first postoperative visit. If you run out and need a refill before this call the office and leave a message requesting a refill. 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 Messages left for refills on or Tuesday may not be able to be given until that following Tuesday. No pain medication is refilled or prescribed over the weekend. Please keep this in mind when you start getting low on your medication. WITH THE NEW LAWS IN [place] GOVERNING THE PRESCIBED USE OF OPIODS WE PHYSICIANS ARE LIMITED TO THE QUANTITY, DOSAGE AND LENGTH OF TIME WE CAN PRESCRIBE THESE MEDICATIONS AFTER SURGERY. YOU WILL BE PRESCRIBED THE ALLOWED AND TYPICAL AMOUNT OF NARCOTIC PAIN MEDICATION FOR THE FIRST WEEK AFTER SURGERY FOR POSTOPERATIVE PAIN. THE TYPE AND AMOUNT OF NARCOTIC PAIN MEDICATION WILL DEPEND ON THE TYPEOF SURGERY THAT YOU HAVE. IF YOU HAVE BEEN ON CHRONIC NARCOTIC PAIN MEDICATION BEFORE SURGERY, YOU WILL BE PRESCRIBED PAIN MEDICATION TO TAKE IN ADDITION TO YOUR USUAL PAIN MEDICATION FOR 1 WEEK ONLY. PLEASE NOTIFY YOUR PAIN MANAGEMENT PHYSICIAN THAT IS PRESCIBING YOUR CHRONIC PAIN MEDICATION PRIORTO SURGERY AND MAKE THEM AWARE OF THIS. SOME PATIENTS SIGN A PAIN CONTRACT AND THIS MAY EFFECT YOURCONTRACT. DR. CANDELARIA WILL NOT ASSUME OR TAKE OVER YOUR CHRONIC PAIN MEDICATION AFTER SURGERY. YOU WILL HAVE 1 WEEK ONLY OF PAIN MEDICATION PRESCRIBED BY DR. CANDELARIA AFTER SURGERY THAT IS TYPICAL FOR THE TYPE OF PROCEDURE THAT YOU HAVE. MOST PATIENTS ARE OFF THE NARCOTIC PAIN MEDICATIONS WITHIN A FEW DAYS AFTER SURGERY. Antibiotics: These will be prescribed after surgery typically for 3 days after surgery. Fill the prescription after surgery and take as directed. If you cannot tolerate the antibiotic then call the office during normal business hours and we can change the medication and call in a different antibiotic for you. If it is after normal office hours you can wait until the next day and call. It is not an emergency. Blood Clot or DVT: If you have calf pain not relieved by rest, shortness of breath or chest pain then go to the ER immediately for an evaluation for a blood clot. If you call the office we will send you to the ER for evaluation if you have these symptoms. Anesthesia: Rest for 24 hours after your surgery and anesthesia. Do not drive. Do not drink alcoholic beverages during this time. You may experience a sore throat or jaw, stiff neck or muscle aches after anesthesia. These symptoms should resolve over the next few days. Regional Block Anesthesia: This procedure involves medication injected into a region of the body, typically local anesthetic, by the anesthesiologist just before surgery that helps to numb that part of the body so there is much less pain after surgery. This allows less medication and anesthesia to be used in and after surgery for pain control. The block will start to wear off typically later on that day. Start taking your pain medication prior as stated above. Over the next few days you may experience some continued numbness and tingling that should resolve over the next several days and sometimes over a few weeks. As long as you are able to move the extremity and the skin is pink and warm with good pulses distally, this is usually normal. Infection: If you experience any of the following such as fever > 101', chills, night sweats, increasing pain, greenish or yellowish drainage from the operative wound, a foul smell from the operative wound or increasing redness or swelling around the incisions then call the office during normal office hours or go to the ER after office hours or on the weekend for evaluation. Constipation / Urinary Retention: The inability to have a bowel movement is constipation and the inability to urinate is urinary retention. These are symptoms most commonly caused by narcotic pain medication and some anesthesia. Drink plenty of fluids such as water a juice after surgery. If you are experiencing these symptoms you can take Colace a stool softener that you can buy at the pharmacy and take as directed. If urinary retention continues for hours or you feel your bladder is getting full and painful, then you should be evaluated at your closest ER as soon as possible. Decreasing narcotic pain medication use will help alleviate these symptoms. Diet: Start out with a clear liquid diet and then advance to your normal diet as tolerated. Nausea and Vomiting: If you are experiencing these symptoms after surgery you may need and anti-nausea medication such as Zofran or Phenergan. This can be called in during normal office hours by calling the office. If it is after normal office hours you may need to go to the ER for this medication. Low Grade Fever < 101': Typically, can occur after surgery for the first few days most commonly due to atelectasis or small areas in the lungs that close down. After surgery you need to take deep breathes in and out throughout the day to keep this from occurring. For example, take a deep breathein and hold it for 10 seconds and blow it out completely and repeat 10 times. Do this 4 times per day. Specific Surgical Procedure Instructions: These will be given to you separately depending on the surgical procedure you had done. These will include instructions for Activity, Wound Care, Dressing Changes, Physical Therapy and so on. - Normal office hours are Tuesday - Tuesday 8am - 5pm. - Dr. Candelaria's office number at [facility] is: [phone]. - If you need to make a physical therapy appointment please call [facility] at: [phone] -If you leave a message after normal office hours or on the weekend it will be answered the next office day. - If you call after normal office hours please remember that the physician is very limited as to what they can do. They cannot change or prescribe different pain medication over the phone. If you feel that your condition cannot wait until the next day and you need to be seen right away, then you should go to the nearest ER for evaluation after normal office hours and on the weekends. If possible go to [facility] ER at [address] in [place]. SHOULDER ARTHROSCOPY POST OP INSTRUCTIONS - DR. CANDELARIA Activity and Comfort -No weight-bearing operative extremity, no lifting, pushing, pulling, etc. and maintain your immobilizer at all times except when doing elbow, wrist, and hand exercises. Wear immobilizer until followup. -Keep cold therapy or ice pack on your shoulder for 48 hours. Use it intermittently for 20 minutes on and 1 hour off. Then use as needed for swelling. Make sure the pad does not lie directly on your skin. Keep something like clothing or a towel under pad. -Sleep in a reclining chair or a bed with pillows behind you, elevating your head/upper body for two weeks for comfort. When lying back, place pillows under your elbow to help with the position of the arm. Weight Bearing -You received a nerve block for pain control. When it wears off you will be able to start moving your hand. -You are to be weight bearing: Non-weight bearing -You may do ROM exercises of your elbow, wrist and hand on the operative side twice daily out of the immobilizer in 48 hours after surgery. Wound Care - You may remove your dressing after [address]-Aids over the small incisions and change daily. -Keep the incisions dry for 2 days. You may then get them wet in a shower and clean lightly with soap. Dab them dry, do not wipe. Do not soak your incision in the bath tub, hot tubs, swimming pools, etc., Keep the incision clean and dry until your follow up appointment. DVT prophylaxis -You may be placed on medication for prophylaxis against a DVT or blood clot after surgery if you have risk factors for DVT. You could be placed on Aspirin, Lovenox, Coumadin or other medication for this. Take the medication as directed for at least 2 weeks. Please notify your doctor for an excess bleeding. - Wearing your elastic MACO hose stockings for 2 weeks, getting up and walking as much as possible and doing your exercises daily also help prevent DVT. Call the doctor right away during regular office hours or go to the [place] ER if after hours if you: -Signs of infection: redness, swelling, odor or drainage from incision, fever above 101 F, chills -Edges of incision -Have excessive calf pain especially when walking -Excessive bleeding from the incision site that does not stop -Have swelling, redness / bruising orsore calf -Sudden, severe pain not relieved by medication when squeezed -Loss or appetite, nausea or vomiting -Have chest pain or shortness of breath, call 911 -Inability to urinate for more than 8 hours -Severe sudden pain at or above your knee -Inability to bear weight if you were able to before Physical Therapy - You will be given a prescription on your first post op visit in 7-10 days and instructed when to start therapy. Call [facility] to schedule if not already done, . Follow-Up -Please call with any questions or concerns during normal office hours. -Call the office for an appointment in 7-10 days if you do not already have one, [phone]. 1ST POST OP APPT: 1ST PT APPT: documented in this encounter Chief Complaint ER [facility], LEFT LEG PAINLEFT LEG NUMBNESS. REV LABS* Pt presents to this office for L LOWER EXT PAIN * STANDS ALL DAY AT WORK * BEHIND KNEE HURTS MOST 11/24 * EDEMA * CONCERN FOR POSSIBLE BLOOD CLOT * DROVE TO [place] AND SYMPTOMS BEGAN END OF MAY PT HERE FOR MRI RESULTS LEFT KNEE. STATES KNEE IS THE SAME, NO IMPROVEMENT. PAIN INCREASES WITH ACTIVITY. PAIN AND SWELLING ARE MAINLY ON THE BACK OF THE KNEE. PT HERE FOR MRI RESULTS LEFT KNEE. STATES KNEE IS THE SAME, NO IMPROVEMENT. PAIN INCREASES WITH ACTIVITY. PAIN AND SWELLING ARE MAINLY ON THE BACK OF THE KNEE. Est patient with new complaints: bilateral elbow pain. She reports the left elbow is far more symptomatic than the right elbow as she is left hand dominant. She denies any injury or history of traumaof the elbows. She denies any surgical history of the elbow. She complains of lateral elbow pain, tenderness and pain with palpation laterally at common extensor origins, painful with activities. Shereports the pain lessens with rest, she was provided a tennis elbow strap by a nurse from employee help at [facility] [facility] in which she didn t appreciated much pain relief. She states the nurse mention she likely has tendinitis of the elbows from repetitive use at work. She denies any prior or past issues with her elbows. XR series of the elbows performed today. Additional Source Comments INFORMATION SOURCE (unrecogn ized section and content) DATE CREATED AUTHOR 01/10/2018 [facility] DATE CREATED AUTHOR AUTHOR'S ORGANIZ ATION 01/20/2018 [facility] DATE CREATED AUTHOR AUTHOR'S ORGANIZ ATION 09/16/2019 [facility] DATE CREATED AUTHOR AUTHOR'S ORGANIZ ATION 03/04/2020 [facility] DATE CREATED AUTHOR AUTHOR'S ORGANIZ ATION 06/28/2021 [facility] DATE CREATED AUTHOR AUTHOR'S ORGANIZ ATION 03/31/2022 [facility] DATE CREATED AUTHOR AUTHOR'S ORGANIZ ATION 04/28/2022 [facility] DATE CREATED AUTHOR AUTHOR'S ORGANIZ ATION 05/09/2022 [facility] DATE CREATED AUTHOR AUTHOR'S ORGANIZ ATION 08/18/2024 [facility] DATE CREATED AUTHOR AUTHOR'S ORGANIZ ATION 08/19/2024 [facility] DATE CREATED AUTHOR AUTHOR'S ORGANIZ ATION 08/20/2024 [facility] DATE CREATED AUTHOR AUTHOR'S ORGANIZ ATION 08/28/2024 [facility] DATE CREATED AUTHOR AUTHOR'S ORGANIZ ATION 10/28/2024 [facility] Reason for Visit (unrecogniz ed section and content) Status Reason Specialty Diagnoses / Procedures Referre d By Contact Referred To Contact Closed Radiology Diagnoses Impingement syndrome of right shoulder Procedures MR Shoulder Right Without Contrast Efren Egan DO [address] [place] [address] Reason Comments Pain Status Reason Specialty Diagnoses / Procedures Referred By Contact Referred To Contact Closed Sports Medicine Diagnoses Impingement syndrome of right shoulder Efren Egan DO [address] [place] [address] Colin Hennessy MD [address] [place] [address] Reason Comments Physical Therapy Status Reason Specialty Diagnoses / Procedures Referred By Contact Referred To Contact Authorized Rehabilitation Diagnoses Strain of tendon of right rotator cuff, initial encounter Arthritis of right shoulder region Impingement syndrome of right shoulder Superior glenoid labrum lesion of right shoulder, initial encounter Caroline Candelaria DO [address] [facility] [address] [place] [address] [facility] [place] [address] [facility] [place] [address] Reason Comments Flu like sx Reason Comments Knee Pain Patient complains of left knee pain since Tuesday, states she was out dancing with friends Tuesday night, no known injury Reason Comments Follow-up ER 08/12/24, L knee Reason Comments Follow-up Caroline Candelaria DO - 02/06/2020 10:03 AM Rustam Hughes MD - 02/04/2020 1:30 PM EDT H&P Notes (unrecognized sect ion and content) INTERVAL HISTORY AND PHYSICAL Patient Name: Roula Wadsworth Admit Date: MR #: [id number] : 1975 The H&P has been reviewed and the patient has been examined. I concur with the findings of the H&P. There are no significant changes. It is appropriate to proceed with the planned procedure. Caroline Candelaria DO 02/06/2020 10:03 AM Assessment and Plan 1. Preop examination Preoperative medical risk stratification indicates that this patient is at an acceptable risk for this minor surgery pending Hemoglobin and Hematocrit. 2. Acute pain of right shoulder Plan for surgery to correct the underlying condition by Dr. Candelaria. Patient provided instructions on preoperative management of medications including withholding Aspirin, NSAIDS, and specific Herbal Supplements 7 days before surgery. Prophylaxis for prevention of deep vein thrombosis per primary surgical team. Please follow the 2012 ACCP guidelines. 3. Pre-operative cardiovascular examination This patient has no active cardiac conditions and would be considered at a low risk for a major adverse cardiac event(MACE) based on a revised cardiac risk index score of 0, in addition is asymptomatic with greater than 4 METS of functional capacity and therefore is at acceptable cardiac risk for elective surgery based on 2014 ACC/AHA guidelines. 4. Cardiac murmur As a child. She is completely asymptomatic and is very active. She states most doctors do not hear a murmur anymore. Chief Complaint Patient presents with Pre-operative Medical Risk Stratification History of Present Illness Roula Wadsworth is a 44 y.o. female who presents for preoperative medical risk stratification consult at the request of Caroline Candelaria DO prior to RIGHT SHOULDER ARTHROSCOPY, ROTATOR CUFF REPAIR, DISTAL CLAVICLE EXCISION, POSSIBLE PROXIMAL BICEPS TENODESIS, SUBACROMIAL DECOMPRESSION on 02-06-20 at [facility]. Patient states she started to have right shoulder pain end of 2018 without any memory of an incident of injury to this area but states it did start while at work. She states she told her boss about this the end of August and saw the company doctor with xray and MRI findings of tendonitis, bone spur, calcium deposit, slight tear. She was referred to Dr. Candelaria and is here for surgery. Please note that this patient has done well with anesthesia in the past and her chronic medical conditions are managed well on the home medications and are stable for the upcoming procedure. This patient was screened for COVID-19 infection. This patient denies any recent travel to area is at high risk for COVID-19, exposure to anyone who is been diagnosed with COVID-19, or signs or symptoms suggesting active viral infection. She will be tested per our hospital policy prior to surgery and this will be arranged by the primary surgical team. Please see below regarding status of active medical conditions and assessment and plan regarding details of preoperative medical risk stratification. Past Medical History: Diagnosis Date Heart murmur Past Medical History Pertinent Negatives: Diagnosis Date Noted Bleeding disorder ([facility]) 02/04/2020 CHF (congestive heart failure) ([facility]) 02/04/2020 Complication of anesthesia 02/04/2020 Coronary artery disease 02/04/2020 Deep vein thrombosis ([facility]) 02/04/2020 Diabetes mellitus, type 2 ([facility]) 02/04/2020 History of blood transfusion 02/04/2020 Hypertension 02/04/2020 Malignant hyperthermia due to anesthesia 02/04/2020 No blood products 02/04/2020 Pulmonary embolism ([facility]) 02/04/2020 Rheumatoid arthritis ([facility]) 02/04/2020 Sleep apnea, obstructive 02/04/2020 Past Surgical History: Procedure Laterality Date ECTOPIC SURGERY x 2 HYSTERECTOMY SHOULDER SURGERY Left Social History Tobacco Use Smoking status: Never Smoker Smokeless tobacco: Never Used Substance Use Topics Alcohol use: Yes Comment: 1-2 drinks each week History reviewed. No pertinent family history. Prior to Admission medications Medication Sig Taking? Dose Freq ibuprofen (ADVIL,MOTRIN) 200 MG tablet Take 200 mg by mouth every 6 (six) hours as needed for pain . Yes 200 mg, Oral, Every 6 hours PRN No Known Allergies Review of Systems Constitution: (negative) HENT: (negative) Eyes: (negative) Respiratory: (negative) Cardiovascular: (negative) - Exercise capacity: Greater than 4 METS Gastrointestinal: (negative) Genitourinary: (negative) Musculoskeletal: (negative) Skin: (negative) Neurological: (negative) Hematological: (negative) Physical Exam BP 107/70 Pulse 72 Temp 98.8 F (37.1 C) (Oral) Ht 5' 1 Wt 58 kg (127 lb 13.9 oz) SpO2 98% BMI 24.16 kg/m General - No Apparent Distress, well developed, well nourished. Vitals reviewed. Skin - No Rash, Normal Turgor Eyes - Pupils Equal, Conjunctiva Clear ENT - External Ears Normal, Hearing Normal Neck - Trachea Midline, No TMG Cardiovascular - Regular Rate and Rhythm, No Murmurs, Gallops, or Rubs, No Peripheral Edema Respiratory - CTA, Normal Resp. Effort GI - Soft Nontender, Positive Bowel Sounds, No Hepatosplenomegaly Musculoskeletal - Dorsiflexion Intact, No Calf Tenderness Neuro/Psych - A&Ox3, Appropriate Mood and Affect Data Preprocedure Sleep Apnea Assessment - No Risk (0/3) Sleep Apnea in the patient's Active Problem List or Medical History: no 1. History of apparent airway obstruction during sleep: (1 point for this category) Do you snore frequently, or snore loud enough to be heard through a closed door?: no Do you awaken from sleep with a choking sensation or have periods during sleep when someone has observed you pausing between breaths?: no 2. Somnolence of the patient: (1 point for this category) Do you find yourself frequently sleepy despite adequate hours of sleep the night before?: no Do you fall asleep easily while: watching TV, reading, riding in or driving a car?: no 3. Predisposing physician characteristics: (1 point for this category, 2 points if the BMI ? 40) BMI (Calculated): 24.2 Neck Circumference (inches): 11 inches Recent Results (from the past 68108 hours) XR SHOULDER RIGHT 2+ VIEWS (STANDARD) 12/06/2019 (Final) Status: Normal Narrative EXAMINATION: XR SHOULDER RIGHT 2+ VIEWS (STANDARD) 12/06/2019 10:42 am HISTORY: ORDERING SYSTEM PROVIDED HISTORY: Pain, TECHNOLOGIST PROVIDED HISTORY: Injury/Trauma Reason for exam: felt like a pulled muscle in early feb, pain since not getting better Cancer History: na Surgery, RadiationHistory: na Encounter Type: Subsequent/Follow-up Mechanism of injury: felt like a pulled muscle in early feb, pain since not getting better ORDERING SYSTEM PROVIDED DIAGNOSIS CODES: R52 Pain COMPARISON: Right shoulder x-ray of 09/13/2019. FINDINGS: No acute fracture is seen. Alignment of the osseous structures is normal. The joint spaces are preserved. Approximately 2.2 x 0.8 cm calcific density is seen about the anterior right humeral head, suggestive of calcific peritendinitis. This finding is better seen on current examination, but was likely present on prior examination. The soft tissues are otherwise unremarkable. Impression No evidence for acute fracture or malalignment. 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 [employer] Workstation ID: [id number] DATA SECTION LABS ORDERED AND PENDING PULSE OXIMETRY 98% On RA EKG INDEPENDENT INTERPRETATION Not indicated for this minor surgery based on the current medical conditions. OUTSIDE RECORDS REQUESTED None. OLD RECORD SUMMARY None. A copy of this report has been made available to the referring physician in the hospital's EMR and/or by being faxed to the surgeon's office/surgery center. documented in this encounter Brief Op Note - Caroline Candelaria DO - 02/06/2020 12:04 PM EDT Miscellaneous Notes (unrecog nized section and content) Brief Post Operative Note Patient Name: Roula Wadsworth : 1975 (44 y.o.) Date of Service: 02/06/2020 CSN: [id number] Procedure(s): RIGHT SHOULDER ARTHROSCOPY, ROTATOR CUFF REPAIR, DISTAL CLAVICLE EXCISION, PROXIMAL BICEPS TENODESIS, SUBACROMIAL DECOMPRESSION Pre-Operative Diagnoses: * M75.121, M19.011, M75.21 Post-Operative Diagnoses: Surgeon(s) and Role: * Caroline Candelaria DO - Primary Anesthesiologist: Andrew Rainey MD LOADING UNIT OPERATOR CRIMPING: Piotr Smith CRNA Public Health Sanitarian: Lucretia Ann RN Physician Custom Seamstress: Aminta Alcantara PA-C Public Health Sanitarian Relief: Roxana Gallardo RN Scrub Person Relief: ST Myron Scrub Person Preceptor: ST Deloris Scrub Rod Orientee: ST Sydnee Operative findings: see report Intra and immediate post-operative complications: none Type of anesthesia used: Regional, General Estimated blood loss: 25 mL Estimated urine output: 0 mL Specimen(s): * No specimens in log * Implant(s): Implant Name Type Inv. Item Serial No. Electrical Systems Designer Lot No. LRB No. Used Action SCREW 7 X 23MM BIOCOMPOSITE TENODESIS - [id number] SCREW 7 X 23MM BIOCOMPOSITE TENODESIS [place] [id number] Right 1 Implanted ANCHOR 4.75 X 19.1MM SUTURE VENTED BIOCOMP SWIVELOCK C - [id number] Iola ANCHOR 4.75 X 19.1MM SUTURE VENTED BIOCOMP SWIVELOCK C [place] IN [id number] Right 1 Implanted ANCHOR 5.5MM SUTURE BIOCOMP CORKSCREW FT W/ SUTURE TAPE - [id number] Iola ANCHOR 5.5MM SUTURE BIOCOMP CORKSCREW FT W/ SUTURE TAPE [employer] [place] [id number] Right 1 Implanted Drain(s): * No LDAs found * Wound(s): Wound 02/06/20 Surgical Wound Shoulder Right (Active) Caroline Candelaria DO 02/06/2020 12:04 PM documented in this encounter Care Teams (unrecognized sec tion and content) Manager Qa Relationship Specialty Start Date End Date Reilly Connell MD [address] [place] [address] PCP - General 10/18/19 Manager Qa Relationship Specialty Start Date End Date Errol Hernandez MD [address] [address] PCP - Geovanni ACO PCP 11/16/23 Reilly Connell MD [address] [address] PCP - General Family Medicine 08/12/24 Manager Qa Relationship Specialty Start Date End Date Errol Hernandez MD [address] [address] PCP - Geovanni ACO PCP 11/16/23 Reilly Connell MD [address] [address] PCP - General Family Medicine 08/12/24 Manager Qa Relationship Specialty Start Date End Date Errol Hernandez MD [address] [address] PCP - Geovanni BERGERONO PCP 11/16/23 Reilly Connell MD [address] [address] PCP - General Family Medicine 08/12/24 Manager Qa Relationship Specialty Start Date End Date Reilly Connell MD [address] [place] [address] PCP - General Family Medicine 10/01/19 Manager Qa Relationship Specialty Start Date End Date Reilly Connell MD [address] [place] [id number] PCP - General Family Medicine 10/01/19 Manager Qa Relationship Specialty Start Date End Date Reilly Connell MD [address] [place] [address] PCP - General Family Medicine 10/01/19 FOR RECORDS PERTAINING TO PATIENTS WHO ARE OR HAVE BEEN ENROLLED IN A CHEMICAL DEPENDENCY/SUBSTANCEABUSE PROGRAM, SOME INFORMATION MAY BE OMITTED. This clinical summary was aggregated from multiple sources. Caution should be exercised in using it in the provision of clinical care. This summary normalizes information from multiple sources, and as a consequence, information in this document may materially change the coding, format and clinical context of patient data. In addition, data may be omitted in some cases. CLINICAL DECISIONS SHOULD BE BASED ON THE PRIMARY CLINICAL RECORDS. [employer] [facility]. provides no warranty or guarantee of the accuracy or completeness of information in this document.
== END | disposition home or self-care (01) ==
PROVIDERS: PCP Family Medicine; Referring Provider Nurse Practitioner Family; Visit Provider Nurse Practitioner Family
DX: Z12.31 Encounter for screening mammogram for malignant neoplasm of breast (principal)
CPT/HCPCS: 77063; 77067

== ENCOUNTER → 2025-07-12 | Outpatient (CLI) | payer BC, SELFPAY ==
--- NOTE | 2025-07-12 13:00 | BI_ITS ---
EXAM: DIAG MAMM W/CAD, UNILAT N/A CLINICAL HISTORY: F, Age 50 y/o , ABNORMAL MAMM TECHNIQUE: Procedure Code: [id number] Modality: MG Procedure: DIAG MAMM W/CAD, UNILAT. COMPARISON: Prior exam(s) dated 07/01/2025 and 06/11/2024. FINDINGS: TISSUE DENSITY: The breasts are extremely dense, which lowers the sensitivity of mammography. Bilateral Breast Mammographic Findings: There is a mass in the superior aspect of the right breast which does persist on today's ML view and does not disperse on the spot compression views. Further workup with ultrasound will be performed for further evaluation. BI/DIAG MAMM W/CAD, UNILAT IMPRESSION: There is a mass in the superior aspect of the right breast which does persist o n today's ML view and does not disperse on the spot compression views. Further workup with ultrasound will be performed for f urther evaluation. OVERALL FINAL ASSESSMENT BI-RADS 0: INCOMPLETE - NEED ADDITIONAL IMAGING EVALUATION. RECOMMENDATION: Ultrasound Recommended Additional Recommendation none A letter with findings and recommendations will be mailed to the patient. Reading Location: [id number]
--- NOTE | 2025-07-12 13:01 | US_ITS ---
PROCEDURE: BREAST LIMITED UNILATERAL 07/12/2025 REASON FOR EXAM: F, Age 50 y/o , ABNORMAL MAMM Right breast mass. Inconclusive mammogram. Evaluate. COMPARISON: Mammogram studies available dated 07/12/2025 and 07/01/2025. TECHNIQUE: Procedure Code: USBRSTLIMIT Modality: US Procedure: BREAST LIMITED UNILATERAL FINDINGS: There is a benign-appearing cyst in the right breast at the 12 o'clock 1 cm from the nipple position measuring 3.0 x 2.2 x 1.2 cm. This does correlate to the mass seen on the mammogram. Aspiration is recommended. This mass has increased in size since the prior mammogram dated 06/11/2024. US/Breast Limited Unilateral IMPRESSION: There is a benign-appearing cyst in the right breast at the 12 o'clock 1 cm fro m the nipple position measuring 3.0 x 2.2 x 1.2 cm. This does correlate to the mass seen on the mammogram. Aspiration is nanci mmended. This mass has increased in size since the prior mammogram dated 06/11/2024. The patient should also return in 1 year for routine yearly screening mammography. BI-RADS 2: BENIGN RECOMMENDATION: Routine annual follow-up in 1 Year Aspiration of the right breast cyst. Reading Location: [id number]
--- OUTSIDE RECORDS SUMMARY | 2025-07-12 13:11 | XMS RPT_ITS | CCD ---
Author Organization [facility] Care Team Providers Care Quality Control Assessor Name Role Phone Colin Hennessy Unavailable Unavailable Hennessy, Colin A Unavailable Unavailable Ida Howe Unavailable Unavailable Ida Howe Unavailable Unavailable No Doctor Assigned, Nodr Unavailable Unavail able Reilly Connell Unavailable Unavailable No Doctor Assigned, Nodr Unavailable Unavail able EFREN EGAN Admitting Unavailable ROROEFREN KELSEY Referring Unavailable NO, PHYSICIAN Primary Care Unavailable Reilly Connell Primary Care Provider [phone] CAROLINE CANDELARIA Admitting Unavailabl e KOCAROLINE SUAREZ Attending Unavailabl e STENCEL, REILLY LEAHY Primary Care Unavailab le KOVACCAROLINE Coleman Admitting Unavailabl e STENCEL, REILLY LEAHY Primary Care Unavailab le RUSTAM CASTRO Attending Unavailable Reilly Connell Primary Care Provider [phone] Reilly Connell Unavailable Unavailable Unavailable CAROLINE CANDELARIA [...] le Stencel Reilly CASTANO Primary Care Provider Errol Hernandez MD Unavailable Reilly Connell MD [...] 5 mg oral capsule (3 sources) Uncompetitive L-oarrxk-C-aspartat e Receptor Antagonist, Sigma-1 Agonist, alpha-1 Adrenergic Agonist End: 08-13-2024 phenylephrine-DM- acetaminophen (Vicks DayQuil Cold-Flu Relief) 5-10-325 mg capsule 08/13/2024 Discontinued (Med List Cleanup) [id number] 200 actuat albuterol 0.09 mg/actuat metered dose [...] Cleanup) Start: 06-24-2021 take 4 tablets by [facility] once daily at mealtime predniSONE 10 MG [...] left knee August 24, 2021 ACCESSION NUMBER(S): [id number] ORDERING CLINICIAN: REILLY CONNELL TECHNIQUE: Routine multiplanar [...] Cornel Brasher 08/16/2024 6:42 AM Dictation workstation: [id number] [facility] XR KNEE LEFT 1-2 VIEWSon XR KNEE LEFT 1-2 VIEWS Interpreted By: Andrew Hyman, STUDY: XR KNEE LEFT 1-2 VIEWS 08/12/2024 11:29 am INDICATION: Signs/Symptoms:pain COMPARISON: None. ACCESSION NUMBER(S): [id number] ORDERING CLINICIAN: ERROL ESTRADA TECHNIQUE: 2 views [...] Andrew Hyman 08/12/2024 11:32 AM Dictation workstation: [id number] [facility] XR Knee - left 1 or 2 Viewso n 08-12-2024 1. No acute fracture or dislocation. MACRO: None. Signed by: Andrew Hyman 08/12/2024 11:32 AM Dictation workstation: [id number] MMODAL Interpreted By: Andrew Ritchie, STUDY: XR KNEE LEFT 1-2 VIEWS 08/12/2024 11:29 am INDICATION: Signs/Symptoms:pain COMPARISON: None. ACCESSION NUMBER(S): [id number] ORDERING CLINICIAN: ERROL ESTRADA TECHNIQUE: 2 views [...] am INDICATION: Signs/Symptoms:pain COMPARISON: None. ACCESSION NUMBER(S): [id number] ORDERING CLINICIAN: ERROL ESTRADA TECHNIQUE: 2 views [...] Andrew Hyman 08/12/2024 11:32 AM Dictation workstation: [id number] [facility] Work Phone: Radiology Study observation (narrative) [facility] Work Phone: XR Knee - left 1 or 2 ViewsO rdered By: Andrwe Hyman on 08-12-2024 [facility] Work Phone: Breast Limited Unilateralon 06-20-2024 Breast Limited Unilateral [facility] Imaging Services [address] [place] [address] Breast Limited Unilateral MR#: [id number] Acct: [id number] Name: ROULA WADSWORTH Rep #: [id number] : 1975 F 49 From: Desmond ledesma MD PCP: Dr. Reilly Connell MD Status: [facility] Study: Breast Limited Unilateral Date of Exam: Exam# [id number] Ordering Dr: Nydia Johnson E MERCHANT-Wolf [id number] STUDY: ULTRASOUND BREAST - LEFT REASON FOR [...] CC: PATTI Johnson; Dr. Reilly Connell MD Minibus Driver: Signed Normal [facility] Breast Limited Unilateralon 06-11-2024 Breast Limited Unilateral [facility] Imaging Services [address] [place] [address] Breast Limited Unilateral MR#: [id number] Acct: [id number] Name: ROULA WADSWORTH Rep #: [id number] : 1975 F 49 From: Michelle Ugalde MD PCP: Dr. Reilly Connell MD [facility] Study: Breast Limited Unilateral Date of Exam: Exam# [id number] Ordering Dr: Nydia Johnson E MERCHANTMichaelC ADDENDUM by Dr. Michelle Ugalde MD on 06/18/24 at 0822 ADDENDUM [id number] Ultrasound of the palpable abnormality in the left breast will be obtained. Electronically Signed: Michelle Ugalde MD at 8:22 EST , 06/18/24 0822 Date cc: PATTI Johnson; Dr. Reilly Connell MD * Signed ADDENDUM by Dr. Michelle Ugalde MD on 06/18/24 at 0822 US/Breast Limited Unilateral IMPRESSION: undefined 06/18/24 0829 Date cc: PATTI Johnson; Dr. Reilly Connell MD * Signed [id number] STUDY: ULTRASOUND BREAST - RIGHT REASON FOR [...] CC: PATTI Johnson; Dr. Reilly Connell MD Minibus Driver: Signed Normal [facility] DIAG MAMM W/CAD, BILATon DIAG MAMM W/CAD, BILAT [facility] Imaging Services [address] [place] [address] DIAG MAMM W/CAD, BILAT MR#: [id number] Acct: [id number] Name: ROULA WADSWORTH Rep #: [id number] : 1975 F 49 From: Michelle Ugalde MD PCP: Dr. Reilly Connell MD [facility] Study: DIAG MAMM W/CAD, BILAT Date of Exam: 06/11/24 Exam# [id number] Ordering Dr: Nydia Johnson ADDENDUM by Dr. Michelle Ugalde MD on 06/18/24 at 0821 ADDENDUM [id number] Ultrasound of the palpable abnormality in left breast will be obtained. Electronically Signed: Michelle Ugalde MD at 8:21 EST , 06/18/24 0821 Date cc: PATTI Johnson; Dr. Reilly Connell MD * Signed ADDENDUM by Dr. Michelle Ugalde MD on 06/18/24 at 0821 BI/DIAG MAMM W/CAD, BILAT IMPRESSION: undefined 06/18/24 0828 Date cc: PATTI Johnson; Dr. Reilly Connell MD * Signed [id number] MAMMOGRAPHY - BILATERAL DIAGNOSTIC REASON FOR EXAM: [...] CC: PATTI Johnson; Dr. 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 [place]--normal per patient History of abnormal mammogram: n/a [...] complete sente (more content not included)... Normal [facility] Influenza virus A and B and SARS-CoV-2 (COVID-19) identified WILLIE+probe Nom (Resp)on 08-24-2023 FLUAV RNA WILLIE+probe Ql (Resp) Not detected Normal Not Detected [facility] Amb[facility] Comment on above: Order Comment: This [...] and has been validated for use at [facility]. Negative results do not preclude COVID-19 infections or Influenza A/B infections, and should not be used as the sole basis for diagnosis, treatment, or other management decisions. If Influenza A/B and RSV PCR results are negative, testing for Parainfluenza virus, Adenovirus and Metapneumovirus is routinely performed for [facility] pediatric oncology and intensive care inpatients, and is available on other patients by placing an add-on request. Performed By: #### 9 5423-0 #### DAVIDE Gonzalez ([id number]) [facility]) [address] [place] [address] FLUBV RNA WILLIE+probe Ql (Resp) Detected Abnormal Not Detected [facility] Comment on above: Order Comment: This [...] and has been validated for use at [facility]. Negative results do not preclude COVID-19 infections or Influenza A/B infections, and should not be used as the sole basis for diagnosis, treatment, or other management decisions. If Influenza A/B and RSV PCR results are negative, testing for Parainfluenza virus, Adenovirus and Metapneumovirus is routinely performed for [facility] pediatric oncology and intensive care inpatients, and is available on other patients by placing an add-on request. Performed By: #### 9 5423-0 #### DAVIDE Gonzalez ([id number]) [facility] ([facility]) [address] [place] [address] SARS-CoV-2 (COVID-19) RNA WILLIE+probe Ql (Resp) Not detected Normal Not Detected [facility] Comment on above: Order Comment: This [...] and has been validated for use at [facility]. Negative results do not preclude COVID-19 infections or Influenza A/B infections, and should not be used as the sole basis for diagnosis, treatment, or other management decisions. If Influenza A/B and RSV PCR results are negative, testing for Parainfluenza virus, Adenovirus and Metapneumovirus is routinely performed for [facility] pediatric oncology and intensive care inpatients, and is available on other patients by placing an add-on request. Performed By: #### 9 5423-0 #### DAVIDE Gonzalez ([id number]) [facility] ([facility]) [address] [place] [address] POCT Influenza A/B manually resultedon 08-24-2023 POC Rapid Influenza A Negative Negative [facility] Work Phone: POC Rapid Influenza B Negative Negative [facility] Work Phone: [facility] Work Phone: OT Progress Noteon 2 OT Progress Note Therapy Diagnosis Assessed Lateral epicondylitis of left elbow (726.32) (M77.12) Plan Goals: Goals set and discussed today. STG: ROULA will demonstrate good carryover of HEP for ROM, strengthening and coordination in order to improve functional independence at home/work by 2 weeks. LTG: ROULA will increase L integration technician strength by 7 lbs to increase I [...] code time is 28 minutes. Therapeutic exercise (32985): timed minutes 28 . -L arm on [...] large and medium attachment . Therapeutic Activity (80789):. Contacts for Physician Signature First attempt date: [...] 2 weeks. LTG: ROULA will increase L integration technician strength by 7 lbs to increase I [...] code time is 28 minutes. Therapeutic exercise (70734): timed minutes 28 . 9152-9251 -L hand 10# DB bicep curls x [...] w/ 10 second holds . Therapeutic Activity (21267):. Contacts for Physician Signature First attempt date: 03/31/22. Referring Provider Signature: I am in agreement with the above plan of care. Referring Provider Signature , Date/Time 'Scores and Scales' Signatures Electronically signed by : GAMA Carpenter/Lisa; Apr 23 2022 9:27AM EST (Author) Electronically signed by : LANE Villanueva/Lisa; Apr 26 2022 8:31AM EST Normal [facility] OT Progress Noteon 2 OT Progress Note Therapy Diagnosis Assessed Lateral epicondylitis of left elbow (726.32) (M77.12) Plan Goals: Goals set and discussed today. STG: ROULA will demonstrate good carryover of HEP for ROM, strengthening and coordination in order to improve functional independence at home/work by 2 weeks. LTG: ROULA will increase L integration technician strength by 7 lbs to increase I [...] code time is 28 minutes. Therapeutic exercise (60253): timed minutes 13 . 802-815 L Bicep curl x15 on arm wedge with 10lb weight Sup/pro with L arm on wedge with 10lb weight wrist extension x15 with L arm on wedge with 10lb weight wrist flexion with L arm on wedge with 10lb weight x15 UD/RD deviation with arm on wedge with 10lb weight x15. Therapeutic Activity (51629): timed minutes 15 . 745-800 -MRMT with [...] 2 weeks. LTG: ROULA will increase L integration technician strength by 7 lbs to increase I [...] code time is 28 minutes. Therapeutic Activity (61970): timed minutes 28 . 6829-2840 -L hand on Short handle leather belt maker 20# resistance flipping large wood dowel down [...] 2 weeks. LTG: ROULA will increase L integration technician strength by 7 lbs to increase I [...] code time is 28 minutes. Therapeutic Activity (51804): timed minutes 28 . 6364-9055 -LUE over 11lb ball flex/ext/sup/pro x 10 [...] 2 weeks. LTG: ROULA will increase L integration technician strength by 7 lbs to increase I [...] code time is 28 minutes. Therapeutic Activity (88259): timed minutes 28 . 1001-3518 -LUE over 11lb ball flex/ext x 10 [...] Villanueva/Lisa; Apr 12 2022 12:30PM EST Normal [facility] OT Progress Noteon 2 OT Progress Note Therapy Diagnosis Assessed Lateral epicondylitis of left elbow (726.32) (M77.12) Plan Goals: Goals set and discussed today. STG: ROULA will demonstrate good carryover of HEP for ROM, strengthening and coordination in order to improve functional independence at home/work by 2 weeks. LTG: ROULA will increase L integration technician strength by 7 lbs to increase I [...] code time is 28 minutes. Therapeutic Activity (94132): timed minutes 28 . 6441-8774 -LUE over 11lb ball flex/ext x 10 [...] 2 weeks. LTG: ROULA will increase L integration technician strength by 7 lbs to increase I with manipulating heavier objects to complete work and home tasks in 5 weeks. LTG: ROULA will demonstrate improved functional independence at home by a decreased DASH score to 0% by 5 weeks. LTG: ROLUA will demonstrate work simulation tasks of resisted [...] code time is 28 minutes. Therapeutic Activity (87670): timed minutes 43 . 7140-9149 -LUE over 11lb ball flex/ext x 10 [...] 2 weeks. LTG: ROULA will increase L integration technician strength by 7 lbs to increase I [...] L handed. Pt reporting per xrays from [place] office she has tendonitis in KENDELL elbows [...] December to January. Pt was referred to [facility] in January and has now been on light duty. Pt reporting she did not allow the pain to get to 7/10 like it was before seeing [facility]. Pt reporting at this time the only [...] Denotes Pain with Movement) Hand Dominance: Left Elastic Attacher Chainstitch Strength: level III 58 lbs on the right and level III 60 lbs on the left. The lawson pinch trials for the right 15 lbs and left 16 lbs. (more content not included)... Normal [facility] DIGITAL MAMM SCREENING W/ TO [place]aney 02-06-2022 DIGITAL MAMM SCREENING W/ MILI Patient Name: ROULA WADSWORTH STUDY: Digital mammography screening with mili; 02/06/2022 10:29 am ACCESSION NUMBER(S): [id number] ORDERING CLINICIAN: BRANDI APPLE INDICATION: Screening. COMPARISON: [...] Screening. Electronically signed by: ANDREW HYMAN MD [facility] BILATERAL ELBOW COMPLETE MIN . 3 VIEWSon 12-01-2021 BILATERAL ELBOW COMPLETE MIN. 3 VIEWS Patient Name: ROULA WADSWORTH STUDY: Bilateral elbows, 4 views each. INDICATION: Bilateral elbow pain M25.521: Pain of both elbows M25.522:. COMPARISON: None. ACCESSION NUMBER(S): [id number] ORDERING CLINICIAN: CARLI KUMAR FINDINGS: Bilateral elbows: No acute fracture or malalignment. No elbow joint effusion or abnormal fat pad elevation. Soft tissues are unremarkable. IMPRESSION: 1. Unremarkable bilateral elbow radiographs. Electronically signed by: FERNANDO KIMBLE MD [facility] Established Visit (Orthopaed ic Surgery)on 12-01-2021 Established Visit (Orthopaedic Surgery) Diagnoses/Problems Assessed Lateral epicondylitis of left elbow (726.32) (M77.12) Orders Pain of both elbows Xray Elbow Bilateral, Complete, Min 3 Views; Status:Resulted - Preliminary,Retrospective Authorization; Done: 50Zsc7475 03:24PM Radiologist to Determine Optimal Study : Y What are the patient's signs and symptoms? : Bilateral elbow pain Provider Impressions Assessment: Bilateral lateral epicondylitis more severe in left Plan: Today, we discussed different treatment options to include bracing, occupational therapy, injection, oudj-iaz-xmsotax pain relievers. She would like to attempt [...] by a nurse from employee help at [employer] in which she didn?t appreciated much pain [...] TAKE WITH FOOD Vitals Vital Signs Recorded: 33Ykg9668 03:39PM Qvigsdtzdrh50.2 F Height5 ft 1 in Xzekoh883 lb BMI Huvvrykayf77.22 kg/m2 BSA Calculated1.45 Tobacco Useb) No Physical [...] Results/Data Xray Elbow Bilateral, Complete, Min 3 [id number] 03:24PMCarli Kumar Test NameResultFlagReference Xray Elbow Bilateral, Complete, Min 3 Views Please click on the link to view the study images X-rays performed today see radiologist report for official readings Signatures Electronically signed by : Carli Kumar PA-C; Dec 01 2021 4:18PM EST (Author) Normal [facility] Radiologyon 12-01-2021 XR Elbow - bilateral 3 Views Please click on the link to view the study images Normal [facility] Work Phone: XR Elbow - bilateral 3 Views Normal [facility] 300 Work Phone: Tobacco Screening.on 022 Tobacco use status [facility] b) No [facility] Work Phone: [...] TAKE WITH FOOD Vitals Vital Signs Recorded: 48Vjr1552 03:23PM Aggzwwykubf65.3 F Height5 ft 1 in Kgkuik408 lb 6 oz BMI Fnlawhldeg54.8 kg/m2 BSA Calculated1.5 Tobacco Useb) No Fall [...] left upper extremity Results/Data MRI Knee without [id number] 05:29PMReilly Torre Test NameResultFlagReference MRI Knee without Contrast(Report) FINAL REPORT Interpreted by: MICHELLE BOND LEE, MD 08/25/21 13:34 Patient Name: ROULA WADSWORTH STUDY: MRI of the Left knee without contrast dated 08/24/2021. INDICATION: left knee pain NO TO MRI QUESTIONS M79.605: Pain of left lower extremity COMPARISON: None. ACCESSION NUMBER(S): [id number] ORDERING CLINICIAN: REILLY TORRE TECHNIQUE: Multiplanar multisequence MRI of the Left knee was performed without intravenous contrast. FINDINGS: MUSCLES, TENDONS, AND LIGAMENTS: The anterior cruciate ligament is intact. The posterior cruciate ligament is intact. The medial collateral ligament is intact.The lateral collateral ligament compl (more content not included)... Normal [employer] [facility] Tobacco Screening.on 022 Fall risk assessment a) No falls within the last year [facility] 300 Work Phone: Tobacco use status CP b) No [facility] 300 Work Phone: BN MRI KNEE W/O CONTRASTon 0 08-24-2021 BN MRI KNEE W/O CONTRAST Patient Name: ROULA WADSWORTH STUDY: MRI of the Left knee without contrast dated 08/24/2021. INDICATION: left knee pain NO TO MRI QUESTIONS M79.605: Pain of left lower extremity COMPARISON: None. ACCESSION NUMBER(S): [id number] ORDERING CLINICIAN: REILLY TORRE TECHNIQUE: Multiplanar multisequence [...] Electronically signed by: MICHELLE BOND MD Normal [facility] MRI Knee without Contraston 08-24-2021 MR Knee WO contrast Normal [facility] 300 Work Phone: Initial Visit (Orthopaedic S [facility])on 08-04-2021 Initial Visit (Orthopaedic Surgery) Diagnoses/Problems Assessed [...] or Bone Graft Simulator, Implanted Breast Tissue Maitre D, Glucose Monitor, or Neulasta Device? : No [...] CONCERN FOR POSSIBLE BLOOD CLOT DROVE TO [place] AND SYMPTOMS BEGAN END OF MAY History of Present Illness Patient is a pleasant 46-year-old female presenting today for left lower extremity pain. 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 Additionally, patient complains of elbow pain. She has pain with palpation and with bending her wrist. 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 Her symptoms began approximately 2 weeks [...] of hypertensio (more content not included)... Normal [facility] Tobacco Screening.on 022 Fall risk assessment a) No falls within the last year [facility] 300 Work Phone: Tobacco use status [facility] b) No [facility] Work Phone: [...] the x-rays of hip and knee from [place] as well as the hip x-ray here. [...] Known Drug Allergies Vitals Vital Signs Recorded: 84Gtl4883 11:52AM Temperature: 98 F Heart Rate: 92 [...] Jul 01 2021 12:50PM EST (Author) Normal [employer] [facility] Tobacco Screening.on 12-15-2 021 Fall risk assessment a) No falls within the last year [employer] [facility] Work Phone: Tobacco use status CP b) No [facility] [facility] Work Phone: C Reactive Protein, Serumon 06-24-2021 CRP [Mass/Vol] 0.63 mg/dL [employer] [facility] Work Phone: Comment on above: REF VALUE< 1.00 C-REACTIVE PROTEINon 021 C-REACTIVE PROTEIN 0.63 mg/dL Normal [facility] Comment on above: Result Comment: REF VALUE < 1.00 Performed By: #### C RP #### [address] [address] CBCon 06-24-2021 Erythrocyte distribution width (RBC) [Ratio] 13.4 % Normal 11.5 - 14.5 [facility] Comment on above: Performed By: #### C BC #### [address] [address] Hematocrit (Bld) [Volume fraction] 39.0 % Normal 36.0 - 46.0 [facility] Comment on above: Performed By: #### C BC #### [address] [address] Hemoglobin (Bld) [Mass/Vol] 12.8 g/dL Normal 12.0 - 16.0 [facility] Comment on above: Performed By: #### C BC #### [address] [address] MCHC (RBC) [Mass/Vol] 32.8 g/dL Normal 32.0 - 36.0 [facility] Comment on above: Performed By: #### C BC #### [address] [address] MCV (RBC) [Entitic vol] 97 fL Normal 80 - 100 [facility] Comment on above: Performed By: #### C BC #### [address] [address] Platelets (Bld) [#/Vol] 358 10*3/uL Normal 150 - 450 [facility] Comment on above: Performed By: #### C BC #### [address] [address] RBC 4.02 x10E12/L Normal 4.00 - 5.20 [facility] Comment on above: Performed By: #### C BC #### [address] [address] WBC (Bld) [#/Vol] 9.8 10*3/uL Normal 4.4 - 11.3 [facility] Comment on above: Performed By: #### C BC #### [address] [address] Falls Risk Screeningon 06-24 Fall risk assessment a) No falls within the last year [employer] [facility] Work Phone: Tobacco use status [facility] b) No [employer] [facility] Work Phone: HIP, UNILATERAL W/PELVIS WHE N PERFORMED 2-3 VIEWSon 06-24-2021 HIP, UNILATERAL W/PELVIS WHEN PERFORMED 2-3 VIEWS Patient Name: ROULA WADSWORTH STUDY: HIP, UNILATERAL W/PELVIS WHEN PERFORMED 2-3 VIEWS INDICATION: pain M79.605: Pain of left lower extremity. COMPARISON: None ACCESSION NUMBER(S): [id number] ORDERING CLINICIAN: REILLY CONNELL FINDINGS: Cam left femoral neck. No other osseous, articular, or soft tissue abnormality. IMPRESSION: Cam morphology left femoral neck. Electronically signed by: CORNEL BRASHER MD Normal [facility] - Hematology and Cell countson 06-24-2021 Erythrocyte distribution width (RBC) [Ratio] 13.4 % See Below [employer] [facility] Work Phone: Comment on above: Reference Range: 11. 5 - 14.5 Hematocrit (Bld) [Volume fraction] 39.0 % See Below [employer] [facility] Work Phone: Comment on above: Reference Range: 36. 0 - 46.0 Hemoglobin (Bld) [Mass/Vol] 12.8 g/dL See Below [employer] [facility] Work Phone: Comment on above: Reference Range: 12. 0 - 16.0 MCHC (RBC) [Mass/Vol] 32.8 g/dL See Below [employer] [facility] Work Phone: Comment on above: Reference Range: 32. 0 - 36.0 MCV (RBC) [Entitic vol] 97 fL 80 - 100 [employer] [facility] Work Phone: Platelets (Bld) [#/Vol] 358 10*3/uL 150 - 450 [employer] [facility] [facility] Work Phone: RBC (Bld) [#/Vol] 4.02 {x10E12/L} See Below [employer] [facility] Work Phone: Comment on above: Reference Range: 4.0 0 - 5.20 WBC (Bld) [#/Vol] 9.8 10*3/uL 4.4 - 11.3 [facility] Work Phone: Office Visit (Primary Care T xt/Forms)on 06-24-2021 Follow-up visit Diagnoses/Problems Assessed Pain of left lower extremity (729.5) (M79.605) Orders Pain of left lower extremity Start: predniSONE 10 MG Oral Tablet; TAKE 4 TABLET Daily TAKE WITH FOOD C Reactive Protein, Serum; Status:Active; Requested for:[id number]; Complete Blood Count; Status:Active; Requested for:12Izo3031; Sedimentation Rate, Erythrocyte; Status:Active; Requested for:[id number]; [facility] Venous Duplex Ultrasound for DVT; Status:Hold For - Scheduling; Requested for:[id number]; Laterality : Left Xray Hip, unilateral w/ pelvis when performed, 2 or 3 view; Status:Hold For - Scheduling; Requested for:[id number]; Laterality : Left Radiologist to Determine Optimal Study : Y What are the patient's signs and symptoms? : pain Patient Discussion/Summary pred xray, cbc crp esr, doppler report fri am watch for rash Chief Complaint ER [facility], LEFT LEG PAIN History of Present Illness hurt in calf tuesday and radiate ant to thigh and groin, had covid nov8, jun [address] [place] [address] [place] [...] Known Drug Allergies Vitals Vital Signs Recorded: [id number] 08:56AM Temperature: 97.3 F Heart Rate: 74 Systolic: 100 Diastolic: 58 Height: 5 ft 1 in Weight: 114 lb 7 oz BMI Calculated: 21.62 kg/m2 BSA Calculated: 1.49 Tobacco Use: b) No Fall Screening: a) No falls within the last year O2 Saturation: 98 Signatures Electronically signed by : Reilly Connell MD; Jun 24 2021 10:05AM EST (Author) Normal [employer] Radiologyon 06-24-2021 XR Pelvis and Hip - left 2 Views Normal [employer] [facility] Work Phone: XR Pelvis and Hip - left 2 Views Please click on the link to view the study images Normal [employer] [facility] Work Phone: SEDIMENTATION RATE, ERYTHROC YTEon 06-24-2021 SEDIMENTATION RATE, ERYTHROCYTE 9 mm/h Normal 0 - 20 [facility] Comment on above: Performed By: #### E SRWS #### [place] [address] Sedimentation Rate, Erythroc yteon 06-24-2021 ESR (Bld) [Velocity] 9 mm/h 0 - 20 [facility] Work Phone: VASC LAB Venous Duplex Ultra sound DVTon 06-24-2021 [facility] LAB Venous Duplex Ultrasound DVT [address] [address] ext-[phone], Vascular Lab Report Lower Venous Duplex Ultrasound Patient Name: ROULA WADSWORTH Reading Physician: [id number] Cuauhtemoc Worthington MD Study Date: 06/24/2021 Referring Physician: [id number] RIELLY SOTOMAYORJOHANNA MRN/PID: [id number] PCP: Accession/Order#: [id number] CC Report to: Date of : 1975 Technologist: Nga Beck RVT/ Gender: F Technologist 2: Admission Status: Outpatient Location Performed: [facility] Diagnosis/ICD: M79.605-Pain in left leg Procedure/CPT: 84659 Peripheral venous duplex scan for DVT Limited-44729 CONCLUSIONS: Right Lower Venous: Right common femoral [...] Spontaneous/Phasic Peroneal Yes None PTV Yes None [id number] Cuauhtemoc Worthington MD Final Normal [facility] LAB Venous Duplex Ultra sound for DVTon 06-24-2021 [facility] Venous Duplex Ultrasound for DVT Please click on the link to view the study images Normal -[facility] Work Phone: [facility] Venous Duplex Ultrasound for DVT [facility] Work Phone: XR [...] abnormality. Left knee: No acute osseous abnormality. [employer] Workstation ID: [id number] Dictated by: CHUCHO STILL on TueJun 23, 2021 9:58:24 AM EST Transcribed by: ELENA NAVA on TueJun 23, 2021 10:32:18 AM EST Finalized by: CHUCHO STILL on TueJun 28, 2021 8:12:50 PM EST Normal [facility] Comment on above: Order Comment: Injur y/Trauma [...] TueJun 28, 2021 8:12:50 PM EST Normal [facility] Comment on above: Order Comment: Injur y/Trauma or Illness?:Illness/Other How long have you had these symptoms (acute/chronic)?:Acute Reason for exam?:c/o pain in junaid and hip area, nki x's 2 days History of cancer?:na Surgeries, chemotherapy, or radiation?:na Type of Exam?:Initial Additional signs and symptoms?: SCAN OTHER ORDERSon 02-06-20 Ordered by an unspec ified provider. [facility] MR Shoulder Right Without Co ntraston 10-04-2019 1. Rotator cuff tend inosis with low-grade bursal sided fraying of the central cuff. 2. Calcific tendinosis involving the subscapularis tendon. 3. Developing subacromial spur without subacromial or subdeltoid bursitis. Workstation ID: [id number] [facility] EXAMINATION: MR NAVEED BLAIR RIGHT WITHOUT CONTRAST [...] quadrilateral space is patent. No axillary lymphadenopathy. [facility], Rad In Fu ji Speechq - 10/04/2019 [...] subacromial or subdeltoid bursitis. Workstation ID: [id number] [facility] XR SHOULDER RIGHT 2+ VIEWS ( STANDARD)on [...] IMPRESSION: No acute osseous variation is seen. [facility]/[employer] Workstation ID: [id number] Dictated by: AMINTA CASILLAS on [facility] Sep 13, 2019 3:22:56 PM EST Transcribed by: SANGITA ALONZO on [facility] Sep 13, 2019 3:43:34 PM EST Finalized by: AMINTA CASILLAS on [facility] Sep 13, 2019 3:52:57 PM EST Normal [facility] Comment on above: Order [...] Estradiolon 04-07-2017 Estradiol Lvl 108.0 pg/mL Normal [facility] Comment on above: Result Comment: Adul t Male: 7.6 - 42.6 Adult Female: Follicular phase 12.5 - 166.0 Ovulation phase 85.8 - 498.0 Luteal phase 43.8 - 211.0 Postmenopausal <6.0 - 54.7 1st trimester 215.0 - >4300.0 Children (1-10 years): Boys <6.0 - 20.0 Girls 6.0 - 27.0Roche ECLIA methodologyPerformed At: [facility] SystemHoly Name Medical CenterNnadxq3169 [place], [place] [id number] Vincent PhD Ph:[phone] Performed By: #### 2 [id number] ####[facility] Send Outs [address] [place] [id number] Progesterone Lvlon 7 Progest Lvl 12.3 ng/mL Normal [facility] Comment on above: Result Comment: Male : 0.0 - 0.5 Female: Follicular phase 0.1 - 0.9 Luteal phase 1.8 - 23.9 Ovulation phase 0.1 - 12.0 First trimester 11.0 - 44.3 Second trimester 25.4 - 83.3 Third trimester 58.7 - 214.0 Postmenopausal 0.0 - 0.1Performed At: [facility] System[facility] CenterItlphi4759 [place], [place] [id number] Vincent PhD Ph:[phone] Performed By: #### 1 [id number] ####[place] Send Outs [address] [place] [id number] Testost Totalon 04-07-2017 Testoster Tot 12 ng/dL Normal [facility] Comment on above: Result Comment: MALE PEYTON [...] and 41 years old. uriel Velez.al. JCEM 2017,102;1972-3609. PMID: [id number].Performed At: [facility] [address] [place], [place] [id number] Vincent PhD Ph:[phone] Performed By: #### 2 [id number] ####[place] Send Outs [address] [place] [address] Free T3on 04-05-2017 Triiodothyronine (T3) free 3.1 pg/mL Normal 2.5-3.9 [facility] Comment on above: Performed By: #### 2 [id number] ####MILTON [address] [place] [address] Free T4on 04-05-2017 Thyroxine (T4) free 0.67 ng/dL Normal 0.58-1.64 [facility] Comment on above: Result Comment: Ruby ents receiving more than 5mg/day of biotin may have interference in test results. A sample should be taken no sooner than eight hours after previous dose. Performed By: #### 2 [id number] ####MILTON [address] [place] [address] PnoN6ppw 04-05-2017 Hemoglobin A1c/Hemoglobin.tota l mass fraction (Bld) 5.7 % Normal 4.0-6.3 [facility] Comment on above: Performed By: #### 3 [id number] ####MIL[facility] Chemistry Manual [address] [place] [address] TSHon 04-05-2017 Thyroid stimulating hormone (TSH) 0.93 mIU/m Normal 0.30-5.60 [facility] Comment on above: Performed By: #### 2 [id number] ####M[place] [address] [place] [address] Vital Signs Date Time Vital Sign Value Performing Clinician Facility 08-21-2024 15:20-0500 Body height 154.9 cm Magaly Wray CNP Work Phone: [facility] 08-21-2024 15:20-0500 Body mass index (BMI) [Ratio] 21.73 kg/m2 Magaly Wray CNP Work Phone: [facility] 08-21-2024 15:20-0500 Body weight 52.16 kg Magaly Wray CNP Work Phone: [facility] 08-13-2024 13:56-0500 Diastolic blood pressure 80 mm[Hg] Reilly Connell MD Work Phone: [facility] 08-13-2024 13:56-0500 Heart rate 91 /min Reilly Connell MD Work Phone: [facility] 08-13-2024 13:56-0500 SaO2% (BldA) [Mass fraction] 98 % Reilly Connell MD Work Phone: [facility] 08-13-2024 13:56-0500 Systolic blood pressure 120 mm[Hg] Reilly Connell MD Work Phone: 4(622)[phone] [place] [address] 08-12-2024 11:11-0500 Body height 154.9 cm Errol Hernandez MD Work Phone: 8(129)[phone] [place] [address] 08-12-2024 11:11-0500 Body mass index (BMI) [Ratio] 21.16 kg/m2 Errol Hernandez MD Work Phone: [facility] 08-12-2024 11:11-0500 Body temperature 96.8 [degF] Errol Hernandez MD Work Phone: 9(915)200-616595 [place] [address] 08-12-2024 11:11-0500 Body weight 50.8 kg Errol Hernandez MD Work Phone: [facility] 08-12-2024 11:11-0500 Diastolic blood pressure 62 mm[Hg] Errol Hernandez MD Work Phone: [facility] 08-12-2024 11:11-0500 Heart rate 79 /min Errol Hernandez MD Work Phone: [facility] 08-12-2024 11:11-0500 Respiratory rate 16 /min Errol Hernandez MD Work Phone: [facility] 08-12-2024 11:11-0500 SaO2% (BldA) [Mass fraction] 96 % Errol Hernandez MD Work Phone: [facility] 08-12-2024 11:11-0500 Systolic blood pressure 104 mm[Hg] Errol Hernandez MD Work Phone: [facility] 08-24-2023 15:15-0500 Body height 154.9 cm Errol Hernandez MD Work Phone: [facility] 08-24-2023 15:15-0500 Body mass index (BMI) [Ratio] 21.52 kg/m2 Errol Hernandez MD Work Phone: [facility] 08-24-2023 15:15-0500 Body temperature 99.7 [degF] Errol Hernandez MD Work Phone: [facility] 08-24-2023 15:15-0500 Body weight 51.66 kg Errol Hernandez MD Work Phone: [facility] 08-24-2023 15:15-0500 Diastolic blood pressure 66 mm[Hg] Errol Hernandez MD Work Phone: [facility] 08-24-2023 15:15-0500 Heart rate 99 /min Errol Hernandez MD Work Phone: [facility] 08-24-2023 15:15-0500 SaO2% (BldA) [Mass fraction] 98 % Errol Hernandez MD Work Phone: [facility] 08-24-2023 15:15-0500 Systolic blood pressure 104 mm[Hg] Errol Hernandez MD Work Phone: [facility] 12-01-2021 15:39-0400 Body height 154.94 cm Reilly Connell Work Phone: [facility] 300 Work Phone: 12-01-2021 15:39-0400 Body mass index (BMI) [Ratio] 20.22 kg/m2 Reilly Connell Work Phone: [facility] 300 Work Phone: 12-01-2021 15:39-0400 Body surface area Derived from formula 1.45 m2 Reilly D Stencel Work Phone: [facility] 300 Work Phone: 12-01-2021 15:39-0400 Body temperature 98.2 [degF] Reilly D Stencel Work Phone: [facility] 300 Work Phone: 12-01-2021 15:39-0400 Body weight 48.54 kg Reilly D Stencel Work Phone: [facility] 300 Work Phone: 08-27-2021 15:23-0500 Body height 154.94 cm Reilly D Stencel Work Phone: [facility] 300 Work Phone: 08-27-2021 15:23-0500 Body mass index (BMI) [Ratio] 21.8 kg/m2 Reilly D Stencel Work Phone: [facility] 300 Work Phone: 08-27-2021 15:23-0500 Body surface area Derived from formula 1.5 m2 Reilly D Stencel Work Phone: [facility] 300 Work Phone: 08-27-2021 15:23-0500 Body temperature 97.3 [degF] Reilly D Stencel Work Phone: [facility] 300 Work Phone: 08-27-2021 15:23-0500 Body weight 52.34 kg Reilly D Stencel Work Phone: [facility] 300 Work Phone: 08-04-2021 15:24-0500 Body height 154.94 cm Reilly D Stencel Work Phone: [facility] 300 Work Phone: 08-04-2021 15:24-0500 Body mass index (BMI) [Ratio] 22.11 kg/m2 Reilly Connell Work Phone: [facility] 300 Work Phone: 08-04-2021 15:24-0500 Body surface area Derived from formula 1.5 m2 Reilly Connell Work Phone: [facility] 300 Work Phone: 08-04-2021 15:24-0500 Body temperature 98.2 [degF] Reilly Sotomayorcel Work Phone: [facility] 300 Work Phone: 08-04-2021 15:24-0500 Body weight 53.07 kg Reilly Connell Work Phone: [facility] 300 Work Phone: 07-01-2021 11:52-0500 Body height 154.94 cm Reilly Connell Work Phone: [facility] Work Phone: 07-01-2021 11:52-0500 Body temperature 98 [degF] Reilly Sotomayorcel Work Phone: [facility] Work Phone: 07-01-2021 11:52-0500 Diastolic blood pressure 66 mm[Hg] Reilly Sotomayorcel Work Phone: [facility] Work Phone: 07-01-2021 11:52-0500 Heart rate 92 /min Reilly Connell Work Phone: [facility] Work Phone: 07-01-2021 11:52-0500 SaO2% (BldA) [Mass fraction] 98 % Reilly Connell Work Phone: [facility] Work Phone: 07-01-2021 11:52-0500 Systolic blood pressure 108 mm[Hg] Reilly Connell Work Phone: [facility] Work Phone: 06-24-2021 08:56-0500 Body height 154.94 cm Reilly Connell Work Phone: [facility] Work Phone: 06-24-2021 08:56-0500 Body mass index (BMI) [Ratio] 21.62 kg/m2 Reilly Connell Work Phone: [employer] [facility] Work Phone: 06-24-2021 08:56-0500 Body surface area Derived from formula 1.49 m2 Reilly Connell Work Phone: [employer] [facility] Work Phone: 06-24-2021 08:56-0500 Body temperature 97.3 [degF] Reilly Connell Work Phone: [employer] [facility] Work Phone: 06-24-2021 08:56-0500 Body weight 51.91 kg Reilly Connell Work Phone: [employer] [facility] Work Phone: 06-24-2021 08:56-0500 Diastolic blood pressure 58 mm[Hg] Reilly Connell Work Phone: [employer] [facility] Work Phone: 06-24-2021 08:56-0500 Heart rate 74 /min Reilly Connell Work Phone: [facility] Work Phone: 06-24-2021 08:56-0500 SaO2% (BldA) [Mass fraction] 98 % Reilly Connell Work Phone: [facility] Work Phone: 06-24-2021 08:56-0500 Systolic blood pressure 100 mm[Hg] Reilly Connell Work Phone: [facility] Work Phone: 02-06-2020 13:30-0400 Body Temperature 98.29 [degF] [facility] 02-06-2020 13:30-0400 Pulse (Heart Rate) 60 /min [facility] 02-06-2020 13:30-0400 Pulse Oximetry 96 % [facility] 02-06-2020 13:30-0400 Respiratory Rate 21 /min [facility] 02-06-2020 13:20-0400 BP Diastolic 70 mm[Hg] [facility] 02-06-2020 13:20-0400 BP Systolic 112 mm[Hg] [facility] 02-06-2020 07:34-0400 BMI (Body Mass Index) 21.83 kg/m2 [facility] 02-06-2020 07:34-0400 Body weight 52.4 kg [facility] 02-06-2020 07:34-0400 Height 154.9 cm [facility] 12-06-2019 10:01-0400 BMI (Body Mass Index) 20.78 kg/m2 Colin Hennessy [facility] 12-06-2019 10:01-0400 Body weight 49.9 kg Colinmamadou Hennessy [facility] 12-06-2019 10:01-0400 Height 154.9 cm [facility] Encounters Encounter Date Encounter Type Care Provider Facility Start: 10-26-2024 ambulatory REILLY CONNELL [facility] Start: 09-20-2024 End: 09-20-2024 Orders Only Opal Zayas LPN [facility] Comment on above: Sprain of medial col lateral ligament of left knee, initial encounter (Primary Dx) Start: 09-04-2024 End: 09-04-2024 Office outpatient visit 5 minutes Magaly Wray [facility] Work Phone: [facility] Comment on above: Sprain of medial col lateral ligament of left knee, initial encounter (Primary Dx) Start: 09-04-2024 End: 09-04-2024 [facility] Start: 08-21-2024 End: 08-21-2024 Office outpatient new 20 minutes Magaly Wray [employer] Work Phone: [facility] Comment on above: Sprain of medial col lateral ligament of left knee, initial encounter (Primary Dx) Start: 08-21-2024 End: 08-21-2024 ambulatory MAGALY WRAY [facility] Start: 08-21-2024 End: 08-21-2024 ambulatory PROVIDER NOT IN SYSTEM [facility] Start: 08-21-2024 ambulatory ANNETTE VANN [facility] Ambulatory Start: 08-17-2024 End: 08-17-2024 ambulatory REILLY CONNELL [facility] Start: 08-15-2024 End: 08-15-2024 Subsequent hospital visit by physician [facility] Comment on above: Internal derangement of left knee Start: 08-15-2024 End: 08-15-2024 ambulatory REILLY CONNELL [facility] Start: 08-13-2024 End: 08-13-2024 Office outpatient visit 25 minutes Reilly Connell MD Work Phone: [facility] Comment on above: Internal derangement of left knee (Primary Dx) Start: 08-13-2024 End: 08-13-2024 ambulatory REILLY CONNELL [facility]ulatory Start: 08-12-2024 End: 08-12-2024 Emergency department patient visit REILLY CONNELL [facility] Comment on above: Knee effusion, left (Primary Dx); Sprain of left knee, initial encounter Start: 06-20-2024 End: 06-20-2024 ambulatory Nydia Johnson Facility:[facility] Start: 06-11-2024 End: 06-11-2024 ambulatory Nydia Johnson Facility:[facility] Start: 05-30-2024 End: 05-30-2024 ambulatory Reilly Connell Facility:[facility] Start: 03-21-2024 ambulatory Reilly Connell Facilit y:[facility] Start: 08-24-2023 End: 08-24-2023 Office outpatient visit 25 minutes Errol Hernandez MD Work Phone: [facility] Comment on above: Bacterial pneumonia (Primary Dx); Flu-like symptoms; Subacute cough Start: 08-24-2023 End: 08-24-2023 ambulatory ERROL HERNANDEZ [facility] Ambulatory Start: 04-29-2022 ambulatory Rowena Nita Otoole acility:[phone] Start: 04-29-2022 OTRECHEADT, Provider : Charity Sarabia, Status: Pen, Time: 8:45 AM Reilly Connell Work Phone: [facility] Work Phone: Start: 04-29-2022 Patient encounter procedure Reilly Sotomayorcel Work Phone: [facility] Work Phone: Start: 04-28-2022 Patient encounter procedure Reilly Woodall Stencel Work Phone: [facility] Work Phone: Start: 04-28-2022 ambulatory Rowena Nita Neville F acility:[phone] Start: 04-23-2022 ambulatory Rowena Nita Neville F acility:[phone] Start: 04-23-2022 OTFUADULT3, Provider : Aparna Rosales, Status: Pen, Time: 8:30 AM Reilly Sotomayorcel Work Phone: [facility] Work Phone: Start: 04-23-2022 Patient encounter procedure Reilly Woodall Stencel Work Phone: [facility] Work Phone: Start: 04-21-2022 Patient encounter procedure Reilly Woodall Stencel Work Phone: [facility] Work Phone: Start: 04-21-2022 ambulatory Reilly Otoole acility:[phone] Start: 04-16-2022 ambulatory Reilly Otoole acility:[phone] Start: 04-16-2022 OTFUADULT3, Provider : Aparna Rosales, Status: Pen, Time: 9:00 AM Reilly Connell Work Phone: [facility] Work Phone: Start: 04-16-2022 Patient encounter procedure Reilly Sotomayorcel Work Phone: [facility] Work Phone: Start: 04-14-2022 Patient encounter procedure Reilly Sotomayorcel Work Phone: [facility] Work Phone: Start: 04-14-2022 ambulatory Reilly Tosin Otoole acility:[phone] Start: 04-09-2022 ambulatory Reilly Tosin Oto[place] acility:[phone] Start: 04-09-2022 OTFUADULT3, Provider : Aparna Rosales, Status: Pen, Time: 8:45 AM Reilly Sotomayorcel Work Phone: [facility] Work Phone: Start: 04-09-2022 Patient encounter procedure Reilly Connell Work Phone: [facility] Work Phone: Start: 04-07-2022 ambulatory Reilly Tosin Otoole acility:[phone] Start: 04-07-2022 Patient encounter procedure Reilly Connell Work Phone: [facility] Work Phone: Start: 04-02-2022 ambulatory Reilly Tosin O[place] acility:[phone] Start: 04-02-2022 OTFUADULT3, Provider : Aparna Rosales, Status: Pen, Time: 11:15 AM Reilly Talisha Sotomayorcel Work Phone: [facility] Work Phone: Start: 03-31-2022 Patient encounter procedure Reilly Connell Work Phone: [facility] Work Phone: Start: 03-31-2022 ambulatory Reilly Connell F acility:[phone] Start: 02-06-2022 ambulatory Brandi Zoey Otoole acility:[phone] Start: 12-03-2021 Chart Update Reilly Sotomayor johanna Work Phone: [facility] 300 Work Phone: Start: 12-01-2021 Office outpatient vi sit 25 minutes Reilly Connell Work Phone: [facility] 300 Work Phone: Start: 12-01-2021 ambulatory Carli Kumar Faci lity:[phone] Start: 10-15-2021 ambulatory Reilly Connell F acility:[phone] Start: 08-27-2021 Office outpatient vi sit 15 minutes Reilly Connell Work Phone: [facility] 300 Work Phone: Start: 08-27-2021 Patient encounter procedure Reilly Connell Work Phone: [facility] 300 Work Phone: Start: 08-27-2021 ambulatory Reilly Connell F acility:[phone] Start: 08-27-2021 Chart Update Reilly root Work Phone: [facility] 300 Work Phone: Start: 08-24-2021 ambulatory Reilly Torre Fac ility:[phone] Start: 08-04-2021 Patient encounter procedure Reilly Connell Work Phone: [facility] 300 Work Phone: Start: 08-04-2021 ambulatory Reilly Connell F acility:[phone] Start: 07-01-2021 Office outpatient vi sit 15 minutes Reilly Connell Work Phone: [facility] Work Phone: Start: 07-01-2021 ambulatory Reilly Otoole acility:[id number] Start: 06-26-2021 AUDIT Reilly root Work Phone: [facility] Work Phone: Start: 06-25-2021 Chart Update Reilly root Work Phone: [facility] Work Phone: Start: 06-24-2021 ambulatory Reilly Otoole acility:[phone] Start: 06-24-2021 ambulatory Reilly Otoole acility:[phone] Start: 06-24-2021 Office outpatient vi sit 25 minutes Reilly Connell Work Phone: [facility] Work Phone: Start: 06-24-2021 ambulatory Reilly Otoole acility:[id number] Start: 06-23-2021 End: 06-23-2021 Emergency department patient visit ERIE TOSIN [facility] Start: 07-21-2020 End: 07-25-2020 ambulatory [facility] Start: 07-21-2020 End: 07-21-2020 Patient encounter procedure Caroline Sergio Martinwilliamzelalem Work Phone: [facility] Comment on above: S/P right rotator cu ff repair (Primary Dx); Status post arthroscopy of right shoulder Start: 07-02-2020 End: 07-06-2020 ambulatory [facility] Start: 07-02-2020 End: 07-02-2020 Patient encounter procedure Caroline Sergio Bari Work Phone: [facility] Comment on above: S/P right rotator cu ff repair (Primary Dx); Status post arthroscopy of right shoulder Start: 06-03-2020 End: 06-03-2020 Patient encounter procedure Caroline Sergio Martinbret Work Phone: [facility] Comment on above: S/P right rotator cu ff repair (Primary Dx); Status post arthroscopy of right shoulder Start: 05-29-2020 End: 05-29-2020 Patient encounter procedure Caroline Candelaria Work Phone: [facility] Comment on above: S/P right rotator cu ff repair (Primary Dx); Status post arthroscopy of right shoulder Start: 05-27-2020 End: 05-27-2020 Patient encounter procedure Caroline Candelaria Work Phone: [facility] Comment on above: S/P right rotator cu ff repair (Primary Dx); Status post arthroscopy of right shoulder Start: 05-22-2020 End: 05-22-2020 Patient encounter procedure Caroline Candelaria Work Phone: [facility] Comment on above: S/P right rotator cu ff repair (Primary Dx); Status post arthroscopy of right shoulder Start: 05-19-2020 End: 05-19-2020 Patient encounter procedure Caroline Candelaria Work Phone: [facility] Comment on above: S/P right rotator cu ff repair (Primary Dx); Status post arthroscopy of right shoulder Start: 2020 End: 2020 Patient encounter procedure Caroline Candelaria Work Phone: [facility] Comment on above: S/P right rotator cu ff repair (Primary Dx); Status post arthroscopy of right shoulder Start: 05-14-2020 End: 05-14-2020 Patient encounter procedure Caroline Candelaria Work Phone: [facility] Comment on above: S/P right rotator cu ff repair (Primary Dx); Status post arthroscopy of right shoulder Start: 04-23-2020 End: 04-23-2020 Patient encounter procedure Caroline Candelaria Work Phone: [facility] Comment on above: S/P right rotator cu ff repair (Primary Dx); Status post arthroscopy of right shoulder Start: 04-18-2020 End: 04-18-2020 Patient encounter procedure Caroline Candelaria Work Phone: [facility] Comment on above: S/P right rotator cu ff repair (Primary Dx); Status post arthroscopy of right shoulder Start: 04-16-2020 End: 04-16-2020 Patient encounter procedure Caroline Candelaria Work Phone: [facility] Comment on above: S/P right rotator cu ff repair (Primary Dx); Status post arthroscopy of right shoulder Start: 04-11-2020 End: 04-11-2020 Patient encounter procedure Caroline Candelaria Work Phone: [facility] Comment on above: S/P right rotator cu ff repair (Primary Dx); Status post arthroscopy of right shoulder Start: 04-09-2020 End: 04-09-2020 Patient encounter procedure Caroline Candelaria Work Phone: [facility] Comment on above: S/P right rotator cu ff repair (Primary Dx); Status post arthroscopy of right shoulder Start: 04-02-2020 End: 04-02-2020 Patient encounter procedure Caroline Candelaria Work Phone: [facility] Comment on above: S/P right rotator cu ff repair (Primary Dx); Status post arthroscopy of right shoulder Start: 03-31-2020 End: 03-31-2020 Patient encounter procedure Caroline Candelaria Work Phone: [facility] Comment on above: S/P right rotator cu ff repair (Primary Dx); Status post arthroscopy of right shoulder Start: 03-26-2020 End: 03-26-2020 Patient encounter procedure Caroline Candelaria Work Phone: [facility] Comment on above: S/P right rotator cu ff repair (Primary Dx); Status post arthroscopy of right shoulder Start: 03-21-2020 End: 03-21-2020 Patient encounter procedure Caroline Candelaria Work Phone: [facility] Comment on above: S/P right rotator cu ff repair (Primary Dx); Status post arthroscopy of right shoulder Start: 03-19-2020 End: 03-19-2020 Patient encounter procedure Caroline Candelaria Work Phone: [facility] Comment on above: S/P right rotator cu ff repair (Primary Dx); Status post arthroscopy of right shoulder Start: 03-14-2020 End: 03-14-2020 Patient encounter procedure Caroline Candelaria Work Phone: [facility] Comment on above: S/P right rotator cu ff repair (Primary Dx); Status post arthroscopy of right shoulder Start: 03-12-2020 End: 03-12-2020 Patient encounter procedure Caroline Candelaria Work Phone: [facility] Comment on above: S/P right rotator cu ff repair (Primary Dx); Status post arthroscopy of right shoulder Start: 03-07-2020 End: 03-07-2020 Patient encounter procedure Caroline Candelaria Work Phone: [facility] Comment on above: S/P right rotator cu ff repair (Primary Dx); Status post arthroscopy of right shoulder Start: 03-05-2020 End: 03-05-2020 Patient encounter procedure Caroline Candelaria Work Phone: [facility] Comment on above: S/P right rotator cu ff repair (Primary Dx); Status post arthroscopy of right shoulder Start: 02-27-2020 End: 02-27-2020 Patient encounter procedure Caroline Candelaria Work Phone: [facility] Comment on above: S/P right rotator cu ff repair (Primary Dx); Status post arthroscopy of right shoulder Start: 02-25-2020 End: 02-25-2020 Patient encounter procedure Caroline Candelaria Work Phone: [facility] Comment on above: Strain of tendon of right rotator cuff, initial encounter; Arthritis of right shoulder region; Impingement syndrome of right shoulder; Superior glenoid labrum lesion of right shoulder, initial encounter; Status post arthroscopy of right shoulder; S/P right rotator cuff repair Start: 02-06-2020 End: 02-06-2020 Patient encounter procedure CAROLINE CANDELARIA [facility] Start: 02-06-2020 End: 02-06-2020 Subsequent hospital visit by physician Caroline Candelaria Work Phone: [facility] Comment on above: Left shoulder pain, unspecified chronicity (Primary Dx) Start: 02-04-2020 End: 02-04-2020 Patient encounter procedure CAROLINE CANDELARIA [facility] Start: 12-06-2019 End: 12-06-2019 Office consultation new/estab patient 40 min Efren Egan Work Phone: [facility] Comment on above: Impingement syndrome of right shoulder Start: 10-04-2019 End: 10-04-2019 Subsequent hospital visit by physician Efren Egan Work Phone: [facility] Comment on above: Impingement syndrome of right shoulder Start: 09-13-2019 End: 09-17-2019 Patient encounter procedure EFREN EGAN [facility] Start: 01-19-2018 End: 01-20-2018 Ambulatory Reilly Connell Facility:[facility] Start: 04-05-2017 End: 04-06-2017 Ambulatory Ida Howe Facility:[facility] Start: 01-25-2017 End: 01-25-2017 Ambulatory Colin Hennessy Facility:[facility] Date Procedure Procedure Detail Performing Clinician Start: [...] S/P right rotator cuff repair Magaly Wray CHAR[employer]ED FIN[employer]CIAL ANALYST Work Phone: Start: 02-06-2020 SCAN OTHER ORDERS [...] f 2) Zoster Vaccines (1 of 2) [facility] Start: 06-11-2025 Screening for malign ant neoplasm of breast Mammogram [facility] Start: 09-04-2024 End: 09-04-2024 Patient encounter procedure 09/04/2024 2:15 PM EST Office Visit [facility] [address] [place] [address] Magaly Wray, CHAR[employer]ED FIN[employer]CIAL ANALYST [address] [place] [id number] [facility] Start: 08-13-2024 End: 08-13-2025 MR Knee - left WO contrast MR knee left wo IV contrast Imaging Routine Internal derangement of left knee Expected: 08/13/2024, Expires: 08/13/2025 [facility] Service Area Work Phone: Comment on above: Expected: 08/13/2024 , Expires: 08/13/2025 Start: 03-18-2024 COVID-19 Vaccine ( season) COVID-19 Vaccine ( season) [facility] Start: 03-18-2024 Influenza vaccination Influenza Vacc ine (#1) [facility] Start: 08-24-2023 End: 08-24-2024 Influenza virus A and B and SARS-CoV-2 (COVID-19) identified in Respiratory specimen by WILLIE with probe detection [facility] Service Area Work Phone: Comment on above: Expected: 08/24/2023 (Approximate), Expires: 08/24/2024 Start: 03-18-2023 Influenza vaccination Influenza Vacc ine (#1) [facility] Start: 02-06-2023 Screening for malign ant neoplasm of breast Mammogram [facility] Start: 04-29-2022 OTRECHEADT, Provider : Charity Sarabia, Status: Pen, Time: 8:45 AM OTRECHEADT, Provider: Charity Sarabia, Status: Pen, Time: 8:45 AM [facility] Work Phone: Start: 04-28-2022 OTFUADULT3, Provider : Charity Sarabia, Status: Pen, Time: 7:45 AM OTFUADULT3, Provider: Charity Sarabia, Status: Pen, Time: 7:45 AM [facility] Work Phone: Start: 04-23-2022 OTFUADULT3, Provider : Aparna Rosales, Status: Pen, Time: 8:30 AM OTFUADULT3, Provider: Aparna Rosales, Status: Pen, Time: 8:30 AM [facility] Work Phone: Start: 04-21-2022 OTFUADULT3, Provider : Charity Sarabia, Status: Pen, Time: 7:45 AM OTFUADULT3, Provider: Charity Sarabia, Status: Pen, Time: 7:45 AM [facility] Work Phone: Start: 04-16-2022 OTFUADULT3, Provider : Aparna Rosales, Status: Pen, Time: 9:00 AM OTFUADULT3, Provider: Aparna Rosales, Status: Pen, Time: 9:00 AM [facility] Work Phone: Start: 04-14-2022 OTFUADULT3, Provider : Charity Sarabia, Status: Pen, Time: 7:45 AM OTFUADULT3, Provider: Charity Sarabia, Status: Pen, Time: 7:45 AM [facility] Work Phone: Start: 04-09-2022 OTFUADULT3, Provider : Aparna Rosales, Status: Pen, Time: 8:45 AM OTFUADULT3, Provider: Aparna Rosales, Status: Pen, Time: 8:45 AM [facility] Work Phone: Start: 04-07-2022 OTFUADULT3, Provider : Aparna Rosales, Status: Pen, Time: 10:15 AM OTFUADULT3, Provider: Aparna Rosales, Status: Pen, Time: 10:15 AM [facility] Work Phone: Start: 12-29-2021 FUV, Provider: Carli Kumar, Status: Pen, Time: 3:00 PM FUV, Provider: Carli Kumar, Status: Pen, Time: 3:00 PM [facility] [address] Work Phone: Start: 10-01-2021 FUV, Provider: Reilly Torre, Status: Pen, Time: 3:00 PM FUV, Provider: Reilly Torre, Status: Pen, Time: 3:00 PM [facility] [address] Work Phone: Start: 08-04-2021 NPV, Provider: Reilly Torre, Status: Pen, Time: 3:00 PM NPV, Provider: Reilly Torre, Status: Pen, Time: 3:[address] [facility] Work Phone: Start: 07-16-2020 End: 07-16-2020 Treatment 07/16/2020 Treatment Rehabilitation Caroline Candelaria, DO [address] [place] [address] [phone] Tra Gastelum PTA [facility] Start: 07-14-2020 End: 07-14-2020 Treatment 07/14/2020 Treatment Rehabilitation Caroline Candelaria, DO [address] [place] [address] [phone] Tra Gastelum PTA [facility] Start: 07-09-2020 End: 07-09-2020 Treatment 07/09/2020 Treatment Rehabilitation Caroline Candelaria, DO [address] [place] [address] [phone] Tra Gastelum [facility] Start: 07-07-2020 End: 07-07-2020 Treatment 07/07/2020 Treatment Rehabilitation Caroline Candelaria, DO [address] [place] [address] [phone] Emelia Trejo [facility] Start: 07-04-2020 End: 07-04-2020 Treatment 07/04/2020 Treatment Rehabilitation Caroline Candelaria, DO [address] [place] [address] [phone] Emelia Trejo [facility] Start: 06-10-2020 End: 06-10-2020 Treatment 06/10/2020 Treatment Rehabilitation Caroline Candelaria, DO [address] [place] [address] [phone] Koko Fonseca, [facility] Start: 06-05-2020 End: 06-05-2020 Treatment 06/05/2020 Treatment Rehabilitation Caroline Candelaria, DO [address] [place] [address] [phone] Tra Gastelum [facility] Start: 06-03-2020 End: 06-03-2020 Treatment 06/03/2020 Treatment Rehabilitation Caroline Candelaria, DO [address] [place] [address] [phone] Emelia Trejo [facility] Start: 05-29-2020 End: 05-29-2020 Treatment 05/29/2020 Treatment Rehabilitation Caroline Candelaria, DO [address] [place] [address] Tra Gastelum PTA [facility] Start: 05-27-2020 End: 05-27-2020 Treatment 05/27/2020 Treatment Rehabilitation Caroline Candelaria, DO [address] [place] [address] Emelia Trejo [facility] Start: 05-22-2020 End: 05-22-2020 Treatment 05/22/2020 Treatment Rehabilitation Caroline Candelaria, DO [address] [place] [address] Tra Gastelum PTA [facility] Start: 05-19-2020 End: 05-19-2020 Treatment 05/19/2020 Treatment Rehabilitation Caroline Candelaria, DO [address] [place] [address] Tra Gastelum PTA [facility] Start: 05-19-2020 End: 05-19-2020 Treatment [facility] Start: 2020 End: 2020 Treatment [facility] Start: 05-14-2020 End: 05-14-2020 Treatment [facility] Start: 05-12-2020 End: 05-12-2020 Treatment [facility] Start: 05-09-2020 End: 05-09-2020 Treatment [facility] Start: 05-07-2020 End: 05-07-2020 Treatment [facility] Start: 05-05-2020 End: 05-05-2020 Treatment [facility] Start: 05-02-2020 End: 05-02-2020 Treatment [facility] Start: 04-30-2020 End: 04-30-2020 Treatment [facility] Start: 04-28-2020 End: 04-28-2020 Treatment [facility] Start: 04-25-2020 End: 04-25-2020 Treatment [facility] Start: 04-23-2020 End: 04-23-2020 Treatment [facility] Start: 04-21-2020 End: 04-21-2020 Treatment [facility] Start: 04-18-2020 End: 04-18-2020 Treatment [facility] Start: 04-16-2020 End: 04-16-2020 Treatment [facility] Start: 04-14-2020 End: 04-14-2020 Treatment [facility] Start: 04-11-2020 End: 04-11-2020 Treatment [facility] Start: 04-09-2020 End: 04-09-2020 Treatment 04/09/2020 Treatment Rehabilitation Tra Gastelum PTA [facility] Start: 04-02-2020 End: 04-02-2020 Treatment 04/02/2020 Treatment Rehabilitation Caroline Candelaria, DO [address] [place] [address] Emelia Trejo [facility] Start: 03-31-2020 End: 03-31-2020 Treatment 03/31/2020 Treatment Rehabilitation Caroline Candelaria, DO [address] [place] [address] [phone] Koko Fonseca, PT [facility] Start: 03-28-2020 End: 03-28-2020 Treatment 03/28/2020 Treatment Rehabilitation Caroline Candelaria, DO [address] [place] [address] Myriam Quinones GREY INSPECTOR [facility] Start: 03-26-2020 End: 03-26-2020 Treatment 03/26/2020 Treatment Rehabilitation Caroline Candelaria, DO [address] [place] [address] Emelia Trejo [facility] Start: 03-21-2020 End: 03-21-2020 Treatment 03/21/2020 Treatment Rehabilitation Caroline Candelaria, DO [address] [place] [address] [phone] Myriam Quinones [facility] Start: 03-19-2020 End: 03-19-2020 Treatment 03/19/2020 Treatment Rehabilitation Caroline Candelaria, DO [address] [place] [address] [facility] Start: 03-18-2020 Influenza vaccinatio n given [facility] Start: 03-17-2020 End: 03-17-2020 Treatment 03/17/2020 Treatment Rehabilitation Caroline Candelaria, DO [address] [place] [address] Tra Gastelum [facility] Start: 03-14-2020 End: 03-14-2020 Treatment 03/14/2020 Treatment Rehabilitation Caroline Candelaria, DO [address] [place] [address] [phone] Emelia Trejo [facility] Start: 03-12-2020 End: 03-12-2020 Treatment [facility] Start: 03-07-2020 End: 03-07-2020 Treatment 03/07/2020 Treatment Rehabilitation Caroline Candelaria, DO [address] [place] [address] Emelia Trejo [facility] Start: 03-05-2020 End: 03-05-2020 Treatment 03/05/2020 Treatment Rehabilitation Caroline Candelaria, DO [address] [place] [address] Emelia Trejo [facility] Start: 02-29-2020 End: 02-29-2020 Treatment 02/29/2020 Treatment Rehabilitation Caroline Candelaria, DO [address] [place] [address] Emelia Trejo [facility] Start: 02-27-2020 End: 02-27-2020 Treatment 02/27/2020 Treatment Rehabilitation Caroline Candelaria, [address] [facility] [address] [place] [address] [phone] Tra Gastelum PTA [facility] Start: 03-18-2019 Influenza vaccinatio n given Sequential Influenza Vaccine (#1) [facility] Start: 2007 Screening for malign ant neoplasm of cervix [facility] Start: 1999 DTaP/Tdap/Td Vaccine s (1 - Tdap) DTaP/Tdap/Td Vaccines (1 - Tdap) [facility] Start: 1998 Screening for malign ant neoplasm of cervix [facility] Start: 1996 Hepatitis B Vaccines (1 of 3 - 19+ 3-dose series) Hepatitis B Vaccines (1 of 3 - 19+ 3-dose series) [facility] Start: 1995 Hepatitis C antibody , confirmatory test Hepatitis C Screening [facility] Start: 1995 Hepatitis C screening Hepatitis C [facility] Start: 1992 HIV screening HIV Screening [facility] Start: 1989 Adolescent depressio n screening assessment Depression Screening (PHQ9) [facility] Start: 1989 Depression screening using PHQ-9 (Patient Health Questionnaire 9) score Depression Screening/Follow-Up (PHQ-2/9) [facility] Start: 1980 History and physical examination, annual for health maintenance Wellness Visit [facility] Start: 1978 MMR Vaccines (1 of 1 - Standard series) MMR Vaccines (1 of 1 - Standard series) [facility] Start: 1977 COVID-19 Vaccine (#1) COVID-19 Vacci ne (#1) [facility] Start: 1977 Depression screening using PHQ-9 (Patient Health Questionnaire 9) score Depression Screening (PHQ9) [facility] Start: 1977 Hepatitis B Vaccines (1 of 3 - 3-dose series) Hepatitis B Vaccines (1 of 3 - 3-dose series) [facility] Start: 1977 HIV screening HIV Screening [facility] Start: 1977 Lipid [address] Lipid Panel [facility] Start: 1977 Screening for malign ant neoplasm of cervix Pap Smear [facility] Start: 1977 Screening for malign ant neoplasm of colon [facility] Start: 1977 Screening mammography [facility] Start: 1977 Tetanus vaccination Tetanus: Every 1 0yrs [facility] Start: 1977 Yearly Adult Physical Yearly Adult P hysical [facility] End: 08-15-2024 MR Knee - left WO contrast [facility] Service Area Work Phone: Comment on above: Once for 1 Occurrenc es starting 08/15/2024 until 08/15/2024 Payers Date Payer Category Payer Self-pay 2022 Blue Cross Feliberto Bahe ld (Indemnity or Managed Care) - Out of State BCBS OUT OF STATE [facility] Member Subscriber Plan / Payer (Effective 2022-Present) Name: Roula Wadsworth Relation to Subscriber: Self Name: Roula Wadsworth Payer ID: [id number] (NAIC) Type: Not on file Address: [address] [place] [id number] 2022 Feliberto castillo Managed Care [facility] Member Subscriber Plan / Payer (Effective 2022-Present) Name: Roula Wadsworth Relation to Subscriber: Self Name: Roula Wadsworth Payer ID: [id number] (NAIC) Type: Not on file Address: [address] [place] 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 2019 Worker's Compensation [id number] 2016 Unknown 2015 Unknown ANTHEM ANTHEM BLUE/PREF/HMO/PPO xxxxxxxxxxxx 2015-Present [id number] 2015 Unknown ANTHEM ANTHEM BLUE/PREF/HMO/PPO [id number] 2015-Present [id number] 2015 Blue Cross Blue Shield GRDAN [id number] 1977 Unknown [id number] 2.16.840.1.251981.3.579. 2.903 1977 Unknown [id number] 2.16.840.1.234961.3.579. 2.902 1977 Unknown [id number] 2.16.840.1.825630.3.579. 2.902 1977 Unknown [id number] 2.16.840.1.474068.3.579. 2.903 1977 Unknown [id number] 2.16.840.1.867241.3.579. 2.903 1977 Unknown [id number] 2.16.840.1.217379.3.579. 2.903 1977 Unknown [id number] 2.16.840.1.118438.3.579. 2.356 1977 Unknown [id number] 2.16.840.1.693532.3.579. 2.356 1977 Unknown [id number] 2.16.840.1.934167.3.579. 2.356 1977 Unknown [id number] 2.16.840.1.939676.3.579. 2. 1977 Unknown [id number] 2.16.840.1.124355.3.579. 2. 1977 Unknown [id number] 2.16.840.1.476629.3.579. 2. 1977 Unknown [id number] 2.16.840.1.357016.3.579. 2.1068 1977 Unknown [id number] 2.16.840.1.103617.3.579. 2.1068 1977 Unknown [id number] 2.16.840.1.156379.3.579. 2.1068 1977 Unknown [id number] 2.16.840.1.137163.3.579. 2.1068 1977 Unknown [id number] 2.16.840.1.168673.3.579. 2.1068 1977 Unknown [id number] 2.16.840.1.475914.3.579. 2.1068 1977 Unknown [id number] 2.16.840.1.481871.3.579. 2.1068 1977 Unknown [id number] 2.16.840.1.704998.3.579. 2.1068 1977 Unknown [id number] 2.16.840.1.769470.3.579. 2.1068 1977 Unknown [id number] 2.16.840.1.812757.3.579. 2.1068 1977 Unknown [id number] 2.16.840.1.828587.3.579. 2.1068 1977 Unknown [id number] 2.16.840.1.410734.3.579. 2.1068 1977 Unknown [id number] 2.16.840.1.227964.3.579. 2.1068 1977 Unknown [id number] 2.16.840.1.863304.3.579. 2.1069 1977 Unknown [id number] 2.16.840.1.117667.3.579. 2.1069 1977 Unknown [id number] 2.16.840.1.672780.3.579. 2.1244 1977 Unknown [id number] 2.16.840.1.518382.3.579. 2.1244 1977 Unknown [id number] 2.16.840.1.692825.3.579. 2.1243 1977 Unknown [id number] 2.16.840.1.908189.3.579. 2.1243 1977 Unknown [id number] 2.16.840.1.089805.3.579. 2.900 1977 Unknown [id number] 2.16.840.1.536737.3.579. 2.900 1977 Unknown [id number] 2.16.840.1.044771.3.579. 2.903 1977 Unknown [id number] 2.16.840.1.463821.3.579. 2.903 1977 Unknown [id number] 2.16.840.1.877370.3.579. 2.903 1977 Unknown [id number] 2.16.840.1.731234.3.579. 2.903 Unknown [id number] Unknown [id number] Unknown [id number] Unknown [id number] Unknown [id number] Worker's Compensation WORKER'S C [employer] [facility] SELF INSURED EMPLOYER* xxxxxxxxx Effective for all dates xxxxxxxxx [id number] Social History Date Type Detail Facility Start: 02-09-2017 End: 12-06-2019 Tobacco smoking status NHIS Never smoker [facility] Start: 02-09-2017 Alcohol intake Current non-dr hot man of alcohol (finding) [facility] Start: 1975 Sex Assigned At Not on file [facility] Start: 12-06-2019 End: 09-06-2024 Alcohol intake Current drinker of alcohol (finding) [facility] Start: 08-14-2023 End: 08-15-2024 Exposure to SARS-CoV-2 (event) Not sure [facility] Start: 02-04-2020 Alcohol Comment 1-2 drinks each week [facility] Start: 12-06-2019 End: 02-25-2020 Tobacco use and exposure Never used [facility] Start: 08-24-2023 End: 09-06-2024 Non-smoker Non-smoker [facility] Work Phone: Start: 08-24-2023 Alcohol Comment occasionally [facility] Work Phone: Start: 08-24-2023 End: 09-06-2024 Gender identity Not on file [facility] Work Phone: Start: 10-01-2019 Gender identity Identifies as female gender (finding) [facility] Start: 10-01-2019 Sexual orientation Heterosexual (fin ding) [facility] NEGATED: Highlighted rowStart: NINF History of tobacco use Passive smoker [facility] Work Phone: Medical Equipment Procedure Code Equipment Code Equipment Origin al Text Equipment Identifier Dates Kenvir 4.75 X 19 .1mm Suture Vented Biocomp Swivelock C - [id number] FDA Start: 02-06-2020 Kenvir 5.5mm Sut ure Biocomp Corkscrew Ft W/ Suture Tape - [id number] [facility] Start: 02-06-2020 Screw 7 X 23mm Biocomposite Tenodesis - [id number] [facility] Start: [...] with Magaly ORTIZ. documented in this encounter [facility] 09-04-2024 Note [address] [address] [facility] [address] [facility] [address] Chief Complaint Patient presents with Left Knee [...] SUBACROMIAL DECOMPRESSION; Surgeon: Caroline Candelaria DO; Location: [facility] Main OR; Service: Orthopedic ECTOPIC SURGERY [...] the office for follow-up. AUTHENTICATED BY MAGALY WARY, ON 09/06/2024 18:15:56 [facility] 09-04-2024 History of Present illness Narrative [facility] [address] [facility] [address] [facility] [address] Chief Complaint Patient presents with Left Knee [...] SUBACROMIAL DECOMPRESSION; Surgeon: Caroline Candelaria DO; Location: [facility] OR; Service: Orthopedic ECTOPIC SURGERY x 2 [...] office for follow-up. documented in this encounter [facility] 08-23-2024 Note Roula Wadsworth 1975 CC: 49 y.o. is a she with left knee pain. Chief Complaint Patient presents with Left Knee - Pain . HPI: Knee Pain: Patient presents to the office today with complaints of left knee pain. About a week ago she was at home, having a dance alliance party with her kids. When she awoke the [...] SUBACROMIAL DECOMPRESSION; Surgeon: Caroline Candelaria DO; Location: [facility] Main OR; Service: Orthopedic ECTOPIC SURGERY [...] for follow-up. Diagnosis: (more content not included)... [facility] 08-23-2024 History of Present illness Narrative Roula Wadsworth 1975 CC: 49 y.o. is a she with left knee pain. Chief Complaint Patient presents with Left Knee - Pain . HPI: Knee Pain: Patient presents to the office today with complaints of left knee pain. About a week ago she was at home, having a dance alliance party with her kids. When she awoke the [...] SUBACROMIAL DECOMPRESSION; Surgeon: Caroline Candelaria DO; Location: [facility] Main OR; Service: Orthopedic ECTOPIC SURGERY [...] Magaly Wray CNP documented in this encounter [facility] 08-13-2024 History of Present illness Narrative Subjective Patient ID: Roula Wadsworth is a 49 y.o. female who presents for Follow-up (ER 08/12/24, L knee). HPI patient had a dance alliance party with teenager children Tuesday night in her home. Tuesday morning she had difficulty getting out of bed because of left knee pain. There was no known injury, this is not happened previously. Though record shows in August 2021 MRI which was reviewed is normal Ultimately in er yeterday for knee given ibu 600. Was referred to [facility] orthopedics out of the emergency room [...] provided. Continue ibuprofen. documented in this encounter [facility] Work Phone: 08-12-2024 Hospital Discharge instructions Errol Estrada PA-C - 08/12/2024 11:48 AM EST Ice elevate and rest. Use the Florencio bandage as needed. May use your cane or walker that you have at home as needed as well. Follow-up with your web specialist or the 1 listed on your discharge papers in the next week. documented in this encounter [facility] Work Phone: 08-12-2024 Emergency department Note HPI Chief Complaint Patient presents with Knee Pain Patient complains of left knee pain since Tuesday, states she was out dancing with friends Tuesday night, no known injury Patient presents with complaint of left knee pain. Denies any fall or injury. States she was having a dance alliance party at home. Again she denies any injury [...] Head: Normocephalic. Nose: Nose normal. Mouth/Throat: Lips: [place]. No lesions. Eyes: Conjunctiva/sclera: Conjunctivae normal. Cardiovascular: [...] injury. States she was having a dance alliance party at home. Again she denies any injury [...] PA-C 08/12/24 [address] encounter [facility] Work Phone: 08-12-2024 Physician Emergency department Note HPI Chief Complaint Patient presents with Knee Pain Patient complains of left knee pain since Tuesday, states she was out dancing with friends Tuesday night, no known injury Patient presents with complaint of left knee pain. Denies any fall or injury. States she was having a dance alliance party at home. Again she denies any injury [...] Head: Normocephalic. Nose: Nose normal. Mouth/Throat: Lips: [place]. No lesions. Eyes: Conjunctiva/sclera: Conjunctivae normal. Cardiovascular: [...] injury. States she was having a dance alliance party at home. Again she denies any injury [...] Procedure Procedures Errol Estrada PA-C 08/12/[address] [facility] Work Phone: 08-24-2023 History of Present [...] Errol Hernandez MD documented in this encounter [facility] Work Phone: 08-24-2023 Instructions Errol Hernandez MD - 08/24/2023 3:20 PM EST Start Augmentin today Start tessalon pearles as needed now, okay to also use honey on a spoon for coughing. Start albuterol inhaler for coughing if its affordable. If you are still having fevers on Tuesday please call the office and let us know. documented in this encounter [facility] Work Phone: 08-18-2021 History of Present [...] brace which seemed to make it worse. -[facility] Work Phone: 06-22-2021 History of Present illness Narrative hurt in calf tuesday and radiate ant to thigh and groin, had covid , jun 10 [address] from [facility].had d dimer [place]ray kneeat [place] no result availablesherry okeefe [facility] Work Phone: 05-18-2021 History of Present illness Narrative Patient is a pleasant 46-year-old female presenting today for left lower extremity pain. 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 She has pain with palpation and with bending her wrist. 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 Her symptoms began approximately 2 weeks ago and states the elbow has continued to swell. She is opposed to trying an injection today, but would like to try a prescription of Meloxicam and will monitor her symptoms. -[facility] Work Phone: Evaluation note Diagnosis Bacterial pneumonia- Primary Unspecified bacterial pneumonia Flu-like symptoms Subacute cough documented in this encounter [facility] Work Phone: Evaluation note* Diagnosis Knee effusion, left- Primary Effusion of lower leg joint Sprain of left knee, initial encounter documented in this encounter [facility] Work Phone: Evaluation note* Diagnosis Internal derangement of left knee- Primary documented in this encounter [facility] Work Phone: Evaluation note* Diagnosis Internal derangement of left knee documented in this encounter [facility] Work Phone: Evaluation note* Diagnosis Sprain [...] reviewed the x-raysof hip and knee from [place] as well as the hip x-ray here. [...] will force an appointment earlier.[facility] Work Phone: History of Present illness [...] any more hip symptoms or low back symptoms.-[facility] Work Phone: History of Present illness Narrative* [...] safe return to full job duties. [facility] Work Phone: History of Present illness Narrative* 0/10 pain reported throughout session, Patient stating she feels like she got a workout but feels really good. Patient did c/o fatigue 1x w/ IR/ER w/ ball. * Patient was able to complete today's treatment with some difficulty. [facility] Work Phone: History of Present illness Narrative* [...] complete today's treatment with some difficulty. [facility] Work Phone: History of Present illness Narrative* Pt reporting sup/pro AAROM over ball feels good on her elbow. Pt demos good toleration of all activities this date, reporting fatigue following body blade. * Patient was able to complete today's treatment with some difficulty. [facility] Work Phone: History of Present illness Narrative* Patient tolerating activities well, no pain reported throughout session this date. * Patient was able to complete today's treatment with some difficulty. [facility] Work Phone: History of Present illness Narrative* Attempting to increase resistance from 15lb to 20lbs with SHR, pt unable to complete reps with 20lbs. Pt demos ability to complete all exercises without difficulty aside from RD/UD. Pt reporting mildfatigue at end of session, no pain. * Patient was able to complete today's treatment with some difficulty. [facility] Work Phone: History of Present illness Narrative* [...] to complete today's treatment with some difficulty. [facility] Work Phone: History of Present illness Narrative* Pt reporting no increase in pain this date. Pt does report fatigue d/t lack of rest breaks to simulate continuous work tasks. Pt also tolerating increase in resistance well this date. * Patient was able to complete today's treatment with some difficulty. [facility] Work Phone: History of Present illness Narrative* [...] to complete today's treatment with some difficulty. [facility] Work Phone: Reason for visit Narrative* Imaging (Routine) - Authorized Specialty Diagnoses / Procedures Referred By Karson t Referred To Contact Radiology Diagnoses Internal derangement of left knee Procedures MR knee left wo IV contrast Reilly Connell MD [address] [address] Phone: tel: fax: Referral ID Status Reason Start Date Expiration Date Visits Requested Visits Authorized [id number] Authorized Perform Procedure 08/13/2024 08/13/[address] 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 Advance Directives and Livin g Will 10/04/2019 12:17 PM Documents on File Type Date Recorded Patient Sole Seamer Expl anation Advance Directives and Livin g Will 02/06/2020 12:00 AM Reason for Referral Status Reason Specialty Diagnoses / Procedures Referre d By Contact Referred To Contact Closed Radiology Diagnoses Impingement syndrome of right shoulder Procedures MR Shoulder Right Without Contrast Efren Egan DO [address] [place] [address] Assessments Diagnosis Impingement syndrome of right shoulder [...] on: 12/06/2019 1:43 PM by: COLIN HENNESSY [[id number]] documented in this encounter* Myriam Cintron RN - 02/06/2020 1:41 PM EDT Discharge reviewed with patient and family, verbalize understanding. 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 CPT Code 60592 Low 21572 Moderate 02480 High History 0 1-2 3+ Comorbidities: heart [...] result in the following functional limitations: ADLs/IADLs, sales support advisor, recreational activities, quality of life, performance of [...] pain control. Koko Fonseca PT State License, [id number] documented in this encounter* Tra Gastelum, GREY INSPECTOR - 02/27/2020 10:45 AM EDT [facility] DAILY TREATMENT NOTE Today's Date [...] coming in today Objective Ended sesison with [facility], instructed pt on importance of cryotherapy and pain meds to control soreness post treatment Treatments: Physical Therapy Exercise Log - 02/27/20 1031 OTHER Precautions/Contraindications Surgery 02/06/20 - protocol on desk Notes Visit 2: Vitals add isometrics around 03/12 and standing TIY and resisted biceps/triceps around 03/19 Therapeutic Exercise (35939) Intervention Eval only - provided written HEP [...] controlling pain Tra Gastelum PTA STATE LICENSE, [id number] documented in this encounter* Emelia Trejo PTA - 03/05/2020 10:00 AM EDT [facility] DAILY TREATMENT NOTE Today's Date [...] and resisted biceps/triceps around 03/19 Therapeutic Exercise (53659) Intervention Eval only - provided written HEP [...] per protocol Emelia Trejo PTA STATE LICENSE, [id number] documented in this encounter* Emelia Trejo PTA - 03/07/2020 11:30 AM EDT [facility] DAILY TREATMENT NOTE Today's Date [...] and resisted biceps/triceps around 03/19 Therapeutic Exercise (65495) Intervention Eval only - provided written HEP [...] and ROM Emelia Trejo PTA STATE LICENSE, [id number] documented in this encounter* Tra Gastelum PTA - 03/12/2020 11:30 AM EDT [facility] DAILY TREATMENT NOTE Today's Date [...] - protocol on desk Notes visit 5: 9676-1216 Vitals add isometrics around 03/12 and standing TIY and resisted biceps/triceps around 03/19 Therapeutic Exercise (96540) Intervention Eval only - provided written HEP [...] as tolerated Tra Gastelum PTA STATE LICENSE, [id number] documented in this encounter* Emelia Trejo PTA - 03/14/2020 10:45 AM EDT [facility] DAILY TREATMENT NOTE Today's Date [...] - protocol on desk Notes visit 6: 10:44874:22 Vitals add isometrics around 03/12 and standing TIY and resisted biceps/triceps around 03/19 Therapeutic Exercise (98682) Intervention Eval only - provided written HEP hanouts consisting of pendulums, shrugs and scap retractions Parameters Pendulums x10 Intervention shrugs 5''x10 Parameters Scap retraction in supine 5''x10 Intervention Seated ER stretch 10''x10 Parameters standing bent over scap retraction x10 Intervention STM ant delt and lat delt x4min each and R UT Parameters UT stretch x2min Intervention Isometrics in supine 5''x5 Manual Therapy (51261) Intervention STM/cupping 8' PT Treatment Times Therex [...] pain control Emelia Trejo PTA STATE LICENSE, [id number] documented in this encounter* Emelia Trejo, GREY INSPECTOR - 03/19/2020 10:45 AM EDT [facility] DAILY TREATMENT NOTE Today's Date [...] and resisted biceps/triceps around 03/19 Therapeutic Exercise (28775) Intervention Eval only - provided written HEP hanouts consisting of pendulums, shrugs and scap retractions Parameters Pendulums x10 Intervention shrugs 5''x10 Parameters Scap retraction in supine 5''x10 Intervention Seated ER stretch 10''x10 Parameters standing bent over scap retraction x10 Intervention STM ant delt and lat delt x4min each and R UT Parameters UT stretch x2min Intervention Isometrics in supine 5''x5 Manual Therapy (85598) Intervention STM 8' and desensitization along incision [...] on ROM Emelia Trejo PTA STATE LICENSE, [id number] documented in this encounter* Emelia Trejo PTA - 03/21/2020 10:45 AM EDT [facility] DAILY TREATMENT NOTE Today's Date [...] and resisted biceps/triceps around 9/ Therapeutic Exercise (52283) Parameters Pendulums x10 Intervention shrugs 5''x10 Parameters Scap retraction in supine 5''x10 Intervention Seated ER stretch 10''x10 Parameters standing bent over scap retraction x10 Intervention STM ant delt and lat delt x4min each and R UT Parameters UT stretch x2min Intervention Isometrics in supine 5''x5 Manual Therapy (95380) Intervention STM 8' and desensitization along incision [...] on ROM Emelia Trejo PTA STATE LICENSE, [id number] documented in this encounter* Koko Fonseca, PT - 03/26/2020 10:45 AM EDT [facility] DAILY TREATMENT NOTE Today's Date [...] 10:46 - 11:34 Vitals -- Therapeutic Exercise (10189) Intervention Pulleys x 3 mins Parameters PROM x10 mins Intervention Cane AAROM (flex, abd and ER) x10 Parameters Doorway ER and pec stretches 5x20 Intervention Resisted biceps/triceps YTT x10 each Parameters standing bent over scap retraction x10 NT Intervention -- Parameters -- Intervention -- Manual Therapy (75106) Intervention -- PT Treatment Times Therex Total [...] on ROM Koko Fonseca PT State License, [id number] documented in this encounter* BrojigarEmelia, GREY INSPECTOR - 04/02/2020 10:45 AM EDT [facility] DAILY TREATMENT NOTE Today's Date [...] Visit 11: 10:45 - 11:30 Therapeutic Exercise (08475) Intervention Pulleys x 3 mins Parameters PROM x10 mins Intervention Cane AAROM (flex, abd and ER) x10 Intervention prone row/ext x10 each Parameters side lying ER x10 Manual Therapy (63124) Intervention STM along bicep tendon and AC [...] on ROM Emelia Trejo PTA STATE LICENSE, [id number] documented in this encounter* Tra Gastelum PTA - 04/16/2020 10:45 AM EDT [facility] DAILY TREATMENT NOTE Today's Date [...] - protocol on desk Notes visit 14: 0467-2290 Therapeutic Exercise (64136) Intervention Pulleys x 3 mins Parameters PROM [...] x1 Parameters Standing flexion x10 Manual Therapy (99883) Intervention STM along bicep tendon and AC [...] as tolerated Tra Gastelum PTA STATE LICENSE, [id number] documented in this encounter* BrojigarTavoneeELLIOT - 04/23/2020 10:45 AM EDT [facility] DAILY TREATMENT NOTE Today's Date [...] desk Notes visit 16: 10:35-11:15 Therapeutic Exercise (18849) Intervention Pulleys x 3 mins Parameters PROM [...] UEB 8' fwd/back alternating 2' Manual Therapy (84815) Intervention STM along bicep tendon and AC [...] pain control Emelia Trejo PTA STATE LICENSE, [id number] documented in this encounter* Emelia Trejo PTA - 05/14/2020 10:45 AM EDT [facility] DAILY TREATMENT NOTE Today's Date [...] desk Notes visit 18: 10:42-11:15 Therapeutic Exercise (52773) Intervention Pulleys x 3 mins, Flexion, abduction, [...] UEB 8' fwd/back alternating 2' Manual Therapy (53038) Intervention GH joint mobs - Grade III, [...] and strength Emelia Trejo PTA STATE LICENSE, [id number] documented in this encounter* Emelia Trejo PTA - 2020 10:45 AM EDT [facility] DAILY TREATMENT NOTE Today's Date [...] desk Notes visit 19: 10:40-11:20 Therapeutic Exercise (24835) Intervention Pulleys x 3 mins, Flexion, abduction, [...] and strengthening Emelia Trejo PTA STATE LICENSE, [id number] documented in this encounter* Tra Gastelum PTA - 05/19/2020 1:45 PM EST [facility] DAILY TREATMENT NOTE Today's Date [...] - protocol on desk Notes visit 20: 4632-6282 Therapeutic Exercise (64211) Intervention Pulleys x 3 mins, Flexion, abduction, [...] as tolerated Tra Gastelum PTA STATE LICENSE, [id number] documented in this encounter* Tra Gastelum PTA - 05/22/2020 11:30 AM EST [facility] DAILY TREATMENT NOTE Today's Date [...] - protocol on desk Notes visit 21: 8237-3285 Therapeutic Exercise (56273) Intervention Pulleys x 3 mins, Flexion, abduction, [...] as tolerated Tra Gastelum PTA STATE LICENSE, [id number] documented in this encounter* Tra Gastelum PTA - 05/27/2020 10:45 AM EST [facility] DAILY TREATMENT NOTE Today's Date [...] desk Notes visit 22: 1033- Therapeutic Exercise (64379) Intervention Pulleys x 3 mins, Flexion, abduction, [...] as tolerated Tra Gastelum PTA STATE LICENSE, [id number] documented in this encounter* Tra Gastelum PTA - 05/29/2020 10:45 AM EST [facility] DAILY TREATMENT NOTE Today's Date [...] - protocol on desk Notes visit 23: 6065-4098 Therapeutic Exercise (03039) Intervention -- Intervention -- Parameters Bosu ABC's [...] side/vertical Intervention Standing tband abc's and circles [place] tube x1 x20 each Parameters Lateral raises [...] as tolerated Tra Gastelum PTA STATE LICENSE, [id number] documented in this encounter* Emelia Trejo, GREY INSPECTOR - 06/03/2020 10:45 AM EST [facility] DAILY TREATMENT NOTE Today's Date [...] desk Notes visit 26: 10:40-11:25 Therapeutic Exercise (95467) Parameters Bosu ABC's on plinth x1 Intervention [...] side/vertical Intervention Standing tband abc's and circles [place] tube x1 x20 each Parameters Lateral raises [...] and ROM Emelia Trejo PTA STATE LICENSE, [id number] documented in this encounter* Emelia Trejo PTA - 07/02/2020 10:45 AM EST [facility] DAILY TREATMENT NOTE Today's Date [...] desk Notes visit 28: 10:40-11:20 Therapeutic Exercise (43674) Intervention UEB 10' fwd/back alternating 2' held [...] NT Intervention Standing tband abc's and circles [place] tube x1 x20 each NT Parameters Lateral raises orange tube 2x10 NT Intervention wall dribble 5x30'' NT Manual Therapy (18377) Intervention STM to posterior deltoid and triceps [...] with IR Emelia Trejo PTA STATE LICENSE, [id number] documented in this encounter* Tra Gastelum, GREY INSPECTOR - 07/21/2020 10:45 AM EST [facility] DAILY TREATMENT NOTE Today's Date [...] - protocol on desk Notes visit 29 6820-2790 Therapeutic Exercise (89681) Intervention -- Parameters Horz Abd and Triceps [...] -- Parameters -- Intervention -- Manual Therapy (62894) Intervention STM to posterior deltoid and triceps [...] as tolerated Tra Gastelum PTA STATE LICENSE, [id number] documented in this encounter* Tra Gastelum PTA - 04/09/2020 10:45 AM EDT [facility] DAILY TREATMENT NOTE Today's Date [...] - protocol on desk Notes Visit 12: 4418-0434 Therapeutic Exercise (64661) Intervention Pulleys x 3 mins Parameters PROM x10 mins Intervention Cane AAROM (flex, abd and ER) x10 Parameters Standing tricep pushdown, row GTB x20 each Intervention prone row/ext x10 each Parameters side lying ER x10 Intervention prone banded flexion stretch 5'' extension then relax x8 min Parameters [place] sink flexion stretch Manual Therapy (80366) Intervention STM along bicep tendon and AC [...] as tolerated Tra Gastelum PTA STATE LICENSE, [id number] documented in this encounter* Emelia Trejo PTA - 04/11/2020 10:45 AM EDT [facility] DAILY TREATMENT NOTE Today's Date [...] desk Notes visit 13: 10:45-11:20 Therapeutic Exercise (44685) Intervention Pulleys x 3 mins Parameters PROM x10 mins Intervention Cane AAROM (flex, abd and ER) x10 Parameters Standing tricep pushdown, row GTB x20 each Intervention prone row/ext x10 each Parameters side lying ER x10 Intervention prone banded flexion stretch 5'' extension then relax x8 min Parameters [place] sink flexion stretch Manual Therapy (39723) Intervention STM along bicep tendon and AC [...] on ROM Emelia Trejo PTA STATE LICENSE, [id number] documented in this encounter* Emelia Trejo PTA - 04/18/2020 11:30 AM EDT [facility] DAILY TREATMENT NOTE Today's Date [...] desk Notes Visit: 14: 11:33-12:10 Therapeutic Exercise (36924) Intervention Pulleys x 3 mins Parameters PROM [...] x1 Parameters Standing flexion x10 Manual Therapy (33192) Intervention STM along bicep tendon and AC [...] on ROM Emelia Trejo PTA STATE LICENSE, [id number] documented in this encounter* Koko Fonseca, PT - 03/31/2020 10:45 AM EDT [facility] DAILY TREATMENT NOTE Today's Date [...] Visit 10: 10:45 - 11:30 Therapeutic Exercise (61113) Intervention Pulleys x 3 mins Parameters PROM [...] of AROM Koko Fonseca PT State License, [id number] documented in this encounter Discharge Instructions * [...] office to providea new prescription for pick up man at the office and you will be notified when it is ready. Messages left for refills on or Tuesday may not be able to be given until that following Tuesday. No pain medication is refilled or prescribed over the weekend. Please keep this in mind when you start getting low on your medication. WITH THE NEW LAWS IN [place] GOVERNING THE PRESCIBED USE OF OPIODS WE [...] number at [facility] is: [phone]. - If you need to make a physical therapy appointment please call [facility] at: [phone] -If you leave a message after normal [...] on the weekends. If possible go to [facility] ER at [address] in [place]. SHOULDER ARTHROSCOPY POST OP INSTRUCTIONS - DR. [...] regular office hours or go to the [place] ER if after hours if you: -Signs [...] if you do not already have one, [phone]. 1ST POST OP APPT: 1ST PT APPT: documented in this encounter Chief Complaint ER [facility], LEFT LEG PAINLEFT LEG NUMBNESS. REV LABS* Pt presents to this office for L LOWER EXT PAIN * STANDS ALL DAY AT WORK * BEHIND KNEE HURTS MOST 11/24 * EDEMA * CONCERN FOR POSSIBLE BLOOD CLOT * DROVE TO [place] AND SYMPTOMS BEGAN END OF MAY PT [...] by a nurse from employee help at [facility] in which she didn t appreciated much pain relief. She states the nurse mention she likely has tendinitis of the elbows from repetitive use at work. She denies any prior or past issues with her elbows. XR series of the elbows performed today. Additional Source Comments INFORMATION SOURCE (unrecogn ized section and content) DATE CREATED AUTHOR 01/10/2018 [facility] DATE CREATED AUTHOR AUTHOR'S ORGANIZ ATION 01/20/2018 [facility] DATE CREATED AUTHOR AUTHOR'S ORGANIZ ATION 09/16/2019 [facility] DATE CREATED AUTHOR AUTHOR'S ORGANIZ ATION 03/04/2020 [facility] DATE CREATED AUTHOR AUTHOR'S ORGANIZ ATION 06/28/2021 [facility] DATE CREATED AUTHOR AUTHOR'S ORGANIZ ATION 03/31/2022 [facility] DATE CREATED AUTHOR AUTHOR'S ORGANIZ ATION 04/28/2022 [facility] DATE CREATED AUTHOR AUTHOR'S ORGANIZ ATION 05/09/2022 [facility] DATE CREATED AUTHOR AUTHOR'S ORGANIZ ATION 08/18/2024 [facility] DATE CREATED AUTHOR AUTHOR'S ORGANIZ ATION 08/19/2024 [facility] DATE CREATED AUTHOR AUTHOR'S ORGANIZ ATION 08/20/2024 [facility] DATE CREATED AUTHOR AUTHOR'S ORGANIZ ATION 08/28/2024 [facility] DATE CREATED AUTHOR AUTHOR'S ORGANIZ ATION 10/28/2024 [facility] Reason for Visit (unrecogniz ed section and content) Status Reason Specialty Diagnoses / Procedures Referre d By Contact Referred To Contact Closed Radiology Diagnoses Impingement syndrome of right shoulder Procedures MR Shoulder Right Without Contrast Efren Egan DO [address] [place] [address] Reason Comments Pain Status Reason Specialty Diagnoses / Procedures Referred By Contact Referred To Contact Closed Sports Medicine Diagnoses Impingement syndrome of right shoulder Efren Egan DO [address] [place] [address] Colin Hennessy MD [address] [place] [address] Reason Comments Physical Therapy Status Reason Specialty Diagnoses / Procedures Referred By Contact Referred To Contact Authorized Rehabilitation Diagnoses Strain of tendon of right rotator cuff, initial encounter Arthritis of right shoulder region Impingement syndrome of right shoulder Superior glenoid labrum lesion of right shoulder, initial encounter Caroline Candelaria DO [address] [facility] [address] [place] [address] [facility] [address] [facility] [place] [address] Reason Comments Flu like sx Reason Comments [...] Name: Roula Wadsworth Admit Date: MR #: [id number] : 1975 The H&P has been reviewed [...] BICEPS TENODESIS, SUBACROMIAL DECOMPRESSION on 02-06-20 at [facility]. Patient states she started to have [...] Pertinent Negatives: Diagnosis Date Noted Bleeding disorder ([facility]) 02/04/2020 CHF (congestive heart failure) ([facility]) 02/04/2020 Complication of anesthesia 02/04/2020 Coronary artery disease 02/04/2020 Deep vein thrombosis ([facility]) 02/04/2020 Diabetes mellitus, type 2 ([facility]) 02/04/2020 History of blood transfusion 02/04/2020 Hypertension 02/04/2020 Malignant hyperthermia due to anesthesia 02/04/2020 No blood products 02/04/2020 Pulmonary embolism (HCC) 02/04/2020 Rheumatoid arthritis ([facility]) 02/04/2020 Sleep apnea, obstructive 02/04/2020 Past Surgical [...] 11 inches Recent Results (from the past 90054 hours) XR SHOULDER RIGHT 2+ VIEWS (STANDARD) [...] seen about the anterior right shoulder joint. [employer] Workstation ID: [id number] DATA SECTION LABS ORDERED [...] (44 y.o.) Date of Service: 02/06/2020 CSN: [id number] Procedure(s): RIGHT SHOULDER ARTHROSCOPY, ROTATOR CUFF REPAIR, DISTAL CLAVICLE EXCISION, PROXIMAL BICEPS TENODESIS, SUBACROMIAL DECOMPRESSION Pre-Operative Diagnoses: * M75.121, M19.011, M75.21 Post-Operative Diagnoses: Surgeon(s) and Role: * Caroline Candelaria DO - Primary Anesthesiologist: Andrew Rainey MD PREP PERSON: Piotr Smith CRNA Director Of Home Economics: Lucretia Ann RN Physician Derrick Worker Well Service: Aminta Alcantara PA-C Director Of Home Economics Relief: Roxana Gallardo RN Scrub Person Relief: ST Myron Scrub Person Preceptor: ST Deloris Scrub Rod Orientee: ST Sydnee Operative findings: see report Intra and immediate post-operative complications: none Type of anesthesia used: Regional, General Estimated blood loss: 25 mL Estimated urine output: 0 mL Specimen(s): * No specimens in log * Implant(s): Implant Name Type Inv. Item Serial No. Video Tape Editor Lot No. LRB No. Used Action SCREW 7 X 23MM BIOCOMPOSITE TENODESIS - [id number] SCREW 7 X 23MM BIOCOMPOSITE TENODESIS [employer] [id number] Right 1 Implanted ANCHOR 4.75 X 19.1MM SUTURE VENTED BIOCOMP SWIVELOCK C - [id number] Kenvir ANCHOR 4.75 X 19.1MM SUTURE VENTED BIOCOMP SWIVELOCK C [place] IN [id number] Right 1 Implanted ANCHOR 5.5MM SUTURE BIOCOMP CORKSCREW FT W/ SUTURE TAPE - [id number] Kenvir ANCHOR 5.5MM SUTURE BIOCOMP CORKSCREW FT W/ SUTURE TAPE [place] IN [id number] Right 1 Implanted Drain(s): * No LDAs found * Wound(s): Wound 02/06/20 Surgical Wound Shoulder Right (Active) Caroline Candelaria DO 02/06/2020 12:04 PM documented in this encounter Care Teams (unrecognized sec tion and content) Quality Control Assessor Relationship Specialty Start Date End Date Reilly Connell MD [address] [place] [address] PCP - General 10/18/19 Quality Control Assessor Relationship Specialty Start Date End Date Errol Hernandez MD [address] [address] PCP - Geovanni ACO PCP 11/16/23 Reilly Connell MD [address] [address] PCP - General Family Medicine 08/12/24 Quality Control Assessor Relationship Specialty Start Date End Date Errol Hernandez MD [address] [address] PCP - Geovanni ACO PCP 11/16/23 Reilly Connell MD [address] [address] PCP - General Family Medicine 08/12/24 Quality Control Assessor Relationship Specialty Start Date End Date Errol Hernandez MD [address] [address] PCP - Geovanni BERGERONO PCP 11/16/23 Reilly Connell MD [address] [address] PCP - General Family Medicine 08/12/24 Quality Control Assessor Relationship Specialty Start Date End Date Reilly Connell MD [address] [place] [address] PCP - General Family Medicine 10/01/19 Quality Control Assessor Relationship Specialty Start Date End Date Reilly Connell MD [address] [place] [address] PCP - General Family Medicine 10/01/19 Quality Control Assessor Relationship Specialty Start Date End Date Reilly Connell MD [address] [place] [address] PCP - General Family Medicine 10/01/19 FOR [...] BE BASED ON THE PRIMARY CLINICAL RECORDS. [facility] [facility]. provides no warranty or guarantee of the accuracy or completeness of information in this document.
== END | disposition home or self-care (01) ==
LOC: OPBI 12:51
PROVIDERS: PCP Family Medicine; Referring Provider Nurse Practitioner Family; Visit Provider Nurse Practitioner Family
DX: N60.01 Solitary cyst of right breast (principal)
CPT/HCPCS: 76642; 77061; 77065; G0279